=== PATIENT | male | born 1975 ===

== ENCOUNTER 2019-11-08 16:54 | Emergency (ER) | payer OTHER, SELFPAY ==
--- NOTE | 2019-11-08 | ECG_ITS ---
Test Reason : SUBSTANCE ABUSE Blood Pressure : / mmHG Vent. Rate : 100 BPM Atrial Rate : 100 BPM P-R Int : 142 ms QRS Dur : 086 ms QT Int : 322 ms P-R-T Axes : 060 049 024 degrees QTc Int : 415 ms Normal sinus rhythm Normal ECG No previous ECGs available Referred By: Charissa Restrepo Electronically Signed By:ELLA MOE
--- NOTE | 2019-11-08 | CT_ITS ---
EXAMINATION: CT ABDOMEN AND PELVIS WITH CONTRAST CLINICAL INFORMATION: Rectal bleeding COMPARISON: None TECHNIQUE: Multidetector volumetric images were obtained from the superior aspect of the liver through the pubic symphysis following administration 85 mL of Omnipaque 350 intravenous contrast. Sagittal and coronal reformatted images were obtained on the technologist's workstation. Oral contrast: No This CT examination was performed using dose optimization techniques as appropriate, variously including the following: *Automated exposure control *Adjustment of mA and/or kV according to patient size (this includes techniques or standardized protocols for targeted exams where dose is matched to indication/reason for exam; i.e. extremities or head) *Use of iterative reconstruction technique DLP: 589 mGy-cm FINDINGS: LUNG BASES: The visualized lung bases are unremarkable. LIVER, GALLBLADDER, AND BILIARY TREE: The liver is normal in size, shape, and attenuation. No focal hepatic lesion or biliary ductal dilatation is present. The gallbladder is unremarkable with no evidence of radiopaque gallstones, gallbladder wall thickening, or obvious pericholecystic inflammatory changes. PANCREAS: Unremarkable. SPLEEN: Unremarkable. ADRENAL GLANDS: Unremarkable. KIDNEYS AND URETERS: The kidneys are normal in size, shape, and attenuation. No hydronephrosis, hydroureter, or calculi seen. No perinephric stranding. BLADDER: Unremarkable. GASTROINTESTINAL TRACT: There is no acute abnormality. There is no bowel wall thickening /edema. There is no bowel obstruction. There is a moderate to large volume of stool in the colon. The appendix is normal . The small bowel loops are unremarkable. The stomach is normal. There is no hiatal hernia. ABDOMINAL WALL: No significant hernia is appreciated. LYMPH NODES: Normal. VASCULAR: Unremarkable. PELVIC VISCERA: Unremarkable. OSSEOUS STRUCTURES: Unremarkable. IMPRESSION: No acute abnormality CT scan abdomen pelvis.
[2019-11-08 17:10] VITALS: BP 155/76; PULSE 105; RESP 16; TEMP 36.5; O2SAT 99; BMI 77.0
--- NOTE | 2019-11-08 17:27 | ED.PSYCH ---
HPI - Psych General Chief Complaint: Psychiatric Symptoms <CÉSAR Betancur - Last Filed: 11/08/19 20:27> Stated Complaint: crisis <CÉSAR Betancur Last Filed: 11/08/19:> Time Seen by Provider: 11/08/19 17:25 <CÉSAR Betancur Last Filed: 11/08/19 20:27> Source: patient <CÉSAR Betancur Last Filed: 11/08/19:27> Mode of arrival: ambulatory <CÉSAR Betancur Last Filed: 11/08/19:> Limitations: no limitations <CÉSAR Betancur Last Filed: 11/08/19:> History of Present Illness HPI Narrative: 44 y/o male with history of depression, hx SI with attempts in the past (taking pills and cutting self) presents with reports of losing my mind. He has been using signifiant amounts of cocaine for the last 2-3 weeks and has not been taking his depression medications. Also reports chest pain and anxiety. <CÉSAR Betancur - Last Filed: 11/08/19:27> MD complaint: suicidal ideation, homicidal ideation, anxiety and substance abuse <CÉSAR Betancur - Last Filed: 11/08/19:27> Onset (ago): month(s) (1) <CÉSAR Betancur - Last Filed: 11/08/19 20:27> Duration: constant <CÉSAR Betancur Last Filed: 11/08/19 20:27> History of same: Yes <CÉSAR Betancur Last Filed: 11/08/19 20:27> Relieving factors: none <CÉSAR Betancur Last Filed: 11/08/19 20:27> Exacerbating factors: drug use <CÉSAR Betancur Last Filed: 11/08/19:27> Context: recent drug abuse and not taking psychiatric medications <CÉSAR Betancur Last Filed: 11/08/19 20:27> Associated psychiatric symptoms: depression, suicidal ideation, homicidal ideation and racing thoughts <CÉSAR Betancur Last Filed: 11/08/19 20:27> Associated symptoms: denies other symptoms and other (chest pain ) <CÉSAR Betancur - Last Filed: 11/08/19 20:27> Treatments prior to arrival: none <CÉSAR Betancur - Last Filed: 11/08/19 20:27> If self harm: admits thoughts of self harm <CÉSAR Betancur - Last Filed: 11/08/19 20:27> Related Data Allergies/Adverse Reactions: Allergies Allergy/AdvReac Type Severity Reaction Status Date / Time trazodone [TRAZODONE] Allergy Severe SHORTNESS Unverified 10/25/19 19:21 OF BREATH, anaphylaxis trazodone Allergy Unknown anaphylaxis Uncoded 01/12/19 00:00 <CÉSAR Betancur - Last Filed: 11/08/19 20:27> Review of Systems Constitutional: Constitutional: Denies chills and Denies fever(s) <CÉSAR Betancur - Last Filed: 11/08/19 20:27> Cardiovascular: Cardiovascular: Reports chest pain, Reports chest pain at rest, Reports chest pain with activity, Reports rapid heart rate and Reports dyspnea <CÉSAR Betancur - Last Filed: 11/08/19 20:27> Respiratory: Respiratory: Reports dyspnea <CÉSAR Betancur - Last Filed: 11/08/19 20:27> Gastrointestinal: Gastrointestinal: Denies nausea and Denies vomiting <CÉSAR Betancur - Last Filed: 11/08/19 20:27> Psychiatric: Psychiatric: Reports depression, Reports difficulty concentrating, Reports hopelessness, Reports irritability, Reports mood swings, Reports panic attacks, Reports homicidal ideation and Reports suicidal ideation <CÉSAR Betancur - Last Filed: 11/08/19 20:27> PMFSH Past Medical History Medical History: Medical History Bipolar 1 disorder Depression <CÉSAR Betancur - Last Filed: 11/08/19 20:27> Social History Social History: Social History Smoked in Last 30 Days: No Use of substances other than those prescribed or required for medical reasons: Yes Substance Use Type: Crack/Cocaine Substance Use Frequency: Daily Last Used Substance: Unknown Any prior treatment program specific to substance use: No Advance Directives: No Advance Directives Information Provided: No <CÉSAR Betancur - Last Filed: 11/08/19 20:27> Physical Exam Vital Signs and I&O and Narrative: Vital Signs and I&O: Vital Signs Temp 97.3 F 11/09/19 00:06 Pulse 98 11/09/19 00:06 Resp 18 11/09/19 00:06 BP 139/85 11/09/19 00:06 Pulse Ox 99 11/09/19 00:06 Intake & Output 11/08/19 11/08/19 11/09/19 06:59 18:59 06:59 Weight 210 kg Body Mass Index 77.0 <CÉSAR Betancur - Last Filed: 11/08/19 20:27> Vital Signs and I&O: Vital Signs Temp 97.3 F 11/09/19 00:06 Pulse 98 11/09/19 00:06 Resp 18 11/09/19 00:06 BP 139/85 11/09/19 00:06 Pulse Ox 99 11/09/19 00:06 Intake & Output 11/08/19 11/08/19 11/09/19 06:59 18:59 06:59 Weight 210 kg Body Mass Index 77.0 <Gloria Dubon NP - Last Filed: 11/09/19 01:48> Vital Signs and I&O: Vital Signs Temp 97.3 F 11/09/19 00:06 Pulse 98 11/09/19 00:06 Resp 18 11/09/19 00:06 BP 139/85 11/09/19 00:06 Pulse Ox 99 11/09/19 00:06 Intake & Output 11/08/19 11/08/19 11/09/19 06:59 18:59 06:59 Weight 210 kg Body Mass Index 77.0 <Dallas Huitron MD - Last Filed: 11/09/19 06:58> Const: General: cooperative, healthy appearing, comfortable and no acute distress <CÉSAR Betancur - Last Filed: 11/08/19 20:27> General: cooperative, healthy appearing, comfortable and no acute distress <Gloria Dubon NP - Last Filed: 11/09/19 01:48> Orientation/consciousness: oriented to person, oriented to place and oriented to time <CÉSAR Betancur - Last Filed: 11/08/19 20:27> Orientation/consciousness: oriented to person, oriented to place and oriented to time <Gloria Dubon NP - Last Filed: 11/09/19 01:48> Limitations: no limitations <CÉSAR Betancur - Last Filed: 11/08/19 20:27> Limitations: no limitations <Gloria Dubon NP - Last Filed: 11/09/19 01:48> HENMT: Head: Yes normal to inspection <CÉSAR Betancur - Last Filed: 11/08/19 20:27> Head: Yes normal to inspection <Gloria Dubon NP - Last Filed: 11/09/19 01:48> Ears: hearing grossly normal bilaterally <CÉSAR Betancur - Last Filed: 11/08/19 20:27> Ears: hearing grossly normal bilaterally <Gloria Dubon NP - Last Filed: 11/09/19 01:48> General nose exam: Normal external nose present <CÉSAR Betancur - Last Filed: 11/08/19 20:27> General nose exam: Normal external nose present <Gloria Dubon NP - Last Filed: 11/09/19 01:48> Face and sinus: Yes normal facial exam <CÉSAR Betancur - Last Filed: 11/08/19 20:27> Face and sinus: Yes normal facial exam <Gloria Dubon NP - Last Filed: 11/09/19 01:48> Eyes: General: appearance normal, both eyes and all related structures <CÉSAR Betancur - Last Filed: 11/08/19 20:27> General: appearance normal, both eyes and all related structures <Gloria Dubon NP - Last Filed: 11/09/19 01:48> Chest: Chest palpation & inspection: normal inspection of the chest and normal palpation of entire chest wall <CÉSAR Betancur - Last Filed: 11/08/19 20:27> Chest palpation & inspection: normal inspection of the chest and normal palpation of entire chest wall <Gloria Dubon NP - Last Filed: 11/09/19 01:48> Resp: Effort & Inspection: normal respiratory effort and able to speak in complete sentences <CÉSAR Betancur - Last Filed: 11/08/19 20:27> Effort & Inspection: normal respiratory effort and able to speak in complete sentences <Gloria Dubon HAND TURNER - Last Filed: 11/09/19 01:48> Auscultation: clear to auscultation bilaterally <Charissa Restrepo PA - Last Filed: 11/08/19 20:27> Auscultation: clear to auscultation bilaterally <Gloria Dubon HAND TURNER - Last Filed: 11/09/19 01:48> Cardio: Rate: tachycardic <Charissa Restrepo PA - Last Filed: 11/08/19 20:27> Rate: tachycardic <Gloria Dubon HAND TURNER - Last Filed: 11/09/19 01:48> Rhythm: regular rhythm <CÉSAR Betancur - Last Filed: 11/08/19 20:27> Rhythm: regular rhythm <Gloria Dubon HAND TURNER - Last Filed: 11/09/19 01:48> Heart sounds: S1 normal heart sound present and S2 normal heart sound present <CÉSAR Betancur - Last Filed: 11/08/19 20:27> Heart sounds: S1 normal heart sound present and S2 normal heart sound present <Gloria Dubon HAND TURNER - Last Filed: 11/09/19 01:48> GI: Inspection: Yes normal to inspection <Charissa Restrepo PA - Last Filed: 11/08/19 20:27> Inspection: Yes normal to inspection <Gloria Dubon HAND TURNER - Last Filed: 11/09/19 01:48> Palpation (GI): Soft to palpation <CÉSAR Betancur - Last Filed: 11/08/19 20:27> Palpation (GI): Soft to palpation <Gloria Dubon NP - Last Filed: 11/09/19 01:48> Auscultation: normal bowel sounds <CÉSAR Betancur - Last Filed: 11/08/19 20:27> Auscultation: normal bowel sounds <Gloria Dubon HAND TURNER - Last Filed: 11/09/19 01:48> Neuro: General: oriented to person, oriented to place and oriented to time <CSÉAR Betancur - Last Filed: 11/08/19 20:27> General: oriented to person, oriented to place and oriented to time <Gloria Dubon NP - Last Filed: 11/09/19 01:48> Psych: Mental Status: mental status grossly normal <CÉSAR Betancur - Last Filed: 11/08/19 20:27> Mental Status: mental status grossly normal <Gloria Dubon NP - Last Filed: 11/09/19 01:48> Speech and movement: Normal speech and movement present <CÉSAR Betancur - Last Filed: 11/08/19 20:27> Speech and movement: Normal speech and movement present <Gloria Dubon NP - Last Filed: 11/09/19 01:48> Affect: normal affect <CÉSAR Betancur - Last Filed: 11/08/19 20:27> Affect: normal affect <Gloria Dubon NP - Last Filed: 11/09/19 01:48> Attitude: cooperative <CÉSAR Betancur - Last Filed: 11/08/19 20:27> Attitude: cooperative <Gloria Dubon NP - Last Filed: 11/09/19 01:48> Thought content: Suicidality present, Homicidality present and Depressive thoughts present <CÉSAR Betancur - Last Filed: 11/08/19 20:27> Thought content: Suicidality present, Homicidality present and Depressive thoughts present <Gloria Dubon NP - Last Filed: 11/09/19 01:48> Insight: Fair insight present (Psych) <CÉSAR Betancur - Last Filed: 11/08/19 20:27> Insight: Fair insight present (Psych) <Gloria Dubon NP - Last Filed: 11/09/19 01:48> Judgement: Limited judgement present (Psych) <CÉSAR Betancur - Last Filed: 11/08/19 20:27> Judgement: Limited judgement present (Psych) <Gloria Dubon NP - Last Filed: 11/09/19 01:48> Course Course Hospital Course: history of bipolar, depression, substance abuse presenting with SI/HI and excessive cocaine use. Admits to chest pain now. Will get tropoinin and EKG to r/o ischemia. <CÉSAR Betancur - Last Filed: 11/08/19 20:27> Reevaluation(s) Reevaluation #1: patient given 1 m gativan for anxiety. chest pain improving. Lab work revealed anemia with H/H 8.2/26.8 from a prior from September 2018. Upon questioning patient reports BRBPR daily for the last few years. He has never had a colonoscopy and has cancelled appointments for them x3 due to drug issues. He reports history of hemorrhoids and is refusing rectal exam at this time. He denies black or dark stools. Given this issue has been ongoing chronically and he is not symptomatic from it, we will plan on repeating H/H in the AM and monitoring for active bleeding while here. <CÉSAR Betancur - Last Filed: 11/08/19 20:27> Patient was noted to have blood mixed in with his stools, this HAND TURNER looked at the stools in the toilet after BM. Stools were unable to be guaiac because Of water contamination, patient politely deferred rectal exam. we will order CT scan of the abdomen to rule out colitis, GI bleed. <Gloria Dubon NP - Last Filed: 11/09/19 01:48> Time: 23:55 <Gloria Dubon NP - Last Filed: 11/09/19 01:48> Reevaluation #2: CT scan is negative for acute findings, vital signs are hemodynamically stable, heart rate 97. we will continue To monitor H&H, next draw at 6:00 a.m.. <Gloria Dubon NP - Last Filed: 11/09/19 01:48> Reevaluation #3: Patient has been signed out to me pending placement. The patient has been placed at [facility]. He will followup in the outpatient setting with GI for his rectal bleeding. <Dallas Huitron MD - Last Filed: 11/09/19 06:58> Time: 07:00 <Dallas Huitron MD - Last Filed: 11/09/19 06:58> MDM - Psych Differential Diagnosis Differential diagnosis: Likely acute psychosis, suicidal ideation, bipolar disorder, depression, drug-induced psychotic disorder and substance abuse <CÉSAR Betancur - Last Filed: 11/08/19 20:27> Restraints Face to Face Assessment: Face to Face Assessment: Current Situation: After assessment of the patient, a review of the pertinent medical record and a discussion with nursing staff, I feel the patient requires a restrain intervention. Reaction To: [] Medical Condition: [] Behavioral State: [] Continued Need: [] <CÉSAR Betancur - Last Filed: 11/08/19 20:27> Lab Data Result diagrams: : 11/08/19 22:21 11/08/19 19:25 <CÉSAR Betancur - Last Filed: 11/08/19 20:27> Labs: Lab Results 11/08/19 11/08/19 11/08/19 Range/Units 19:25 19:25 19:26 WBC 7.7 (4.8-10.8) X10*3/uL RBC 3.86 L (4.60-5.80) X10*6/uL Hgb 8.2 L (14.0-18.0) g/dl Hct 26.8 L (42-52) % MCV 69.4 L (80-98) fL MCH 21.2 L (27.0-33.0) pg MCHC 30.6 L (31.0-36.0) g/dl RDW 15.9 (11.0-16.0) % Plt Count 496 H (160-400) X10*3/uL MPV 8.2 L (9.4-12.4) fL Immature Gran % (Auto) 0.4 (0.0-0.4) % Neut % (Auto) 48.6 (45-73) % Lymph % (Auto) 34.2 (20-40) % Graves % (Auto) 9.3 (2-11) % Eos % (Auto) 6.6 H (0-4) % Baso % (Auto) 0.9 (0-2) % Neut # (Auto) 3.7 (2.0-8.3) X10*3/uL Lymph # (Auto) 2.6 (1.2-4.9) X10*3/uL Graves # (Auto) 0.7 (0.1-1.2) X10*3/uL Eos # (Auto) 0.5 H (0.0-0.4) X10*3/uL Baso # (Auto) 0.1 (0.0-0.2) X10*3/uL Abs Immat Gran (auto) 0.03 (0.00-0.03) X10*3/uL Absolute Nucleated RBC 0.000 (0.0-0.012) X10*3/uL Nucleated RBC % (auto) 0.0 (0.0-0.2) /100WBC Sodium 141 (135-145) mmol/L Potassium 4.7 (3.3-5.1) mmol/l Chloride 105 (96-108) mmol/L Carbon Dioxide 30 H (22-29) mmol/L Anion Gap 11 L (12-20) BUN 19 H (9-16) mg/dL Creatinine 1.19 (0.5-1.4) mg/dL Estim Creat Clear Calc 138.2 Estimated GFR > 60 Random Glucose 104 (60-115) mg/dL Calcium 9.3 (8.4-10.2) mg/dL Total Bilirubin 0.2 (0.0-1.0) mg/dL AST 26 (5-37) U/L ALT 37 (0-40) U/L Alkaline Phosphatase 108 (39-117) U/L Troponin I High Sens (<3.5-35.0) ng/L Total Protein 7.3 (6.5-8.0) g/dL Albumin 4.3 (3.5-5.0) g/dL Urine Opiates Screen (Not Detect) Ur Barbiturates Screen (Not Detect) Ur Phencyclidine Scrn (Not Detect) Ur Amphetamines Screen (Not Detect) U Benzodiazepines Scrn (Not Detect) Urine Cocaine Screen (Not Detect) U Marijuana (THC) Screen (Not Detect) Ethyl Alcohol < 10 mg/dL 11/08/19 11/08/19 11/08/19 Range/Units 19:26 19:26 22:21 WBC (4.8-10.8) X10*3/uL RBC (4.60-5.80) X10*6/uL Hgb 8.0 L (14.0-18.0) g/dl Hct 25.9 L (42-52) % MCV (80-98) fL MCH (27.0-33.0) pg MCHC (31.0-36.0) g/dl RDW (11.0-16.0) % Plt Count (160-400) X10*3/uL MPV (9.4-12.4) fL Immature Gran % (Auto) (0.0-0.4) % Neut % (Auto) (45-73) % Lymph % (Auto) (20-40) % Graves % (Auto) (2-11) % Eos % (Auto) (0-4) % Baso % (Auto) (0-2) % Neut # (Auto) (2.0-8.3) X10*3/uL Lymph # (Auto) (1.2-4.9) X10*3/uL Graves # (Auto) (0.1-1.2) X10*3/uL Eos # (Auto) (0.0-0.4) X10*3/uL Baso # (Auto) (0.0-0.2) X10*3/uL Abs Immat Gran (auto) (0.00-0.03) X10*3/uL Absolute Nucleated RBC (0.0-0.012) X10*3/uL Nucleated RBC % (auto) (0.0-0.2) /100WBC Sodium (135-145) mmol/L Potassium (3.3-5.1) mmol/l Chloride (96-108) mmol/L Carbon Dioxide (22-29) mmol/L Anion Gap (12-20) BUN (9-16) mg/dL Creatinine (0.5-1.4) mg/dL Estim Creat Clear Calc Estimated GFR Random Glucose (60-115) mg/dL Calcium (8.4-10.2) mg/dL Total Bilirubin (0.0-1.0) mg/dL AST (5-37) U/L ALT (0-40) U/L Alkaline Phosphatase (39-117) U/L Troponin I High Sens < 3.5 (<3.5-35.0) ng/L Total Protein (6.5-8.0) g/dL Albumin (3.5-5.0) g/dL Urine Opiates Screen Not Detected (Not Detect) Ur Barbiturates Screen Not Detected (Not Detect) Ur Phencyclidine Scrn Not Detected (Not Detect) Ur Amphetamines Screen Not Detected (Not Detect) U Benzodiazepines Scrn Not Detected (Not Detect) Urine Cocaine Screen POSITIVE H (Not Detect) U Marijuana (THC) Screen POSITIVE H (Not Detect) Ethyl Alcohol mg/dL <CÉSAR Betancur - Last Filed: 11/08/19 20:27> Lab Results 11/08/19 11/08/19 11/08/19 Range/Units 19:25 19:25 19:26 WBC 7.7 (4.8-10.8) X10*3/uL RBC 3.86 L (4.60-5.80) X10*6/uL Hgb 8.2 L (14.0-18.0) g/dl Hct 26.8 L (42-52) % MCV 69.4 L (80-98) fL MCH 21.2 L (27.0-33.0) pg MCHC 30.6 L (31.0-36.0) g/dl RDW 15.9 (11.0-16.0) % Plt Count 496 H (160-400) X10*3/uL MPV 8.2 L (9.4-12.4) fL Immature Gran % (Auto) 0.4 (0.0-0.4) % Neut % (Auto) 48.6 (45-73) % Lymph % (Auto) 34.2 (20-40) % Graves % (Auto) 9.3 (2-11) % Eos % (Auto) 6.6 H (0-4) % Baso % (Auto) 0.9 (0-2) % Neut # (Auto) 3.7 (2.0-8.3) X10*3/uL Lymph # (Auto) 2.6 (1.2-4.9) X10*3/uL Graves # (Auto) 0.7 (0.1-1.2) X10*3/uL Eos # (Auto) 0.5 H (0.0-0.4) X10*3/uL Baso # (Auto) 0.1 (0.0-0.2) X10*3/uL Abs Immat Gran (auto) 0.03 (0.00-0.03) X10*3/uL Absolute Nucleated RBC 0.000 (0.0-0.012) X10*3/uL Nucleated RBC % (auto) 0.0 (0.0-0.2) /100WBC Sodium 141 (135-145) mmol/L Potassium 4.7 (3.3-5.1) mmol/l Chloride 105 (96-108) mmol/L Carbon Dioxide 30 H (22-29) mmol/L Anion Gap 11 L (12-20) BUN 19 H (9-16) mg/dL Creatinine 1.19 (0.5-1.4) mg/dL Estim Creat Clear Calc 138.2 Estimated GFR > 60 Random Glucose 104 (60-115) mg/dL Calcium 9.3 (8.4-10.2) mg/dL Total Bilirubin 0.2 (0.0-1.0) mg/dL AST 26 (5-37) U/L ALT 37 (0-40) U/L Alkaline Phosphatase 108 (39-117) U/L Troponin I High Sens (<3.5-35.0) ng/L Total Protein 7.3 (6.5-8.0) g/dL Albumin 4.3 (3.5-5.0) g/dL Urine Opiates Screen (Not Detect) Ur Barbiturates Screen (Not Detect) Ur Phencyclidine Scrn (Not Detect) Ur Amphetamines Screen (Not Detect) U Benzodiazepines Scrn (Not Detect) Urine Cocaine Screen (Not Detect) U Marijuana (THC) Screen (Not Detect) Ethyl Alcohol < 10 mg/dL 11/08/19 11/08/19 11/08/19 Range/Units 19:26 19:26 22:21 WBC (4.8-10.8) X10*3/uL RBC (4.60-5.80) X10*6/uL Hgb 8.0 L (14.0-18.0) g/dl Hct 25.9 L (42-52) % MCV (80-98) fL MCH (27.0-33.0) pg MCHC (31.0-36.0) g/dl RDW (11.0-16.0) % Plt Count (160-400) X10*3/uL MPV (9.4-12.4) fL Immature Gran % (Auto) (0.0-0.4) % Neut % (Auto) (45-73) % Lymph % (Auto) (20-40) % Graves % (Auto) (2-11) % Eos % (Auto) (0-4) % Baso % (Auto) (0-2) % Neut # (Auto) (2.0-8.3) X10*3/uL Lymph # (Auto) (1.2-4.9) X10*3/uL Graves # (Auto) (0.1-1.2) X10*3/uL Eos # (Auto) (0.0-0.4) X10*3/uL Baso # (Auto) (0.0-0.2) X10*3/uL Abs Immat Gran (auto) (0.00-0.03) X10*3/uL Absolute Nucleated RBC (0.0-0.012) X10*3/uL Nucleated RBC % (auto) (0.0-0.2) /100WBC Sodium (135-145) mmol/L Potassium (3.3-5.1) mmol/l Chloride (96-108) mmol/L Carbon Dioxide (22-29) mmol/L Anion Gap (12-20) BUN (9-16) mg/dL Creatinine (0.5-1.4) mg/dL Estim Creat Clear Calc Estimated GFR Random Glucose (60-115) mg/dL Calcium (8.4-10.2) mg/dL Total Bilirubin (0.0-1.0) mg/dL AST (5-37) U/L ALT (0-40) U/L Alkaline Phosphatase (39-117) U/L Troponin I High Sens < 3.5 (<3.5-35.0) ng/L Total Protein (6.5-8.0) g/dL Albumin (3.5-5.0) g/dL Urine Opiates Screen Not Detected (Not Detect) Ur Barbiturates Screen Not Detected (Not Detect) Ur Phencyclidine Scrn Not Detected (Not Detect) Ur Amphetamines Screen Not Detected (Not Detect) U Benzodiazepines Scrn Not Detected (Not Detect) Urine Cocaine Screen POSITIVE H (Not Detect) U Marijuana (THC) Screen POSITIVE H (Not Detect) Ethyl Alcohol mg/dL <Gloria Dubon NP - Last Filed: 11/09/19 01:48> Lab Results 11/08/19 11/08/19 11/08/19 Range/Units 19:25 19:25 19:26 WBC 7.7 (4.8-10.8) X10*3/uL RBC 3.86 L (4.60-5.80) X10*6/uL Hgb 8.2 L (14.0-18.0) g/dl Hct 26.8 L (42-52) % MCV 69.4 L (80-98) fL MCH 21.2 L (27.0-33.0) pg MCHC 30.6 L (31.0-36.0) g/dl RDW 15.9 (11.0-16.0) % Plt Count 496 H (160-400) X10*3/uL MPV 8.2 L (9.4-12.4) fL Immature Gran % (Auto) 0.4 (0.0-0.4) % Neut % (Auto) 48.6 (45-73) % Lymph % (Auto) 34.2 (20-40) % Graves % (Auto) 9.3 (2-11) % Eos % (Auto) 6.6 H (0-4) % Baso % (Auto) 0.9 (0-2) % Neut # (Auto) 3.7 (2.0-8.3) X10*3/uL Lymph # (Auto) 2.6 (1.2-4.9) X10*3/uL Graves # (Auto) 0.7 (0.1-1.2) X10*3/uL Eos # (Auto) 0.5 H (0.0-0.4) X10*3/uL Baso # (Auto) 0.1 (0.0-0.2) X10*3/uL Abs Immat Gran (auto) 0.03 (0.00-0.03) X10*3/uL Absolute Nucleated RBC 0.000 (0.0-0.012) X10*3/uL Nucleated RBC % (auto) 0.0 (0.0-0.2) /100WBC Sodium 141 (135-145) mmol/L Potassium 4.7 (3.3-5.1) mmol/l Chloride 105 (96-108) mmol/L Carbon Dioxide 30 H (22-29) mmol/L Anion Gap 11 L (12-20) BUN 19 H (9-16) mg/dL Creatinine 1.19 (0.5-1.4) mg/dL Estim Creat Clear Calc 138.2 Estimated GFR > 60 Random Glucose 104 (60-115) mg/dL Calcium 9.3 (8.4-10.2) mg/dL Total Bilirubin 0.2 (0.0-1.0) mg/dL AST 26 (5-37) U/L ALT 37 (0-40) U/L Alkaline Phosphatase 108 (39-117) U/L Troponin I High Sens (<3.5-35.0) ng/L Total Protein 7.3 (6.5-8.0) g/dL Albumin 4.3 (3.5-5.0) g/dL Urine Opiates Screen (Not Detect) Ur Barbiturates Screen (Not Detect) Ur Phencyclidine Scrn (Not Detect) Ur Amphetamines Screen (Not Detect) U Benzodiazepines Scrn (Not Detect) Urine Cocaine Screen (Not Detect) U Marijuana (THC) Screen (Not Detect) Ethyl Alcohol < 10 mg/dL 11/08/19 11/08/19 11/08/19 Range/Units 19:26 19:26 22:21 WBC (4.8-10.8) X10*3/uL RBC (4.60-5.80) X10*6/uL Hgb 8.0 L (14.0-18.0) g/dl Hct 25.9 L (42-52) % MCV (80-98) fL MCH (27.0-33.0) pg MCHC (31.0-36.0) g/dl RDW (11.0-16.0) % Plt Count (160-400) X10*3/uL MPV (9.4-12.4) fL Immature Gran % (Auto) (0.0-0.4) % Neut % (Auto) (45-73) % Lymph % (Auto) (20-40) % Graves % (Auto) (2-11) % Eos % (Auto) (0-4) % Baso % (Auto) (0-2) % Neut # (Auto) (2.0-8.3) X10*3/uL Lymph # (Auto) (1.2-4.9) X10*3/uL Graves # (Auto) (0.1-1.2) X10*3/uL Eos # (Auto) (0.0-0.4) X10*3/uL Baso # (Auto) (0.0-0.2) X10*3/uL Abs Immat Gran (auto) (0.00-0.03) X10*3/uL Absolute Nucleated RBC (0.0-0.012) X10*3/uL Nucleated RBC % (auto) (0.0-0.2) /100WBC Sodium (135-145) mmol/L Potassium (3.3-5.1) mmol/l Chloride (96-108) mmol/L Carbon Dioxide (22-29) mmol/L Anion Gap (12-20) BUN (9-16) mg/dL Creatinine (0.5-1.4) mg/dL Estim Creat Clear Calc Estimated GFR Random Glucose (60-115) mg/dL Calcium (8.4-10.2) mg/dL Total Bilirubin (0.0-1.0) mg/dL AST (5-37) U/L ALT (0-40) U/L Alkaline Phosphatase (39-117) U/L Troponin I High Sens < 3.5 (<3.5-35.0) ng/L Total Protein (6.5-8.0) g/dL Albumin (3.5-5.0) g/dL Urine Opiates Screen Not Detected (Not Detect) Ur Barbiturates Screen Not Detected (Not Detect) Ur Phencyclidine Scrn Not Detected (Not Detect) Ur Amphetamines Screen Not Detected (Not Detect) U Benzodiazepines Scrn Not Detected (Not Detect) Urine Cocaine Screen POSITIVE H (Not Detect) U Marijuana (THC) Screen POSITIVE H (Not Detect) Ethyl Alcohol mg/dL <Dallas Huitron MD - Last Filed: 11/09/19 06:58> ECG Data Attestation: I personally reviewed and interpreted this ECG as follows: <CÉSAR Betancur - Last Filed: 11/08/19 20:27> ECG interpretation date: 11/08/19 <CÉSAR Betancur - Last Filed: 11/08/19 20:> ECG interpretation time: 18:42 <CÉSAR Betancur - Last Filed: 11/08/19 20:27> Interpretation: normal sinus rhythm, HR 100, normal QTc <CÉSAR Betancur - Last Filed: 11/08/19 20:27> Discharge Plan Discharge Clinical Impression: Suicidal ideation Anemia Qualifiers: Anemia type: unspecified type Qualified Code(s): D64.9 - Anemia, unspecified Bipolar disorder Qualifiers: Active/Remission status: currently active Current bipolar episode type: depressed Current episode severity: unspecified Qualified Code(s): F31.30 - Bipolar disorder, current episode depressed, mild or moderate severity, unspecified Depression Qualifiers: Depression Type: major depressive disorder Major depression recurrence: recurrent Active/Remission status: currently active Major depression episode severity: moderate Qualified Code(s): F33.1 - Major depressive disorder, recurrent, moderate <CÉSAR Betancur - Last Filed: 11/08/19 20:27> Patient Disposition: Xfer Psychiatric Hosp <CÉSAR Betancur - Last Filed: 11/08/19 20:27> Instructions: Gastrointestinal Bleeding (ED) <CÉSAR Betancur - Last Filed: 11/08/19 20:27> Additional Instructions: Your blood work showed that you were anemic, likely due to you rectal bleeding. Please followup with the GI doctor provided within the next 1-2 weeks for reevaluation. Please go directly to [facility]. Followup with your primary care doctor as needed. If you develop any new or concerning symptoms please return to the emergency department. <CÉSAR Betancur - Last Filed: 11/08/19 20:27>
--- NOTE | 2019-11-08 18:24 | PC.NURSE ---
Patient transferred from main ED. Per report patient here for suicidal ideation with plan to overdose. EKG unremarkable, Troponin negative. BHN consult ordered. N faxed/called/confirmed receipt of referral, clinician eta by midnight.
[2019-11-08 19:33] LABS: MANUAL DIFF FLAG NO
[2019-11-08 19:36] LABS: Basophils Absolute Auto 0.1 X10*3/uL (0.0-0.2); Basophils Percent Auto 0.9 % (0-2); Eosinophils Absolute Auto 0.5 X10*3/uL (0.0-0.4); Eosinophils Percent Auto 6.6 % (0-4); Hematocrit 26.8 % (42-52); Hemoglobin 8.2 g/dl (14.0-18.0); Imm Gran Abs Auto 0.03 X10*3/uL (0.00-0.03); Imm Gran Pct Auto 0.4 % (0.0-0.4); Lymphocytes Absolute Auto 2.6 X10*3/uL (1.2-4.9); Lymphocytes Percent Auto 34.2 % (20-40); Mean Corpuscular HGB Conc 30.6 g/dl (31.0-36.0); Mean Corpuscular Hemoglobin 21.2 pg (27.0-33.0); Mean Corpuscular Volume 69.4 fL (80-98); Mean Platelet Volume 8.2 fL (9.4-12.4); Monocytes Absolute Auto 0.7 X10*3/uL (0.1-1.2); Monocytes Percent Auto 9.3 % (2-11); Neutrophils Absolute Auto 3.7 X10*3/uL (2.0-8.3); Neutrophils Percent Auto 48.6 % (45-73); Platelet Count 496 X10*3/uL (160-400); Red Blood Count 3.86 X10*6/uL (4.60-5.80); Red Cell Distribution Width 15.9 % (11.0-16.0); White Blood Count 7.7 X10*3/uL (4.8-10.8)
[2019-11-08] MEDS: LORazepam 1 MG TABLET PO (20:04)
--- NOTE | 2019-11-08 20:05 | PC.NURSE ---
PT REQUESTING ASSISTANCE WITH ANXIETY. CÉSAR FELIPE NOTIFIED, PT MEDIACTED PER EMR. 1:1 AT BEDSIDE, LABS DRAWN.
[2019-11-08 20:12] LABS: Ethanol < 10 mg/dL
[2019-11-08 20:16] LABS: Alanine Aminotransferase 37 U/L (0-40); Albumin Level 4.3 g/dL (3.5-5.0); Alkaline Phosphatase 108 U/L (39-117); Anion Gap 11 (12-20); Aspartate Amino Transferase 26 U/L (5-37); Bilirubin Total 0.2 mg/dL (0.0-1.0); Blood Urea Nitrogen 19 mg/dL (9-16); Calcium 9.3 mg/dL (8.4-10.2); Carbon Dioxide 30 mmol/L (22-29); Chloride 105 mmol/L (96-108); Creatinine Clr Calc Pharmacy 138.2; Estimated Glomerular Filt Rate > 60; Glucose Random 104 mg/dL (60-115); Potassium 4.7 mmol/l (3.3-5.1); Sodium 141 mmol/L (135-145); Total Protein 7.3 g/dL (6.5-8.0)
[2019-11-08 20:17] LABS: Amphetamine Screen Urine Not Detected (Not Detect); Barbiturates, Urine Not Detected (Not Detect); Benzodiazepines Screen Urine Not Detected (Not Detect); Cannabinoid Screen Urine POSITIVE (Not Detect); Cocaine Screen Urine POSITIVE (Not Detect); Opiate Screen Urine Not Detected (Not Detect); Phencyclidine Screen Urine Not Detected (Not Detect)
[2019-11-08 20:19] LABS: Troponin-I High Sensitivity < 3.5 ng/L (<3.5-35.0)
[2019-11-08 21:30] VITALS: BP 127/73; PULSE 97; RESP 18; TEMP 36.8; O2SAT 98
[2019-11-08 22:27] LABS: Hematocrit 25.9 % (42-52)
--- NOTE | 2019-11-08 22:58 | PC.NURSE ---
Patient out of ED-POD for CT abdomen with contrast procedure. Left with security and staff in wheel chair.
[2019-11-08] MEDS: iohexoL 350 MG/ML 100 ML INFUS..BTL IV (23:09)
[2019-11-09 00:06] VITALS: BP 139/85; PULSE 98; RESP 18; TEMP 36.3; O2SAT 99
--- NOTE | 2019-11-09 00:47 | PC.NURSE ---
BHN with patient now for assessment. Patient seems engaged. Will continue to monitor
--- NOTE | 2019-11-09 02:51 | PC.NURSE ---
TRINAN completed assessment. Disposition updated. Patient will be discharged in the morning to [facility] in [place] for detox. Patient and provider are in agreement to the plan. Patient currently in bed appears sleeping. No distress observed/reported. Will continue to monitor
--- NOTE | 2019-11-09 04:41 | PC.NURSE ---
Patient in bed appears sleeping. No distress observed/reported. Respiration +/=/non-labored bilaterally. Safety check maintained. Will continue to monitor.
--- NOTE | 2019-11-09 06:15 | PC.NURSE ---
Patient in bed appears sleeping. No distress observed/reported. Respiration +/=/non-labored bilaterally. Will continue to monitor.
[2019-11-09 07:16] VITALS: BP 131/69; PULSE 89; RESP 17; TEMP 36.8; O2SAT 99
--- NOTE | 2019-11-09 07:52 | PC.NURSE ---
After discussing [facility], pt states he feels comfortable being discharged there. Dr. Granados aware and ok with plan. Pt is calm, cooperative and now denying active si/hi.
== END 2019-11-09 07:54 ==
PROVIDERS: Physician Assistant; Emergency Provider Emergency Medicine; PCP Nurse Practitioner Family
DX: F33.1 Major depressive disorder, recurrent, moderate (principal); R45.851 Suicidal ideations; D64.9 Anemia, unspecified; F14.90 Cocaine use, unspecified, uncomplicated; Z91.5 Personal history of self-harm; Z91.14 Patient's other noncompliance with medication regimen
CPT/HCPCS: 36415; 74177; 80053; 80307; 80320; 84484; 85014; 85018; 85025; 93005; 93010; 96374; 99284; 99285

== ENCOUNTER 2019-11-13 16:45 | Inpatient (IN) | payer OTHER, SELFPAY ==
[2019-11-13 16:59] VITALS: BP 133/60; PULSE 105; RESP 18; TEMP 37.7; O2SAT 100; BMI 34.9
[2019-11-13 17:38] VITALS: BP 133/83; PULSE 102; RESP 18; TEMP 36.4; O2SAT 99
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
[2019-11-13 18:26] LABS: Amphetamine Screen Urine Not Detected (Not Detect); Barbiturates, Urine Not Detected (Not Detect); Benzodiazepines Screen Urine POSITIVE (Not Detect); Cannabinoid Screen Urine Not Detected (Not Detect); Cocaine Screen Urine Not Detected (Not Detect); Opiate Screen Urine Not Detected (Not Detect); Phencyclidine Screen Urine Not Detected (Not Detect)
--- NOTE | 2019-11-13 19:20 | PC.NURSE ---
Patient in room lying in his bed. Provider just saw the patient, N consult ordered/faxed/pending confirmation. Denied distress. Medication reconcilation completed/provider notified to review. Will continue to monitor.
[2019-11-13 21:47] LABS: MANUAL DIFF FLAG NO
[2019-11-13 21:48] LABS: Basophils Absolute Auto 0.1 X10*3/uL (0.0-0.2); Basophils Percent Auto 0.7 % (0-2); Eosinophils Absolute Auto 0.6 X10*3/uL (0.0-0.4); Eosinophils Percent Auto 6.4 % (0-4); Hematocrit 25.1 % (42-52); Hemoglobin 7.5 g/dl (14.0-18.0); Imm Gran Abs Auto 0.04 X10*3/uL (0.00-0.03); Imm Gran Pct Auto 0.4 % (0.0-0.4); Lymphocytes Absolute Auto 2.8 X10*3/uL (1.2-4.9); Lymphocytes Percent Auto 31.3 % (20-40); Mean Corpuscular HGB Conc 29.9 g/dl (31.0-36.0); Mean Corpuscular Hemoglobin 20.6 pg (27.0-33.0); Mean Platelet Volume 8.5 fL (9.4-12.4); Monocytes Absolute Auto 0.8 X10*3/uL (0.1-1.2); Monocytes Percent Auto 8.9 % (2-11); Neutrophils Absolute Auto 4.7 X10*3/uL (2.0-8.3); Neutrophils Percent Auto 52.3 % (45-73); Platelet Count 420 X10*3/uL (160-400); Red Blood Count 3.64 X10*6/uL (4.60-5.80); Red Cell Distribution Width 15.9 % (11.0-16.0); White Blood Count 8.9 X10*3/uL (4.8-10.8)
[2019-11-13 22:15] LABS: Ethanol < 10 mg/dL
[2019-11-13 22:18] LABS: Alanine Aminotransferase 68 U/L (0-40); Albumin Level 4.1 g/dL (3.5-5.0); Alkaline Phosphatase 122 U/L (39-117); Anion Gap 12 (12-20); Aspartate Amino Transferase 72 U/L (5-37); Bilirubin Total 0.2 mg/dL (0.0-1.0); Blood Urea Nitrogen 19 mg/dL (9-16); Calcium 8.7 mg/dL (8.4-10.2); Carbon Dioxide 26 mmol/L (22-29); Chloride 106 mmol/L (96-108); Creatinine Clr Calc Pharmacy 85.7; Estimated Glomerular Filt Rate > 60; Glucose Random 126 mg/dL (60-115); Potassium 4.3 mmol/l (3.3-5.1); Sodium 140 mmol/L (135-145); Total Protein 6.6 g/dL (6.5-8.0)
[2019-11-13] MEDS: buPROPion HCl XL 150 MG TAB.ER.24H PO (22:49)
[2019-11-13] MEDS: Cholecalciferol (Vitamin D3) 25 MCG TABLET 50 MCG PO (22:54)
[2019-11-13] MEDS: Atorvastatin Calcium 10 MG TABLET PO (22:54)
[2019-11-13 23:48] VITALS: BP 129/73; PULSE 97; RESP 16; TEMP 36.6; O2SAT 98
[2019-11-14] VITALS (7 sets, daily range): BP systolic 116–137; BP diastolic 58–79; PULSE 89–124; RESP 16–20; TEMP 36.3–36.6; O2SAT 98–99
--- NOTE | 2019-11-14 | ECG_ITS ---
Test Reason : CRISIS Blood Pressure : / mmHG Vent. Rate : 095 BPM Atrial Rate : 095 BPM P-R Int : 148 ms QRS Dur : 092 ms QT Int : 340 ms P-R-T Axes : 066 055 032 degrees QTc Int : 427 ms Normal sinus rhythm Normal ECG When compared with ECG of 08-NOV-2019 18:30, No significant change was found Referred By: Ruthie Harry Electronically Signed By:BARBARA RUIZ MD
--- NOTE | 2019-11-14 00:08 | ED_ITS ---
HPI - Psych General Chief Complaint: Psychiatric Symptoms Stated Complaint: SI Time Seen by Provider: 11/13/19 19:43 History of Present Illness HPI Narrative: Patient presents to the ED for suicidal ideation and depression. patient states also he is very anxious. Patient denies any p hysical complaints Related Data Home Medications Medication Instructions Recorded Confirmed atorvastatin 10 mg PO DAILY 11/13/19 11/13/19 bupropion HCl 150 mg PO QAM 11/13/19 11/13/19 cholecalciferol (vitamin D3) 50 mcg PO DAILY 11/13/19 11/13/19 [Vitamin D3] escitalopram oxalate 10 mg PO DAILY 11/13/19 11/13/19 pantoprazole 40 mg PO DAILY 11/13/19 11/13/19 Allergies Allergy/AdvReac Type Severity Reaction Status Date / Time trazodone [TRAZODONE] Allergy Severe SHORTNESS Verified 11/13/19 18:59 OF BREATH, anaphylaxis trazodone Allergy Unknown anaphylaxis Uncoded 11/13/19 18:59 Review of Systems Review of Systems: Yes all other systems are reviewed and are negative Cardiovascular: Cardiovascular: Reports no additional cardiovascular complaints, Denies Abdominal Cramping after Meds, Denies Abdominal Distension and Denies dyspnea Respiratory: Respiratory: Reports as per HPI, Reports no additional respiratory complaints, Denies change in phlegm color, Denies chest congestion, Denies cough, Denies hemoptysis, Denies excessive phlegm production, Denies pain on inspiration, Denies pain with cough and Denies dyspnea Gastrointestinal: Gastrointestinal: Reports no additional gastrointestinal complaints, Denies abdominal pain, Denies belching, Denies melena and Denies bloating Musculoskeletal: Musculoskeletal: Reports no additional musculoskeletal complaints, Denies abnormal gait, Denies back pain, Denies myalgias and Denies atrophy Neurologic: Denies abnormal gait Psychiatric: Psychiatric: Reports anxiety, Reports depression and Reports irritability Comments: patient anxious PMFSH Past Medical History Medical History (Updated 11/14/19 @ 01:47 by CÉSAR Rascon) ADHD Bipolar 1 disorder Depression Social History Social History Alcohol intake: unknown Smoking Status: Unknown if ever smoked Use of substances other than those prescribed or required for medical reasons: Yes Substance Use Type: Crack/Cocaine Substance Use Frequency: Daily Last Used Substance: Days (ago) Any prior treatment program specific to substance use: Yes Advance Directives: No Advance Directives Information Provided: Yes Physical Exam Vital Signs and I&O and Narrative: Vital Signs and I&O: Vital Signs Temp 97.9 F 11/13/19 23:48 Pulse 97 11/13/19 23:48 Resp 17 11/14/19 01:38 BP 129/73 11/13/19 23:48 Pulse Ox 98 11/13/19 23:48 Intake & Output 11/13/19 11/13/19 11/14/19 06:59 18:59 06:59 Weight 95.254 kg Body Mass Index 34.9 Const: General: cooperative, healthy appearing, comfortable and no acute distress Orientation/consciousness: oriented to person, oriented to place, oriented to time and patient oriented x3 HENMT: Head: Yes normal to inspection Face and sinus: Yes normal facial exam Teeth and gingiva: dentition normal Throat: Yes posterior oropharynx normal Chest: Chest palpation & inspection: normal inspection of the chest, normal palpation of entire chest wall and no crepitus Resp: Effort & Inspection: normal respiratory effort, able to speak in complete sentences, no audible wheezes and no cough Auscultation: clear to auscultation bilaterally, no crackles, no rales, no rhonchi, no wheezes and breath sounds present Cardio: Jugular venous distension: no JVD Heart sounds: S1 normal heart sound present GI: Inspection: Yes normal to inspection, No abdominal wall ecchymosis, No Abdominal wall edema, No distended, No incision, No Abdominal panniculus present, No obesity and No scaphoid : General: No CVA tenderness and Yes no CVA tenderness Back/Spine/Pelvis: Back: no CVA tenderness, No CVA tenderness, No ecchymosis and No back tenderness Skin: General skin exam: no rashes or lesions noted Neuro: General: oriented to person, oriented to place, oriented to time, patient oriented x3 and CN's II-XI intact bilaterally Cranial nerves: Yes CN's II-XII intact bilaterally Extrem: General: Yes normal to inspection Psych: Other: patient anxious Appearance: grossly normal and well kempt Mental Status: mental status grossly normal Speech and movement: Normal speech and movement present Affect: normal affect Attitude: cooperative Thought process: Normal thought process present Course Course Course Narrative: patient had labs drawn and will be evaluated by N. Reevaluation(s) Reevaluation #1: patient evaluated by N and recommends inpatient bed search. Patient had Section 12 sign. Time: 01:32 Reevaluation #2: Review of labs shows hemoglobin of 7.5 most likely due to chronic anemia. Patient states history of anemia and supposed to have a colonoscopy. Patient denies any rectal bleeding. Patient will have occult stool dosing make sure there is no active bleeding. Patient is stable. Patient denies any distress Time: 01:44 Reevaluation #3: stool guaiac is negative. Patient's anemia is chronic. Patient is medically cleared. Time: 02:14 MDM - Psych MDM Narrative Medical decision making narrative: patient will be a bed search for bipolar as per N industry consultant. Lab Data Result diagrams: 11/13/19 21:41 11/13/19 21:41 Labs: Lab Results 11/13/19 11/13/19 11/13/19 Range/Units 17:50 21:41 21:41 WBC 8.9 (4.8-10.8) X10*3/uL RBC 3.64 L (4.60-5.80) X10*6/uL Hgb 7.5 L (14.0-18.0) g/dl Hct 25.1 L (42-52) % MCV 69.0 L (80-98) fL MCH 20.6 L (27.0-33.0) pg MCHC 29.9 L (31.0-36.0) g/dl RDW 15.9 (11.0-16.0) % Plt Count 420 H (160-400) X10*3/uL MPV 8.5 L (9.4-12.4) fL Immature Gran % (Auto) 0.4 (0.0-0.4) % Neut % (Auto) 52.3 (45-73) % Lymph % (Auto) 31.3 (20-40) % [place] % (Auto) 8.9 (2-11) % Eos % (Auto) 6.4 H (0-4) % Baso % (Auto) 0.7 (0-2) % Neut # (Auto) 4.7 (2.0-8.3) X10*3/uL Lymph # (Auto) 2.8 (1.2-4.9) X10*3/uL [place] # (Auto) 0.8 (0.1-1.2) X10*3/uL Eos # (Auto) 0.6 H (0.0-0.4) X10*3/uL Baso # (Auto) 0.1 (0.0-0.2) X10*3/uL Abs Immat Gran (auto) 0.04 H (0.00-0.03) X10*3/uL Absolute Nucleated RBC 0.000 (0.0-0.012) X10*3/uL Nucleated RBC % (auto) 0.0 (0.0-0.2) /100WBC Sodium 140 (135-145) mmol/L Potassium 4.3 (3.3-5.1) mmol/l Chloride 106 (96-108) mmol/L Carbon Dioxide 26 (22-29) mmol/L Anion Gap 12 (12-20) BUN 19 H (9-16) mg/dL Creatinine 1.19 (0.5-1.4) mg/dL Estim Creat Clear Calc 85.7 Estimated GFR > 60 Random Glucose 126 H (60-115) mg/dL Calcium 8.7 (8.4-10.2) mg/dL Total Bilirubin 0.2 (0.0-1.0) mg/dL AST 72 H (5-37) U/L ALT 68 H (0-40) U/L Alkaline Phosphatase 122 H (39-117) U/L Total Protein 6.6 (6.5-8.0) g/dL Albumin 4.1 (3.5-5.0) g/dL Stool Occult Blood (NEG) Urine Opiates Screen Not Detected (Not Detect) Ur Barbiturates Screen Not Detected (Not Detect) Ur Phencyclidine Scrn Not Detected (Not Detect) Ur Amphetamines Screen Not Detected (Not Detect) U Benzodiazepines Scrn POSITIVE H (Not Detect) Urine Cocaine Screen Not Detected (Not Detect) U Marijuana (THC) Screen Not Detected (Not Detect) Ethyl Alcohol mg/dL 11/13/19 11/14/19 Range/Units 21:41 01:48 WBC (4.8-10.8) X10*3/uL RBC (4.60-5.80) X10*6/uL Hgb (14.0-18.0) g/dl Hct (42-52) % MCV (80-98) fL MCH (27.0-33.0) pg MCHC (31.0-36.0) g/dl RDW (11.0-16.0) % Plt Count (160-400) X10*3/uL MPV (9.4-12.4) fL Immature Gran % (Auto) (0.0-0.4) % Neut % (Auto) (45-73) % Lymph % (Auto) (20-40) % [place] % (Auto) (2-11) % Eos % (Auto) (0-4) % Baso % (Auto) (0-2) % Neut # (Auto) (2.0-8.3) X10*3/uL Lymph # (Auto) (1.2-4.9) X10*3/uL [place] # (Auto) (0.1-1.2) X10*3/uL Eos # (Auto) (0.0-0.4) X10*3/uL Baso # (Auto) (0.0-0.2) X10*3/uL Abs Immat Gran (auto) (0.00-0.03) X10*3/uL Absolute Nucleated RBC (0.0-0.012) X10*3/uL Nucleated RBC % (auto) (0.0-0.2) /100WBC Sodium (135-145) mmol/L Potassium (3.3-5.1) mmol/l Chloride (96-108) mmol/L Carbon Dioxide (22-29) mmol/L Anion Gap (12-20) BUN (9-16) mg/dL Creatinine (0.5-1.4) mg/dL Estim Creat Clear Calc Estimated GFR Random Glucose (60-115) mg/dL Calcium (8.4-10.2) mg/dL Total Bilirubin (0.0-1.0) mg/dL AST (5-37) U/L ALT (0-40) U/L Alkaline Phosphatase (39-117) U/L Total Protein (6.5-8.0) g/dL Albumin (3.5-5.0) g/dL Stool Occult Blood NEG (NEG) Urine Opiates Screen (Not Detect) Ur Barbiturates Screen (Not Detect) Ur Phencyclidine Scrn (Not Detect) Ur Amphetamines Screen (Not Detect) U Benzodiazepines Scrn (Not Detect) Urine Cocaine Screen (Not Detect) U Marijuana (THC) Screen (Not Detect) Ethyl Alcohol < 10 mg/dL Discharge Plan Discharge Clinical Impression: Bipolar disorder Prescriptions: No Action atorvastatin 10 mg Tablet 10 mg PO DAILY RF: 0 pantoprazole 40 mg Tablet,Delayed Release (Dr/Ec) 40 mg PO DAILY RF: 0 escitalopram oxalate 10 mg Tablet 10 mg PO DAILY RF: 0 bupropion HCl 150 mg Tablet Extended Release 24 Hr 150 mg PO QAM RF: 0 cholecalciferol (vitamin D3) [Vitamin D3] 50 mcg (2,000 unit) Tablet 50 mcg PO DAILY RF: 0
[2019-11-14] MEDS: LORazepam 1 MG TABLET PO ×2 (01:13→21:47)
--- NOTE | 2019-11-14 01:18 | PC.NURSE ---
Patient disposition updated by [facility]. Patient is section 12, inpatient bed search. Reported anxiety, provider notified/ativan 1 mg tablet ordered/administered. Currently in bed lying. Will continue to monitor.
[2019-11-14 02:01] LABS: OBS Int Ctl Valid YES; OBS1 NEG (NEG)
--- NOTE | 2019-11-14 04:48 | PC.NURSE ---
Patient in bed appears sleeping, no distress observed/reported. Will continue to monitor,
--- NOTE | 2019-11-14 07:18 | PC.NURSE ---
Report received. PT is resting in bed after eating breakfast. Calm and cooperative. Inpatient bed search in progress.
[2019-11-14] MEDS: Atorvastatin Calcium 10 MG TABLET PO (08:32)
[2019-11-14] MEDS: buPROPion HCl XL 150 MG TAB.ER.24H PO (08:32)
[2019-11-14] MEDS: Cholecalciferol (Vitamin D3) 25 MCG TABLET 50 MCG PO (08:33)
[2019-11-14] MEDS: Escitalopram Oxalate 10 MG TABLET PO (08:34)
--- NOTE | 2019-11-14 10:19 | PC.NURSE ---
Addendum entered by Ezequiel Box 11/14/19 10:30: Pt sleeping in bed. Breathing is even and unlabored. COVID text performed, PT aware of admission to later today. Original Note: PT sleeping in bed. Breathing even and unlabored. COVID test performed, PT waiting to be transferred to [facility].
--- NOTE | 2019-11-14 11:02 | PC.NURSE ---
PT resting, calm and cooperative. per provider ok to change vital signs to q6
[2019-11-14 11:24] LABS: SARS COV2 PCR INHOUSE NEGATIVE (Negative)
--- NOTE | 2019-11-14 13:07 | PC.NURSE ---
PT sleeping, respirations even and unlabored, in no apparent distress.
--- NOTE | 2019-11-14 15:09 | PC.NURSE ---
PT is resting in bed. Calm and cooperative. No other complaints.
[2019-11-14] MEDS: Magnesium Hydrox/Alum Hydrox 30 ML ORAL.SUSP PO (20:52)
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
[2019-11-15] MEDS: Magnesium Hydrox/Alum Hydrox 30 ML ORAL.SUSP PO (03:18)
[2019-11-15 06:05] VITALS: BP 123/70; PULSE 82; RESP 18; TEMP 36.2; O2SAT 97
[2019-11-15 07:00] VITALS: BMI 33.5
[2019-11-15] MEDS: buPROPion HCl XL 150 MG TAB.ER.24H PO (08:33)
[2019-11-15] MEDS: Cholecalciferol (Vitamin D3) 25 MCG TABLET 50 MCG PO (08:33)
[2019-11-15] MEDS: Atorvastatin Calcium 10 MG TABLET PO (08:33)
[2019-11-15] MEDS: Escitalopram Oxalate 10 MG TABLET PO (08:34)
[2019-11-15] MEDS: Omeprazole 20 MG CAPSULE.DR PO (08:52)
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
[2019-11-15] MEDS: LORazepam 1 MG TABLET PO ×2 (14:58→21:50)
[2019-11-15 17:00] VITALS: BP 129/75; PULSE 108; TEMP 36.7
[2019-11-15 21:51] VITALS: BP 129/75; PULSE 88
[2019-11-15] MEDS: cloNIDine HCL 0.1 MG TABLET PO (21:51)
[2019-11-15 22:00] VITALS: BP 130/79; PULSE 88; TEMP 36.7
[2019-11-16 06:11] VITALS: BP 122/57; PULSE 85; RESP 18; TEMP 36.5; O2SAT 100
[2019-11-16] MEDS: Omeprazole 20 MG CAPSULE.DR PO (06:47)
--- NOTE | 2019-11-16 08:00 | ECG_ITS ---
Test Reason : COCAINE USE ANEMIA CLONIDINE SEROQUEL Blood Pressure : / mmHG Vent. Rate : 099 BPM Atrial Rate : 099 BPM P-R Int : 148 ms QRS Dur : 088 ms QT Int : 318 ms P-R-T Axes : 060 044 037 degrees QTc Int : 408 ms Normal sinus rhythm Normal ECG When compared with ECG of 14-NOV-2019 15:24, No significant change was found Referred By: Rodger Centeno Electronically Signed By:BARBARA RUIZ MD
[2019-11-16 08:27] VITALS: BP 122/57; PULSE 85
[2019-11-16] MEDS: Cholecalciferol (Vitamin D3) 25 MCG TABLET 50 MCG PO (08:27)
[2019-11-16] MEDS: buPROPion HCl XL 150 MG TAB.ER.24H PO (08:27)
[2019-11-16] MEDS: cloNIDine HCL 0.1 MG TABLET PO ×2 (08:27→20:27)
[2019-11-16] MEDS: Atorvastatin Calcium 10 MG TABLET PO (08:27)
[2019-11-16] MEDS: Escitalopram Oxalate 10 MG TABLET PO (08:27)
[2019-11-16 08:28] LABS: Alanine Aminotransferase 87 U/L (0-40); Albumin Level 4.4 g/dL (3.5-5.0); Alkaline Phosphatase 120 U/L (39-117); Anion Gap 13 (12-20); Aspartate Amino Transferase 52 U/L (5-37); Bilirubin Total 0.3 mg/dL (0.0-1.0); Blood Urea Nitrogen 25 mg/dL (9-16); Carbon Dioxide 26 mmol/L (22-29); Chloride 104 mmol/L (96-108); Cholesterol 212 mg/dL; Creatinine Clr Calc Pharmacy 77.4; Estimated Glomerular Filt Rate > 60; Glucose Fasting 121 mg/dL (60-99); HDL Cholesterol 44 mg/dL; LDL Cholesterol Calculated 130 mg/dl; Potassium 4.6 mmol/l (3.3-5.1); Sodium 138 mmol/L (135-145); Triglycerides 192 mg/dL
[2019-11-16 08:50] LABS: Ferritin 4 ng/mL (20-250); TSH reflex Free T4 1.97 mIU/mL (0.32-4.0)
[2019-11-16 10:04] LABS: Estimated Average Glucose 123 mg/dL; Hemoglobin A1c % 5.9 %
[2019-11-16 20:27] VITALS: BP 118/65; PULSE 105
[2019-11-16] MEDS: LORazepam 1 MG TABLET PO (20:27)
[2019-11-16 20:29] VITALS: TEMP 36.4
[2019-11-16 21:32] LABS: Folate 9.7 ng/mL (> or = 4.0); Vitamin B12 424 pg/mL (200-900)
--- NOTE | 2019-11-16 23:27 | HO.PSYCHPN ---
Subjective Subjective Reason For Visit: SI Subjective Notes: Conditional Voluntary Interim History: patient somewhat sedated today calmer he is focused on medication for controlling his temper and ADHD. Question sedation from clonidine. Patient states motivated to stop cocaine use. No clear prasanna. Feels that SSRI had made best improvement when that was started number of months ago Medication Compliance: Yes Side effects from medications: Yes Review of Systems Musculoskeletal: Denies abnormal gait Denies abnormal gait Mental Status Exam Mental Status Exam Narrative: cooperative seems motivated denies self-harm in this setting Patient Appearance: Well Grooomed Patient Orientation: Person, Place, Time and Situation Level of Consciousness: Appropriate and Drowsy Patient Behavior: Appropriate and Cooperative Mood Description: Depressed and Anxious Affect Description: Depressed and Flat Patient Cognition Impaired: No Ability to Follow Directions: Excellent Speech Pattern: Clear Memory Description: Intact Diagnostics Vital Signs (24Hr): Vital Signs - 24 hr 11/16/19 06:11 11/16/19 08:27 11/16/19 20:27 Temperature 97.7 F Pulse Rate 85 85 105 H Respiratory Rate 18 Blood Pressure 122/57 L 122/57 L 118/65 Pulse Oximetry 100 11/16/19 20:29 Temperature 97.5 F Pulse Rate Respiratory Rate Blood Pressure Pulse Oximetry Body Mass Index 33.5 Labs Results: 11/13/19 21:41 11/16/19 07:35 Labs: Laboratory Results - last 48 hr 11/16/19 11/16/19 11/16/19 07:35 07:35 07:35 Sodium 138 Potassium 4.6 Chloride 104 Carbon Dioxide 26 Anion Gap 13 BUN 25 H Creatinine 1.29 Estim Creat Clear Calc 77.4 Estimated GFR > 60 Fasting Glucose 121 H Estimat Average Glucose 123 Hemoglobin A1c % 5.9 Calcium 9.0 Ferritin 4 L Total Bilirubin 0.3 AST 52 H ALT 87 H Alkaline Phosphatase 120 H Total Protein 7.0 Albumin 4.4 Triglycerides 192 Cholesterol 212 LDL Cholesterol, Calc 130 HDL Cholesterol 44 Lipoprotein (a) Vitamin B12 Folate TSH 1.97 11/16/19 11/16/19 07:35 07:35 Sodium Potassium Chloride Carbon Dioxide Anion Gap BUN Creatinine Estim Creat Clear Calc Estimated GFR Fasting Glucose Estimat Average Glucose Hemoglobin A1c % Calcium Ferritin Total Bilirubin AST ALT Alkaline Phosphatase Total Protein Albumin Triglycerides Cholesterol LDL Cholesterol, Calc HDL Cholesterol Lipoprotein (a) Cancelled Vitamin B12 424 Folate 9.7 TSH Medications Medications Current Medications Generic Name Dose Route Start Last Admin Trade Name Freq PRN Reason Stop Dose Admin Acetaminophen 650 mg 11/14/19 20:39 Acetaminophen 325 Mg Tablet PO Q6H PRN Headache/Pain Mild Scale (1-3) Al Hydroxide/Mg Hydroxide 30 ml 11/14/19 20:39 11/15/19 03:18 Magnesium Hydrox/Alum Hydrox 30 Ml Oral.Susp PO 30 ml Q6H PRN Administration Heartburn/Nausea Atorvastatin Calcium 10 mg 11/13/19 20:15 11/16/19 08:27 Atorvastatin Calcium 10 Mg Tablet PO 10 mg DAILY ANDREA Administration Bupropion HCl 150 mg 11/13/19 20:15 11/16/19 08:27 Bupropion Hcl Xl 150 Mg Tab.Er.24h PO 150 mg DAILY ANDREA Administration Clonidine HCl 0.1 mg 11/15/19 21:00 11/16/19 20:27 Clonidine Hcl 0.1 Mg Tablet PO 0.1 mg BID ANDREA Administration Protocol Escitalopram Oxalate 10 mg 11/14/19 09:00 11/16/19 08:27 Escitalopram Oxalate 10 Mg Tablet PO 10 mg DAILY ANDREA Administration Hydroxyzine HCl 25 mg 11/14/19 20:39 Hydroxyzine Hcl 25 Mg Tablet PO BEDTIME PRN Anxiety Lorazepam 1 mg 11/14/19 20:37 11/16/19 20:27 Lorazepam 1 Mg Tablet PO 1 mg Q6H PRN Administration anxiety/restlessness Magnesium Hydroxide 30 ml 11/14/19 20:39 Milk Of Magnesia 30 Ml Oral.Susp PO DAILY PRN Constipation Nicotine Polacrilex 2 mg 11/14/19 20:39 Nicotine Polacrilex 2 Mg Gum BUCCAL Q2H PRN Nicotine Cravings Omeprazole 20 mg 11/16/19 06:30 11/16/19 06:47 Omeprazole 20 Mg Capsule. PO 20 mg DAILY@0630 ANDREA Administration Quetiapine Fumarate 25 mg 11/15/19 20:41 Quetiapine Fumarate 25 Mg Tablet PO Q4H PRN anxiety/restlessness Vitamin D 50 mcg 11/13/19 20:15 11/16/19 08:27 Cholecalciferol (Vitamin D3) 25 Mcg Tablet PO 50 mcg DAILY ANDREA Administration Allergies Allergies Allergy/AdvReac Type Severity Reaction Status Date / Time trazodone [TRAZODONE] Allergy Severe SHORTNESS Verified 11/13/19 18:59 OF BREATH, anaphylaxis trazodone Allergy Unknown anaphylaxis Uncoded 11/13/19 18:59 Assessment & Plan Assessment & Plan (1) Bipolar disorder: Status: Acute Code(s): F31.9 - Bipolar disorder, unspecified Assessment and Plan: increase Lexapro and continueWellbutrin patient does not think that Wellbutrin contributes to irritability and agitation try and differentiate bipolar disorder from ADHD versus Co occurring. start Lamictal Seroquel p.r.n. clonidine 0.1 b.i.d. 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
[2019-11-17] MEDS: Omeprazole 20 MG CAPSULE.DR 40 MG PO (06:43)
[2019-11-17] MEDS: buPROPion HCl XL 150 MG TAB.ER.24H PO (09:15)
[2019-11-17 09:16] VITALS: BP 120/67; PULSE 60
[2019-11-17] MEDS: Atorvastatin Calcium 10 MG TABLET PO (09:16)
[2019-11-17] MEDS: Cholecalciferol (Vitamin D3) 25 MCG TABLET 50 MCG PO (09:16)
[2019-11-17] MEDS: cloNIDine HCL 0.1 MG TABLET PO ×2 (09:16→20:31)
[2019-11-17] MEDS: Escitalopram Oxalate 10 MG TABLET 15 MG PO (09:19)
[2019-11-17 09:21] VITALS: BP 118/69; PULSE 81; TEMP 36.7
--- NOTE | 2019-11-17 13:51 | PM.GICN ---
History of Present Illness Data of Consult Service Date: 11/17/19 Requesting physician: Rodger Centeno Primary Care Provider: Ashish Rachel, [facility] HPI Reason for consult: Significant Iron deficiency Anemia. 44 yo male who is currently admitted to [facility] Service due to Mood instability, irritability, rage attacks. He was noted to have a significant iron deficiency anemia, with low but stable H&H. He does give a hx of daily rectal bleeding for about 3 years. He had been seen according to the records in our office. He had been scheduled for a colonoscopy. Patient says he never had this done due to the Covid-19 outbreak. (Review of office record shows that the patient was not interested in following through with his evaluation.--Telephone interaction in July--patient refused to be scheduled.) He admits to using Aleve prn headaches 2-3 times weekly. He denies any GI symptoms or hx of ulcer disease. He does later tell me that while in detox he had had some ? dyspeptic symptoms. He was started on Pantoprazole. Symptoms improved and his rectal bleeding has stopped as well. Family hx only positive for ulcer disease in a cousin. Review of Systems Constitutional: Constitutional: Reports fatigue, Reports headache(s), Reports lethargy and Denies weight loss Comments: Denies ETOH, admits Cocaine use ENT: Reports headache(s) Cardiovascular: Cardiovascular: Denies Abdominal Cramping after Meds, Reports epigastric discomfort, Denies pedal edema, Denies edema, Denies irregular heart rhythm, Denies lightheadedness, Denies dyspnea and Denies dyspnea on exertion Respiratory: Respiratory: Denies cough, Denies dyspnea and Denies dyspnea on exertion Comments: Had asthma as a kid Gastrointestinal: Gastrointestinal: Reports hematochezia (Has been ongoing for 3 years; passes clots @ times), Denies constipation, Reports dyspepsia (recently started on Pantoprazole @ detox for this), Denies diarrhea and Denies vomiting Comments: Patient purportedly had been set up for colo as outpatient but got cancelled due to Covid-19. 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 Bonilla; seems okay today Functional capacity: independent ambulation Social History Social History Household Members: Significant Other Household Members Other:: GIRLFRIEND Housing: House Do you presently have visiting nurse or other home services: No Alcohol intake: unknown Smoking Status: Former smoker Tobacco Type: Cigarette Packs Per Day: 0 Cigarettes Per Day: 0.0 Years Smoked: NO Smoked in Last 30 Days: No Patient Interested in Nicotine Replacement: No Patient Given Instructions on How to Stop Smoking: No (DOES NOT NEED PER PT) Date Education Initiated: 11/14/19 Second Hand Smoke Exposure: No Use of substances other than those prescribed or required for medical reasons: Yes Substance Use Type: Crack/Cocaine, Marijuana and Other Substance Use Type Other:: LSD Substance Use Frequency: Daily Last Used Substance: Just Prior to Admission Last Used Substance Other:: COCAINE JUST PRIOR TO ADMIT. FREQUENT POT. Currently Displaying Signs/Symptoms of Drug Intoxication Withdrawal: No Any prior treatment program specific to substance use: Yes ([facility]) Have you been hit, kicked, punched, or otherwise hurt by someone within the past year? 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 Advance Directives: No Advance Directives Information Provided: Yes Advance Directives on File: No Current/Past Psychiatric Disorders: Substance abuse [place] Symptoms: Anxiety, Hopelessness and Worthlessness Family History: Attempts Access to Firearms: No Do you have thoughts of harming others: None Do you have a plan to hurt others: No Plan Recently lost weight without trying: No service: No Sexual orientation: Straight/Heterosexual Meds Allergies Allergy/AdvReac Type Severity Reaction Status Date / Time trazodone [TRAZODONE] Allergy Severe SHORTNESS Verified 11/13/19 18:59 OF BREATH, anaphylaxis trazodone Allergy Unknown anaphylaxis Uncoded 11/13/19 18:59 Home Medications Medication Instructions Recorded Confirmed Type atorvastatin 10 mg PO DAILY 11/13/19 11/14/19 History bupropion HCl 150 mg PO QAM 11/13/19 11/14/19 History cholecalciferol (vitamin D3) 50 mcg PO DAILY 11/13/19 11/14/19 History [Vitamin D3] escitalopram oxalate 10 mg PO DAILY 11/13/19 11/14/19 History pantoprazole 40 mg PO DAILY 11/13/19 11/13/19 History Physical Exam Vital Signs: Vital Signs: Vital Signs Temp Pulse BP 11/17/19 09:21 98.1 F 81 118/69 11/17/19 09:16 60 120/67 11/16/19 20:29 97.5 F 11/16/19 20:27 105 H 118/65 Body Mass Index 33.5 Const: General: cooperative, no acute distress and tired appearing Nutritional Appearance: obese (mild) Orientation/consciousness: patient oriented x3 Limitations: no limitations and No altered mental status Neck: Neck: Yes no lymphadenopathy Thyroid: Thyroid normal Resp: Effort & Inspection: normal respiratory effort, no pursed lip breathing, no respiratory distress and no use of accessory muscles Auscultation: clear to auscultation bilaterally Cardio: Palpation: normal PMI Rate: Other (occ skipped beat) Rhythm: regular rhythm Heart sounds: no murmurs GI: Inspection: Yes normal to inspection Palpation (GI): Soft to palpation, nontender, no guarding and Palpable mass present Percussion: Yes normal to percussion Auscultation: normal bowel sounds Rectal Exam - Male: Yes deferred Skin: General skin exam: no rashes or lesions noted Neuro: General: patient oriented x3 Extrem: General: No edema Results Labs CBC & Chem 7: 11/17/19 17:25 11/16/19 07:35 Labs: H&H from 11/07--10/01.9; ADMISSION FERRITIN:4 (LOW); no iron studies, nl B12 & Folate AST/ALT 11/12: 72/68, 11/15: 52/87. Last Hep serologies neg--will recheck. ECG Prior ECG tracings: available for review (nsr RATE 99 on admission.) Assessment and Plan (1) Anemia: Start date: 11/08/19 Qualifiers: Anemia type: iron deficiency Iron deficiency anemia type: chronic blood loss Qualified Code(s): D50.0 - Iron deficiency anemia secondary to blood loss (chronic) Problem details: Labs from September,--Showed H&H----MCV nl Status: Acute Patient historically has a hx of daily rectal bleeding, variable diet, substance abuse and chronic use of NSAIDs. He has now been on Pantoprazole for about a week. He has not been on any iron. He feels his appetite is okay. I counselled him that he will need both an egd and colonoscopy to assess for bleeding causes due to the level of his anemia. His H&H are at this time unchanged from values available since November 08, 2019. CT ABD @ about the same time was interpreted as normal. Will look to schedule on 11/18 unless there is urgency to do so sooner. (2) Elevated transaminase level: Start date: 11/13/19 Problem details: 11/12: AST/ALT--72/68; Liver profile done 09/29/18-was normal --. Status: Acute Patient denies any known exposure to individual with Hep C. I will see if any Hep profies done recently. No significant changes noted on CT--Liver was interpreted as normal.. If unable to locate may need to be redrawn, could have been done on adm to Detox program.
--- NOTE | 2019-11-17 17:04 | HO.PSYCHPN ---
Subjective Subjective Date of Service: 11/17/19 Reason For Visit: SI Subjective Notes: Conditional Voluntary Interim History: Patient was somewhat sedated today. He had his covers over his head and stated that he feels depressed. 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 He did state that he was tolerating his medications. Nursing reports that he has been in behavioral control Medication Compliance: Yes Side effects from medications: No Attending Groups: No Review of Systems Acute medical concerns: No Medical Review of Systems: unchanged Review of Systems Constitutional: Reports headache(s) Reports headache(s) Musculoskeletal: Denies abnormal gait Denies abnormal gait and Reports headache(s) Mental Status Exam Mental Status Exam Narrative: cooperative seems motivated denies self-harm in this setting Patient Appearance: Well Grooomed Patient Orientation: Person, Place, Time and Situation Level of Consciousness: Appropriate and Drowsy Patient Behavior: Appropriate, Cooperative (Uncooperative) and Poor Eye Contact Mood Description: Depressed and Anxious Affect Description: Depressed and Flat Patient Cognition Impaired: No Ability to Follow Directions: Excellent Speech Pattern: Clear and Soft-Spoken Memory Description: Intact Hallucinations: None Delusions: Not Present Thought Process: Goal Oriented Thought Content: positive for Poverty of Content, positive for Slowed Thinking, negative for Suicidal Ideation and negative for Homicidal Ideation Depressive Symptoms: Feelings of Worthlessness and Hopelessness Judgement: Fair Diagnostics Vital Signs (24Hr): Vital Signs - 24 hr 11/16/19 20:27 11/16/19 20:29 11/17/19 09:16 Temperature 97.5 F Pulse Rate 105 H 60 Blood Pressure 118/65 120/67 11/17/19 09:21 Temperature 98.1 F Pulse Rate 81 Blood Pressure 118/69 Body Mass Index 33.5 Labs Results: 11/13/19 21:41 11/16/19 07:35 Labs: Laboratory Results - last 48 hr 11/16/19 11/16/19 11/16/19 07:35 07:35 07:35 Sodium 138 Potassium 4.6 Chloride 104 Carbon Dioxide 26 Anion Gap 13 BUN 25 H Creatinine 1.29 Estim Creat Clear Calc 77.4 Estimated GFR > 60 Fasting Glucose 121 H Estimat Average Glucose 123 Hemoglobin A1c % 5.9 Calcium 9.0 Ferritin 4 L Total Bilirubin 0.3 AST 52 H ALT 87 H Alkaline Phosphatase 120 H Total Protein 7.0 Albumin 4.4 Triglycerides 192 Cholesterol 212 LDL Cholesterol, Calc 130 HDL Cholesterol 44 Lipoprotein (a) Vitamin B12 Folate TSH 1.97 11/16/19 11/16/19 07:35 07:35 Sodium Potassium Chloride Carbon Dioxide Anion Gap BUN Creatinine Estim Creat Clear Calc Estimated GFR Fasting Glucose Estimat Average Glucose Hemoglobin A1c % Calcium Ferritin Total Bilirubin AST ALT Alkaline Phosphatase Total Protein Albumin Triglycerides Cholesterol LDL Cholesterol, Calc HDL Cholesterol Lipoprotein (a) Cancelled Vitamin B12 424 Folate 9.7 TSH Medications Medications Current Medications Generic Name Dose Route Start Last Admin Trade Name Freq PRN Reason Stop Dose Admin Acetaminophen 650 mg 11/14/19 20:39 Acetaminophen 325 Mg Tablet PO Q6H PRN Headache/Pain Mild Scale (1-3) Al Hydroxide/Mg Hydroxide 30 ml 11/14/19 20:39 11/15/19 03:18 Magnesium Hydrox/Alum Hydrox 30 Ml Oral.Susp PO 30 ml Q6H PRN Administration Heartburn/Nausea Atorvastatin Calcium 10 mg 11/13/19 20:15 11/17/19 09:16 Atorvastatin Calcium 10 Mg Tablet PO 10 mg DAILY ANDREA Administration Bupropion HCl 150 mg 11/13/19 20:15 11/17/19 09:15 Bupropion Hcl Xl 150 Mg Tab.Er.24h PO 150 mg DAILY ANDREA Administration Clonidine HCl 0.1 mg 11/15/19 21:00 11/17/19 09:16 Clonidine Hcl 0.1 Mg Tablet PO 0.1 mg BID ANDREA Administration Protocol Escitalopram Oxalate 15 mg 11/17/19 09:00 11/17/19 09:19 Escitalopram Oxalate 10 Mg Tablet PO 15 mg DAILY ANDREA Administration Hydroxyzine HCl 25 mg 11/14/19 20:39 Hydroxyzine Hcl 25 Mg Tablet PO BEDTIME PRN Anxiety Lamotrigine 25 mg 11/17/19 21:00 Lamotrigine 25 Mg Tablet PO BEDTIME ANDREA Lorazepam 1 mg 11/14/19 20:37 11/16/19 20:27 Lorazepam 1 Mg Tablet PO 1 mg Q6H PRN Administration anxiety/restlessness Magnesium Hydroxide 30 ml 11/14/19 20:39 Milk Of Magnesia 30 Ml Oral.Susp PO DAILY PRN Constipation Nicotine Polacrilex 2 mg 11/14/19 20:39 Nicotine Polacrilex 2 Mg Gum BUCCAL Q2H PRN Nicotine Cravings Omeprazole 40 mg 11/18/19 06:30 Omeprazole 40 Mg Capsule.Dr PO DAILY@0630 [facility] Quetiapine Fumarate 25 mg 11/15/19 20:41 Quetiapine Fumarate 25 Mg Tablet PO Q4H PRN anxiety/restlessness Vitamin D 50 mcg 11/13/19 20:15 11/17/19 09:16 Cholecalciferol (Vitamin D3) 25 Mcg Tablet PO 50 mcg DAILY ANDREA Administration Allergies Allergies Allergy/AdvReac Type Severity Reaction Status Date / Time trazodone [TRAZODONE] Allergy Severe SHORTNESS Verified 11/13/19 18:59 OF BREATH, anaphylaxis trazodone Allergy Unknown anaphylaxis Uncoded 11/13/19 18:59 Assessment & Plan Assessment & Plan (1) Anemia: Qualifiers: Anemia type: iron deficiency Iron deficiency anemia type: chronic blood loss Qualified Code(s): D50.0 - Iron deficiency anemia secondary to blood loss (chronic) Status: Acute Code(s): D64.9 - Anemia, unspecified Assessment and Plan: Repeat CBC w diff, since last one was 11/14/19 and HgB was 7.5 Check iron, TIBC Folate and B12 were WNL GI consult is pending (2) Bipolar disorder: Status: Acute Code(s): F31.9 - Bipolar disorder, unspecified Assessment and Plan: CT medications without change Education Skills Greater than 50% of the session was spent on counseling and/or coordination of care Patient educated on: diagnosis and medication risk/benefits Informed Consent: further education needed Reason for contiued inpatient stay Substantial Risk for: harm to self and rapid decompensation
[2019-11-17 17:43] LABS: Baso%MD 0.6 %; Hematocrit 27.7 % (42-52); Hemoglobin 8.1 g/dl (14.0-18.0); IG%MD 0.3 %; Lymph%MD 32.3 %; Mean Corpuscular HGB Conc 29.2 g/dl (31.0-36.0); Mean Corpuscular Volume 68.2 fL (80-98); Mean Platelet Volume 8.7 fL (9.4-12.4); Mono%MD 7.9 %; NRBC Pct Auto 0.2 /100WBC (0.0-0.2); Neut%MD 52.9 %; Platelet Count 429 X10*3/uL (160-400); Red Blood Count 4.06 X10*6/uL (4.60-5.80); Red Cell Distribution Width 16.1 % (11.0-16.0); White Blood Count 8.7 X10*3/uL (4.8-10.8)
[2019-11-17 18:09] LABS: Iron 13 mcg/dL (45-160); Percent Iron Saturation 2 % (15-50); Total Iron Binding Capacity 533 mcg/dL (228-428); Unsaturated Iron Binding 520 ug/dL
[2019-11-17 18:28] LABS: Band Neutrophils Percent 0 % (3-5); Eosinophils Absolute Manual 0.6 X10*3/UL (0.0-0.8); Eosinophils Percent Manual 7 % (0-4); Lymphocytes Absolute Manual 2.8 X10*3/uL (0.6-4.8); Lymphocytes Percent Manual 32 % (20-40); Monocytes Absolute Manual 0.4 X10*3/uL (0.0-1.2); Monocytes Percent Manual 5 % (2-11); Neutrophils Absolute Manual 4.9 X10*3/uL (2.2-7.9); Neutrophils Percent Manual 56 % (45-73)
[2019-11-17 18:37] LABS: RBC Morphology NORMAL
[2019-11-17 18:38] LABS: Hypochromasia 2+
[2019-11-17 18:39] LABS: Platelet Estimate NORMAL (NORMAL); Platelet Morphology Comment NORMAL
[2019-11-17 20:31] VITALS: BP 113/58; PULSE 98
[2019-11-17] MEDS: lamoTRIgine 25 MG TABLET PO (20:31)
[2019-11-17] MEDS: LORazepam 1 MG TABLET PO (20:31)
[2019-11-17 22:00] VITALS: BP 113/58; PULSE 98; TEMP 37
[2019-11-18] MEDS: Cholecalciferol (Vitamin D3) 25 MCG TABLET 50 MCG PO (08:30)
[2019-11-18] MEDS: Omeprazole 40 MG CAPSULE.DR PO (08:30)
[2019-11-18] MEDS: buPROPion HCl XL 150 MG TAB.ER.24H PO (08:31)
[2019-11-18] MEDS: Atorvastatin Calcium 10 MG TABLET PO (08:31)
[2019-11-18] MEDS: Escitalopram Oxalate 10 MG TABLET 15 MG PO (08:31)
[2019-11-18 08:33] VITALS: BP 111/83; PULSE 92
[2019-11-18] MEDS: cloNIDine HCL 0.1 MG TABLET PO ×2 (08:33→20:36)
[2019-11-18 08:34] VITALS: BP 111/83; PULSE 92; TEMP 36.4
[2019-11-18 10:00] VITALS: BP 121/75; PULSE 68; TEMP 36.4
[2019-11-18] MEDS: Ferrous Sulfate 324 MG TABLET.DR PO ×2 (11:28→20:36)
[2019-11-18] MEDS: LORazepam 1 MG TABLET PO ×2 (14:47→20:42)
--- NOTE | 2019-11-18 15:19 | HO.PSYCHPN ---
Subjective Subjective Date of Service: 11/17/19 Reason For Visit: SI Subjective Notes: Conditional Voluntary Interim History: Patient was somewhat sedated today. He reports that he is finding that the morning clonidine is making him feel exhausted. He was otherwise more engaged and he has been up and about on the unit more. Nursing reports that he has been in behavioral control Medication Compliance: Yes Side effects from medications: No Attending Groups: No Review of Systems Acute medical concerns: No Medical Review of Systems: unchanged Review of Systems Constitutional: Denies headache(s) Denies headache(s) Musculoskeletal: Denies abnormal gait Denies abnormal gait and Denies headache(s) Mental Status Exam Mental Status Exam Narrative: cooperative seems motivated denies self-harm in this setting Patient Appearance: Well Grooomed Patient Orientation: Person, Place, Time and Situation Level of Consciousness: Appropriate and Drowsy Patient Behavior: Appropriate, Cooperative (Uncooperative) and Poor Eye Contact Mood Description: Depressed and Anxious Affect Description: Depressed and Flat Patient Cognition Impaired: No Ability to Follow Directions: Excellent Speech Pattern: Clear and Soft-Spoken Memory Description: Intact Hallucinations: None Delusions: Not Present Thought Process: Goal Oriented Thought Content: positive for Poverty of Content, positive for Slowed Thinking, negative for Suicidal Ideation and negative for Homicidal Ideation Depressive Symptoms: Feelings of Worthlessness and Hopelessness Judgement: Fair Diagnostics Vital Signs (24Hr): Vital Signs - 24 hr 11/17/19 20:31 11/17/19 22:00 11/18/19 08:33 Temperature 98.6 F Pulse Rate 98 98 92 Blood Pressure 113/58 L 113/58 L 111/83 11/18/19 08:34 11/18/19 10:00 Temperature 97.6 F 97.5 F Pulse Rate 92 68 Blood Pressure 111/83 121/75 Body Mass Index 33.5 Labs Results: 11/17/19 17:25 11/16/19 07:35 Labs: Laboratory Results - last 48 hr 11/16/19 11/17/19 11/17/19 07:35 17:25 17:25 WBC 8.7 RBC 4.06 L Hgb 8.1 L Hct 27.7 L MCV 68.2 L MCH 20.0 L MCHC 29.2 L RDW 16.1 H Plt Count 429 H MPV 8.7 L Absolute Nucleated RBC 0.020 H Nucleated RBC % (auto) 0.2 Neutrophils % (Manual) 56 Band Neutrophils % 0 L Lymphocytes % (Manual) 32 Monocytes % (Manual) 5 Eosinophils % (Manual) 7 H Abs Neuts (Manual) 4.9 Lymphocytes # (Manual) 2.8 Monocytes # (Manual) 0.4 Eosinophils # (Manual) 0.6 Platelet Estimate NORMAL Plt Morphology Comment NORMAL RBC Morphology NORMAL Hypochromasia 2+ Iron 13 L TIBC 533 H % Saturation 2 L Unsat Iron Binding 520 Vitamin B12 424 Folate 9.7 Medications Medications Current Medications Generic Name Dose Route Start Last Admin Trade Name Freq PRN Reason Stop Dose Admin Acetaminophen 650 mg 11/14/19 20:39 Acetaminophen 325 Mg Tablet PO Q6H PRN Headache/Pain Mild Scale (1-3) Al Hydroxide/Mg Hydroxide 30 ml 11/14/19 20:39 11/15/19 03:18 Magnesium Hydrox/Alum Hydrox 30 Ml Oral.Susp PO 30 ml Q6H PRN Administration Heartburn/Nausea Atorvastatin Calcium 10 mg 11/13/19 20:15 11/18/19 08:31 Atorvastatin Calcium 10 Mg Tablet PO 10 mg DAILY ANDREA Administration Bupropion HCl 150 mg 11/13/19 20:15 11/18/19 08:31 Bupropion Hcl Xl 150 Mg Tab.Er.24h PO 150 mg DAILY ANDREA Administration Clonidine HCl 0.1 mg 11/18/19 21:00 Clonidine Hcl 0.1 Mg Tablet PO BEDTIME ANDREA Protocol Escitalopram Oxalate 15 mg 11/17/19 09:00 11/18/19 08:31 Escitalopram Oxalate 10 Mg Tablet PO 15 mg DAILY ANDREA Administration Ferrous Sulfate 324 mg 11/18/19 11:05 11/18/19 11:28 Ferrous Sulfate 324 Mg Tablet.Dr PO 324 mg BID ANDREA Administration Hydroxyzine HCl 25 mg 11/14/19 20:39 Hydroxyzine Hcl 25 Mg Tablet PO BEDTIME PRN Anxiety Lamotrigine 25 mg 11/17/19 21:00 11/17/19 20:31 Lamotrigine 25 Mg Tablet PO 25 mg BEDTIME ANDREA Administration Lorazepam 1 mg 11/14/19 20:37 11/18/19 14:47 Lorazepam 1 Mg Tablet PO 1 mg Q6H PRN Administration anxiety/restlessness Magnesium Hydroxide 30 ml 11/14/19 20:39 Milk Of Magnesia 30 Ml Oral.Susp PO DAILY PRN Constipation Nicotine Polacrilex 2 mg 11/14/19 20:39 Nicotine Polacrilex 2 Mg Gum BUCCAL Q2H PRN Nicotine Cravings Omeprazole 40 mg 11/18/19 06:30 11/18/19 08:30 Omeprazole 40 Mg Capsule. PO 40 mg DAILY@0630 ANDREA Administration Quetiapine Fumarate 25 mg 11/15/19 20:41 Quetiapine Fumarate 25 Mg Tablet PO Q4H PRN anxiety/restlessness Vitamin D 50 mcg 11/13/19 20:15 11/18/19 08:30 Cholecalciferol (Vitamin D3) 25 Mcg Tablet PO 50 mcg DAILY ANDREA Administration Allergies Allergies Allergy/AdvReac Type Severity Reaction Status Date / Time trazodone [TRAZODONE] Allergy Severe SHORTNESS Verified 11/13/19 18:59 OF BREATH, anaphylaxis trazodone Allergy Unknown anaphylaxis Uncoded 11/13/19 18:59 Assessment & Plan Assessment & Plan (1) Anemia: Qualifiers: Anemia type: iron deficiency Iron deficiency anemia type: chronic blood loss Qualified Code(s): D50.0 - Iron deficiency anemia secondary to blood loss (chronic) Status: Acute Code(s): D64.9 - Anemia, unspecified Assessment and Plan: Low iron and TIBC Initiate ferrous sulphate GI consult appreciated EGD and colonoscopy to be scheduled per Eliana Mathur (2) Bipolar disorder: Status: Acute Code(s): F31.9 - Bipolar disorder, unspecified Assessment and Plan: DC clonidine CT other medication without change Greater than 50% of the session was spent on counseling and/or coordination of care Patient educated on: diagnosis and medication risk/benefits Informed Consent: further education needed Reason for contiued inpatient stay Substantial Risk for: inability to function and rapid decompensation
[2019-11-18 17:36] VITALS: BP 121/68; PULSE 88; TEMP 36.8; O2SAT 98
[2019-11-18 20:36] VITALS: BP 136/82; PULSE 98
[2019-11-18] MEDS: lamoTRIgine 25 MG TABLET PO (20:36)
[2019-11-18 20:39] VITALS: BP 136/82; PULSE 98
[2019-11-18] MEDS: hydrOXYzine HCL 25 MG TABLET PO (23:05)
[2019-11-18] MEDS: QUEtiapine Fumarate 25 MG TABLET PO (23:05)
[2019-11-19] MEDS: Omeprazole 40 MG CAPSULE.DR PO (08:35)
[2019-11-19] MEDS: Cholecalciferol (Vitamin D3) 25 MCG TABLET 50 MCG PO (08:35)
[2019-11-19] MEDS: Atorvastatin Calcium 10 MG TABLET PO (08:35)
[2019-11-19] MEDS: buPROPion HCl XL 150 MG TAB.ER.24H PO (08:35)
[2019-11-19] MEDS: Ferrous Sulfate 324 MG TABLET.DR PO ×2 (08:35→20:07)
[2019-11-19] MEDS: Escitalopram Oxalate 10 MG TABLET 15 MG PO (08:36)
--- NOTE | 2019-11-19 10:09 | HO.PSYCHPN ---
Subjective Subjective Reason For Visit: SI Subjective Notes: Conditional Voluntary Interim History: patient somewhat lethargic remains depressed withdrawn increase Lamictal 25 b.i.d. Medication Compliance: Yes Side effects from medications: Yes Attending Groups: Intermittent Review of Systems Constitutional: Denies headache(s) Denies headache(s) Musculoskeletal: Denies abnormal gait Denies abnormal gait and Denies headache(s) Mental Status Exam Mental Status Exam Narrative: cooperative seems motivated denies self-harm in this setting Patient Appearance: Well Grooomed Patient Orientation: Person, Place, Time and Situation Level of Consciousness: Appropriate and Drowsy Patient Behavior: Appropriate, Cooperative (Uncooperative) and Poor Eye Contact Mood Description: Depressed and Anxious Affect Description: Depressed and Flat Patient Cognition Impaired: No Ability to Follow Directions: Excellent Speech Pattern: Clear and Soft-Spoken Memory Description: Intact Diagnostics Vital Signs (24Hr): Vital Signs - 24 hr 11/18/19 17:36 11/18/19 20:36 11/18/19 20:39 Temperature 98.3 F Pulse Rate 88 98 98 Blood Pressure 121/68 136/82 136/82 Pulse Oximetry 98 Body Mass Index 33.5 Labs Results: 11/17/19 17:25 11/16/19 07:35 Labs: Laboratory Results - last 48 hr 11/17/19 11/17/19 17:25 17:25 WBC 8.7 RBC 4.06 L Hgb 8.1 L Hct 27.7 L MCV 68.2 L MCH 20.0 L MCHC 29.2 L RDW 16.1 H Plt Count 429 H MPV 8.7 L Absolute Nucleated RBC 0.020 H Nucleated RBC % (auto) 0.2 Neutrophils % (Manual) 56 Band Neutrophils % 0 L Lymphocytes % (Manual) 32 Monocytes % (Manual) 5 Eosinophils % (Manual) 7 H Abs Neuts (Manual) 4.9 Lymphocytes # (Manual) 2.8 Monocytes # (Manual) 0.4 Eosinophils # (Manual) 0.6 Platelet Estimate NORMAL Plt Morphology Comment NORMAL RBC Morphology NORMAL Hypochromasia 2+ Iron 13 L TIBC 533 H % Saturation 2 L Unsat Iron Binding 520 Medications Medications Current Medications Generic Name Dose Route Start Last Admin Trade Name Freq PRN Reason Stop Dose Admin Acetaminophen 650 mg 11/14/19 20:39 Acetaminophen 325 Mg Tablet PO Q6H PRN Headache/Pain Mild Scale (1-3) Al Hydroxide/Mg Hydroxide 30 ml 11/14/19 20:39 11/15/19 03:18 Magnesium Hydrox/Alum Hydrox 30 Ml Oral.Susp PO 30 ml Q6H PRN Administration Heartburn/Nausea Atorvastatin Calcium 10 mg 11/13/19 20:15 11/19/19 08:35 Atorvastatin Calcium 10 Mg Tablet PO 10 mg DAILY ANDREA Administration Bupropion HCl 150 mg 11/13/19 20:15 11/19/19 08:35 Bupropion Hcl Xl 150 Mg Tab.Er.24h PO 150 mg DAILY ANDREA Administration Clonidine HCl 0.1 mg 11/18/19 21:00 11/18/19 20:36 Clonidine Hcl 0.1 Mg Tablet PO 0.1 mg BEDTIME ANDREA Administration Protocol Escitalopram Oxalate 15 mg 11/17/19 09:00 11/19/19 08:36 Escitalopram Oxalate 10 Mg Tablet PO 15 mg DAILY ANDREA Administration Ferrous Sulfate 324 mg 11/18/19 11:05 11/19/19 08:35 Ferrous Sulfate 324 Mg Tablet. PO 324 mg BID ANDREA Administration Hydroxyzine HCl 25 mg 11/14/19 20:39 11/18/19 23:05 Hydroxyzine Hcl 25 Mg Tablet PO 25 mg BEDTIME PRN Administration Anxiety Lamotrigine 25 mg 11/17/19 21:00 11/18/19 20:36 Lamotrigine 25 Mg Tablet PO 25 mg BEDTIME ANDREA Administration Lorazepam 1 mg 11/14/19 20:37 11/18/19 20:42 Lorazepam 1 Mg Tablet PO 1 mg Q6H PRN Administration anxiety/restlessness Magnesium Hydroxide 30 ml 11/14/19 20:39 Milk Of Magnesia 30 Ml Oral.Susp PO DAILY PRN Constipation Nicotine Polacrilex 2 mg 11/14/19 20:39 Nicotine Polacrilex 2 Mg Gum BUCCAL Q2H PRN Nicotine Cravings Omeprazole 40 mg 11/18/19 06:30 11/19/19 08:35 Omeprazole 40 Mg Capsule. PO 40 mg DAILY@0630 ANDREA Administration Quetiapine Fumarate 25 mg 11/15/19 20:41 11/18/19 23:05 Quetiapine Fumarate 25 Mg Tablet PO 25 mg Q4H PRN Administration anxiety/restlessness Vitamin D 50 mcg 11/13/19 20:15 11/19/19 08:35 Cholecalciferol (Vitamin D3) 25 Mcg Tablet PO 50 mcg DAILY ANDREA Administration Allergies Allergies Allergy/AdvReac Type Severity Reaction Status Date / Time trazodone [TRAZODONE] Allergy Severe SHORTNESS Verified 11/13/19 18:59 OF BREATH, anaphylaxis trazodone Allergy Unknown anaphylaxis Uncoded 11/13/19 18:59 Assessment & Plan Assessment & Plan (1) Anemia: Qualifiers: Anemia type: iron deficiency Iron deficiency anemia type: chronic blood loss Qualified Code(s): D50.0 - Iron deficiency anemia secondary to blood loss (chronic) Status: Acute Code(s): D64.9 - Anemia, unspecified Assessment and Plan: Low iron and TIBC Initiate ferrous sulphate GI consult appreciated EGD and colonoscopy to be scheduled per Eliana Mathur (2) ADHD: Status: Acute Code(s): F90.9 - Attention-deficit hyperactivity disorder, unspecified type (3) Moderate cocaine use 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
[2019-11-19] MEDS: QUEtiapine Fumarate 25 MG TABLET PO (15:04)
[2019-11-19 16:11] VITALS: BP 130/67; PULSE 94; TEMP 36.7
[2019-11-19 20:07] VITALS: BP 125/58; PULSE 114
[2019-11-19] MEDS: cloNIDine HCL 0.1 MG TABLET PO (20:07)
[2019-11-19] MEDS: lamoTRIgine 25 MG TABLET PO (20:07)
[2019-11-19] MEDS: Melatonin 3 MG TABLET PO (20:07)
[2019-11-19] MEDS: hydrOXYzine HCL 25 MG TABLET PO (20:10)
[2019-11-20] MEDS: Cholecalciferol (Vitamin D3) 25 MCG TABLET 50 MCG PO (08:34)
[2019-11-20] MEDS: Ferrous Sulfate 324 MG TABLET.DR PO ×2 (08:34→22:44)
[2019-11-20] MEDS: Omeprazole 40 MG CAPSULE.DR PO (08:34)
[2019-11-20] MEDS: buPROPion HCl XL 150 MG TAB.ER.24H PO (08:35)
[2019-11-20] MEDS: Atorvastatin Calcium 10 MG TABLET PO (08:35)
[2019-11-20 08:40] VITALS: BP 131/81; PULSE 86; TEMP 36.4
[2019-11-20] MEDS: Acetaminophen 325 MG TABLET 650 MG PO (14:20)
--- NOTE | 2019-11-20 15:00 | PC.NURSE ---
APPROACHED THIS CONCRETE STONE FABRICATOR TO REPORT THAT HE FELT HIS MEDS MIGHT BE CAUSING HIM TO FEEL DISORIENTED AND NO HIMSELF. STATES HE FEELS THOUGH HIS BRAIN IS GOING TO EXPLODE, FEELS MANIC, HAS THOUGHTS OF HURTING HIMSELF AND IS HAVING AN INCREASE IN HEADACHES. IS QUESTIONING NEW MEDS: SEROQUEL, LAMICTAL AND LEXAPRO. STATES HE FEELS THOUGH HE IS GOING CRAZY. QUESTIONED GI DOCTOR'S RECOMMENDATION OF COLONOSCOPY. PT INFORMED COLONOSCOPY WOULD USUALLY BE DONE OUTPT. PERSONNEL RESEARCH PSYCHOLOGIST REPORT PRINTED OUT FOR DR SHELTON TO REVIEW WITH PT.
--- NOTE | 2019-11-20 15:26 | HO.PSYCHPN ---
Subjective Subjective Reason For Visit: SI Subjective Notes: Conditional Voluntary Interim History: patient depressed agitated intermittently suicidal self hating states he can maintain safety in this setting Medication Compliance: Yes Side effects from medications: Yes Attending Groups: Intermittent Review of Systems Constitutional: Reports headache(s) and Reports lethargy Reports headache(s) Cardiovascular: Reports no additional cardiovascular complaints Musculoskeletal: Denies abnormal gait Denies abnormal gait and Reports headache(s) Mental Status Exam Mental Status Exam Narrative: patient depressed self hating Patient Orientation: Person, Place, Time and Situation Level of Consciousness: Awake Mood Description: Sad and Apprehensive Affect Description: Withdrawn, Depressed, Anxious, Angry and Sad Hallucinations: None Delusions: Not Present Thought Content: positive for Racing and positive for Suicidal Ideation ( states he can maintain safety in the setting) Depressive Symptoms: Increased Anxiety Diagnostics Vital Signs (24Hr): Vital Signs - 24 hr 11/19/19 16:11 11/19/19 20:07 11/20/19 08:40 Temperature 98.1 F 97.6 F Pulse Rate 94 114 H 86 Blood Pressure 130/67 125/58 L 131/81 Body Mass Index 33.5 Labs Results: 11/17/19 17:25 11/16/19 07:35 Medications Medications Current Medications Generic Name Dose Route Start Last Admin Trade Name Freq PRN Reason Stop Dose Admin Acetaminophen 650 mg 11/14/19 20:39 11/20/19 14:20 Acetaminophen 325 Mg Tablet PO 650 mg Q6H PRN Administration Headache/Pain Mild Scale (1-3) Al Hydroxide/Mg Hydroxide 30 ml 11/14/19 20:39 11/15/19 03:18 Magnesium Hydrox/Alum Hydrox 30 Ml Oral.Susp PO 30 ml Q6H PRN Administration Heartburn/Nausea Atorvastatin Calcium 10 mg 11/13/19 20:15 11/20/19 08:35 Atorvastatin Calcium 10 Mg Tablet PO 10 mg DAILY ANDREA Administration Bupropion HCl 150 mg 11/13/19 20:15 11/20/19 08:35 Bupropion Hcl Xl 150 Mg Tab.Er.24h PO 150 mg DAILY ANDREA Administration Clonidine HCl 0.1 mg 11/18/19 21:00 11/19/19 20:07 Clonidine Hcl 0.1 Mg Tablet PO 0.1 mg BEDTIME ANDREA Administration Protocol Escitalopram Oxalate 15 mg 11/20/19 21:00 Escitalopram Oxalate 10 Mg Tablet PO BEDTIME ANDREA Ferrous Sulfate 324 mg 10/11/20 11:05 11/20/19 08:34 Ferrous Sulfate 324 Mg Tablet. PO 324 mg BID ANDREA Administration Hydroxyzine HCl 25 mg 11/14/19 20:39 11/19/19 20:10 Hydroxyzine Hcl 25 Mg Tablet PO 25 mg BEDTIME PRN Administration Anxiety Lamotrigine 25 mg 11/17/19 21:00 11/19/19 20:07 Lamotrigine 25 Mg Tablet PO 25 mg BEDTIME ANDREA Administration Magnesium Hydroxide 30 ml 11/14/19 20:39 Milk Of Magnesia 30 Ml Oral.Susp PO DAILY PRN Constipation Melatonin 3 mg 11/19/19 21:00 11/19/19 20:07 Melatonin 3 Mg Tablet PO 3 mg BEDTIME ANDREA Administration Nicotine Polacrilex 2 mg 11/14/19 20:39 Nicotine Polacrilex 2 Mg Gum BUCCAL Q2H PRN Nicotine Cravings Omeprazole 40 mg 11/18/19 06:30 11/20/19 08:34 Omeprazole 40 Mg Capsule. PO 40 mg DAILY@0630 ANDREA Administration Quetiapine Fumarate 25 mg 11/15/19 20:41 11/19/19 15:04 Quetiapine Fumarate 25 Mg Tablet PO 25 mg Q4H PRN Administration anxiety/restlessness Vitamin D 50 mcg 11/13/19 20:15 11/20/19 08:34 Cholecalciferol (Vitamin D3) 25 Mcg Tablet PO 50 mcg DAILY ANDREA Administration Allergies Allergies Allergy/AdvReac Type Severity Reaction Status Date / Time trazodone [TRAZODONE] Allergy Severe SHORTNESS Verified 11/13/19 18:59 OF BREATH, anaphylaxis trazodone Allergy Unknown anaphylaxis Uncoded 11/13/19 18:59 Assessment & Plan Assessment & Plan (1) Bipolar 2 disorder, major depressive episode: Status: Acute Code(s): F31.81 - Bipolar II disorder Assessment and Plan: patient given material on lithium he has trauma abandonment major axis to PTSD and mood disordern no clear manic symptoms racing thoughts agitation stop Seroquel start Risperdal consider lithium continue Lamictal for now (2) ADHD: Status: Acute Code(s): F90.9 - Attention-deficit hyperactivity disorder, unspecified type (3) Moderate cocaine use 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
[2019-11-20] MEDS: lamoTRIgine 25 MG TABLET PO ×2 (17:15→22:44)
[2019-11-20 22:00] VITALS: BP 133/71; PULSE 91; TEMP 36.8
[2019-11-20] MEDS: Escitalopram Oxalate 10 MG TABLET 15 MG PO (22:43)
[2019-11-20] MEDS: Melatonin 3 MG TABLET PO (22:43)
[2019-11-20 22:44] VITALS: BP 133/71; PULSE 91
[2019-11-20] MEDS: cloNIDine HCL 0.1 MG TABLET PO (22:44)
[2019-11-21] MEDS: hydrOXYzine HCL 25 MG TABLET PO (00:13)
[2019-11-21] MEDS: Acetaminophen 325 MG TABLET 650 MG PO (00:13)
[2019-11-21] MEDS: lamoTRIgine 25 MG TABLET PO ×2 (08:20→20:32)
[2019-11-21] MEDS: Ferrous Sulfate 324 MG TABLET.DR PO (08:20)
[2019-11-21] MEDS: Omeprazole 40 MG CAPSULE.DR PO (08:20)
[2019-11-21] MEDS: Atorvastatin Calcium 10 MG TABLET PO (08:20)
[2019-11-21] MEDS: Cholecalciferol (Vitamin D3) 25 MCG TABLET 50 MCG PO (08:21)
[2019-11-21 08:37] VITALS: BP 121/68; PULSE 82; TEMP 36.4
[2019-11-21] MEDS: LORazepam 1 MG TABLET PO ×2 (12:16→20:30)
[2019-11-21] MEDS: PEG 3350/Na Sulf,Bicarb,Cl/KCL 4,000 ML SOLN.RECON 4000 ML PO (13:04)
--- NOTE | 2019-11-21 13:53 | PC.NURSE ---
Addendum entered by Lisa Armstrong RN 11/21/19 14:01: IRON AND VITAMIN D TO BE HELD PRIOR TO PROCEDURE. PT AWARE OF PROCEDURES ORDERED, EDUCATION GIVEN. Original Note: COLONOSCOPY/ENDOSCOPY SCHEDULED FOR 11/22/19 AT 1530. PROCEDURES REVIEWED BY HIGH DENSITY TALC COATER OPERATOR AND PT TO PROCEED WITH SCHEDULED PROCEDURES. CLEAR LIQUID DIET ORDERED AND STARTED AFTER BREAKFAST. BOWEL PREP ORDERED BY DR BALBUENA AND STARTED AT 1304- TO BE ADMINISTERED EVERY 10 MIN UNTIL COMPLETED. SURGICAL CHART [employer] SANITARIAN TO CALL UNIT TOMORROW WITH EXACT TIME OF PROCEDURE. PT TO BE NPO AFTER MIDNIGHT EXCEPT FOR ANY AMT OF BOWEL PREP IF NOT COMPLETED. MAY TAKE LAMICTAL, OMEPRAZOLE AND LIPITOR IN AM WITH SIP OF H2O. IRON AND VITAMIN D TO BE HELD PR90
--- NOTE | 2019-11-21 14:12 | PC.NURSE ---
ENDOSCOPY/COLONOSCOPY SCHEDULED FOR 11/22/19 AT 1530. PROCEDURES REVIEWED WITH HOTEL RESERVATION AGENT, JACOB BAGLEY RN, AND WILL PROCEED ORDERED. PT ON CLEAR LIQUID DIET STARTING AFTER BREAKFAST TODAY. DR BALBUENA ORDERED BOWEL PREP AND IT WAS STARTED AT 1304. BOWEL PREP TO BE GIVEN EVERY 10 MIN UNTIL COMPLETED. PT AWARE OF PROCEDURES SCHEDULED AND PREP INVOLVED, EDUCATION GIVEN. NPO AFTER MIDNIGHT WITH EXCEPTION OF BOWEL PREP UNTIL COMPLETED. PT CAN TAKE LAMICTAL, OMEPRAZOLE AND LIPITOR IN AM WITH SIP OF H20. IRON AND VITAMIN D TO BE HELD PRIOR TO PROCEDURES. MANAGER HOUSE/CHART CLINICAL PROVIDER TRAINER TO CALL UNIT FOR EXACT TIME OF PROCEDURE DAY OF PROCEDURE.
[2019-11-21 15:38] VITALS: BMI 33.5
[2019-11-21] MEDS: Escitalopram Oxalate 10 MG TABLET 15 MG PO (20:30)
[2019-11-21] MEDS: risperiDONE 0.5 MG TABLET PO (20:30)
[2019-11-21 20:32] VITALS: BP 132/84; PULSE 89
[2019-11-21] MEDS: cloNIDine HCL 0.1 MG TABLET PO (20:32)
[2019-11-21 20:35] VITALS: TEMP 36.3
[2019-11-21] MEDS: Melatonin 3 MG TABLET PO (20:40)
--- NOTE | 2019-11-21 21:52 | P.PNPSI_ITS ---
Subjective Subjective Reason For Visit: SI Subjective Notes: Conditional Voluntary Interim History: patient depressed agitated intermittently suicidal self hating states he can maintain safety in this setting case reviewed extensively with patient's partner patient feeling calmer agreeable to lithium trial agreeable to endoscopy for significant anemia Medication Compliance: Yes Side effects from medications: Yes Attending Groups: Intermittent Review of Systems Review of Systems no change patient denies current rectal bleeding chronic fatigue Constitutional: Reports headache(s) Reports headache(s) Musculoskeletal: Denies abnormal gait Denies abnormal gait and Reports headache(s) Mental Status Exam Mental Status Exam Narrative: patient depressed self hating this continues but less suicidally agitated more agreeable to longer-term treatment focus Patient Appearance: Disheveled Patient Orientation: Person, Place, Time and Situation Level of Consciousness: Awake Patient Behavior: Appropriate Mood Description: Depressed, Sad and Apprehensive Affect Description: Withdrawn, Depressed, Anxious, Angry and Sad Speech Pattern: Clear Memory Description: Intact Hallucinations: None Delusions: Not Present Thought Process: Rumination Thought Content: positive for Obsessional Thoughts, positive for Preoccupation and positive for Suicidal Ideation ( states he can maintain safety in the setting) Depressive Symptoms: Increased Anxiety Diagnostics Vital Signs (24Hr): Vital Signs - 24 hr 11/20/19 22:00 11/20/19 22:44 11/21/19 08:37 Temperature 98.3 F 97.6 F Pulse Rate 91 91 82 Blood Pressure 133/71 133/71 121/68 11/21/19 20:32 11/21/19 20:35 Temperature 97.3 F Pulse Rate 89 Blood Pressure 132/84 Body Mass Index 33.5 Labs Results: 11/17/19 17:25 11/16/19 07:35 Medications Medications Current Medications Generic Name Dose Route Start Last Admin Trade Name Freq PRN Reason Stop Dose Admin Acetaminophen 650 mg 11/14/19 20:39 11/21/19 00:13 Acetaminophen 325 Mg Tablet PO 650 mg Q6H PRN Administration Headache/Pain Mild Scale (1-3) Al Hydroxide/Mg Hydroxide 30 ml 11/14/19 20:39 11/15/19 03:18 Magnesium Hydrox/Alum Hydrox 30 Ml Oral.Susp PO 30 ml Q6H PRN Administration Heartburn/Nausea Atorvastatin Calcium 10 mg 11/13/19 20:15 11/21/19 08:20 Atorvastatin Calcium 10 Mg Tablet PO 10 mg DAILY ANDREA Administration Clonidine HCl 0.1 mg 10/11/20 21:00 11/21/19 20:32 Clonidine Hcl 0.1 Mg Tablet PO 0.1 mg BEDTIME ANDREA Administration Protocol Escitalopram Oxalate 15 mg 11/20/19 21:00 11/21/19 20:30 Escitalopram Oxalate 10 Mg Tablet PO 15 mg BEDTIME ANDREA Administration Ferrous Sulfate 324 mg 11/18/19 11:05 11/21/19 20:34 Ferrous Sulfate 324 Mg Tablet. PO Not Given BID ANDREA Hydroxyzine HCl 25 mg 11/14/19 20:39 11/21/19 00:13 Hydroxyzine Hcl 25 Mg Tablet PO 25 mg BEDTIME PRN Administration Anxiety Lamotrigine 25 mg 11/20/19 15:45 11/21/19 20:32 Lamotrigine 25 Mg Tablet PO 25 mg BID ANDREA Administration Micanopy Citrate 150 mg 11/21/19 21:00 11/21/19 20:32 Micanopy Citrate Oral Mackenzie 300 Mg/5 Ml Solution PO 150 mg BID ANDREA Administration Lorazepam 1 mg 11/20/19 15:44 11/21/19 20:30 Lorazepam 1 Mg Tablet PO 1 mg Q6H PRN Administration Anxiety Magnesium Hydroxide 30 ml 11/14/19 20:39 Milk Of Magnesia 30 Ml Oral.Susp PO DAILY PRN Constipation Melatonin 3 mg 11/19/19 21:00 11/21/19 20:40 Melatonin 3 Mg Tablet PO 3 mg BEDTIME ANDREA Administration Nicotine Polacrilex 2 mg 11/14/19 20:39 Nicotine Polacrilex 2 Mg Gum BUCCAL Q2H PRN Nicotine Cravings Omeprazole 40 mg 11/18/19 06:30 11/21/19 08:20 Omeprazole 40 Mg Capsule. PO 40 mg DAILY@0630 ANDREA Administration Risperidone 0.5 mg 11/20/19 15:46 Risperidone 0.5 Mg Tablet PO Q4H PRN anxiety/restlessness Risperidone 0.5 mg 11/21/19 21:00 11/21/19 20:30 Risperidone 0.5 Mg Tablet PO 0.5 mg BEDTIME ANDREA Administration Vitamin D 50 mcg 11/13/19 20:15 11/21/19 08:21 Cholecalciferol (Vitamin D3) 25 Mcg Tablet PO 50 mcg DAILY ANDREA Administration Allergies Allergies Allergy/AdvReac Type Severity Reaction Status Date / Time trazodone [TRAZODONE] Allergy Severe SHORTNESS Verified 11/13/19 18:59 OF BREATH, anaphylaxis trazodone Allergy Unknown anaphylaxis Uncoded 11/13/19 18:59 Assessment & Plan Assessment & Plan (1) Bipolar 2 disorder, major depressive episode: Status: Acute Code(s): F31.81 - Bipolar II disorder Assessment and Plan: start lithium continue Lexapro Education given lithium for mood instability and decrease suicide risk , depression coping skills CBT skills (2) Anemia: Qualifiers: Anemia type: iron deficiency Iron deficiency anemia type: chronic blood loss Qualified Code(s): D50.0 - Iron deficiency anemia secondary to blood loss (chronic) Status: Acute Code(s): D64.9 - Anemia, unspecified Assessment and Plan: endoscopy and colonoscopy iron (3) Moderate cocaine use disorder in controlled environment: Status: Acute Code(s): F14.20 - Cocaine dependence, uncomplicated Assessment and Plan: [facility] referral recommend residential treatment Greater than 50% of the session was spent on counseling and/or coordination of care
[2019-11-22] VITALS (12 sets, daily range): BP systolic 102–127; BP diastolic 55–71; PULSE 81–112; RESP 16–20; TEMP 36.6–37.1; O2SAT 97–100
[2019-11-22] MEDS: Atorvastatin Calcium 10 MG TABLET PO (08:47)
[2019-11-22] MEDS: Omeprazole 40 MG CAPSULE.DR PO (08:47)
[2019-11-22] MEDS: lamoTRIgine 25 MG TABLET PO ×2 (08:47→20:38)
--- NOTE | 2019-11-22 15:20 | P.CONAN_ITS ---
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 Functional capacity: independent ambulation Social History Social History Household Members: Significant Other Household Members Other:: GIRLFRIEND Housing: House Do you presently have visiting nurse or other home services: No Alcohol intake: unknown Smoking Status: Former smoker Tobacco Type: Cigarette Packs Per Day: 0 Cigarettes Per Day: 0.0 Years Smoked: NO Smoked in Last 30 Days: No Patient Interested in Nicotine Replacement: No Patient Given Instructions on How to Stop Smoking: No (DOES NOT NEED PER PT) Date Education Initiated: 11/14/19 Second Hand Smoke Exposure: No Use of substances other than those prescribed or required for medical reasons: Yes Substance Use Type: Crack/Cocaine, Marijuana and Other Substance Use Type Other:: LSD Substance Use Frequency: Daily Last Used Substance: Just Prior to Admission Last Used Substance Other:: COCAINE JUST PRIOR TO ADMIT. FREQUENT POT. Currently Displaying Signs/Symptoms of Drug Intoxication Withdrawal: No Any prior treatment program specific to substance use: Yes ([facility]) Have you been hit, kicked, punched, or otherwise hurt by someone within the past year? 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 Advance Directives: No Advance Directives Information Provided: Yes Advance Directives on File: No Current/Past Psychiatric Disorders: Substance abuse [place] Symptoms: Anxiety, Hopelessness and Worthlessness Family History: Attempts Access to Firearms: No Do you have thoughts of harming others: None Do you have a plan to hurt others: No Plan Recently lost weight without trying: No service: No Sexual orientation: Straight/Heterosexual Meds Allergies Allergy/AdvReac Type Severity Reaction Status Date / Time trazodone [TRAZODONE] Allergy Severe SHORTNESS Verified 11/13/19 18:59 OF BREATH, anaphylaxis trazodone Allergy Unknown anaphylaxis Uncoded 11/13/19 18:59 Home Medications Medication Instructions Recorded Confirmed Type atorvastatin 10 mg PO DAILY 11/13/19 11/14/19 History bupropion HCl 150 mg PO QAM 11/13/19 11/14/19 History cholecalciferol (vitamin D3) 50 mcg PO DAILY 11/13/19 11/14/19 History [Vitamin D3] escitalopram oxalate 10 mg PO DAILY 11/13/19 11/14/19 History pantoprazole 40 mg PO DAILY 11/13/19 11/13/19 History Exam Exam Date and Time: November 22, 2019 1520 Height,Weight and Vital Signs: Height 5 ft 5 in Weight 91.28 kg Last Vital Signs Temp 98.7 F 11/22/19 14:39 Pulse 85 11/22/19 14:39 Resp 16 11/22/19 14:39 BP 126/61 11/22/19 14:39 Pulse Ox 98 11/22/19 14:39 Pertinent Lab Results Pertinent Lab Results: Laboratory Tests 11/13/19 11/13/19 11/13/19 17:50 21:41 21:41 WBC 8.9 RBC 3.64 L Hgb 7.5 L Hct 25.1 L MCV 69.0 L MCH 20.6 L MCHC 29.9 L RDW 15.9 Plt Count 420 H MPV 8.5 L Immature Gran % (Auto) 0.4 Neut % (Auto) 52.3 Lymph % (Auto) 31.3 Gregory % (Auto) 8.9 Eos % (Auto) 6.4 H Baso % (Auto) 0.7 Neut # (Auto) 4.7 Lymph # (Auto) 2.8 Gregory # (Auto) 0.8 Eos # (Auto) 0.6 H Baso # (Auto) 0.1 Abs Immat Gran (auto) 0.04 H Absolute Nucleated RBC 0.000 Nucleated RBC % (auto) 0.0 Neutrophils % (Manual) Band Neutrophils % Lymphocytes % (Manual) Monocytes % (Manual) Eosinophils % (Manual) Abs Neuts (Manual) Lymphocytes # (Manual) Monocytes # (Manual) Eosinophils # (Manual) Platelet Estimate Plt Morphology Comment RBC Morphology Hypochromasia Sodium 140 Potassium 4.3 Chloride 106 Carbon Dioxide 26 Anion Gap 12 BUN 19 H Creatinine 1.19 Estim Creat Clear Calc 85.7 Estimated GFR > 60 Random Glucose 126 H Fasting Glucose Estimat Average Glucose Hemoglobin A1c % Calcium 8.7 Iron TIBC % Saturation Unsat Iron Binding Ferritin Total Bilirubin 0.2 AST 72 H ALT 68 H Alkaline Phosphatase 122 H Total Protein 6.6 Albumin 4.1 Triglycerides Cholesterol LDL Cholesterol, Calc HDL Cholesterol Lipoprotein (a) Vitamin B12 Folate TSH Stool Occult Blood Urine Opiates Screen Not Detected Ur Barbiturates Screen Not Detected Ur Phencyclidine Scrn Not Detected Ur Amphetamines Screen Not Detected U Benzodiazepines Scrn POSITIVE H Urine Cocaine Screen Not Detected U Marijuana (THC) Screen Not Detected Ethyl Alcohol Coronavirus (PCR) 11/13/19 11/14/19 11/14/19 21:41 01:48 10:04 WBC RBC Hgb Hct MCV MCH MCHC RDW Plt Count MPV Immature Gran % (Auto) Neut % (Auto) Lymph % (Auto) Gregory % (Auto) Eos % (Auto) Baso % (Auto) Neut # (Auto) Lymph # (Auto) Gregory # (Auto) Eos # (Auto) Baso # (Auto) Abs Immat Gran (auto) Absolute Nucleated RBC Nucleated RBC % (auto) Neutrophils % (Manual) Band Neutrophils % Lymphocytes % (Manual) Monocytes % (Manual) Eosinophils % (Manual) Abs Neuts (Manual) Lymphocytes # (Manual) Monocytes # (Manual) Eosinophils # (Manual) Platelet Estimate Plt Morphology Comment RBC Morphology Hypochromasia Sodium Potassium Chloride Carbon Dioxide Anion Gap BUN Creatinine Estim Creat Clear Calc Estimated GFR Random Glucose Fasting Glucose Estimat Average Glucose Hemoglobin A1c % Calcium Iron TIBC % Saturation Unsat Iron Binding Ferritin Total Bilirubin AST ALT Alkaline Phosphatase Total Protein Albumin Triglycerides Cholesterol LDL Cholesterol, Calc HDL Cholesterol Lipoprotein (a) Vitamin B12 Folate TSH Stool Occult Blood NEG Urine Opiates Screen Ur Barbiturates Screen Ur Phencyclidine Scrn Ur Amphetamines Screen U Benzodiazepines Scrn Urine Cocaine Screen U Marijuana (THC) Screen Ethyl Alcohol < 10 Coronavirus (PCR) NEGATIVE 11/16/19 11/16/19 11/16/19 07:35 07:35 07:35 WBC RBC Hgb Hct MCV MCH MCHC RDW Plt Count MPV Immature Gran % (Auto) Neut % (Auto) Lymph % (Auto) Gregory % (Auto) Eos % (Auto) Baso % (Auto) Neut # (Auto) Lymph # (Auto) Gregory # (Auto) Eos # (Auto) Baso # (Auto) Abs Immat Gran (auto) Absolute Nucleated RBC Nucleated RBC % (auto) Neutrophils % (Manual) Band Neutrophils % Lymphocytes % (Manual) Monocytes % (Manual) Eosinophils % (Manual) Abs Neuts (Manual) Lymphocytes # (Manual) Monocytes # (Manual) Eosinophils # (Manual) Platelet Estimate Plt Morphology Comment RBC Morphology Hypochromasia Sodium 138 Potassium 4.6 Chloride 104 Carbon Dioxide 26 Anion Gap 13 BUN 25 H Creatinine 1.29 Estim Creat Clear Calc 77.4 Estimated GFR > 60 Random Glucose Fasting Glucose 121 H Estimat Average Glucose 123 Hemoglobin A1c % 5.9 Calcium 9.0 Iron TIBC % Saturation Unsat Iron Binding Ferritin 4 L Total Bilirubin 0.3 AST 52 H ALT 87 H Alkaline Phosphatase 120 H Total Protein 7.0 Albumin 4.4 Triglycerides 192 Cholesterol 212 LDL Cholesterol, Calc 130 HDL Cholesterol 44 Lipoprotein (a) Vitamin B12 Folate TSH 1.97 Stool Occult Blood Urine Opiates Screen Ur Barbiturates Screen Ur Phencyclidine Scrn Ur Amphetamines Screen U Benzodiazepines Scrn Urine Cocaine Screen U Marijuana (THC) Screen Ethyl Alcohol Coronavirus (PCR) 11/16/19 11/16/19 11/17/19 07:35 07:35 17:25 WBC 8.7 RBC 4.06 L Hgb 8.1 L Hct 27.7 L MCV 68.2 L MCH 20.0 L MCHC 29.2 L RDW 16.1 H Plt Count 429 H MPV 8.7 L Immature Gran % (Auto) Neut % (Auto) Lymph % (Auto) Gregory % (Auto) Eos % (Auto) Baso % (Auto) Neut # (Auto) Lymph # (Auto) Gregory # (Auto) Eos # (Auto) Baso # (Auto) Abs Immat Gran (auto) Absolute Nucleated RBC 0.020 H Nucleated RBC % (auto) 0.2 Neutrophils % (Manual) 56 Band Neutrophils % 0 L Lymphocytes % (Manual) 32 Monocytes % (Manual) 5 Eosinophils % (Manual) 7 H Abs Neuts (Manual) 4.9 Lymphocytes # (Manual) 2.8 Monocytes # (Manual) 0.4 Eosinophils # (Manual) 0.6 Platelet Estimate NORMAL Plt Morphology Comment NORMAL RBC Morphology NORMAL Hypochromasia 2+ Sodium Potassium Chloride Carbon Dioxide Anion Gap BUN Creatinine Estim Creat Clear Calc Estimated GFR Random Glucose Fasting Glucose Estimat Average Glucose Hemoglobin A1c % Calcium Iron TIBC % Saturation Unsat Iron Binding Ferritin Total Bilirubin AST ALT Alkaline Phosphatase Total Protein Albumin Triglycerides Cholesterol LDL Cholesterol, Calc HDL Cholesterol Lipoprotein (a) Cancelled Vitamin B12 424 Folate 9.7 TSH Stool Occult Blood Urine Opiates Screen Ur Barbiturates Screen Ur Phencyclidine Scrn Ur Amphetamines Screen U Benzodiazepines Scrn Urine Cocaine Screen U Marijuana (THC) Screen Ethyl Alcohol Coronavirus (PCR) 11/17/19 17:25 WBC RBC Hgb Hct MCV MCH MCHC RDW Plt Count MPV Immature Gran % (Auto) Neut % (Auto) Lymph % (Auto) Gregory % (Auto) Eos % (Auto) Baso % (Auto) Neut # (Auto) Lymph # (Auto) Gregory # (Auto) Eos # (Auto) Baso # (Auto) Abs Immat Gran (auto) Absolute Nucleated RBC Nucleated RBC % (auto) Neutrophils % (Manual) Band Neutrophils % Lymphocytes % (Manual) Monocytes % (Manual) Eosinophils % (Manual) Abs Neuts (Manual) Lymphocytes # (Manual) Monocytes # (Manual) Eosinophils # (Manual) Platelet Estimate Plt Morphology Comment RBC Morphology Hypochromasia Sodium Potassium Chloride Carbon Dioxide Anion Gap BUN Creatinine Estim Creat Clear Calc Estimated GFR Random Glucose Fasting Glucose Estimat Average Glucose Hemoglobin A1c % Calcium Iron 13 L TIBC 533 H % Saturation 2 L Unsat Iron Binding 520 Ferritin Total Bilirubin AST ALT Alkaline Phosphatase Total Protein Albumin Triglycerides Cholesterol LDL Cholesterol, Calc HDL Cholesterol Lipoprotein (a) Vitamin B12 Folate TSH Stool Occult Blood Urine Opiates Screen Ur Barbiturates Screen Ur Phencyclidine Scrn Ur Amphetamines Screen U Benzodiazepines Scrn Urine Cocaine Screen U Marijuana (THC) Screen Ethyl Alcohol Coronavirus (PCR) Airway Mallampati Class: II TM Dist: >3cm Neck ROM: Full Loose/Missing/Broken Teeth: No Heart: rrr Lungs: nl Assessment and Plan Assessment Anesthesia Assessment: Anesthesia Plan Discussed and Chart Reviewed Final Anesthetic Review NPO: Yes ASA Class: II Final Preanesthetic Review: No Changes in Pt Med Stat, Meds/Allgs Chart Reviewed and Consent Obtained/Reviewed Patient Risk: Low Procedure Risk: Low Anesthetic Plan Anesthetic Plan: MAC: Disposition: Standard PACU
[2019-11-22] MEDS: Lactated Ringers 1,000 ML 50 ML IVCONT (15:30)
--- NOTE | 2019-11-22 16:01 | MHC.SHP ---
Pre-Procedural Eval Section B Chief Complaint: SI Allergies: Allergies Allergy/AdvReac Type Severity Reaction Status Date / Time trazodone [TRAZODONE] Allergy Severe SHORTNESS Verified 11/13/19 18:59 OF BREATH, anaphylaxis trazodone Allergy Unknown anaphylaxis Uncoded 11/13/19 18:59 Plan Patient has been examined and remains a candidate for the planned procedure--YES
[2019-11-22] MEDS: Albuterol Sulfate (0.083%) 2.5 MG/3 ML VIAL.NEB INHALE (16:51)
--- NOTE | 2019-11-22 16:54 | PM.PROC ---
Brief Operative Note Date of procedure: 11/22/19 Pre-op diagnosis: Iron deficiency Anemia-Dyspepsia Post-op diagnosis: other (EGD--small Hiatal Hernia) Procedure: EGD with no bx Anesthesia: other (MAC with LMA after Laryngospasm) Surgeon: Yasmeen Mathur Estimated blood loss (mL): 0 Pathology: none sent Condition: stable Disposition: PACU
[2019-11-22] MEDS: Acetaminophen 325 MG TABLET 650 MG PO (17:17)
--- NOTE | 2019-11-22 17:30 | PC.NURSE ---
report from pacu; monitored anesthesia, upper endo done but removed early due to spasms. pt will require continued clear liquid diet as they will attempt colonoscopy tomorrow. npo after midnight. had udn following treatment. 108/67, 98-100%,pulses ranging btwn 103-107. report from charlie.
--- NOTE | 2019-11-22 18:01 | PC.NURSE ---
returned from pacu. will administer miralax as ordered by dr. ricardo. pt with no c/o discomfort. able to verbalize diet restrictions of clear liquids as well as npo status after midnight. 97%, 109, 98.6, 105/69
[2019-11-22] MEDS: polyethylene glycoL 3350 17 GM POWD.PACK PO ×2 (18:10→20:35)
[2019-11-22] MEDS: Melatonin 3 MG TABLET PO (20:38)
[2019-11-22] MEDS: risperiDONE 0.5 MG TABLET PO (20:39)
[2019-11-22] MEDS: cloNIDine HCL 0.1 MG TABLET PO (20:39)
[2019-11-22] MEDS: Escitalopram Oxalate 10 MG TABLET 15 MG PO (20:40)
--- NOTE | 2019-11-22 21:33 | P.PNPSI_ITS ---
Subjective Subjective Reason For Visit: SI Subjective Notes: Conditional Voluntary Interim History: pt had endoscopy no active lesion mood depressed Medication Compliance: Yes Side effects from medications: No Review of Systems Constitutional: Reports headache(s) Reports headache(s) Musculoskeletal: Denies abnormal gait Denies abnormal gait and Reports headache(s) Mental Status Exam Mental Status Exam Narrative: patient depressed self hating this continues but less suicidally agitated more agreeable to longer-term treatment focus calmer Patient Appearance: Disheveled Patient Orientation: Person, Place, Time and Situation Level of Consciousness: Awake Patient Behavior: Appropriate Mood Description: Depressed, Sad and Apprehensive Affect Description: Withdrawn, Depressed, Anxious, Angry and Sad Speech Pattern: Clear Memory Description: Intact Hallucinations: None Delusions: Not Present Thought Process: Rumination Thought Content: positive for Obsessional Thoughts, positive for Preoccupation and positive for Suicidal Ideation ( states he can maintain safety in the setting) Depressive Symptoms: Increased Anxiety Diagnostics Vital Signs (24Hr): Vital Signs - 24 hr 11/22/19 08:07 11/22/19 14:39 11/22/19 15:36 Temperature 98.0 F 98.7 F Pulse Rate 94 85 81 Respiratory Rate 16 20 Blood Pressure 121/65 126/61 121/71 Pulse Oximetry 98 98 11/22/19 16:45 11/22/19 16:50 11/22/19 16:55 Temperature 98.8 F Pulse Rate 109 H 112 H 109 H Respiratory Rate 16 16 18 Blood Pressure 108/58 L 111/59 L 122/58 L Pulse Oximetry 100 98 97 11/22/19 17:00 11/22/19 17:15 11/22/19 17:30 Temperature 98.2 F Pulse Rate 105 H 97 Respiratory Rate 16 16 16 Blood Pressure 127/55 L 108/67 111/64 Pulse Oximetry 97 98 98 11/22/19 17:49 11/22/19 20:39 11/22/19 21:20 Temperature 98.6 F 97.9 F Pulse Rate 109 H 100 100 Respiratory Rate Blood Pressure 105/69 102/62 102/62 Pulse Oximetry 97 97 Body Mass Index 33.5 Labs Results: 11/17/19 17:25 11/16/19 07:35 Medications Medications Current Medications Generic Name Dose Route Start Last Admin Trade Name Freq PRN Reason Stop Dose Admin Acetaminophen 650 mg 11/14/19 20:39 11/22/19 17:17 Acetaminophen 325 Mg Tablet PO 650 mg Q6H PRN Administration Headache/Pain Mild Scale (1-3) Al Hydroxide/Mg Hydroxide 30 ml 11/14/19 20:39 11/15/19 03:18 Magnesium Hydrox/Alum Hydrox 30 Ml Oral.Susp PO 30 ml Q6H PRN Administration Heartburn/Nausea Albuterol Sulfate 2.5 mg 11/22/19 16:48 11/22/19 16:51 Albuterol Sulfate (0.083%) 2.5 Mg/3 Ml Vial.Neb INHALE 2.5 mg Q3H PRN Administration Shortness of Breath/Wheezing Atorvastatin Calcium 10 mg 11/13/19 20:15 11/22/19 08:47 Atorvastatin Calcium 10 Mg Tablet PO 10 mg DAILY ANDREA Administration Clonidine HCl 0.1 mg 11/18/19 21:00 11/22/19 20:39 Clonidine Hcl 0.1 Mg Tablet PO 0.1 mg BEDTIME ANDREA Administration Protocol Escitalopram Oxalate 15 mg 11/20/19 21:00 11/22/19 20:40 Escitalopram Oxalate 10 Mg Tablet PO 15 mg BEDTIME ANDREA Administration Ferrous Sulfate 324 mg 11/18/19 11:05 11/22/19 20:43 Ferrous Sulfate 324 Mg Tablet.Dr PO Not Given BID ANDREA Hydroxyzine HCl 25 mg 11/14/19 20:39 11/21/19 00:13 Hydroxyzine Hcl 25 Mg Tablet PO 25 mg BEDTIME PRN Administration Anxiety Lactated Ringer's 1,000 mls @ 50 mls/hr 11/22/19 15:30 11/22/19 15:30 Lr IVCONT 50 mls/hr .Q20H ANDREA Administration Lamotrigine 25 mg 11/20/19 15:45 11/22/19 20:38 Lamotrigine 25 Mg Tablet PO 25 mg BID ANDREA Administration [place] Citrate 150 mg 11/21/19 21:00 11/22/19 20:36 [place] Citrate Oral [place] 300 Mg/5 Ml Solution PO 150 mg BID ANDREA Administration Lorazepam 1 mg 11/20/19 15:44 11/21/19 20:30 Lorazepam 1 Mg Tablet PO 1 mg Q6H PRN Administration Anxiety Magnesium Hydroxide 30 ml 11/14/19 20:39 Milk Of Magnesia 30 Ml Oral.Susp PO DAILY PRN Constipation Melatonin 3 mg 11/19/19 21:00 11/22/19 20:38 Melatonin 3 Mg Tablet PO 3 mg BEDTIME ANDREA Administration Nicotine Polacrilex 2 mg 11/14/19 20:39 Nicotine Polacrilex 2 Mg Gum BUCCAL Q2H PRN Nicotine Cravings Omeprazole 40 mg 11/18/19 06:30 11/22/19 08:47 Omeprazole 40 Mg Capsule.Dr PO 40 mg DAILY@0630 ANDREA Administration Ondansetron HCl 4 mg 11/22/19 15:22 Ondansetron Hcl 4 Mg/2 Ml Vial IVPUSH ONCE PRN Nausea and Vomiting Risperidone 0.5 mg 11/20/19 15:46 Risperidone 0.5 Mg Tablet PO Q4H PRN anxiety/restlessness Risperidone 0.5 mg 11/21/19 21:00 11/22/19 20:39 Risperidone 0.5 Mg Tablet PO 0.5 mg BEDTIME ANDREA Administration Vitamin D 50 mcg 11/13/19 20:15 11/22/19 15:46 Cholecalciferol (Vitamin D3) 25 Mcg Tablet PO Not Given DAILY ANDREA Allergies Allergies Allergy/AdvReac Type Severity Reaction Status Date / Time trazodone [TRAZODONE] Allergy Severe SHORTNESS Verified 11/13/19 18:59 OF BREATH, anaphylaxis trazodone Allergy Unknown anaphylaxis Uncoded 11/13/19 18:59 Assessment & Plan Assessment & Plan (1) Iron deficiency anemia due to chronic blood loss: Status: Acute Code(s): D50.0 - Iron deficiency anemia secondary to blood loss (chronic) (2) Bipolar 2 disorder, major depressive episode: Status: Acute Code(s): F31.81 - Bipolar II disorder (3) Moderate cocaine use 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
[2019-11-22] MEDS: LORazepam 1 MG TABLET PO (22:32)
--- NOTE | 2019-11-22 22:34 | PC.NURSE ---
patient has been compliant with clear liquid diet and is aware of npo status after midnight. offers no c/o from upper endo procedure, no c/o dyspepsia and no sob
[2019-11-23] MEDS: Atorvastatin Calcium 10 MG TABLET PO (09:14)
[2019-11-23] MEDS: lamoTRIgine 25 MG TABLET PO ×2 (09:14→22:21)
[2019-11-23] MEDS: Omeprazole 40 MG CAPSULE.DR PO (09:14)
--- NOTE | 2019-11-23 10:46 | HO.POSTANES ---
Post Anesthesia Evaluation Post Anesthesia Evaluation Vital Signs: VSS Anesthesia: General Mental Status: Awake Pain Control: Satisfactory Nausea/Vomiting: None Hydration: Adequate Anesthesia-Related Issues: No Anes. Related Issues
--- NOTE | 2019-11-23 11:09 | PM.PROC ---
Brief Operative Note Date of procedure: 11/22/19 Pre-op diagnosis: HGB--8; IRON DEFICIENCY ANEMIA Post-op diagnosis: other (NEG EGD--SMALL HIATAL HERNIA) Procedure: EGD WITH NO BX--COLONOSCOPY COULD NOT BE DONE DUE TO PROLONGED EPISODE OF LARYNGOSPASM EGD SHOWED ONLY SMALL HIATAL HERNIA, NO ESOPHAGITIS, NO ULCERS, NORMAL SMALL BOWEL. Anesthesia: GLMA and MAC (WITH CONTROL OF LARYNGOSPASM WITH LMA--MILY MELENDEZ;MD. LEIGH) Surgeon: Yasmeen Mathur Estimated blood loss (mL): 0 Pathology: none sent Condition: stable Disposition: PACU
[2019-11-23 11:49] VITALS: BMI 33.3
--- NOTE | 2019-11-23 12:06 | P.PNPSI_ITS ---
Subjective Subjective Reason For Visit: SI Interim History: pt had endoscopy no active lesion mood depressed but less labile colonoscopy completed Review of Systems Constitutional: Reports headache(s) Reports headache(s) Musculoskeletal: Denies abnormal gait Denies abnormal gait and Reports headache(s) Mental Status Exam Mental Status Exam Narrative: patient depressed self hating this continues but less suicidally agitated more agreeable to longer-term treatment focus calmer Patient Appearance: Disheveled Patient Orientation: Person, Place, Time and Situation Level of Consciousness: Awake Patient Behavior: Appropriate Mood Description: Depressed, Sad and Apprehensive Affect Description: Withdrawn, Depressed, Anxious, Angry and Sad Patient Cognition Impaired: No Ability to Follow Directions: Excellent Speech Pattern: Clear Memory Description: Intact Diagnostics Vital Signs (24Hr): Vital Signs - 24 hr 11/23/19 15:25 11/23/19 16:44 11/23/19 16:55 Temperature 98.2 F 97.8 F Pulse Rate 76 79 85 Respiratory Rate 18 16 20 Blood Pressure 115/72 93/61 106/65 Pulse Oximetry 99 100 99 11/23/19 17:09 11/23/19 22:00 11/23/19 22:21 Temperature 97.8 F 96.5 F L Pulse Rate 86 94 Respiratory Rate 20 Blood Pressure 115/67 128/61 Pulse Oximetry 98 Body Mass Index 33.3 Labs Results: 11/17/19 17:25 11/16/19 07:35 Labs: Laboratory Results - last 48 hr 11/23/19 20:24 Urine Opiates Screen Not Detected Ur Barbiturates Screen Not Detected Ur Phencyclidine Scrn Not Detected Ur Amphetamines Screen Not Detected U Benzodiazepines Scrn POSITIVE H Urine Cocaine Screen Not Detected U Marijuana (THC) Screen Not Detected Medications Medications Current Medications Generic Name Dose Route Start Last Admin Trade Name Freq PRN Reason Stop Dose Admin Acetaminophen 650 mg 11/14/19 20:39 11/22/19 17:17 Acetaminophen 325 Mg Tablet PO 650 mg Q6H PRN Administration Headache/Pain Mild Scale (1-3) Al Hydroxide/Mg Hydroxide 30 ml 11/14/19 20:39 11/15/19 03:18 Magnesium Hydrox/Alum Hydrox 30 Ml Oral.Susp PO 30 ml Q6H PRN Administration Heartburn/Nausea Albuterol Sulfate 2.5 mg 11/22/19 16:48 11/22/19 16:51 Albuterol Sulfate (0.083%) 2.5 Mg/3 Ml Vial.Neb INHALE 2.5 mg Q3H PRN Administration Shortness of Breath/Wheezing Atorvastatin Calcium 10 mg 11/13/19 20:15 11/23/19 09:14 Atorvastatin Calcium 10 Mg Tablet PO 10 mg DAILY ANDREA Administration Clonidine HCl 0.1 mg 11/18/19 21:00 11/23/19 22:21 Clonidine Hcl 0.1 Mg Tablet PO 0.1 mg BEDTIME ANDREA Administration Protocol Escitalopram Oxalate 15 mg 11/20/19 21:00 11/23/19 22:19 Escitalopram Oxalate 10 Mg Tablet PO 15 mg BEDTIME ANDREA Administration Ferrous Sulfate 324 mg 11/18/19 11:05 11/23/19 22:20 Ferrous Sulfate 324 Mg Tablet.Dr PO 324 mg BID ANDREA Administration Hydrocortisone 1 appl 11/23/19 21:00 11/23/19 22:24 Hydrocortisone 2.5 % Rectal Cr 30 Gm Tube WI 1 appl BEDTIME ANDREA Administration Hydroxyzine HCl 25 mg 11/14/19 20:39 11/21/19 00:13 Hydroxyzine Hcl 25 Mg Tablet PO 25 mg BEDTIME PRN Administration Anxiety Lactated Ringer's 1,000 mls @ 50 mls/hr 11/22/19 15:30 11/23/19 17:05 Lr IVCONT 0 mls/hr .Q20H ANDREA Infusion Lamotrigine 25 mg 11/20/19 15:45 11/23/19 22:21 Lamotrigine 25 Mg Tablet PO 25 mg BID ANDREA Administration [place] Citrate 150 mg 11/21/19 21:00 11/23/19 22:20 [place] Citrate Oral [place] 300 Mg/5 Ml Solution PO 150 mg BID ANDREA Administration Lorazepam 1 mg 11/20/19 15:44 11/22/19 22:32 Lorazepam 1 Mg Tablet PO 1 mg Q6H PRN Administration Anxiety Magnesium Hydroxide 30 ml 11/14/19 20:39 Milk Of Magnesia 30 Ml Oral.Susp PO DAILY PRN Constipation Melatonin 3 mg 11/19/19 21:00 11/23/19 22:21 Melatonin 3 Mg Tablet PO 3 mg BEDTIME ANDREA Administration Nicotine Polacrilex 2 mg 11/14/19 20:39 Nicotine Polacrilex 2 Mg Gum BUCCAL Q2H PRN Nicotine Cravings Omeprazole 40 mg 11/18/19 06:30 11/23/19 09:14 Omeprazole 40 Mg Capsule. PO 40 mg DAILY@0630 ANDREA Administration Ondansetron HCl 4 mg 11/22/19 15:22 Ondansetron Hcl 4 Mg/2 Ml Vial IVPUSH ONCE PRN Nausea and Vomiting Psyllium Hydrophilic Mucilloid 3.4 gm 11/23/19 21:00 11/23/19 22:21 Psyllium Seed 3.4 Gm Powd.Pack PO 3.4 gm BEDTIME ANDREA Administration Risperidone 0.5 mg 11/20/19 15:46 Risperidone 0.5 Mg Tablet PO Q4H PRN anxiety/restlessness Risperidone 0.5 mg 11/21/19 21:00 11/23/19 22:20 Risperidone 0.5 Mg Tablet PO 0.5 mg BEDTIME ANDREA Administration Vitamin D 50 mcg 11/13/19 20:15 11/23/19 09:15 Cholecalciferol (Vitamin D3) 25 Mcg Tablet PO Not Given DAILY ANDREA Allergies Allergies Allergy/AdvReac Type Severity Reaction Status Date / Time trazodone [TRAZODONE] Allergy Severe SHORTNESS Verified 11/13/19 18:59 OF BREATH, anaphylaxis trazodone Allergy Unknown anaphylaxis Uncoded 11/13/19 18:59 Assessment & Plan Assessment & Plan (1) Iron deficiency anemia due to chronic blood loss: Status: Acute Code(s): D50.0 - Iron deficiency anemia secondary to blood loss (chronic) (2) Hemorrhoids, internal, with bleeding: Status: Acute Code(s): K64.8 - Other hemorrhoids (3) Bipolar 2 disorder, major depressive episode: Status: Acute Code(s): F31.81 - Bipolar II disorder (4) ADHD: Status: Acute Code(s): F90.9 - Attention-deficit hyperactivity disorder, unspecified type (5) Moderate cocaine use disorder in controlled environment: Status: Acute Code(s): F14.20 - Cocaine dependence, uncomplicated Assessment and Plan: gi w/u await recommendation fe replacement lamictal lithium risp start lithium lamictal risp gi work up Greater than 50% of the session was spent on counseling and/or coordination of care
[2019-11-23 15:25] VITALS: BP 115/72; PULSE 76; RESP 18; TEMP 36.8; O2SAT 99
--- NOTE | 2019-11-23 15:26 | MHC.SHP ---
Pre-Procedural Eval Section A The patient is an INPATIENT: Yes Changes since office visit: Yes Patient answered all questions The History & Physical has been completed within 30 days and I have reviewed it.: Yes Section B Chief Complaint: SI Allergies: Allergies Allergy/AdvReac Type Severity Reaction Status Date / Time trazodone [TRAZODONE] Allergy Severe SHORTNESS Verified 11/13/19 18:59 OF BREATH, anaphylaxis trazodone Allergy Unknown anaphylaxis Uncoded 11/13/19 18:59 Plan Patient has been examined and remains a candidate for the planned procedure
[2019-11-23] MEDS: Lactated Ringers 1,000 ML 50 ML IVCONT (15:30)
--- NOTE | 2019-11-23 16:01 | PM.OP ---
Brief Operative Note Date of procedure: 11/23/19 Pre-op diagnosis: Anemia, rectal bleeding Post-op diagnosis: other ( Internal hemorrhoids, diverticulosis.) Procedure: COLONOSCOPY PROCEDURE NOTE Consent: Indications for the procedure and potential complications of bleeding, perforation, reaction to medications and missed diagnosis were discussed with the patient and informed consent was obtained. Instrument: Olympus PCF H 190 L variable stiffness pediatric colonoscope Monitoring: Vital signs and clinical assessment, intermittent blood pressure monitoring, continuous EKG monitoring, Pulse oximetry and Carbon Dioxide monitoring were done throughout the procedure. Colon withdrawl time was 20 minutes. Procedure: The patient was placed in the left lateral decubitis position and pre-procedure medications were administered. After a digital rectal examination of the ano-rectum, the video colonoscope was inserted into the rectum and advanced through the colon to the cecum. The colonoscope was slowly withdrawn in a retrograde panoramic fashion and the colon mucosa was carefully examined including a retroflexed view of the rectum. Findings and interventions are described below. Procedure Difficulty: Without difficulty Findings: Terminal Ileum: Not evaluated Cecum: Normal Ascending Colon: Normal Transverse Colon: Normal Descending Colon: Normal Sigmoid Colon: Moderate diverticulosis Rectum: Normal Ano-rectum: Large inflamed internal hemorrhoids Colon preparation: Good after copuious irrigation. Impression and Post Procedure Diagnosis: Colonoscopy Findings: No polyps were detected Moderate diverticulosis seen in the sigmoid colon Large inflamed internal hemorrhoids on retroflexed exam - likely source of rectal bleeding and iron deficiency anemia. Plan: Start Hydrocortisone rectal cream and fiber supplement for hemorrhoids Patient to schedule a follow-up appointment in the GI clinic with Dr. Yasmeen Mathur. Repeat Colonoscopy in 10 years. Above findings were reviewed with the patient and a handout on hemorrhoids was given in the discharge area Surgeon: Debra Alonso MD Anesthesia: MAC (Yamileth Varela CRNA) Elevator Operator Service: Kaley Carrasco Estimated blood loss (mL): 0
[2019-11-23 16:44] VITALS: BP 93/61; PULSE 79; RESP 16; TEMP 36.6; O2SAT 100
[2019-11-23 16:55] VITALS: BP 106/65; PULSE 85; RESP 20; O2SAT 99
[2019-11-23 17:09] VITALS: BP 115/67; PULSE 86; RESP 20; TEMP 36.6; O2SAT 98
[2019-11-23 21:14] LABS: Amphetamine Screen Urine Not Detected (Not Detect); Barbiturates, Urine Not Detected (Not Detect); Benzodiazepines Screen Urine POSITIVE (Not Detect); Cannabinoid Screen Urine Not Detected (Not Detect); Cocaine Screen Urine Not Detected (Not Detect); Opiate Screen Urine Not Detected (Not Detect); Phencyclidine Screen Urine Not Detected (Not Detect)
[2019-11-23 22:00] VITALS: TEMP 35.8
[2019-11-23] MEDS: Escitalopram Oxalate 10 MG TABLET 15 MG PO (22:19)
[2019-11-23] MEDS: risperiDONE 0.5 MG TABLET PO (22:20)
[2019-11-23] MEDS: Ferrous Sulfate 324 MG TABLET.DR PO (22:20)
[2019-11-23 22:21] VITALS: BP 128/61; PULSE 94
[2019-11-23] MEDS: cloNIDine HCL 0.1 MG TABLET PO (22:21)
[2019-11-23] MEDS: Melatonin 3 MG TABLET PO (22:21)
[2019-11-23] MEDS: Hydrocortisone 2.5 % Rectal Cr 30 GM TUBE 1 APPL PR (22:24)
[2019-11-24] MEDS: Omeprazole 40 MG CAPSULE.DR PO (09:42)
[2019-11-24] MEDS: Cholecalciferol (Vitamin D3) 25 MCG TABLET 50 MCG PO (09:42)
[2019-11-24] MEDS: Atorvastatin Calcium 10 MG TABLET PO (09:42)
[2019-11-24] MEDS: Ferrous Sulfate 324 MG TABLET.DR PO ×2 (09:42→21:47)
[2019-11-24] MEDS: lamoTRIgine 25 MG TABLET PO ×2 (09:42→21:47)
[2019-11-24 10:00] VITALS: BP 112/59; PULSE 100; TEMP 37.1
--- NOTE | 2019-11-24 14:28 | HO.POSTANES ---
Post Anesthesia Evaluation Post Anesthesia Evaluation Vital Signs: Vital Signs Temp Pulse BP 11/24/19 10:00 98.7 F 100 112/59 L Anesthesia: Monitored Mental Status: Awake Pain Control: Satisfactory Nausea/Vomiting: None Hydration: Adequate Anesthesia-Related Issues: No Anes. Related Issues
[2019-11-24] MEDS: LORazepam 1 MG TABLET PO (16:04)
[2019-11-24] MEDS: Escitalopram Oxalate 10 MG TABLET 15 MG PO (21:47)
[2019-11-24 21:48] VITALS: BP 126/71; PULSE 101
[2019-11-24] MEDS: Melatonin 3 MG TABLET PO (21:48)
[2019-11-24] MEDS: risperiDONE 0.5 MG TABLET PO (21:48)
[2019-11-24] MEDS: cloNIDine HCL 0.1 MG TABLET PO (21:48)
[2019-11-24] MEDS: Lithium Carbonate ER 300 MG TABLET.ER PO (21:48)
[2019-11-24] MEDS: Hydrocortisone 2.5 % Rectal Cr 30 GM TUBE 1 APPL PR (21:51)
[2019-11-24 21:52] VITALS: TEMP 37.1
--- NOTE | 2019-11-24 23:30 | HO.PSYCHPN ---
Subjective Subjective Reason For Visit: SI Interim History: patient calmer future oriented aware of results of colonoscopy mood more stable less depressed agreeable to lithium and Lamictal Review of Systems Constitutional: Reports headache(s) Reports headache(s) Musculoskeletal: Denies abnormal gait Denies abnormal gait and Reports headache(s) Mental Status Exam Mental Status Exam Patient Orientation: Person, Place, Time and Situation Level of Consciousness: Awake Patient Behavior: Appropriate Mood Description: Depressed and Apprehensive Affect Description: Withdrawn, Depressed, Anxious, Angry and Sad Patient Cognition Impaired: No Ability to Follow Directions: Excellent Speech Pattern: Clear Memory Description: Intact Diagnostics Vital Signs (24Hr): Vital Signs - 24 hr 11/24/19 10:00 11/24/19 21:48 11/24/19 21:52 Temperature 98.7 F 98.7 F Pulse Rate 100 101 H Blood Pressure 112/59 L 126/71 Body Mass Index 33.3 Labs Results: 11/17/19 17:25 11/16/19 07:35 Labs: Laboratory Results - last 48 hr 11/23/19 20:24 Urine Opiates Screen Not Detected Ur Barbiturates Screen Not Detected Ur Phencyclidine Scrn Not Detected Ur Amphetamines Screen Not Detected U Benzodiazepines Scrn POSITIVE H Urine Cocaine Screen Not Detected U Marijuana (THC) Screen Not Detected Medications Medications Current Medications Generic Name Dose Route Start Last Admin Trade Name Freq PRN Reason Stop Dose Admin Acetaminophen 650 mg 11/14/19 20:39 11/22/19 17:17 Acetaminophen 325 Mg Tablet PO 650 mg Q6H PRN Administration Headache/Pain Mild Scale (1-3) Al Hydroxide/Mg Hydroxide 30 ml 11/14/19 20:39 11/15/19 03:18 Magnesium Hydrox/Alum Hydrox 30 Ml Oral.Susp PO 30 ml Q6H PRN Administration Heartburn/Nausea Albuterol Sulfate 2.5 mg 11/22/19 16:48 11/22/19 16:51 Albuterol Sulfate (0.083%) 2.5 Mg/3 Ml Vial.Neb INHALE 2.5 mg Q3H PRN Administration Shortness of Breath/Wheezing Atorvastatin Calcium 10 mg 11/13/19 20:15 11/24/19 09:42 Atorvastatin Calcium 10 Mg Tablet PO 10 mg DAILY ANDREA Administration Clonidine HCl 0.1 mg 11/18/19 21:00 11/24/19 21:48 Clonidine Hcl 0.1 Mg Tablet PO 0.1 mg BEDTIME ANDREA Administration Protocol Escitalopram Oxalate 15 mg 11/20/19 21:00 11/24/19 21:47 Escitalopram Oxalate 10 Mg Tablet PO 15 mg BEDTIME ANDREA Administration Ferrous Sulfate 324 mg 11/18/19 11:05 11/24/19 21:47 Ferrous Sulfate 324 Mg Tablet. PO 324 mg BID ANDREA Administration Hydrocortisone 1 appl 11/23/19 21:00 11/24/19 21:51 Hydrocortisone 2.5 % Rectal Cr 30 Gm Tube [place] 1 appl BEDTIME ANDREA Administration Hydroxyzine HCl 25 mg 11/14/19 20:39 11/21/19 00:13 Hydroxyzine Hcl 25 Mg Tablet PO 25 mg BEDTIME PRN Administration Anxiety Lactated Ringer's 1,000 mls @ 50 mls/hr 11/22/19 15:30 11/24/19 10:09 Lr IVCONT Not Given .Q20H ANDREA Lamotrigine 25 mg 11/20/19 15:45 11/24/19 21:47 Lamotrigine 25 Mg Tablet PO 25 mg BID ANDREA Administration [place] Carbonate 300 mg 11/24/19 21:00 11/24/19 21:48 [place] Carbonate Er 300 Mg Tablet.Er PO 300 mg BID ANDREA Administration Lorazepam 1 mg 11/20/19 15:44 11/24/19 16:04 Lorazepam 1 Mg Tablet PO 1 mg Q6H PRN Administration Anxiety Magnesium Hydroxide 30 ml 11/14/19 20:39 Milk Of Magnesia 30 Ml Oral.Susp PO DAILY PRN Constipation Melatonin 3 mg 11/19/19 21:00 11/24/19 21:48 Melatonin 3 Mg Tablet PO 3 mg BEDTIME ANDREA Administration Nicotine Polacrilex 2 mg 11/14/19 20:39 Nicotine Polacrilex 2 Mg Gum BUCCAL Q2H PRN Nicotine Cravings Omeprazole 40 mg 11/18/19 06:30 11/24/19 09:42 Omeprazole 40 Mg Capsule. PO 40 mg DAILY@0630 ANDREA Administration Ondansetron HCl 4 mg 11/22/19 15:22 Ondansetron Hcl 4 Mg/2 Ml Vial IVPUSH ONCE PRN Nausea and Vomiting Psyllium Hydrophilic Mucilloid 3.4 gm 11/23/19 21:00 11/24/19 21:48 Psyllium Seed 3.4 Gm Powd.Pack PO 3.4 gm BEDTIME ANDREA Administration Risperidone 0.5 mg 11/20/19 15:46 Risperidone 0.5 Mg Tablet PO Q4H PRN anxiety/restlessness Risperidone 0.5 mg 11/21/19 21:00 11/24/19 21:48 Risperidone 0.5 Mg Tablet PO 0.5 mg BEDTIME ANDREA Administration Vitamin D 50 mcg 11/13/19 20:15 11/24/19 09:42 Cholecalciferol (Vitamin D3) 25 Mcg Tablet PO 50 mcg DAILY ANDREA Administration Allergies Allergies Allergy/AdvReac Type Severity Reaction Status Date / Time trazodone [TRAZODONE] Allergy Severe SHORTNESS Verified 11/13/19 18:59 OF BREATH, anaphylaxis trazodone Allergy Unknown anaphylaxis Uncoded 11/13/19 18:59 Assessment & Plan Assessment & Plan (1) Iron deficiency anemia due to chronic blood loss: Status: Acute Code(s): D50.0 - Iron deficiency anemia secondary to blood loss (chronic) (2) Hemorrhoids, internal, with bleeding: Status: Acute Code(s): K64.8 - Other hemorrhoids (3) Bipolar 2 disorder, major depressive episode: Status: Acute Code(s): F31.81 - Bipolar II disorder (4) ADHD: Status: Acute Code(s): F90.9 - Attention-deficit hyperactivity disorder, unspecified type (5) Moderate cocaine use disorder in controlled environment: Status: Acute Code(s): F14.20 - Cocaine dependence, uncomplicated Assessment and Plan: gi w/u await recommendation fe replacement lamictal lithium risp lithium lamictal risp continue group therapy Education referral to [facility] Greater than 50% of the session was spent on counseling and/or coordination of care
[2019-11-25] MEDS: Omeprazole 40 MG CAPSULE.DR PO (09:57)
[2019-11-25] MEDS: Lithium Carbonate ER 300 MG TABLET.ER PO ×2 (09:57→21:07)
[2019-11-25] MEDS: Cholecalciferol (Vitamin D3) 25 MCG TABLET 50 MCG PO (09:57)
[2019-11-25] MEDS: Ferrous Sulfate 324 MG TABLET.DR PO ×2 (09:58→21:04)
[2019-11-25] MEDS: lamoTRIgine 25 MG TABLET PO ×2 (09:58→21:07)
[2019-11-25] MEDS: Atorvastatin Calcium 10 MG TABLET PO (09:58)
[2019-11-25] MEDS: LORazepam 1 MG TABLET PO ×2 (13:01→21:09)
[2019-11-25 15:20] VITALS: BP 121/58; PULSE 86
[2019-11-25 16:24] VITALS: BP 124/65; PULSE 87; TEMP 36.9
[2019-11-25] MEDS: Hydrocortisone 2.5 % Rectal Cr 30 GM TUBE 1 APPL PR (21:00)
[2019-11-25] MEDS: Escitalopram Oxalate 10 MG TABLET 15 MG PO (21:04)
[2019-11-25 21:06] VITALS: BP 124/65; PULSE 87
[2019-11-25] MEDS: cloNIDine HCL 0.1 MG TABLET PO (21:06)
[2019-11-25] MEDS: Melatonin 3 MG TABLET PO (21:06)
[2019-11-25] MEDS: risperiDONE 0.5 MG TABLET PO (21:06)
[2019-11-25] MEDS: hydrOXYzine HCL 25 MG TABLET PO (23:20)
--- NOTE | 2019-11-25 23:37 | P.PNPSI_ITS ---
Subjective Subjective Reason For Visit: SI Interim History: mood more stable less depressed agreeable to lithium and Lamictal difficulty feeling optimistic Review of Systems Constitutional: Reports headache(s) Reports headache(s) Musculoskeletal: Denies abnormal gait Denies abnormal gait and Reports headache(s) Mental Status Exam Mental Status Exam Narrative: patient depressed self hating this continues but less suicidally agitated more agreeable to longer-term treatment focus calmer Patient Appearance: Disheveled Patient Orientation: Person, Place, Time and Situation Level of Consciousness: Awake Patient Behavior: Appropriate Mood Description: Depressed and Apprehensive Affect Description: Withdrawn, Depressed, Anxious, Angry and Sad Patient Cognition Impaired: No Ability to Follow Directions: Excellent Speech Pattern: Clear Memory Description: Intact Diagnostics Vital Signs (24Hr): Vital Signs - 24 hr 11/25/19 15:20 11/25/19 16:24 11/25/19 21:06 Temperature 98.4 F Pulse Rate 86 87 87 Blood Pressure 121/58 L 124/65 124/65 Body Mass Index 33.3 Labs Results: 11/17/19 17:25 11/16/19 07:35 Medications Medications Current Medications Generic Name Dose Route Start Last Admin Trade Name Freq PRN Reason Stop Dose Admin Acetaminophen 650 mg 11/14/19 20:39 11/22/19 17:17 Acetaminophen 325 Mg Tablet PO 650 mg Q6H PRN Administration Headache/Pain Mild Scale (1-3) Al Hydroxide/Mg Hydroxide 30 ml 11/14/19 20:39 11/15/19 03:18 Magnesium Hydrox/Alum Hydrox 30 Ml Oral.Susp PO 30 ml Q6H PRN Administration Heartburn/Nausea Albuterol Sulfate 2.5 mg 11/22/19 16:48 11/22/19 16:51 Albuterol Sulfate (0.083%) 2.5 Mg/3 Ml Vial.Neb INHALE 2.5 mg Q3H PRN Administration Shortness of Breath/Wheezing Atorvastatin Calcium 10 mg 11/13/19 20:15 11/25/19 09:58 Atorvastatin Calcium 10 Mg Tablet PO 10 mg DAILY ANDREA Administration Clonidine HCl 0.1 mg 11/18/19 21:00 11/25/19 21:06 Clonidine Hcl 0.1 Mg Tablet PO 0.1 mg BEDTIME ANDREA Administration Protocol Escitalopram Oxalate 15 mg 11/20/19 21:00 11/25/19 21:04 Escitalopram Oxalate 10 Mg Tablet PO 15 mg BEDTIME ANDREA Administration Ferrous Sulfate 324 mg 11/18/19 11:05 11/25/19 21:04 Ferrous Sulfate 324 Mg Tablet. PO 324 mg BID ANDREA Administration Hydrocortisone 1 appl 11/23/19 21:00 11/25/19 21:00 Hydrocortisone 2.5 % Rectal Cr 30 Gm Tube [place] 1 appl BEDTIME ANDREA Administration Hydroxyzine HCl 25 mg 11/14/19 20:39 11/25/19 23:20 Hydroxyzine Hcl 25 Mg Tablet PO 25 mg BEDTIME PRN Administration Anxiety Lamotrigine 25 mg 11/20/19 15:45 11/25/19 21:07 Lamotrigine 25 Mg Tablet PO 25 mg BID ANDREA Administration [place] Carbonate 300 mg 11/24/19 21:00 11/25/19 21:07 [place] Carbonate Er 300 Mg Tablet.Er PO 300 mg BID ANDREA Administration Lorazepam 1 mg 11/20/19 15:44 11/25/19 21:09 Lorazepam 1 Mg Tablet PO 1 mg Q6H PRN Administration Anxiety Magnesium Hydroxide 30 ml 11/14/19 20:39 Milk Of Magnesia 30 Ml Oral.Susp PO DAILY PRN Constipation Melatonin 3 mg 11/19/19 21:00 11/25/19 21:06 Melatonin 3 Mg Tablet PO 3 mg BEDTIME ANDREA Administration Nicotine Polacrilex 2 mg 11/14/19 20:39 Nicotine Polacrilex 2 Mg Gum BUCCAL Q2H PRN Nicotine Cravings Omeprazole 40 mg 11/18/19 06:30 11/25/19 09:57 Omeprazole 40 Mg Capsule. PO 40 mg DAILY@0630 ANDREA Administration Ondansetron HCl 4 mg 11/22/19 15:22 Ondansetron Hcl 4 Mg/2 Ml Vial IVPUSH ONCE PRN Nausea and Vomiting Psyllium Hydrophilic Mucilloid 3.4 gm 11/23/19 21:00 11/25/19 21:04 Psyllium Seed 3.4 Gm Powd.Pack PO 3.4 gm BEDTIME ANDREA Administration Risperidone 0.5 mg 11/20/19 15:46 Risperidone 0.5 Mg Tablet PO Q4H PRN anxiety/restlessness Risperidone 0.5 mg 11/21/19 21:00 11/25/19 21:06 Risperidone 0.5 Mg Tablet PO 0.5 mg BEDTIME ANDREA Administration Vitamin D 50 mcg 11/13/19 20:15 11/25/19 09:57 Cholecalciferol (Vitamin D3) 25 Mcg Tablet PO 50 mcg DAILY ANDREA Administration Allergies Allergies Allergy/AdvReac Type Severity Reaction Status Date / Time trazodone [TRAZODONE] Allergy Severe SHORTNESS Verified 11/13/19 18:59 OF BREATH, anaphylaxis trazodone Allergy Unknown anaphylaxis Uncoded 11/13/19 18:59 Assessment & Plan Assessment & Plan (1) Iron deficiency anemia due to chronic blood loss: Status: Acute Code(s): D50.0 - Iron deficiency anemia secondary to blood loss (chronic) Assessment and Plan: gi w/u await recommendation fe replacement lamictal lithium risp lithium lamictal risp continue group therapy Education referral to [facility] (2) Hemorrhoids, internal, with bleeding: Status: Acute Code(s): K64.8 - Other hemorrhoids (3) Bipolar 2 disorder, major depressive episode: Status: Acute Code(s): F31.81 - Bipolar II disorder (4) ADHD: Status: Acute Code(s): F90.9 - Attention-deficit hyperactivity disorder, unspecified type (5) Moderate cocaine use 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
[2019-11-26] MEDS: Lithium Carbonate ER 300 MG TABLET.ER PO ×2 (09:09→22:01)
[2019-11-26] MEDS: Cholecalciferol (Vitamin D3) 25 MCG TABLET 50 MCG PO (09:09)
[2019-11-26] MEDS: Omeprazole 40 MG CAPSULE.DR PO (09:09)
[2019-11-26] MEDS: Ferrous Sulfate 324 MG TABLET.DR PO ×2 (09:09→22:01)
[2019-11-26] MEDS: Atorvastatin Calcium 10 MG TABLET PO (09:10)
[2019-11-26] MEDS: lamoTRIgine 25 MG TABLET PO ×2 (09:10→22:01)
[2019-11-26 09:35] VITALS: BP 127/65; PULSE 90; TEMP 36.3; O2SAT 99
[2019-11-26 21:59] VITALS: BP 142/74; PULSE 94
[2019-11-26] MEDS: cloNIDine HCL 0.1 MG TABLET PO (21:59)
[2019-11-26 22:00] VITALS: BP 142/74; PULSE 94; TEMP 37.1
[2019-11-26] MEDS: risperiDONE 0.5 MG TABLET PO (22:01)
[2019-11-26] MEDS: Melatonin 3 MG TABLET PO (22:01)
[2019-11-26] MEDS: Escitalopram Oxalate 10 MG TABLET 15 MG PO (22:01)
[2019-11-26] MEDS: Hydrocortisone 2.5 % Rectal Cr 30 GM TUBE 1 APPL PR (22:04)
[2019-11-26] MEDS: LORazepam 1 MG TABLET PO (23:26)
--- NOTE | 2019-11-26 23:29 | HO.PSYCHPN ---
Subjective Subjective Reason For Visit: SI Interim History: mood more stable less depressed agreeable to lithium and Lamictal difficulty feeling optimistic Review of Systems Constitutional: Reports headache(s) Reports headache(s) Musculoskeletal: Denies abnormal gait Denies abnormal gait and Reports headache(s) Mental Status Exam Mental Status Exam Narrative: patient depressed self hating this continues but less suicidally agitated more agreeable to longer-term treatment focus calmer Patient Appearance: Disheveled Patient Orientation: Person, Place, Time and Situation Level of Consciousness: Awake Patient Behavior: Appropriate Mood Description: Depressed and Apprehensive Affect Description: Withdrawn, Depressed, Anxious, Angry and Sad Patient Cognition Impaired: No Ability to Follow Directions: Excellent Speech Pattern: Clear Memory Description: Intact Diagnostics Vital Signs (24Hr): Vital Signs - 24 hr 11/26/19 09:35 11/26/19 21:59 11/26/19 22:00 Temperature 97.4 F 98.7 F Pulse Rate 90 94 94 Blood Pressure 127/65 142/74 H 142/74 H Pulse Oximetry 99 Body Mass Index 33.3 Labs Results: 11/17/19 17:25 11/16/19 07:35 Medications Medications Current Medications Generic Name Dose Route Start Last Admin Trade Name Freq PRN Reason Stop Dose Admin Acetaminophen 650 mg 11/14/19 20:39 11/22/19 17:17 Acetaminophen 325 Mg Tablet PO 650 mg Q6H PRN Administration Headache/Pain Mild Scale (1-3) Al Hydroxide/Mg Hydroxide 30 ml 11/14/19 20:39 11/15/19 03:18 Magnesium Hydrox/Alum Hydrox 30 Ml Oral.Susp PO 30 ml Q6H PRN Administration Heartburn/Nausea Albuterol Sulfate 2.5 mg 11/22/19 16:48 11/22/19 16:51 Albuterol Sulfate (0.083%) 2.5 Mg/3 Ml Vial.Neb INHALE 2.5 mg Q3H PRN Administration Shortness of Breath/Wheezing Atorvastatin Calcium 10 mg 11/13/19 20:15 11/26/19 09:10 Atorvastatin Calcium 10 Mg Tablet PO 10 mg DAILY ANDREA Administration Clonidine HCl 0.1 mg 11/18/19 21:00 11/26/19 21:59 Clonidine Hcl 0.1 Mg Tablet PO 0.1 mg BEDTIME ANDREA Administration Protocol Escitalopram Oxalate 15 mg 11/20/19 21:00 11/26/19 22:01 Escitalopram Oxalate 10 Mg Tablet PO 15 mg BEDTIME ANDREA Administration Ferrous Sulfate 324 mg 11/18/19 11:05 11/26/19 22:01 Ferrous Sulfate 324 Mg Tablet. PO 324 mg BID ANDREA Administration Hydrocortisone 1 appl 11/23/19 21:00 11/26/19 22:04 Hydrocortisone 2.5 % Rectal Cr 30 Gm Tube [place] 1 appl BEDTIME ANDREA Administration Hydroxyzine HCl 25 mg 11/14/19 20:39 11/25/19 23:20 Hydroxyzine Hcl 25 Mg Tablet PO 25 mg BEDTIME PRN Administration Anxiety Lamotrigine 25 mg 11/20/19 15:45 11/26/19 22:01 Lamotrigine 25 Mg Tablet PO 25 mg BID ANDREA Administration [place] Carbonate 300 mg 11/24/19 21:00 11/26/19 22:01 [place] Carbonate Er 300 Mg Tablet.Er PO 300 mg BID ANDREA Administration Lorazepam 1 mg 11/20/19 15:44 11/26/19 23:26 Lorazepam 1 Mg Tablet PO 1 mg Q6H PRN Administration Anxiety Magnesium Hydroxide 30 ml 11/14/19 20:39 Milk Of Magnesia 30 Ml Oral.Susp PO DAILY PRN Constipation Melatonin 3 mg 11/19/19 21:00 11/26/19 22:01 Melatonin 3 Mg Tablet PO 3 mg BEDTIME ANDREA Administration Nicotine Polacrilex 2 mg 11/14/19 20:39 Nicotine Polacrilex 2 Mg Gum BUCCAL Q2H PRN Nicotine Cravings Omeprazole 40 mg 11/18/19 06:30 11/26/19 09:09 Omeprazole 40 Mg Capsule. PO 40 mg DAILY@0630 ANDREA Administration Ondansetron HCl 4 mg 11/22/19 15:22 Ondansetron Hcl 4 Mg/2 Ml Vial IVPUSH ONCE PRN Nausea and Vomiting Psyllium Hydrophilic Mucilloid 3.4 gm 11/23/19 21:00 11/26/19 22:02 Psyllium Seed 3.4 Gm Powd.Pack PO 3.4 gm BEDTIME ANDREA Administration Risperidone 0.5 mg 11/20/19 15:46 Risperidone 0.5 Mg Tablet PO Q4H PRN anxiety/restlessness Risperidone 0.5 mg 11/21/19 21:00 11/26/19 22:01 Risperidone 0.5 Mg Tablet PO 0.5 mg BEDTIME ANDREA Administration Vitamin D 50 mcg 10/06/20 20:15 11/26/19 09:09 Cholecalciferol (Vitamin D3) 25 Mcg Tablet PO 50 mcg DAILY ANDREA Administration Allergies Allergies Allergy/AdvReac Type Severity Reaction Status Date / Time trazodone [TRAZODONE] Allergy Severe SHORTNESS Verified 11/13/19 18:59 OF BREATH, anaphylaxis trazodone Allergy Unknown anaphylaxis Uncoded 11/13/19 18:59 Assessment & Plan Assessment & Plan (1) Iron deficiency anemia due to chronic blood loss: Status: Acute Code(s): D50.0 - Iron deficiency anemia secondary to blood loss (chronic) Assessment and Plan: gi w/u await recommendation fe replacement lamictal lithium risp lithium lamictal risp continue group therapy Education referral to [facility] (2) Hemorrhoids, internal, with bleeding: Status: Acute Code(s): K64.8 - Other hemorrhoids (3) Bipolar 2 disorder, major depressive episode: Status: Acute Code(s): F31.81 - Bipolar II disorder (4) ADHD: Status: Acute Code(s): F90.9 - Attention-deficit hyperactivity disorder, unspecified type (5) Moderate cocaine use 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
[2019-11-27] MEDS: Lithium Carbonate ER 300 MG TABLET.ER PO ×2 (09:12→22:09)
[2019-11-27] MEDS: lamoTRIgine 25 MG TABLET PO ×2 (09:13→22:09)
[2019-11-27] MEDS: Ferrous Sulfate 324 MG TABLET.DR PO ×2 (09:13→22:09)
[2019-11-27] MEDS: Cholecalciferol (Vitamin D3) 25 MCG TABLET 50 MCG PO (09:13)
[2019-11-27] MEDS: Atorvastatin Calcium 10 MG TABLET PO (09:13)
[2019-11-27] MEDS: Omeprazole 40 MG CAPSULE.DR PO (09:14)
[2019-11-27 09:20] VITALS: BP 131/60; PULSE 92; TEMP 37
--- NOTE | 2019-11-27 11:29 | OP_ITS ---
SURGEON: Yasmeen Mathur MD PREOPERATIVE DIAGNOSIS: Iron-deficiency anemia. The patient is a patient on M5. POSTOPERATIVE DIAGNOSIS: Small hiatal hernia. PROCEDURE PERFORMED: EGD with no biopsy: Not done due to laryngospasm and sequelae. ESTIMATED BLOOD LOSS: None. COMPLICATIONS: Mild laryngospasm--cleared. ANESTHESIA: Monitored, converted to general via LMA due to laryngospasm. ANESTHESIOLOGIST: Chris Tolbert CRNA and Dr. Sheehan. ASSISTANTS: No shop assistant. SPECIMENS: Specimens removed; none. ATTENDING PHYSICIAN: Dr. Centeno. TAIL SAWYER: Dr. Mathur. DESCRIPTION OF PROCEDURE: Video endoscope was introduced without difficulty. It was navigated into the posterior pharynx and into the esophagus. Esophageal mucosa was normal. GE junction was clear and distinct. There was a small hiatal hernia, distal to the GE junction, there was an incomplete Schatzki's ring noted. Once in the stomach, there was no active bleeding. Mucosa was totally normal. Duodenal bulb and duodenum appeared endoscopically normal with endoscopically normal villi. PLAN: The patient will be observed. He will be maintained on a clear liquid diet. N.p.o. after 2 a.m. and stable. He will have a colonoscopy done on the add on list for 11/22. If otherwise, this will be rescheduled to sometime next week. GRAFT OR IMPLANTS: No grafts or implants. CONDITION: Postprocedure, stable. Yasmeen Mathur MD MEN/MODL / [id number] MTDD
[2019-11-27] MEDS: LORazepam 1 MG TABLET PO (13:10)
[2019-11-27] MEDS: risperiDONE 0.5 MG TABLET PO ×2 (14:30→22:09)
[2019-11-27 17:33] VITALS: BP 122/62; PULSE 107; TEMP 36.9
[2019-11-27] MEDS: Melatonin 3 MG TABLET PO (22:09)
[2019-11-27 22:10] VITALS: BP 122/62; PULSE 107
[2019-11-27] MEDS: cloNIDine HCL 0.1 MG TABLET PO (22:10)
[2019-11-27] MEDS: Escitalopram Oxalate 10 MG TABLET 15 MG PO (22:11)
[2019-11-27] MEDS: Hydrocortisone 2.5 % Rectal Cr 30 GM TUBE 1 APPL PR (22:12)
--- NOTE | 2019-11-27 22:59 | P.PNPSI_ITS ---
Subjective Subjective Reason For Visit: SI Subjective Notes: Conditional Voluntary Interim History: patient has been irritable dysphoric [facility] Medication Compliance: Yes Side effects from medications: No Attending Groups: Yes Review of Systems Constitutional: Reports headache(s) Reports headache(s) Musculoskeletal: Denies abnormal gait Denies abnormal gait and Reports headache(s) Mental Status Exam Mental Status Exam Narrative: patient depressed self hating this continues but less suicidally agitated more agreeable to longer-term treatment focus calmer Patient Appearance: Disheveled Patient Orientation: Person, Place, Time and Situation Level of Consciousness: Awake Patient Behavior: Appropriate Mood Description: Depressed and Apprehensive Affect Description: Withdrawn, Depressed, Anxious and Sad Patient Cognition Impaired: No Ability to Follow Directions: Excellent Speech Pattern: Clear Memory Description: Intact Judgement: Fair Diagnostics Vital Signs (24Hr): Vital Signs - 24 hr 11/27/19 09:20 11/27/19 17:33 11/27/19 22:10 Temperature 98.6 F 98.5 F Pulse Rate 92 107 H 107 H Blood Pressure 131/60 122/62 122/62 Body Mass Index 33.3 Labs Results: 11/17/19 17:25 11/16/19 07:35 Medications Medications Current Medications Generic Name Dose Route Start Last Admin Trade Name Freq PRN Reason Stop Dose Admin Acetaminophen 650 mg 11/14/19 20:39 11/22/19 17:17 Acetaminophen 325 Mg Tablet PO 650 mg Q6H PRN Administration Headache/Pain Mild Scale (1-3) Al Hydroxide/Mg Hydroxide 30 ml 11/14/19 20:39 11/15/19 03:18 Magnesium Hydrox/Alum Hydrox 30 Ml Oral.Susp PO 30 ml Q6H PRN Administration Heartburn/Nausea Albuterol Sulfate 2.5 mg 11/22/19 16:48 11/22/19 16:51 Albuterol Sulfate (0.083%) 2.5 Mg/3 Ml Vial.Neb INHALE 2.5 mg Q3H PRN Administration Shortness of Breath/Wheezing Atorvastatin Calcium 10 mg 11/13/19 20:15 11/27/19 09:13 Atorvastatin Calcium 10 Mg Tablet PO 10 mg DAILY ANDREA Administration Clonidine HCl 0.1 mg 11/18/19 21:00 11/27/19 22:10 Clonidine Hcl 0.1 Mg Tablet PO 0.1 mg BEDTIME ANDREA Administration Protocol Escitalopram Oxalate 15 mg 11/20/19 21:00 11/27/19 22:11 Escitalopram Oxalate 10 Mg Tablet PO 15 mg BEDTIME ANDREA Administration Ferrous Sulfate 324 mg 11/18/19 11:05 11/27/19 22:09 Ferrous Sulfate 324 Mg Tablet. PO 324 mg BID ANDREA Administration Hydrocortisone 1 appl 11/23/19 21:00 11/27/19 22:12 Hydrocortisone 2.5 % Rectal Cr 30 Gm Tube [place] 1 appl BEDTIME ANDREA Administration Hydroxyzine HCl 25 mg 11/14/19 20:39 11/25/19 23:20 Hydroxyzine Hcl 25 Mg Tablet PO 25 mg BEDTIME PRN Administration Anxiety Lamotrigine 25 mg 11/20/19 15:45 11/27/19 22:09 Lamotrigine 25 Mg Tablet PO 25 mg BID ANDREA Administration [place] Carbonate 300 mg 11/24/19 21:00 11/27/19 22:09 [place] Carbonate Er 300 Mg Tablet.Er PO 300 mg BID ANDREA Administration Lorazepam 1 mg 11/20/19 15:44 11/27/19 13:10 Lorazepam 1 Mg Tablet PO 1 mg Q6H PRN Administration Anxiety Magnesium Hydroxide 30 ml 11/14/19 20:39 Milk Of Magnesia 30 Ml Oral.Susp PO DAILY PRN Constipation Melatonin 3 mg 11/19/19 21:00 11/27/19 22:09 Melatonin 3 Mg Tablet PO 3 mg BEDTIME ANDREA Administration Nicotine Polacrilex 2 mg 11/14/19 20:39 Nicotine Polacrilex 2 Mg Gum BUCCAL Q2H PRN Nicotine Cravings Omeprazole 40 mg 11/18/19 06:30 11/27/19 09:14 Omeprazole 40 Mg Capsule. PO 40 mg DAILY@0630 ANDREA Administration Ondansetron HCl 4 mg 11/22/19 15:22 Ondansetron Hcl 4 Mg/2 Ml Vial IVPUSH ONCE PRN Nausea and Vomiting Psyllium Hydrophilic Mucilloid 3.4 gm 11/23/19 21:00 11/27/19 22:09 Psyllium Seed 3.4 Gm Powd.Pack PO 3.4 gm BEDTIME ANDREA Administration Risperidone 0.5 mg 11/20/19 15:46 11/27/19 14:30 Risperidone 0.5 Mg Tablet PO 0.5 mg Q4H PRN Administration anxiety/restlessness Risperidone 0.5 mg 11/21/19 21:00 11/27/19 22:09 Risperidone 0.5 Mg Tablet PO 0.5 mg BEDTIME ANDREA Administration Vitamin D 50 mcg 11/13/19 20:15 11/27/19 09:13 Cholecalciferol (Vitamin D3) 25 Mcg Tablet PO 50 mcg DAILY ANDREA Administration Allergies Allergies Allergy/AdvReac Type Severity Reaction Status Date / Time trazodone [TRAZODONE] Allergy Severe SHORTNESS Verified 11/13/19 18:59 OF BREATH, anaphylaxis trazodone Allergy Unknown anaphylaxis Uncoded 11/13/19 18:59 Assessment & Plan Greater than 50% of the session was spent on counseling and/or coordination of care Patient educated on: diagnosis, medication risk/benefits and substance abuse Reason for contiued inpatient stay Substantial Risk for: harm to self and rapid decompensation
[2019-11-28 06:30] VITALS: BP 121/68; PULSE 83; RESP 18; TEMP 36.4; O2SAT 100
[2019-11-28] MEDS: Omeprazole 40 MG CAPSULE.DR PO (08:33)
[2019-11-28] MEDS: Cholecalciferol (Vitamin D3) 25 MCG TABLET 50 MCG PO (08:34)
[2019-11-28] MEDS: Ferrous Sulfate 324 MG TABLET.DR PO ×2 (08:34→21:26)
[2019-11-28] MEDS: Lithium Carbonate ER 300 MG TABLET.ER PO ×2 (08:34→21:24)
[2019-11-28] MEDS: Atorvastatin Calcium 10 MG TABLET PO (08:34)
[2019-11-28] MEDS: lamoTRIgine 25 MG TABLET PO ×2 (08:34→21:27)
[2019-11-28] MEDS: LORazepam 1 MG TABLET PO ×2 (11:44→23:05)
[2019-11-28 16:31] VITALS: BP 125/71; PULSE 114; TEMP 37.2
[2019-11-28] MEDS: Hydrocortisone 2.5 % Rectal Cr 30 GM TUBE 1 APPL PR (21:23)
[2019-11-28] MEDS: Escitalopram Oxalate 10 MG TABLET 15 MG PO (21:24)
[2019-11-28 21:26] VITALS: BP 125/71; PULSE 114
[2019-11-28] MEDS: cloNIDine HCL 0.1 MG TABLET PO (21:26)
[2019-11-28] MEDS: risperiDONE 0.5 MG TABLET PO (21:26)
[2019-11-28] MEDS: Melatonin 3 MG TABLET PO (21:27)
--- NOTE | 2019-11-28 22:43 | HO.PSYCHPN ---
Subjective Subjective Reason For Visit: SI Interim History: patient has been irritable dysphoric hoping to be discharged to Review of Systems Constitutional: Reports headache(s) Reports headache(s) Musculoskeletal: Denies abnormal gait Denies abnormal gait and Reports headache(s) Mental Status Exam Mental Status Exam Narrative: patient depressed self hating this continues but less suicidally agitated more agreeable to longer-term treatment focus calmer Patient Appearance: Disheveled Patient Orientation: Person, Place, Time and Situation Level of Consciousness: Awake Patient Behavior: Appropriate Mood Description: Depressed and Apprehensive Affect Description: Withdrawn, Depressed, Anxious and Sad Patient Cognition Impaired: No Ability to Follow Directions: Excellent Speech Pattern: Clear Memory Description: Intact Diagnostics Vital Signs (24Hr): Vital Signs - 24 hr 11/28/19 06:30 11/28/19 16:31 11/28/19 21:26 Temperature 97.6 F 98.9 F Pulse Rate 83 114 H 114 H Respiratory Rate 18 Blood Pressure 121/68 125/71 125/71 Pulse Oximetry 100 Body Mass Index 33.3 Labs Results: 11/29/19 14:00 11/16/19 07:35 Medications Medications Current Medications Generic Name Dose Route Start Last Admin Trade Name Freq PRN Reason Stop Dose Admin Acetaminophen 650 mg 11/14/19 20:39 11/22/19 17:17 Acetaminophen 325 Mg Tablet PO 650 mg Q6H PRN Administration Headache/Pain Mild Scale (1-3) Al Hydroxide/Mg Hydroxide 30 ml 11/14/19 20:39 11/15/19 03:18 Magnesium Hydrox/Alum Hydrox 30 Ml Oral.Susp PO 30 ml Q6H PRN Administration Heartburn/Nausea Albuterol Sulfate 2.5 mg 11/22/19 16:48 11/22/19 16:51 Albuterol Sulfate (0.083%) 2.5 Mg/3 Ml Vial.Neb INHALE 2.5 mg Q3H PRN Administration Shortness of Breath/Wheezing Atorvastatin Calcium 10 mg 11/13/19 20:15 11/28/19 08:34 Atorvastatin Calcium 10 Mg Tablet PO 10 mg DAILY ANDREA Administration Clonidine HCl 0.1 mg 11/18/19 21:00 11/28/19 21:26 Clonidine Hcl 0.1 Mg Tablet PO 0.1 mg BEDTIME ANDREA Administration Protocol Escitalopram Oxalate 15 mg 11/20/19 21:00 11/28/19 21:24 Escitalopram Oxalate 10 Mg Tablet PO 15 mg BEDTIME ANDREA Administration Ferrous Sulfate 324 mg 11/18/19 11:05 11/28/19 21:26 Ferrous Sulfate 324 Mg Tablet. PO 324 mg BID ANDREA Administration Hydrocortisone 1 appl 11/23/19 21:00 11/28/19 21:23 Hydrocortisone 2.5 % Rectal Cr 30 Gm Tube [place] 1 appl BEDTIME ANDREA Administration Hydroxyzine HCl 25 mg 11/14/19 20:39 11/25/19 23:20 Hydroxyzine Hcl 25 Mg Tablet PO 25 mg BEDTIME PRN Administration Anxiety Lamotrigine 25 mg 11/20/19 15:45 11/28/19 21:27 Lamotrigine 25 Mg Tablet PO 25 mg BID ANDREA Administration [place] Carbonate 300 mg 11/24/19 21:00 11/28/19 21:24 [place] Carbonate Er 300 Mg Tablet.Er PO 300 mg BID ANDREA Administration Lorazepam 1 mg 11/20/19 15:44 11/28/19 11:44 Lorazepam 1 Mg Tablet PO 1 mg Q6H PRN Administration Anxiety Magnesium Hydroxide 30 ml 11/14/19 20:39 Milk Of Magnesia 30 Ml Oral.Susp PO DAILY PRN Constipation Melatonin 3 mg 11/19/19 21:00 11/28/19 21:27 Melatonin 3 Mg Tablet PO 3 mg BEDTIME ANDREA Administration Nicotine Polacrilex 2 mg 11/14/19 20:39 Nicotine Polacrilex 2 Mg Gum BUCCAL Q2H PRN Nicotine Cravings Omeprazole 40 mg 11/18/19 06:30 11/28/19 08:33 Omeprazole 40 Mg Capsule. PO 40 mg DAILY@0630 ANDREA Administration Ondansetron HCl 4 mg 11/22/19 15:22 Ondansetron Hcl 4 Mg/2 Ml Vial IVPUSH ONCE PRN Nausea and Vomiting Psyllium Hydrophilic Mucilloid 3.4 gm 11/23/19 21:00 11/28/19 21:26 Psyllium Seed 3.4 Gm Powd.Pack PO 3.4 gm BEDTIME ANDREA Administration Risperidone 0.5 mg 11/20/19 15:46 11/27/19 14:30 Risperidone 0.5 Mg Tablet PO 0.5 mg Q4H PRN Administration anxiety/restlessness Risperidone 0.5 mg 11/21/19 21:00 11/28/19 21:26 Risperidone 0.5 Mg Tablet PO 0.5 mg BEDTIME ANDREA Administration Vitamin D 50 mcg 11/13/19 20:15 11/28/19 08:34 Cholecalciferol (Vitamin D3) 25 Mcg Tablet PO 50 mcg DAILY ANDREA Administration Allergies Allergies Allergy/AdvReac Type Severity Reaction Status Date / Time trazodone [TRAZODONE] Allergy Severe SHORTNESS Verified 11/13/19 18:59 OF BREATH, anaphylaxis trazodone Allergy Unknown anaphylaxis Uncoded 11/13/19 18:59 Assessment & Plan Assessment & Plan (1) Iron deficiency anemia due to chronic blood loss: Status: Acute Code(s): D50.0 - Iron deficiency anemia secondary to blood loss (chronic) Assessment and Plan: gi w/u await recommendation fe replacement lamictal lithium risp lithium lamictal risp continue group therapy Education referral to [facility] (2) Hemorrhoids, internal, with bleeding: Status: Acute Code(s): K64.8 - Other hemorrhoids (3) Bipolar 2 disorder, major depressive episode: Status: Acute Code(s): F31.81 - Bipolar II disorder (4) ADHD: Status: Acute Code(s): F90.9 - Attention-deficit hyperactivity disorder, unspecified type (5) Moderate cocaine use 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
[2019-11-29 07:00] VITALS: BMI 34.8
[2019-11-29] MEDS: Lithium Carbonate ER 300 MG TABLET.ER PO ×2 (08:55→21:55)
[2019-11-29] MEDS: Ferrous Sulfate 324 MG TABLET.DR PO ×2 (08:56→21:56)
[2019-11-29] MEDS: Atorvastatin Calcium 10 MG TABLET PO (08:56)
[2019-11-29] MEDS: Cholecalciferol (Vitamin D3) 25 MCG TABLET 50 MCG PO (08:56)
[2019-11-29] MEDS: Omeprazole 40 MG CAPSULE.DR PO (08:56)
[2019-11-29] MEDS: lamoTRIgine 25 MG TABLET PO ×2 (08:56→21:55)
[2019-11-29 10:00] VITALS: BP 130/75; PULSE 88
[2019-11-29 14:15] LABS: Hemoglobin 8.3 g/dl (14.0-18.0); Mean Corpuscular HGB Conc 29.6 g/dl (31.0-36.0); Mean Corpuscular Hemoglobin 20.2 pg (27.0-33.0); Mean Corpuscular Volume 68.3 fL (80-98); Mean Platelet Volume 8.6 fL (9.4-12.4); NRBC Pct Auto 0.6 /100WBC (0.0-0.2); Platelet Count 395 X10*3/uL (160-400); Red Cell Distribution Width 18.7 % (11.0-16.0); White Blood Count 9.8 X10*3/uL (4.8-10.8)
[2019-11-29] MEDS: risperiDONE 0.5 MG TABLET PO ×2 (17:23→21:56)
[2019-11-29 18:42] LABS: Lithium 0.28 mmol/L (0.60-1.20)
[2019-11-29] MEDS: Melatonin 3 MG TABLET PO (21:55)
[2019-11-29] MEDS: Escitalopram Oxalate 10 MG TABLET 20 MG PO (21:55)
[2019-11-29 21:56] VITALS: BP 138/70; PULSE 108
[2019-11-29] MEDS: cloNIDine HCL 0.1 MG TABLET PO (21:56)
[2019-11-29 21:58] VITALS: TEMP 36.2
[2019-11-30] MEDS: Cholecalciferol (Vitamin D3) 25 MCG TABLET 50 MCG PO (08:54)
[2019-11-30] MEDS: Ferrous Sulfate 324 MG TABLET.DR PO ×2 (08:55→21:54)
[2019-11-30] MEDS: Omeprazole 40 MG CAPSULE.DR PO (08:55)
[2019-11-30] MEDS: Lithium Carbonate ER 300 MG TABLET.ER PO (08:55)
[2019-11-30] MEDS: Atorvastatin Calcium 10 MG TABLET PO (08:55)
[2019-11-30] MEDS: lamoTRIgine 25 MG TABLET PO (08:56)
[2019-11-30 13:01] VITALS: BP 132/70; PULSE 104; RESP 16
--- NOTE | 2019-11-30 13:28 | P.PNPSI_ITS ---
Subjective Subjective Reason For Visit: SI Subjective Notes: Conditional Voluntary Interim History: Pt has been more stable generally has been in control strattera sent Medication Compliance: Yes Side effects from medications: No Attending Groups: Yes Review of Systems Constitutional: Reports headache(s) Reports headache(s) Musculoskeletal: Denies abnormal gait Denies abnormal gait and Reports headache(s) Mental Status Exam Mental Status Exam Narrative: patient depressed self hating this continues but less suicidally agitated more agreeable to longer-term treatment focus calmer Patient Appearance: Disheveled Patient Orientation: Person, Place, Time and Situation Level of Consciousness: Awake Patient Behavior: Appropriate, Aggressive, Restless, Belligerent, Swearing and Poor Eye Contact Mood Description: Depressed and Hostile Affect Description: Depressed, Hostile, Labile and Sad Patient Cognition Impaired: No Ability to Follow Directions: Excellent Speech Pattern: Clear and Loud Memory Description: Intact Diagnostics Vital Signs (24Hr): Vital Signs - 24 hr 11/29/19 21:56 11/29/19 21:58 11/30/19 13:01 Temperature 97.2 F Pulse Rate 108 H 104 H Respiratory Rate 16 Blood Pressure 138/70 132/70 Body Mass Index 34.8 Labs Results: 11/29/19 14:00 11/16/19 07:35 Labs: Laboratory Results - last 48 hr 11/29/19 11/29/19 14:00 17:51 WBC 9.8 RBC 4.10 L Hgb 8.3 L Hct 28.0 L MCV 68.3 L MCH 20.2 L MCHC 29.6 L RDW 18.7 H Plt Count 395 MPV 8.6 L Absolute Nucleated RBC 0.060 H Nucleated RBC % (auto) 0.6 H [place] 0.28 L Medications Medications Current Medications Generic Name Dose Route Start Last Admin Trade Name Freq PRN Reason Stop Dose Admin Acetaminophen 650 mg 11/14/19 20:39 11/22/19 17:17 Acetaminophen 325 Mg Tablet PO 650 mg Q6H PRN Administration Headache/Pain Mild Scale (1-3) Al Hydroxide/Mg Hydroxide 30 ml 11/14/19 20:39 11/15/19 03:18 Magnesium Hydrox/Alum Hydrox 30 Ml Oral.Susp PO 30 ml Q6H PRN Administration Heartburn/Nausea Atorvastatin Calcium 10 mg 11/13/19 20:15 11/30/19 08:55 Atorvastatin Calcium 10 Mg Tablet PO 10 mg DAILY ANDREA Administration Clonidine HCl 0.1 mg 11/18/19 21:00 11/29/19 21:56 Clonidine Hcl 0.1 Mg Tablet PO 0.1 mg BEDTIME ANDREA Administration Protocol Escitalopram Oxalate 20 mg 11/29/19 21:00 11/29/19 21:55 Escitalopram Oxalate 10 Mg Tablet PO 20 mg BEDTIME ANDREA Administration Ferrous Sulfate 324 mg 11/18/19 11:05 11/30/19 08:55 Ferrous Sulfate 324 Mg Tablet.Dr PO 324 mg BID ANDREA Administration Hydrocortisone 1 appl 11/23/19 21:00 11/29/19 21:57 Hydrocortisone 2.5 % Rectal Cr 30 Gm Tube DC Not Given BEDTIME ANDREA Hydroxyzine HCl 25 mg 11/14/19 20:39 11/25/19 23:20 Hydroxyzine Hcl 25 Mg Tablet PO 25 mg BEDTIME PRN Administration Anxiety Lamotrigine 37.5 mg 11/30/19 21:00 Lamotrigine 25 Mg Tablet PO BID ANDREA [place] Carbonate 450 mg 11/30/19 21:00 [place] Carbonate Er 450 Mg Tablet.Er PO BID ANDREA Magnesium Hydroxide 30 ml 11/14/19 20:39 Milk Of Magnesia 30 Ml Oral.Susp PO DAILY PRN Constipation Melatonin 3 mg 11/19/19 21:00 11/29/19 21:55 Melatonin 3 Mg Tablet PO 3 mg BEDTIME ANDREA Administration Nicotine Polacrilex 2 mg 11/14/19 20:39 Nicotine Polacrilex 2 Mg Gum BUCCAL Q2H PRN Nicotine Cravings Omeprazole 40 mg 11/18/19 06:30 11/30/19 08:55 Omeprazole 40 Mg Capsule.Dr PO 40 mg DAILY@0630 ANDREA Administration Ondansetron HCl 4 mg 11/22/19 15:22 Ondansetron Hcl 4 Mg/2 Ml Vial IVPUSH ONCE PRN Nausea and Vomiting Psyllium Hydrophilic Mucilloid 3.4 gm 11/23/19 21:00 11/29/19 21:53 Psyllium Seed 3.4 Gm Powd.Pack PO 3.4 gm BEDTIME ANDREA Administration Risperidone 0.5 mg 11/20/19 15:46 11/29/19 17:23 Risperidone 0.5 Mg Tablet PO 0.5 mg Q4H PRN Administration anxiety/restlessness Risperidone 0.5 mg 11/21/19 21:00 11/29/19 21:56 Risperidone 0.5 Mg Tablet PO 0.5 mg BEDTIME ANDREA Administration Vitamin D 50 mcg 11/13/19 20:15 11/30/19 08:54 Cholecalciferol (Vitamin D3) 25 Mcg Tablet PO 50 mcg DAILY ANDREA Administration Allergies Allergies Allergy/AdvReac Type Severity Reaction Status Date / Time trazodone [TRAZODONE] Allergy Severe SHORTNESS Verified 11/13/19 18:59 OF BREATH, anaphylaxis trazodone Allergy Unknown anaphylaxis Uncoded 11/13/19 18:59 Assessment & Plan Assessment & Plan (1) Bipolar 2 disorder, major depressive episode: Status: Acute Code(s): F31.81 - Bipolar II disorder (2) ADHD: Status: Acute Code(s): F90.9 - Attention-deficit hyperactivity disorder, unspecified type (3) Moderate cocaine use disorder in controlled environment: Status: Acute Code(s): F14.20 - Cocaine dependence, uncomplicated (4) Bipolar disorder: Status: Acute Code(s): F31.9 - Bipolar disorder, unspecified Assessment and Plan: start on strattera cont lithium clonidine Cont placement efforts Informed Consent: understands Reason for contiued inpatient stay Substantial Risk for: rapid decompensation Greater than 50% of the session was spent on counseling and/or coordination of care
[2019-11-30] MEDS: Lithium Carbonate ER 450 MG TABLET.ER PO (21:53)
[2019-11-30] MEDS: Melatonin 3 MG TABLET PO (21:53)
[2019-11-30] MEDS: lamoTRIgine 25 MG TABLET 37.5 MG PO (21:54)
[2019-11-30] MEDS: Escitalopram Oxalate 10 MG TABLET 20 MG PO (21:54)
[2019-11-30] MEDS: risperiDONE 0.5 MG TABLET PO (21:54)
[2019-11-30 21:56] VITALS: BP 144/82; PULSE 96
[2019-11-30] MEDS: cloNIDine HCL 0.1 MG TABLET PO (21:56)
[2019-11-30 22:06] VITALS: TEMP 36.8
[2019-12-01 03:56] VITALS: BP 131/72; PULSE 80; TEMP 36.8
[2019-12-01] MEDS: Omeprazole 40 MG CAPSULE.DR PO (06:09)
[2019-12-01] MEDS: Lithium Carbonate ER 450 MG TABLET.ER PO ×2 (09:25→20:55)
[2019-12-01] MEDS: lamoTRIgine 25 MG TABLET 37.5 MG PO ×2 (09:26→20:53)
[2019-12-01] MEDS: Atorvastatin Calcium 10 MG TABLET PO (09:27)
[2019-12-01] MEDS: Ferrous Sulfate 324 MG TABLET.DR PO ×2 (09:27→20:56)
[2019-12-01] MEDS: Cholecalciferol (Vitamin D3) 25 MCG TABLET 50 MCG PO (09:27)
[2019-12-01 12:34] VITALS: BP 128/65; PULSE 92
[2019-12-01] MEDS: Acetaminophen 325 MG TABLET 650 MG PO (14:58)
[2019-12-01] MEDS: Escitalopram Oxalate 10 MG TABLET 20 MG PO (20:51)
[2019-12-01 20:54] VITALS: BP 130/75; PULSE 108
[2019-12-01] MEDS: cloNIDine HCL 0.1 MG TABLET PO (20:54)
[2019-12-01] MEDS: Melatonin 3 MG TABLET PO (20:55)
[2019-12-01] MEDS: risperiDONE 0.5 MG TABLET PO (20:57)
[2019-12-01 20:59] VITALS: BP 130/75; PULSE 108; TEMP 36.6; O2SAT 99
--- NOTE | 2019-12-01 22:02 | P.PNPSI_ITS ---
Subjective Subjective Reason For Visit: SI Interim History: patient has been irritable dysphoric tolerating increase in lithium and lamictal yesterday- no side effects Review of Systems Constitutional: Reports headache(s) Reports headache(s) Musculoskeletal: Denies abnormal gait Denies abnormal gait and Reports headache(s) Mental Status Exam Mental Status Exam Patient Appearance: Disheveled Patient Orientation: Person, Place, Time and Situation Level of Consciousness: Awake Patient Behavior: Appropriate Mood Description: Depressed and Apprehensive Affect Description: Withdrawn, Depressed, Anxious and Sad Patient Cognition Impaired: No Ability to Follow Directions: Excellent Speech Pattern: Clear Memory Description: Intact Diagnostics Vital Signs (24Hr): Vital Signs - 24 hr 11/30/19 22:06 12/01/19 03:56 12/01/19 12:34 Temperature 98.3 F 98.2 F Pulse Rate 80 92 Blood Pressure 131/72 128/65 Pulse Oximetry 12/01/19 20:54 12/01/19 20:59 Temperature 97.9 F Pulse Rate 108 H 108 H Blood Pressure 130/75 130/75 Pulse Oximetry 99 Body Mass Index 34.8 Labs Results: 11/29/19 14:00 11/16/19 07:35 Medications Medications Current Medications Generic Name Dose Route Start Last Admin Trade Name Freq PRN Reason Stop Dose Admin Acetaminophen 650 mg 11/14/19 20:39 12/01/19 14:58 Acetaminophen 325 Mg Tablet PO 650 mg Q6H PRN Administration Headache/Pain Mild Scale (1-3) Al Hydroxide/Mg Hydroxide 30 ml 11/14/19 20:39 11/15/19 03:18 Magnesium Hydrox/Alum Hydrox 30 Ml Oral.Susp PO 30 ml Q6H PRN Administration Heartburn/Nausea Atorvastatin Calcium 10 mg 11/13/19 20:15 12/01/19 09:27 Atorvastatin Calcium 10 Mg Tablet PO 10 mg DAILY ANDREA Administration Clonidine HCl 0.1 mg 11/18/19 21:00 12/01/19 20:54 Clonidine Hcl 0.1 Mg Tablet PO 0.1 mg BEDTIME ANDREA Administration Protocol Escitalopram Oxalate 20 mg 11/29/19 21:00 12/01/19 20:51 Escitalopram Oxalate 10 Mg Tablet PO 20 mg BEDTIME ANDREA Administration Ferrous Sulfate 324 mg 11/18/19 11:05 12/01/19 20:56 Ferrous Sulfate 324 Mg Tablet. PO 324 mg BID ANDREA Administration Hydrocortisone 1 appl 11/23/19 21:00 12/01/19 20:58 Hydrocortisone 2.5 % Rectal Cr 30 Gm Tube [place] Not Given BEDTIME ANDREA Hydroxyzine HCl 25 mg 11/14/19 20:39 11/25/19 23:20 Hydroxyzine Hcl 25 Mg Tablet PO 25 mg BEDTIME PRN Administration Anxiety Lamotrigine 37.5 mg 11/30/19 21:00 12/01/19 20:53 Lamotrigine 25 Mg Tablet PO 37.5 mg BID ANDREA Administration [facility] Carbonate 450 mg 11/30/19 21:00 12/01/19 20:55 [place] [facility] Carbonate Er 450 Mg Tablet.Er PO 450 mg BID ANDREA Administration Magnesium Hydroxide 30 ml 11/14/19 20:39 Milk Of Magnesia 30 Ml Oral.Susp PO DAILY PRN Constipation Melatonin 3 mg 11/19/19 21:00 12/01/19 20:55 Melatonin 3 Mg Tablet PO 3 mg BEDTIME ANDREA Administration Nicotine Polacrilex 2 mg 11/14/19 20:39 Nicotine Polacrilex 2 Mg Gum BUCCAL Q2H PRN Nicotine Cravings Omeprazole 40 mg 11/18/19 06:30 12/01/19 06:09 Omeprazole 40 Mg Capsule. PO 40 mg DAILY@0630 ANDREA Administration Ondansetron HCl 4 mg 11/22/19 15:22 Ondansetron Hcl 4 Mg/2 Ml Vial IVPUSH ONCE PRN Nausea and Vomiting Psyllium Hydrophilic Mucilloid 3.4 gm 11/23/19 21:00 12/01/19 20:51 Psyllium Seed 3.4 Gm Powd.Pack PO 3.4 gm BEDTIME ANDREA Administration Risperidone 0.5 mg 11/20/19 15:46 11/29/19 17:23 Risperidone 0.5 Mg Tablet PO 0.5 mg Q4H PRN Administration anxiety/restlessness Risperidone 0.5 mg 11/21/19 21:00 12/01/19 20:57 Risperidone 0.5 Mg Tablet PO 0.5 mg BEDTIME ANDREA Administration Vitamin D 50 mcg 11/13/19 20:15 12/01/19 09:27 Cholecalciferol (Vitamin D3) 25 Mcg Tablet PO 50 mcg DAILY ANDREA Administration Allergies Allergies Allergy/AdvReac Type Severity Reaction Status Date / Time trazodone [TRAZODONE] Allergy Severe SHORTNESS Verified 11/13/19 18:59 OF BREATH, anaphylaxis trazodone Allergy Unknown anaphylaxis Uncoded 11/13/19 18:59 Assessment & Plan Assessment & Plan (1) Bipolar 2 disorder, major depressive episode: Status: Acute Code(s): F31.81 - Bipolar II disorder Assessment and Plan: Patient educated on: diagnosis and medication risk/benefits Informed Consent: further education needed Reason for continued inpatient stay Substantial Risk for: harm to self, harm to others, inability to function and rapid decompensation Greater than 50% of the session was spent on counseling and/or coordination of care
[2019-12-02] MEDS: Lithium Carbonate ER 450 MG TABLET.ER PO ×2 (08:24→20:59)
[2019-12-02] MEDS: Omeprazole 40 MG CAPSULE.DR PO (08:24)
[2019-12-02] MEDS: Atorvastatin Calcium 10 MG TABLET PO (08:24)
[2019-12-02] MEDS: Cholecalciferol (Vitamin D3) 25 MCG TABLET 50 MCG PO (08:25)
[2019-12-02] MEDS: lamoTRIgine 25 MG TABLET 37.5 MG PO ×2 (08:25→20:57)
[2019-12-02] MEDS: Ferrous Sulfate 324 MG TABLET.DR PO ×2 (08:25→20:59)
--- NOTE | 2019-12-02 10:59 | HO.PSYCHPN ---
Subjective Subjective Reason For Visit: SI Interim History: patient has been irritable dysphoric tolerating increase in lithium and lamictal yesterday- no side effects prescription for strattera 25 mg from outside pharm arrived to day and pt started on first dose today Review of Systems Constitutional: Reports headache(s) Reports headache(s) Musculoskeletal: Denies abnormal gait Denies abnormal gait and Reports headache(s) Mental Status Exam Mental Status Exam Patient Appearance: Disheveled Patient Orientation: Person, Place, Time and Situation Level of Consciousness: Awake Patient Behavior: Appropriate Mood Description: Depressed and Apprehensive Affect Description: Withdrawn, Depressed, Anxious and Sad Patient Cognition Impaired: No Ability to Follow Directions: Excellent Speech Pattern: Clear Memory Description: Intact Diagnostics Vital Signs (24Hr): Vital Signs - 24 hr 12/01/19 12:34 12/01/19 20:54 12/01/19 20:59 Temperature 97.9 F Pulse Rate 92 108 H 108 H Blood Pressure 128/65 130/75 130/75 Pulse Oximetry 99 Body Mass Index 34.8 Labs Results: 11/29/19 14:00 11/16/19 07:35 Medications Medications Current Medications Generic Name Dose Route Start Last Admin Trade Name Freq PRN Reason Stop Dose Admin Acetaminophen 650 mg 11/14/19 20:39 12/01/19 14:58 Acetaminophen 325 Mg Tablet PO 650 mg Q6H PRN Administration Headache/Pain Mild Scale (1-3) Al Hydroxide/Mg Hydroxide 30 ml 11/14/19 20:39 11/15/19 03:18 Magnesium Hydrox/Alum Hydrox 30 Ml Oral.Susp PO 30 ml Q6H PRN Administration Heartburn/Nausea Atorvastatin Calcium 10 mg 11/13/19 20:15 12/02/19 08:24 Atorvastatin Calcium 10 Mg Tablet PO 10 mg DAILY ANDREA Administration Clonidine HCl 0.1 mg 11/18/19 21:00 12/01/19 20:54 Clonidine Hcl 0.1 Mg Tablet PO 0.1 mg BEDTIME ANDREA Administration Protocol Escitalopram Oxalate 20 mg 11/29/19 21:00 12/01/19 20:51 Escitalopram Oxalate 10 Mg Tablet PO 20 mg BEDTIME ANDREA Administration Ferrous Sulfate 324 mg 11/18/19 11:05 12/02/19 08:25 Ferrous Sulfate 324 Mg Tablet. PO 324 mg BID ANDREA Administration Hydrocortisone 1 appl 11/23/19 21:00 12/01/19 20:58 Hydrocortisone 2.5 % Rectal Cr 30 Gm Tube [place] Not Given BEDTIME ANDREA Hydroxyzine HCl 25 mg 11/14/19 20:39 11/25/19 23:20 Hydroxyzine Hcl 25 Mg Tablet PO 25 mg BEDTIME PRN Administration Anxiety Lamotrigine 37.5 mg 11/30/19 21:00 12/02/19 08:25 Lamotrigine 25 Mg Tablet PO 37.5 mg BID ANDREA Administration [place] Carbonate 450 mg 11/30/19 21:00 12/02/19 08:24 [place] Carbonate Er 450 Mg Tablet.Er PO 450 mg BID ANDREA Administration Magnesium Hydroxide 30 ml 11/14/19 20:39 Milk Of Magnesia 30 Ml Oral.Susp PO DAILY PRN Constipation Melatonin 3 mg 11/19/19 21:00 12/01/19 20:55 Melatonin 3 Mg Tablet PO 3 mg BEDTIME ANDREA Administration Nicotine Polacrilex 2 mg 11/14/19 20:39 Nicotine Polacrilex 2 Mg Gum BUCCAL Q2H PRN Nicotine Cravings Non-Formulary Medication 25 mg 12/02/19 10:45 Strattera PO DAILY ANDREA Omeprazole 40 mg 11/18/19 06:30 12/02/19 08:24 Omeprazole 40 Mg Capsule.Dr PO 40 mg DAILY@0630 ANDREA Administration Ondansetron HCl 4 mg 11/22/19 15:22 Ondansetron Hcl 4 Mg/2 Ml Vial IVPUSH ONCE PRN Nausea and Vomiting Psyllium Hydrophilic Mucilloid 3.4 gm 11/23/19 21:00 12/01/19 20:51 Psyllium Seed 3.4 Gm Powd.Pack PO 3.4 gm BEDTIME ANDREA Administration Risperidone 0.5 mg 11/20/19 15:46 11/29/19 17:23 Risperidone 0.5 Mg Tablet PO 0.5 mg Q4H PRN Administration anxiety/restlessness Risperidone 0.5 mg 11/21/19 21:00 12/01/19 20:57 Risperidone 0.5 Mg Tablet PO 0.5 mg BEDTIME ANDREA Administration Vitamin D 50 mcg 11/13/19 20:15 12/02/19 08:25 Cholecalciferol (Vitamin D3) 25 Mcg Tablet PO 50 mcg DAILY ANDREA Administration Allergies Allergies Allergy/AdvReac Type Severity Reaction Status Date / Time trazodone [TRAZODONE] Allergy Severe SHORTNESS Verified 11/13/19 18:59 OF BREATH, anaphylaxis trazodone Allergy Unknown anaphylaxis Uncoded 11/13/19 18:59 Assessment & Plan Assessment & Plan (1) Bipolar 2 disorder, major depressive episode: Status: Acute Code(s): F31.81 - Bipolar II disorder (2) ADHD: Status: Acute Code(s): F90.9 - Attention-deficit hyperactivity disorder, unspecified type (3) Moderate cocaine use disorder in controlled environment: Status: Acute Code(s): F14.20 - Cocaine dependence, uncomplicated (4) Bipolar disorder: Status: Acute Code(s): F31.9 - Bipolar disorder, unspecified Assessment and Plan: Patient started on strattera 25 mg daily - use of home med Informed Consent: understands Reason for contiued inpatient stay Substantial Risk for: rapid decompensation Greater than 50% of the session was spent on counseling and/or coordination of care
[2019-12-02 14:11] VITALS: BP 112/65; PULSE 97
[2019-12-02] MEDS: Escitalopram Oxalate 10 MG TABLET 20 MG PO (20:56)
[2019-12-02] MEDS: risperiDONE 0.5 MG TABLET PO (20:59)
[2019-12-02 21:46] VITALS: BP 117/57; PULSE 85; TEMP 36.8; O2SAT 99
[2019-12-02] MEDS: Melatonin 3 MG TABLET PO (21:51)
[2019-12-02 22:31] VITALS: BP 136/62; PULSE 110
[2019-12-02 22:32] VITALS: BP 136/62; PULSE 110
[2019-12-02] MEDS: cloNIDine HCL 0.1 MG TABLET PO (22:32)
[2019-12-03] MEDS: lamoTRIgine 25 MG TABLET 37.5 MG PO ×2 (09:00→21:34)
[2019-12-03] MEDS: Lithium Carbonate ER 450 MG TABLET.ER PO ×2 (09:00→21:36)
[2019-12-03] MEDS: Atorvastatin Calcium 10 MG TABLET PO (09:01)
[2019-12-03] MEDS: Cholecalciferol (Vitamin D3) 25 MCG TABLET 50 MCG PO (09:01)
[2019-12-03] MEDS: Omeprazole 40 MG CAPSULE.DR PO (09:01)
[2019-12-03] MEDS: Ferrous Sulfate 324 MG TABLET.DR PO ×2 (09:01→21:35)
[2019-12-03 09:47] LABS: Lithium 0.47 mmol/L (0.60-1.20)
[2019-12-03 14:31] VITALS: BP 127/70; PULSE 100
--- NOTE | 2019-12-03 16:22 | PC.NURSE ---
AT APPROXIMATELY 1515 PT WAS OVERHEARD BANGING A DOOR AGGRESSIVELY. THIS COMMUNICATION PROFESSOR APPROACHED PT AND OFFERED TO TALK OR ACCEPT PRN MEDICATION, PT STATED I DON'T WANT HELP FROM ANYONE, LEAVE ME ALONE . TEN MINUTES LATER PT BEGAN PUNCHING THE WALL, THREE TIMES, CAUSING A LARGE HOLE. SECURITY CALLED, PT OFFERED MEDICATION, PT DECLINED, PT STATED, GET THE AWAY FROM ME, YOU HAVE NO IDEA HOW BAD THIS CAN GET , PT SPOKE WITH THIS COMMUNICATION PROFESSOR AND MD DR RODRIGUEZ REGARDING OPTIONS, PT HAD BEEN DEMANDING DC HAVING STATED, YOU PEOPLE DO NOTHING, I JUST WANNA GET THE FUCK OUT OF HERE....JUST LEAVE ME ALONE . PT SPENT TIME WITH OTHER CLINICIAN, NOTABLY TYE, SPOKE WITH DR RODRIGUEZ AGAIN AND DISCUSSED THAT HE SHOULD STAY IN THE HOSPITAL AND SEE IF APPLICATIONS TO ONGOING TREATMENT FACILITIES MIGHT GET RESPONSES TOMORROW AND THEN MAKE A DECISION ON WHETHER HE SHOULD BE DISCHARGED HOME OR TO THE COMMUNITY IF HE DOES NOT GET A BED. PT GIVEN ICE FOR RIGHT HAND BUT DECLINED TO SHOW IT TO THIS COMMUNICATION PROFESSOR.
--- NOTE | 2019-12-03 20:46 | P.PNPSI_ITS ---
Subjective Subjective Reason For Visit: SI Interim History: patient has been irritable dysphoric . Explosive aggression towards property. Punched a big hole in the wall. SW has tried to get him a bed in various facilities. TW deescalated pt and we will revisit placement in a.m or DC per pt choice. Now om 1:1 Review of Systems Review of Systems Yes all other systems are reviewed and are negative and Other (Rt hand injury a fter punching wall) Constitutional: Reports headache(s) Reports headache(s) Musculoskeletal: Denies abnormal gait Comments: Rt hand swelling after punching wall Denies abnormal gait and Reports headache(s) Mental Status Exam Mental Status Exam Narrative: patient depressed self hating this continues but less suicidally agitated more agreeable to longer-term treatment focus calmer Patient Orientation: Person, Place, Time and Situation Level of Consciousness: Awake Patient Behavior: Appropriate, Aggressive, Restless, Belligerent, Swearing and Poor Eye Contact Mood Description: Depressed and Hostile Affect Description: Depressed, Hostile, Labile and Sad Patient Cognition Impaired: No Ability to Follow Directions: Excellent Speech Pattern: Clear and Loud Memory Description: Intact Hallucinations: None Delusions: Not Present Thought Process: Intact Thought Content: positive for Suicidal Ideation and positive for Homicidal Ideation Abnormal Motor Activity Signs and Symptoms: Aggression Judgement: Poor Diagnostics Vital Signs (24Hr): Vital Signs - 24 hr 12/02/19 21:46 12/02/19 22:31 12/02/19 22:32 Temperature 98.2 F Pulse Rate 85 110 H 110 H Blood Pressure 117/57 L 136/62 136/62 Pulse Oximetry 99 12/03/19 14:31 Temperature Pulse Rate 100 Blood Pressure 127/70 Pulse Oximetry Body Mass Index 34.8 Labs Results: 11/29/19 14:00 11/16/19 07:35 Labs: Laboratory Results - last 48 hr 12/03/19 08:20 [place] 0.47 L Medications Medications Current Medications Generic Name Dose Route Start Last Admin Trade Name Freq PRN Reason Stop Dose Admin Acetaminophen 650 mg 11/14/19 20:39 12/01/19 14:58 Acetaminophen 325 Mg Tablet PO 650 mg Q6H PRN Administration Headache/Pain Mild Scale (1-3) Al Hydroxide/Mg Hydroxide 30 ml 11/14/19 20:39 11/15/19 03:18 Magnesium Hydrox/Alum Hydrox 30 Ml Oral.Susp PO 30 ml Q6H PRN Administration Heartburn/Nausea Atorvastatin Calcium 10 mg 11/13/19 20:15 12/03/19 09:01 Atorvastatin Calcium 10 Mg Tablet PO 10 mg DAILY ANDREA Administration Clonidine HCl 0.1 mg 11/18/19 21:00 12/02/19 22:32 Clonidine Hcl 0.1 Mg Tablet PO 0.1 mg BEDTIME ANDREA Administration Protocol Escitalopram Oxalate 20 mg 11/29/19 21:00 12/02/19 20:56 Escitalopram Oxalate 10 Mg Tablet PO 20 mg BEDTIME ANDREA Administration Ferrous Sulfate 324 mg 11/18/19 11:05 12/03/19 09:01 Ferrous Sulfate 324 Mg Tablet. PO 324 mg BID ANDREA Administration Hydrocortisone 1 appl 11/23/19 21:00 12/02/19 21:51 Hydrocortisone 2.5 % Rectal Cr 30 Gm Tube FL Not Given BEDTIME ANDREA Hydroxyzine HCl 25 mg 11/14/19 20:39 11/25/19 23:20 Hydroxyzine Hcl 25 Mg Tablet PO 25 mg BEDTIME PRN Administration Anxiety Lamotrigine 37.5 mg 11/30/19 21:00 12/03/19 09:00 Lamotrigine 25 Mg Tablet PO 37.5 mg BID ANDREA Administration [place] Carbonate 450 mg 11/30/19 21:00 12/03/19 09:00 [place] Carbonate Er 450 Mg Tablet.Er PO 450 mg BID ANDREA Administration Magnesium Hydroxide 30 ml 11/14/19 20:39 Milk Of Magnesia 30 Ml Oral.Susp PO DAILY PRN Constipation Melatonin 3 mg 11/19/19 21:00 12/02/19 21:51 Melatonin 3 Mg Tablet PO 3 mg BEDTIME ANDREA Administration Nicotine Polacrilex 2 mg 11/14/19 20:39 Nicotine Polacrilex 2 Mg Gum BUCCAL Q2H PRN Nicotine Cravings Pat Own Med ( 25 each 12/03/19 09:00 12/03/19 09:04 Atomoxetine Hcl 25mg PO 25 each Cap) DAILY ANDREA Administration Omeprazole 40 mg 11/18/19 06:30 12/03/19 09:01 Omeprazole 40 Mg Capsule. PO 40 mg DAILY@0630 ANDREA Administration Psyllium Hydrophilic Mucilloid 3.4 gm 11/23/19 21:00 12/02/19 21:51 Psyllium Seed 3.4 Gm Powd.Pack PO 3.4 gm BEDTIME ANDREA Administration Risperidone 0.5 mg 11/20/19 15:46 11/29/19 17:23 Risperidone 0.5 Mg Tablet PO 0.5 mg Q4H PRN Administration anxiety/restlessness Risperidone 0.5 mg 11/21/19 21:00 12/02/19 20:59 Risperidone 0.5 Mg Tablet PO 0.5 mg BEDTIME ANDREA Administration Vitamin D 50 mcg 11/13/19 20:15 12/03/19 09:01 Cholecalciferol (Vitamin D3) 25 Mcg Tablet PO 50 mcg DAILY ANDREA Administration Allergies Allergies Allergy/AdvReac Type Severity Reaction Status Date / Time trazodone [TRAZODONE] Allergy Severe SHORTNESS Verified 11/13/19 18:59 OF BREATH, anaphylaxis Assessment & Plan Assessment & Plan (1) Bipolar 2 disorder, major depressive episode: Status: Acute Code(s): F31.81 - Bipolar II disorder (2) ADHD: Status: Acute Code(s): F90.9 - Attention-deficit hyperactivity disorder, unspecified type (3) 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
[2019-12-03] MEDS: Acetaminophen 325 MG TABLET 650 MG PO (21:32)
[2019-12-03 21:35] VITALS: BP 121/57; PULSE 101
[2019-12-03] MEDS: risperiDONE 0.5 MG TABLET PO (21:35)
[2019-12-03] MEDS: Melatonin 3 MG TABLET PO (21:35)
[2019-12-03] MEDS: cloNIDine HCL 0.1 MG TABLET PO (21:35)
[2019-12-03] MEDS: Escitalopram Oxalate 10 MG TABLET 20 MG PO (21:35)
[2019-12-03 22:00] VITALS: BP 121/57; PULSE 101; TEMP 37.1
[2019-12-04] MEDS: Ferrous Sulfate 324 MG TABLET.DR PO ×2 (08:48→21:47)
[2019-12-04] MEDS: Omeprazole 40 MG CAPSULE.DR PO (08:48)
[2019-12-04] MEDS: Atorvastatin Calcium 10 MG TABLET PO (08:48)
[2019-12-04] MEDS: Lithium Carbonate ER 450 MG TABLET.ER PO ×2 (08:48→21:47)
[2019-12-04] MEDS: lamoTRIgine 25 MG TABLET 37.5 MG PO (08:48)
[2019-12-04] MEDS: Cholecalciferol (Vitamin D3) 25 MCG TABLET 50 MCG PO (08:49)
[2019-12-04 11:19] VITALS: BP 126/62; PULSE 86; TEMP 36.7; O2SAT 99
[2019-12-04 14:26] VITALS: BP 129/76; PULSE 104
[2019-12-04] MEDS: cloNIDine HCL 0.1 MG TABLET PO ×2 (14:26→21:46)
[2019-12-04 17:05] VITALS: BP 127/69; PULSE 92; TEMP 36.9
--- NOTE | 2019-12-04 20:13 | HO.PSYCHPN ---
Subjective Subjective Date of Service: 12/04/19 Reason For Visit: SI Subjective Notes: Conditional Voluntary Interim History: patient was increasingly aggressive over the weekend had a rage attack. Remorseful now looking to go to a [facility] if possible but has been generally rejected long-standing difficulty with temper Medication Compliance: Yes Side effects from medications: Yes Review of Systems Constitutional: Reports headache(s) Reports headache(s) Musculoskeletal: Denies abnormal gait Denies abnormal gait and Reports headache(s) Mental Status Exam Mental Status Exam Narrative: patient depressed self hating this continues but less suicidally agitated more agreeable to longer-term treatment focus calmer Patient Orientation: Person, Place, Time and Situation Level of Consciousness: Awake Patient Behavior: Appropriate, Restless and Good Eye Contact Mood Description: Constricted, Depressed and Blunted Affect Description: Depressed, Hostile, Labile and Sad Patient Cognition Impaired: No Ability to Follow Directions: Good Speech Pattern: Clear and Appropriate Memory Description: Intact Hallucinations: None Delusions: Not Present Thought Process: Intact Thought Content: positive for Suicidal Ideation (fearful of suicide if d/c ) and negative for Homicidal Ideation Depressive Symptoms: Increased Anxiety and Increased Irritability Abnormal Motor Activity Signs and Symptoms: Aggression Judgement: Poor Diagnostics Vital Signs (24Hr): Vital Signs - 24 hr 12/03/19 21:35 12/03/19 22:00 12/04/19 11:19 Temperature 98.7 F 98.0 F Pulse Rate 101 H 101 H 86 Blood Pressure 121/57 L 121/57 L 126/62 Pulse Oximetry 99 12/04/19 14:26 12/04/19 17:05 Temperature 98.4 F Pulse Rate 104 H 92 Blood Pressure 129/76 127/69 Pulse Oximetry Body Mass Index 34.8 Labs Results: 11/29/19 14:00 11/16/19 07:35 Labs: Laboratory Results - last 48 hr 12/03/19 08:20 [place] 0.47 L Medications Medications Current Medications Generic Name Dose Route Start Last Admin Trade Name Freq PRN Reason Stop Dose Admin Acetaminophen 650 mg 11/14/19 20:39 12/03/19 21:32 Acetaminophen 325 Mg Tablet PO 650 mg Q6H PRN Administration Headache/Pain Mild Scale (1-3) Al Hydroxide/Mg Hydroxide 30 ml 11/14/19 20:39 11/15/19 03:18 Magnesium Hydrox/Alum Hydrox 30 Ml Oral.Susp PO 30 ml Q6H PRN Administration Heartburn/Nausea Atorvastatin Calcium 10 mg 11/13/19 20:15 12/04/19 08:48 Atorvastatin Calcium 10 Mg Tablet PO 10 mg DAILY ANDREA Administration Clonidine HCl 0.1 mg 11/18/19 21:00 12/03/19 21:35 Clonidine Hcl 0.1 Mg Tablet PO 0.1 mg BEDTIME ANDREA Administration Protocol Escitalopram Oxalate 20 mg 11/29/19 21:00 12/03/19 21:35 Escitalopram Oxalate 10 Mg Tablet PO 20 mg BEDTIME ANDREA Administration Ferrous Sulfate 324 mg 11/18/19 11:05 12/04/19 08:48 Ferrous Sulfate 324 Mg Tablet. PO 324 mg BID ANDREA Administration Hydrocortisone 1 appl 11/23/19 21:00 12/03/19 22:50 Hydrocortisone 2.5 % Rectal Cr 30 Gm Tube FL Not Given BEDTIME ANDREA Hydroxyzine HCl 25 mg 11/14/19 20:39 11/25/19 23:20 Hydroxyzine Hcl 25 Mg Tablet PO 25 mg BEDTIME PRN Administration Anxiety Lamotrigine 37.5 mg 11/30/19 21:00 12/04/19 08:48 Lamotrigine 25 Mg Tablet PO 37.5 mg BID ANDREA Administration [place] Carbonate 450 mg 11/30/19 21:00 12/04/19 08:48 [place] Carbonate Er 450 Mg Tablet.Er PO 450 mg BID ANDREA Administration Magnesium Hydroxide 30 ml 11/14/19 20:39 Milk Of Magnesia 30 Ml Oral.Susp PO DAILY PRN Constipation Melatonin 3 mg 11/19/19 21:00 12/03/19 21:35 Melatonin 3 Mg Tablet PO 3 mg BEDTIME ANDREA Administration Nicotine Polacrilex 2 mg 11/14/19 20:39 Nicotine Polacrilex 2 Mg Gum BUCCAL Q2H PRN Nicotine Cravings Pat Own Med ( 25 each 12/03/19 09:00 12/04/19 08:52 Atomoxetine Hcl 25mg PO 25 each Cap) DAILY ANDREA Administration Omeprazole 40 mg 11/18/19 06:30 12/04/19 08:48 Omeprazole 40 Mg Capsule. PO 40 mg DAILY@0630 ANDREA Administration Psyllium Hydrophilic Mucilloid 3.4 gm 11/23/19 21:00 12/03/19 21:36 Psyllium Seed 3.4 Gm Powd.Pack PO 3.4 gm BEDTIME ANDREA Administration Risperidone 0.5 mg 11/20/19 15:46 11/29/19 17:23 Risperidone 0.5 Mg Tablet PO 0.5 mg Q4H PRN Administration anxiety/restlessness Risperidone 0.5 mg 11/21/19 21:00 12/03/19 21:35 Risperidone 0.5 Mg Tablet PO 0.5 mg BEDTIME ANDREA Administration Vitamin D 50 mcg 11/13/19 20:15 12/04/19 08:49 Cholecalciferol (Vitamin D3) 25 Mcg Tablet PO 50 mcg DAILY ANDREA Administration Allergies Allergies Allergy/AdvReac Type Severity Reaction Status Date / Time trazodone [TRAZODONE] Allergy Severe SHORTNESS Verified 11/13/19 18:59 OF BREATH, anaphylaxis Assessment & Plan Assessment & Plan (1) Bipolar 2 disorder, major depressive episode: Status: Acute Code(s): F31.81 - Bipolar II disorder (2) ADHD: Status: Acute Code(s): F90.9 - Attention-deficit hyperactivity disorder, unspecified type Assessment and Plan: patient with history of explosivity trauma depression increase Lamictal increase clonidine for irritability agitation check lithium level patient unfortunately has been self destructive and self sabotage and poor frustration tolerance Greater than 50% of the session was spent on counseling and/or coordination of care
[2019-12-04] MEDS: lamoTRIgine 25 MG TABLET 50 MG PO (21:45)
[2019-12-04 21:46] VITALS: BP 127/60; PULSE 92
[2019-12-04] MEDS: Escitalopram Oxalate 10 MG TABLET 20 MG PO (21:46)
[2019-12-04] MEDS: Melatonin 3 MG TABLET PO (21:47)
[2019-12-04] MEDS: risperiDONE 0.5 MG TABLET PO (21:47)
[2019-12-05] MEDS: Atorvastatin Calcium 10 MG TABLET PO (08:41)
[2019-12-05] MEDS: Omeprazole 40 MG CAPSULE.DR PO (08:41)
[2019-12-05] MEDS: Cholecalciferol (Vitamin D3) 25 MCG TABLET 50 MCG PO (08:41)
[2019-12-05] MEDS: Ferrous Sulfate 324 MG TABLET.DR PO ×2 (08:41→21:48)
[2019-12-05 08:42] VITALS: BP 128/67; PULSE 83
[2019-12-05] MEDS: cloNIDine HCL 0.1 MG TABLET PO ×3 (08:42→21:45)
[2019-12-05] MEDS: lamoTRIgine 25 MG TABLET 50 MG PO ×2 (08:42→21:47)
[2019-12-05] MEDS: Lithium Carbonate ER 450 MG TABLET.ER PO ×2 (08:42→21:49)
[2019-12-05 08:53] LABS: Lithium 0.63 mmol/L (0.60-1.20)
[2019-12-05 09:27] VITALS: BP 128/68; PULSE 83; TEMP 36.1; O2SAT 98
--- NOTE | 2019-12-05 12:16 | HO.PSYCHPN ---
Subjective Subjective Reason For Visit: SI Interim History: Patient calmer doing better hoping to return home does not seem to do well and restricted setting generally much more stable Review of Systems Constitutional: Reports headache(s) Reports headache(s) Musculoskeletal: Denies abnormal gait Denies abnormal gait and Reports headache(s) Mental Status Exam Mental Status Exam Narrative: patient depressed self hating this continues but less suicidally agitated more agreeable to longer-term treatment focus calmer Patient Appearance: Disheveled Patient Orientation: Person, Place, Time and Situation Level of Consciousness: Awake Patient Behavior: Appropriate, Restless and Good Eye Contact Mood Description: Constricted, Depressed and Blunted Affect Description: Depressed and Sad Patient Cognition Impaired: No Ability to Follow Directions: Good Speech Pattern: Clear and Appropriate Memory Description: Intact Delusions: Not Present Thought Process: Rumination Depressive Symptoms: Increased Anxiety and Increased Irritability Judgement: Fair Judgement and Insight: improving impulse control Diagnostics Vital Signs (24Hr): Vital Signs - 24 hr 12/04/19 14:26 12/04/19 17:05 12/04/19 21:46 Temperature 98.4 F Pulse Rate 104 H 92 92 Blood Pressure 129/76 127/69 127/60 Pulse Oximetry 12/05/19 08:42 12/05/19 09:27 Temperature 97.0 F Pulse Rate 83 83 Blood Pressure 128/67 128/68 Pulse Oximetry 98 Body Mass Index 34.8 Labs Results: 11/29/19 14:00 11/16/19 07:35 Labs: Laboratory Results - last 48 hr 12/05/19 08:24 [place] 0.63 Medications Medications Current Medications Generic Name Dose Route Start Last Admin Trade Name Freq PRN Reason Stop Dose Admin Acetaminophen 650 mg 11/14/19 20:39 12/03/19 21:32 Acetaminophen 325 Mg Tablet PO 650 mg Q6H PRN Administration Headache/Pain Mild Scale (1-3) Al Hydroxide/Mg Hydroxide 30 ml 11/14/19 20:39 11/15/19 03:18 Magnesium Hydrox/Alum Hydrox 30 Ml Oral.Susp PO 30 ml Q6H PRN Administration Heartburn/Nausea Atorvastatin Calcium 10 mg 11/13/19 20:15 12/05/19 08:41 Atorvastatin Calcium 10 Mg Tablet PO 10 mg DAILY ANDREA Administration Clonidine HCl 0.1 mg 12/04/19 21:00 12/05/19 08:42 Clonidine Hcl 0.1 Mg Tablet PO 0.1 mg TID ANDREA Administration Protocol Escitalopram Oxalate 20 mg 11/29/19 21:00 12/04/19 21:46 Escitalopram Oxalate 10 Mg Tablet PO 20 mg BEDTIME ANDREA Administration Ferrous Sulfate 324 mg 11/18/19 11:05 12/05/19 08:41 Ferrous Sulfate 324 Mg Tablet. PO 324 mg BID ANDREA Administration Hydrocortisone 1 appl 11/23/19 21:00 12/04/19 21:52 Hydrocortisone 2.5 % Rectal Cr 30 Gm Tube [place] Not Given BEDTIME ANDREA Hydroxyzine HCl 25 mg 11/14/19 20:39 11/25/19 23:20 Hydroxyzine Hcl 25 Mg Tablet PO 25 mg BEDTIME PRN Administration Anxiety Lamotrigine 50 mg 12/04/19 21:00 12/05/19 08:42 Lamotrigine 25 Mg Tablet PO 50 mg BID ANDREA Administration [place] Carbonate 450 mg 11/30/19 21:00 12/05/19 08:42 [place] Carbonate Er 450 Mg Tablet.Er PO 450 mg BID ANDREA Administration Magnesium Hydroxide 30 ml 11/14/19 20:39 Milk Of Magnesia 30 Ml Oral.Susp PO DAILY PRN Constipation Melatonin 3 mg 11/19/19 21:00 12/04/19 21:47 Melatonin 3 Mg Tablet PO 3 mg BEDTIME ANDREA Administration Nicotine Polacrilex 2 mg 11/14/19 20:39 Nicotine Polacrilex 2 Mg Gum BUCCAL Q2H PRN Nicotine Cravings Pat Own Med ( 25 each 12/03/19 09:00 12/05/19 08:41 Atomoxetine Hcl 25mg PO 25 each Cap) DAILY ANDREA Administration Omeprazole 40 mg 11/18/19 06:30 12/05/19 08:41 Omeprazole 40 Mg Capsule. PO 40 mg DAILY@0630 ANDREA Administration Psyllium Hydrophilic Mucilloid 3.4 gm 11/23/19 21:00 12/04/19 21:47 Psyllium Seed 3.4 Gm Powd.Pack PO 3.4 gm BEDTIME ANDREA Administration Risperidone 0.5 mg 11/20/19 15:46 11/29/19 17:23 Risperidone 0.5 Mg Tablet PO 0.5 mg Q4H PRN Administration anxiety/restlessness Risperidone 0.5 mg 11/21/19 21:00 12/04/19 21:47 Risperidone 0.5 Mg Tablet PO 0.5 mg BEDTIME ANDREA Administration Vitamin D 50 mcg 11/13/19 20:15 12/05/19 08:41 Cholecalciferol (Vitamin D3) 25 Mcg Tablet PO 50 mcg DAILY ANDREA Administration Allergies Allergies Allergy/AdvReac Type Severity Reaction Status Date / Time trazodone [TRAZODONE] Allergy Severe SHORTNESS Verified 11/13/19 18:59 OF BREATH, anaphylaxis Assessment & Plan Assessment & Plan (1) Bipolar 2 disorder, major depressive episode: Status: Acute Code(s): F31.81 - Bipolar II disorder (2) ADHD: Status: Acute Code(s): F90.9 - Attention-deficit hyperactivity disorder, unspecified type Assessment and Plan: patient doing better calmer future focus. Continue lithium Lamictal Strattera started watch for mood lability discharge tomorrow if stable has not been excepted at [facility] settings looking to do outpatient treatment and return home if possible Greater than 50% of the session was spent on counseling and/or coordination of care
[2019-12-05 14:21] VITALS: BP 123/66; PULSE 96
[2019-12-05 16:58] VITALS: BP 132/63; PULSE 86; TEMP 36.3; O2SAT 100
[2019-12-05 21:45] VITALS: BP 111/64; PULSE 89
[2019-12-05] MEDS: Melatonin 3 MG TABLET PO (21:46)
[2019-12-05] MEDS: Escitalopram Oxalate 10 MG TABLET 20 MG PO (21:48)
[2019-12-05] MEDS: risperiDONE 0.5 MG TABLET PO (21:48)
[2019-12-05 21:52] VITALS: BP 111/64; PULSE 89
[2019-12-06] MEDS: Acetaminophen 325 MG TABLET 650 MG PO
[2019-12-06] MEDS: risperiDONE 0.5 MG TABLET PO (00:01)
[2019-12-06] MEDS: hydrOXYzine HCL 25 MG TABLET PO (00:01)
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
[2019-12-06 08:47] VITALS: BP 104/67; PULSE 79
[2019-12-06] MEDS: lamoTRIgine 25 MG TABLET 50 MG PO (08:47)
[2019-12-06] MEDS: Lithium Carbonate ER 450 MG TABLET.ER PO (08:47)
[2019-12-06] MEDS: Atorvastatin Calcium 10 MG TABLET PO (08:47)
[2019-12-06] MEDS: cloNIDine HCL 0.1 MG TABLET PO (08:47)
[2019-12-06] MEDS: Cholecalciferol (Vitamin D3) 25 MCG TABLET 50 MCG PO (08:47)
[2019-12-06] MEDS: Ferrous Sulfate 324 MG TABLET.DR PO (08:47)
[2019-12-06] MEDS: Omeprazole 40 MG CAPSULE.DR PO (08:47)
== END 2019-12-06 11:59 | disposition home or self-care (01) | DRG 753 ==
LOC: HO.ED 11-14 15:53 → HO.PM5 11-14 18:32
PROVIDERS: Internal Medicine Gastroenterology; Physician Assistant; Psychiatry & Neurology Psychiatry; Admitting Provider Psychiatry & Neurology Psychiatry; Emergency Provider Student in an Organized Health Care Education/Training Program; PCP Nurse Practitioner Family; Visit Provider Psychiatry & Neurology Psychiatry
PROC: 0DJ08ZZ Inspection of Upper Intestinal Tract, Via Natural or Artificial Opening Endoscopic (ICD-10-PCS; CPT 43235; principal; 2019-11-22 15:30)
PROC: 0DJD8ZZ Inspection of Lower Intestinal Tract, Via Natural or Artificial Opening Endoscopic (ICD-10-PCS; CPT 45378; principal; 2019-11-23 15:30)
DX: F31.81 Bipolar II disorder (principal); R45.851 Suicidal ideations; F14.20 Cocaine dependence, uncomplicated; F17.210 Nicotine dependence, cigarettes, uncomplicated; D50.0 Iron deficiency anemia secondary to blood loss (chronic); F90.9 Attention-deficit hyperactivity disorder, unspecified type; K64.8 Other hemorrhoids; K44.9 Diaphragmatic hernia without obstruction or gangrene; K21.9 Gastro-esophageal reflux disease without esophagitis; Z71.6 Tobacco abuse counseling; Z20.828 Contact with and (suspected) exposure to other viral communicable diseases; Z79.1 Long term (current) use of non-steroidal anti-inflammatories (NSAID); Z79.899 Other long term (current) drug therapy
CPT/HCPCS: 43235; 36415; 80053; 80061; 80178; 80307; 80320; 82272; 82607; 82728; 82746; 83036; 83540; 83695; 84443; 85007; 85025; 85027; 87635; 93005; 94640; 99223; 99232; 99239; 99285; J0330; J3010

== ENCOUNTER 2019-12-18 08:16 | Outpatient (REF) | payer OTHER, SELFPAY ==
[2019-12-18 11:24] LABS: MANUAL DIFF FLAG NO
[2019-12-18 11:32] LABS: Basophils Absolute Auto 0.1 X10*3/uL (0.0-0.2); Basophils Percent Auto 0.8 % (0-2); Eosinophils Absolute Auto 0.7 X10*3/uL (0.0-0.4); Eosinophils Percent Auto 8.5 % (0-4); Hematocrit 36.9 % (42-52); Hemoglobin 10.8 g/dl (14.0-18.0); Imm Gran Abs Auto 0.03 X10*3/uL (0.00-0.03); Imm Gran Pct Auto 0.4 % (0.0-0.4); Lymphocytes Absolute Auto 1.8 X10*3/uL (1.2-4.9); Lymphocytes Percent Auto 21.4 % (20-40); Mean Corpuscular HGB Conc 29.3 g/dl (31.0-36.0); Mean Corpuscular Hemoglobin 22.6 pg (27.0-33.0); Mean Corpuscular Volume 77.2 fL (80-98); Mean Platelet Volume 9.2 fL (9.4-12.4); Monocytes Absolute Auto 0.6 X10*3/uL (0.1-1.2); Monocytes Percent Auto 6.8 % (2-11); Neutrophils Absolute Auto 5.2 X10*3/uL (2.0-8.3); Neutrophils Percent Auto 62.1 % (45-73); Platelet Count 470 X10*3/uL (160-400); Red Blood Count 4.78 X10*6/uL (4.60-5.80); White Blood Count 8.3 X10*3/uL (4.8-10.8)
[2019-12-18 11:35] LABS: Lithium 0.55 mmol/L (0.60-1.20)
[2019-12-18 11:49] LABS: Alanine Aminotransferase 36 U/L (0-40); Albumin Level 4.4 g/dL (3.5-5.0); Alkaline Phosphatase 101 U/L (39-117); Anion Gap 14 (12-20); Aspartate Amino Transferase 27 U/L (5-37); Bilirubin Total 0.5 mg/dL (0.0-1.0); Blood Urea Nitrogen 16 mg/dL (9-16); Calcium 8.9 mg/dL (8.4-10.2); Carbon Dioxide 26 mmol/L (22-29); Chloride 105 mmol/L (96-108); Estimated Glomerular Filt Rate > 60; Glucose Fasting 100 mg/dL (60-99); Potassium 4.6 mmol/l (3.3-5.1); Sodium 140 mmol/L (135-145)
== END 2019-12-18 08:17 | disposition home or self-care (01) ==
LOC: HO.HMGCLDS 08:16
PROVIDERS: Psychiatry & Neurology Psychiatry; PCP Nurse Practitioner Family; Visit Provider Nurse Practitioner Family
DX: F31.81 Bipolar II disorder (principal); D50.0 Iron deficiency anemia secondary to blood loss (chronic)
CPT/HCPCS: 36415; 80053; 80178; 85025

== ENCOUNTER → 2020-01-02 08:29 | Outpatient (BNVA) | payer OTHER, SELFPAY | PROVIDERS: PCP Nurse Practitioner Family; Referring Provider Nurse Practitioner Family; Visit Provider Internal Medicine Gastroenterology | DX: K64.8 Other hemorrhoids (principal); D50.0 Iron deficiency anemia secondary to blood loss (chronic); Z98.890 Other specified postprocedural states | CPT/HCPCS: 99212 ==

== ENCOUNTER → 2020-01-10 11:06 | Outpatient (BNVA) | payer OTHER, SELFPAY | PROVIDERS: PCP Nurse Practitioner Family; Visit Provider Surgery | DX: K64.9 Unspecified hemorrhoids (principal); D50.0 Iron deficiency anemia secondary to blood loss (chronic) | CPT/HCPCS: 46600; 99202 ==

== ENCOUNTER 2020-01-18 09:17 | Day surgery (SDC) | payer OTHER, SELFPAY ==
[2020-01-17 09:54] VITALS: BMI 36.2
--- NOTE | 2020-01-17 10:28 | HO.ANESPROP2 ---
Documented by User: Gayle Mane 01/17/20 10:31 HPI - Anesthesia Eval Consult details Narrative: 44yo M for Hemorrhoidectomy,EUA PMFSH Past Medical History Medical History ADHD Bipolar 1 disorder Bipolar 2 disorder, major depressive episode Bleeding hemorrhoids Depression Diverticulosis GERD (gastroesophageal reflux disease) Hemorrhoids, internal, with bleeding Iron deficiency anemia due to chronic blood loss Moderate cocaine use disorder in controlled environment Family History Family History Father No problems noted. Mother No problems noted. Maternal Grandmother Colon cancer Daughter No problems noted. Surgical History Surgical History History of esophagogastroduodenoscopy (EGD) Hx of colonoscopy No pertinent past surgical history Social History Social History Household Members: Significant Other Housing: House Alcohol intake: unknown Smoking Status: Former smoker Tobacco Type: Cigarette Packs Per Day: 0 Cigarettes Per Day: 3 Years Smoked: NO Second Hand Smoke Exposure: No Use of substances other than those prescribed or required for medical reasons: Yes Substance Use Type: Crack/Cocaine, Marijuana and Other Advance Directives: No Advance Directives Information Provided: No service: No Sexual orientation: Straight/Heterosexual Meds Allergies Allergy/AdvReac Type Severity Reaction Status Date / Time trazodone [TRAZODONE] Allergy Severe SHORTNESS Verified 01/02/20 08:45 OF BREATH, anaphylaxis Home Medications Medication Instructions Recorded Confirmed Type cholecalciferol (vitamin D3) 50 mcg PO DAILY 11/13/19 12/11/19 History [Vitamin D3] magnesium 30 mg tablet 30 mg PO DAILY 12/11/19 12/11/19 History nicotine (polacrilex) 2 mg buccal 2 mg BUCCAL Q2-4H PRN 12/11/19 12/11/19 History lozenge Exam Exam Date and Time: January 17, 2020 1028 Height,Weight and Vital Signs: Height 5 ft 5 in Weight 98.883 kg Pertinent Lab Results Pertinent Lab Results: Laboratory Tests 12/18/19 12/18/19 08:30 08:30 WBC 8.3 Hgb 10.8 L D Hct 36.9 L D Plt Count 470 H Sodium 140 Potassium 4.6 Chloride 105 Carbon Dioxide 26 BUN 16 Creatinine 1.08 Assessment and Plan Assessment Anesthesia Assessment: Chart Reviewed Documented by User: Promise Carson 01/18/20 09:51 [facility] Past Medical History Medical History ADHD Bipolar 1 disorder Bipolar 2 disorder, major depressive episode Bleeding hemorrhoids Depression Diverticulosis GERD (gastroesophageal reflux disease) Hemorrhoids, internal, with bleeding Iron deficiency anemia due to chronic blood loss Moderate cocaine use disorder in controlled environment Family History Family History Father No problems noted. Mother No problems noted. Maternal Grandmother Colon cancer Daughter No problems noted. Surgical History Surgical History History of esophagogastroduodenoscopy (EGD) Hx of colonoscopy No pertinent past surgical history Social History Social History Household Members: Significant Other Housing: House Alcohol intake: unknown Smoking Status: Former smoker Tobacco Type: Cigarette Packs Per Day: 0 Cigarettes Per Day: 3 Years Smoked: NO Second Hand Smoke Exposure: No Use of substances other than those prescribed or required for medical reasons: Yes Substance Use Type: Crack/Cocaine, Marijuana and Other Advance Directives: No Advance Directives Information Provided: No service: No Sexual orientation: Straight/Heterosexual Meds Allergies Allergy/AdvReac Type Severity Reaction Status Date / Time trazodone [TRAZODONE] Allergy Severe SHORTNESS Verified 01/02/20 08:45 OF BREATH, anaphylaxis Home Medications Medication Instructions Recorded Confirmed Type cholecalciferol (vitamin D3) 50 mcg PO DAILY 11/13/19 12/11/19 History [Vitamin D3] magnesium 30 mg tablet 30 mg PO DAILY 12/11/19 12/11/19 History nicotine (polacrilex) 2 mg buccal 2 mg BUCCAL Q2-4H PRN 12/11/19 12/11/19 History lozenge Exam Airway Mallampati Class: II TM Dist: >3cm Neck ROM: Full Assessment and Plan Final Anesthetic Review NPO: Yes ASA Class: II Final Preanesthetic Review: No Changes in Pt Med Stat, Meds/Allgs Chart Reviewed, Consent Obtained/Reviewed and Anes Risks/Benef Reviewed Patient Risk: Low Procedure Risk: Low Anesthetic Plan Anesthetic Plan: MAC: Disposition: Standard PACU
[2020-01-18] VITALS (8 sets, daily range): BP systolic 133–150; BP diastolic 84–98; PULSE 71–100; RESP 16–20; TEMP 36.1–36.6; O2SAT 94–100
--- NOTE | 2020-01-18 09:45 | MHC.SHP ---
Pre-Procedural Eval Section B Chief Complaint: Bleeding hemorrhoids Allergies: Allergies Allergy/AdvReac Type Severity Reaction Status Date / Time trazodone [TRAZODONE] Allergy Severe SHORTNESS Verified 01/02/20 08:45 OF BREATH, anaphylaxis Plan Patient has been examined and remains a candidate for the planned procedure
[2020-01-18] MEDS: Lactated Ringers 1,000 ML 100 ML IVCONT (09:48)
--- NOTE | 2020-01-18 09:52 | P.CONAN_ITS ---
[facility] Past Medical History Medical History ADHD Bipolar 1 disorder Bipolar 2 disorder, major depressive episode Bleeding hemorrhoids Depression Diverticulosis GERD (gastroesophageal reflux disease) Hemorrhoids, internal, with bleeding Iron deficiency anemia due to chronic blood loss Moderate cocaine use disorder in controlled environment Family History Family History Father No problems noted. Mother No problems noted. Maternal Grandmother Colon cancer Daughter No problems noted. Surgical History Surgical History History of esophagogastroduodenoscopy (EGD) Hx of colonoscopy No pertinent past surgical history Social History Social History Household Members: Significant Other Housing: House Alcohol intake: unknown Smoking Status: Former smoker Tobacco Type: Cigarette Packs Per Day: 0 Cigarettes Per Day: 3 Years Smoked: NO Second Hand Smoke Exposure: No Use of substances other than those prescribed or required for medical reasons: Yes Substance Use Type: Crack/Cocaine, Marijuana and Other Advance Directives: No Advance Directives Information Provided: No service: No Sexual orientation: Straight/Heterosexual Meds Allergies Allergy/AdvReac Type Severity Reaction Status Date / Time trazodone [TRAZODONE] Allergy Severe SHORTNESS Verified 01/02/20 08:45 OF BREATH, anaphylaxis Home Medications Medication Instructions Recorded Confirmed Type cholecalciferol (vitamin D3) 50 mcg PO DAILY 11/13/19 12/11/19 History [Vitamin D3] magnesium 30 mg tablet 30 mg PO DAILY 12/11/19 12/11/19 History nicotine (polacrilex) 2 mg buccal 2 mg BUCCAL Q2-4H PRN 12/11/19 12/11/19 History lozenge Exam Exam Date and Time: January 18, 2020 0952 Height,Weight and Vital Signs: Height 5 ft 5 in Weight 98.883 kg Last Vital Signs Temp 98 F 01/18/20 09:37 Pulse 78 01/18/20 09:37 Resp 18 01/18/20 09:37 BP 133/84 01/18/20 09:37 Pulse Ox 100 01/18/20 09:37
[2020-01-18 09:59] LABS: Amphetamine Screen Urine Not Detected (Not Detect); Barbiturates, Urine Not Detected (Not Detect); Benzodiazepines Screen Urine Not Detected (Not Detect); Cannabinoid Screen Urine POSITIVE (Not Detect); Cocaine Screen Urine Not Detected (Not Detect); Opiate Screen Urine Not Detected (Not Detect); Phencyclidine Screen Urine Not Detected (Not Detect)
--- NOTE | 2020-01-18 10:01 | HO.ANESPROP2 ---
[facility] Past Medical History Medical History ADHD Bipolar 1 disorder Bipolar 2 disorder, major depressive episode Bleeding hemorrhoids Depression Diverticulosis GERD (gastroesophageal reflux disease) Hemorrhoids, internal, with bleeding Iron deficiency anemia due to chronic blood loss Moderate cocaine use disorder in controlled environment Family History Family History Father No problems noted. Mother No problems noted. Maternal Grandmother Colon cancer Daughter No problems noted. Surgical History Surgical History History of esophagogastroduodenoscopy (EGD) Hx of colonoscopy No pertinent past surgical history Social History Social History Household Members: Significant Other Housing: House Alcohol intake: unknown Smoking Status: Former smoker Tobacco Type: Cigarette Packs Per Day: 0 Cigarettes Per Day: 3 Years Smoked: NO Second Hand Smoke Exposure: No Use of substances other than those prescribed or required for medical reasons: Yes Substance Use Type: Crack/Cocaine, Marijuana and Other Advance Directives: No Advance Directives Information Provided: No service: No Sexual orientation: Straight/Heterosexual Meds Allergies Allergy/AdvReac Type Severity Reaction Status Date / Time trazodone [TRAZODONE] Allergy Severe SHORTNESS Verified 01/02/20 08:45 OF BREATH, anaphylaxis Home Medications Medication Instructions Recorded Confirmed Type cholecalciferol (vitamin D3) 50 mcg PO DAILY 11/13/19 12/11/19 History [Vitamin D3] magnesium 30 mg tablet 30 mg PO DAILY 12/11/19 12/11/19 History nicotine (polacrilex) 2 mg buccal 2 mg BUCCAL Q2-4H PRN 12/11/19 12/11/19 History lozenge Exam Exam Date and Time: January 18, 2020 1001 Height,Weight and Vital Signs: Height 5 ft 5 in Weight 98.883 kg Last Vital Signs Temp 98 F 01/18/20 09:37 Pulse 78 01/18/20 09:37 Resp 18 01/18/20 09:37 BP 133/84 01/18/20 09:37 Pulse Ox 100 01/18/20 09:37 Pertinent Lab Results Pertinent Lab Results: Laboratory Tests 01/18/20 09:20 Urine Opiates Screen Not Detected Ur Barbiturates Screen Not Detected Ur Phencyclidine Scrn Not Detected Ur Amphetamines Screen Not Detected U Benzodiazepines Scrn Not Detected Urine Cocaine Screen Not Detected U Marijuana (THC) Screen POSITIVE H Assessment and Plan Assessment Anesthesia Assessment: Anesthesia Plan Discussed and Chart Reviewed Final Anesthetic Review NPO: Yes ASA Class: II Final Preanesthetic Review: No Changes in Pt Med Stat, Meds/Allgs Chart Reviewed, Consent Obtained/Reviewed and Anes Risks/Benef Reviewed Patient Risk: Low Procedure Risk: Low Assessment/Block/Sedation in SS: Assess/Block/Sedation-SS Anesthetic Plan Anesthetic Plan: MAC: Disposition: Standard PACU
--- NOTE | 2020-01-18 10:51 | PM.OP ---
Brief Operative Note Date of Service: 01/18/20 Pre-op diagnosis: Bleeding hemorrhoids Post-op diagnosis: same Procedure: EUA, hemorrhoidectomy Implants: None Surgeon: BEE ARAMBULA MD Anesthesia: GLMA Estimated blood loss (mL): 20 Pathology: other (hemorrhoids) Condition: stable Disposition: PACU
[2020-01-18] MEDS: Acetaminophen 325 MG TABLET 650 MG PO (11:03)
[2020-01-18] MEDS: oxyCODONE HCl Immed Release 5 MG TABLET PO (11:03)
[2020-01-18] MEDS: fentaNYL citrate/PF 100 MCG/2 ML VIAL 25 MCG IVPUSH ×2 (11:10→11:15)
[2020-01-18 11:32] LABS: COVID-19 Test Negative (Negative)
--- NOTE | 2020-01-18 12:20 | OP_ITS ---
SURGEON: Talon Anderson MD INDICATIONS: The patient is a 44-year-old male who was referred to me because of periodic passes of bright red blood per rectum. He actually had a diagnosis of anemia as well. There were no other etiology for the anemia that could be seen on his endoscopic workup. He did have bulky hemorrhoids mostly on the right side on examination in the office. He wanted to proceed with hemorrhoidectomy in view of this as the likely source. This had been recommended by his it infrastructure manager. He understood the technique of procedure. He is aware of the risks, benefits, and alternatives. PREOPERATIVE DIAGNOSIS: Bleeding hemorrhoids. POSTOPERATIVE DIAGNOSIS: Bleeding hemorrhoids. PROCEDURE PERFORMED: Exam under anesthesia, hemorrhoidectomy x1. ESTIMATED BLOOD LOSS: COMPLICATIONS: ANESTHESIA: ASSISTANTS: SPECIMENS: DESCRIPTION OF PROCEDURE: He was brought to the operating room and placed in prone maryann-knife position under monitored anesthesia care. The buttocks were retracted with wide tape laterally. The perianal area was prepped and draped in usual sterile fashion. The surgical time-out was done. Again, examination of the anal orifice revealed a large bulky hemorrhoidal column on the right side. Please note the patient received Cefotan earlier as well for prophylaxis. I inserted the Eduardo-Fernández retractor and examined the anal canal circumferentially. Again, an enlarged bulky external hemorrhoidal column was noted on the right side. There was another hemorrhoidal column on the left as well. Both of these hemorrhoidal columns were mix of both internal and external, but mostly external. Examination of the anal canal did not reveal any other pathology. At this point, with the examination, the patient was coughing too much and was switched to general anesthesia via an LMA anesthesiologist. A Colón grasper was applied in the large hemorrhoidal column on the right. I made a [id number] stitch at the pedicle past the dentate line. I made an incision around this hemorrhoidal column of the perianal skin using blade #15. I excised this hemorrhoidal column above the plane of sphincters using scissors all the way to the pedicle. There was note of some thrombosis as well. I closed the incision with running chromic 3-0 stitch from the pedicle to the perianal skin. Multiple additional [id number] sutures were placed for oozing areas especially near the dentate line. In view of the bulky hemorrhoidal column, which was removed along with bleeding because of the size of the hemorrhoidal cushions, I decided not to remove the hemorrhoidal column on the left side. If he continues to have bothersome bleeding, we will plan on hemorrhoidectomy for this other column on the left. We observed for hemostasis. Once hemostasis was ensured, I positioned a Gel-Foam packing into the anal canal. I infiltrated the perianal area with Marcaine 0.5% for postop analgesia. Lidocaine 1% had been injected earlier at the beginning of the case as well. Once hemostasis was confirmed, the procedure was completed. The patient tolerated the procedure well. There were no complications noted. Initial and final counts of sponges and instruments were correct. Estimated blood loss about 25 mL. The patient was extubated without difficulty and transferred to recovery room with stable vital signs. MD YAHAIRA Mark/DAGMAR / [id number] MTDD
== END 2020-01-18 12:17 | disposition home or self-care (01) ==
PROVIDERS: Nurse Practitioner; PCP Nurse Practitioner Family; Visit Provider Surgery
PROC: (CPT 46255; principal; 2020-01-18 10:40)
DX: K64.8 Other hemorrhoids (principal); D64.9 Anemia, unspecified; Z88.8 Allergy status to other drugs, medicaments and biological substances; F90.9 Attention-deficit hyperactivity disorder, unspecified type; F31.81 Bipolar II disorder; K21.9 Gastro-esophageal reflux disease without esophagitis; D50.9 Iron deficiency anemia, unspecified; F14.90 Cocaine use, unspecified, uncomplicated
CPT/HCPCS: 46255; 80307; 87635; 88304; J1100; J2250; J2405; J3010

== ENCOUNTER → 2020-01-22 08:12 | Outpatient (BNVA) | payer OTHER, SELFPAY | PROVIDERS: PCP Nurse Practitioner Family; Referring Provider Nurse Practitioner Family; Visit Provider Psychiatry & Neurology Neurology | DX: Z76.89 Persons encountering health services in other specified circumstances (principal) ==

== ENCOUNTER → 2020-01-30 11:43 | Outpatient (BNVA) | payer OTHER, SELFPAY | PROVIDERS: PCP Nurse Practitioner Family; Visit Provider Surgery | DX: K64.9 Unspecified hemorrhoids (principal) | CPT/HCPCS: 99212 ==

== ENCOUNTER → 2020-03-12 09:11 | Outpatient (BNVA) | payer OTHER, SELFPAY | PROVIDERS: PCP Nurse Practitioner Family; Visit Provider Internal Medicine Gastroenterology ==

== ENCOUNTER 2020-03-22 08:30 | Inpatient (IN) | payer OTHER, SELFPAY ==
--- NOTE | ~2020-03-22 | XR_ITS ---
EXAMINATION: XR CHEST CLINICAL INFORMATION: Chest pain. COMPARISON: 01/18/19. 12/01/18. 03/07/17. TECHNIQUE: 2 views of the chest were obtained. FINDINGS: A calcified granuloma at the right apex is unchanged from the prior studies. The lungs are otherwise clear. No focal consolidation or other acute abnormality. The pleural spaces are clear. The heart and mediastinal structures are normal. Minimal spondylosis is evident in the thoracic spine. XR/XR chest 2V IMPRESSION: Unremarkable examination. No acute abnormality.
--- NOTE | 2020-03-22 08:56 | PC.NURSE ---
Pt reporting chest pain on arrival, stating he has been using a lot of cocaine prior to arrival. ekg in process.
--- NOTE | 2020-03-22 09:10 | PC.NURSE ---
A Eugene javed pt reporting chest pain and left arm numbness. Left arm numbness x overnight per pt. Pt reports he was discharged from in November, states he was prescribed medications that were helpful but then was unable to connect with a psychiatrist. Pt states that he then began to use 'a lot of' cocaine, as well as ETOH, now has SI, w/ vague plan to 'jump off bridge' or 'OD on medications.'
[2020-03-22 09:13] VITALS: BP 142/95; PULSE 111; RESP 24; TEMP 36.8; O2SAT 98; BMI 35.5
--- NOTE | 2020-03-22 09:43 | ED_ITS ---
HPI - Psych General Chief Complaint: Psychiatric Symptoms Stated Complaint: CRISIS EVAL Time Seen by Provider: 03/22/20 09:24 Source: patient Mode of arrival: ambulatory Limitations: no limitations History of Present Illness HPI Narrative: 44-year-old male with a past medical history of anxiety, depression, bipolar disease, ELENITA, GERD, ADHD, substance abuse, ANIL here with complaints of suicidal ideations with no plan. Feeling depressed and off his medications for 1 week. Been on a binge of using cocaine every day and drinking alcohol. Started having chest pain last night with radiation to the left arm. No shortness of breath, cough, dizziness, lightheaded feeling. The patient told me that when he uses cocaine he often experiences chest pain. He tells me he was doing well and on his medications however he ran out of his medications about 1 week ago. He was waiting to hear from a psychiatrist to get his medications restarted and he did speak to someone yesterday who refilled his medications but he did not fill these. MD complaint: suicidal ideation and feels depressed Related Data Home Medications Medication Instructions Recorded Confirmed cholecalciferol (vitamin D3) 50 mcg PO DAILY 11/13/19 03/12/20 [Vitamin D3] magnesium 30 mg tablet 30 mg PO DAILY 12/11/19 03/12/20 nicotine (polacrilex) 2 mg buccal 2 mg BUCCAL Q2-4H PRN 12/11/19 03/12/20 lozenge Previous Rx's Medication Instructions Recorded atorvastatin 10 mg PO DAILY 30 Days #0 tab 12/06/19 hydrocortisone [Proctozone-HC] 1 appl GA BEDTIME 30 Days #1 g 12/06/19 clobetasol 0.05 % topical cream 1 applic TOPICAL BID 14 Days #45 g 12/23/19 ferrous sulfate 324 mg (65 mg 324 mg PO BID 30 Days #60 tab 01/01/20 iron) tablet,delayed release melatonin 3 mg tablet 3 mg PO BEDTIME 30 Days #30 tab 01/01/20 pantoprazole 40 mg tablet,delayed 40 mg PO DAILY 30 Days #30 tab 01/01/20 release risperidone 0.5 mg tablet 0.5 mg PO BEDTIME #30 tab 01/10/20 docusate sodium [Colace] 100 mg PO BID #30 cap 01/18/20 ibuprofen 600 mg PO TID PRN #30 tab 01/18/20 oxycodone-acetaminophen [Percocet] 1 - 2 tab PO Q4-6H PRN #26 tab 01/18/20 oxycodone-acetaminophen 5 mg-325 1 tab PO Q6H PRN #20 tab 01/24/20 mg tablet escitalopram oxalate 10 mg tablet 20 mg PO BEDTIME 30 Days #60 tab 01/29/20 atomoxetine 1 cap PO DAILY #30 cap 02/04/20 atomoxetine 25 mg capsule 25 mg PO DAILY #30 cap 02/06/20 clonidine HCl 0.1 mg tablet 0.1 mg PO TID #90 tab 03/03/20 lamotrigine 25 mg tablet 50 mg PO BID #120 tab 03/05/20 lithium carbonate 450 mg 450 mg PO BID #60 tab 03/05/20 tablet,extended release methylcellulose (laxative) 500 mg 500 mg PO BID #60 tab MDD 4 03/12/20 tablet Allergies Allergy/AdvReac Type Severity Reaction Status Date / Time trazodone [TRAZODONE] Allergy Severe SHORTNESS Verified 03/12/20 09:12 OF BREATH, anaphylaxis Review of Systems Review of Systems: Yes all other systems are reviewed and are negative Constitutional: Constitutional: Reports no additional constitutional complaints, Denies body ache(s), Denies chills, Denies fever(s), Denies headache(s) and Denies weakness Eyes: Eyes: Reports no additional eye complaints and Denies change in vision ENT: Reports system reviewed and no additional complaints, except as documented, Denies dizziness, Denies headache(s), Denies nasal congestion, Denies nasal discharge and Denies neck pain Cardiovascular: Cardiovascular: Reports no additional cardiovascular complaints, Reports chest pain, Denies leg edema and Denies dyspnea Respiratory: Respiratory: Reports no additional respiratory complaints, Denies cough and Denies dyspnea Gastrointestinal: Gastrointestinal: Reports no additional gastrointestinal complaints, Denies abdominal pain, Denies diarrhea, Denies nausea and Denies vomiting Genitourinary: Genitourinary: Denies urinary incontinence Musculoskeletal: Musculoskeletal: Reports no additional musculoskeletal complaints, Denies back pain, Denies arthralgias, Denies joint swelling, Denies neck pain, Reports numbness and Denies tingling Integumentary/Breasts: Skin/Breast: Reports system reviewed and no additional complaints, except as docu and Denies rash Neurologic: Reports system reviewed and no additional complaints, except as documented, Denies Abnormal speech present, Denies dizziness, Denies headache(s), Reports numbness, Denies tingling and Denies weakness Psychiatric: Psychiatric: Denies anxiety, Reports depression, Denies visual hallucinations, Denies hallucinations, Denies homicidal ideation and Reports suicidal ideation [facility] Past Medical History Attestation statement: The following information was validated with the patient. Source: old records reviewed and nursing notes reviewed Medical History ADHD Bipolar 1 disorder Bipolar 2 disorder, major depressive episode Bleeding hemorrhoids Depression Diverticulosis GERD (gastroesophageal reflux disease) Hemorrhoids, internal, with bleeding Iron deficiency anemia due to chronic blood loss Moderate cocaine use disorder in controlled environment Substance abuse Surgical History H/O hemorrhoidectomy History of esophagogastroduodenoscopy (EGD) Hx of colonoscopy No pertinent past surgical history Family History Family History Father No problems noted. Mother No problems noted. Maternal Grandmother Colon cancer Daughter No problems noted. Social History Social History Household Members: Significant Other Housing: House Alcohol intake: current Alcohol intake frequency: does not drink Smoking Status: Never smoker Packs Per Day: 0 Years Smoked: NO Second Hand Smoke Exposure: No Substance Use Type: Marijuana Advance Directives: No Advance Directives Information Provided: Yes service: No Sexual orientation: Straight/Heterosexual Physical Exam Vital Signs: Vital Signs: Last Vital Signs Temp 98.1 F 03/22/20 16:25 Pulse 92 03/22/20 16:25 Resp 17 03/22/20 16:25 BP 123/85 03/22/20 16:25 Pulse Ox 98 03/22/20 16:25 Body Mass Index 35.5 Const: General: cooperative, healthy appearing, comfortable and no acute distress Orientation/consciousness: patient oriented x3 Limitations: no limitations HENMT: Head: Yes normal to inspection Ears: hearing grossly normal bilaterally General nose exam: Normal external nose present Face and sinus: Yes normal facial exam Mouth: Normal oral and palatal mucosa present Throat: Yes posterior oropharynx normal Eyes: General: appearance normal, both eyes and all related structures Pupils: Equal, round and reactive pupils present Neck: Neck: Yes normal visual inspection Chest: Chest palpation & inspection: normal inspection of the chest Resp: Effort & Inspection: normal respiratory effort Auscultation: clear to auscultation bilaterally Cardio: Rate: regular rate Rhythm: regular rhythm Peripheral pulses: Peripheral pulses 2+ throughout GI: Inspection: Yes normal to inspection Palpation (GI): Soft to palpation and nontender Auscultation: normal bowel sounds Back/Spine/Pelvis: Thoracic/Lumbar Spine: thoracic and lumbar spine normal to inspection Skin: General skin exam: no rashes or lesions noted Neuro: General: patient oriented x3, no focal motor deficits and normal sensation to monofilament Cranial nerves: Yes Equal, round and reactive pupils present Cognition (Neuro): normal cognition Speech: No Abnormal speech present Gait exam (Neuro): Normal gait present Motor exam (neuro): 5/5 motor strength present throughout Sensory Exam: Normal double simultaneous stimulation for sensation Extrem: General: Yes normal to inspection Psych: Appearance: grossly normal Mental Status: mental status grossly normal Speech and movement: Normal speech and movement present Affect: Sad affect present Attitude: cooperative Thought process: Normal thought process present Thought content: Suicidality present Course Course Course Narrative: 44-year-old male here with suicidal ideations, cocaine use. Also complaining of some chest discomfort which he tells me that he usually gets when he uses cocaine. Will need labs, EKG, chest x-ray, COVID screen, drug screen, [facility] eval once cleared. 1400-EKG, CXR and labs unremarkable. N evaluated the patient and plan for section 12, BS. 1800-Sign out to Gloria YANG pending above. [facility] - Psych Medical Records Attestation: I reviewed the patient's medical records. Lab Data Attestation: I reviewed the patient's lab results. Result diagrams: 03/22/20 09:41 03/22/20 09:42 Labs: Lab Results 03/22/20 03/22/20 03/22/20 Range/Units 09:41 09:41 09:41 WBC 11.1 H (4.8-10.8) X10*3/uL RBC 5.39 (4.60-5.80) X10*6/uL Hgb 14.9 D (14.0-18.0) g/dl Hct 46.4 D (42-52) % MCV 86.1 (80-98) fL MCH 27.6 (27.0-33.0) pg MCHC 32.1 (31.0-36.0) g/dl RDW 13.1 (11.0-16.0) % Plt Count 301 D (160-400) X10*3/uL MPV 8.2 L (9.4-12.4) fL Immature Gran % (Auto) 0.4 (0.0-0.4) % Neut % (Auto) 72.9 (45-73) % Lymph % (Auto) 17.3 L (20-40) % Warren % (Auto) 6.8 (2-11) % Eos % (Auto) 2.2 (0-4) % Baso % (Auto) 0.4 (0-2) % Lymph # (Auto) 1.9 (1.2-4.9) X10*3/uL Warren # (Auto) 0.8 (0.1-1.2) X10*3/uL Eos # (Auto) 0.2 (0.0-0.4) X10*3/uL Baso # (Auto) 0.1 (0.0-0.2) X10*3/uL Abs Immat Gran (auto) 0.04 H (0.00-0.03) X10*3/uL Absolute Neuts (auto) 8.1 (2.0-8.3) X10*3/uL Absolute Nucleated RBC 0.000 (0.0-0.012) X10*3/uL Nucleated RBC % (auto) 0.0 (0.0-0.2) /100WBC Hold Blue Top SEE NOTE Sodium (135-145) mmol/L Potassium (3.3-5.1) mmol/L Chloride (96-108) mmol/L Carbon Dioxide (22-29) mmol/L Anion Gap (12-20) BUN (9-16) mg/dL Creatinine (0.5-1.4) mg/dL Estim Creat Clear Calc Estimated GFR Random Glucose (60-115) mg/dL Calcium (8.4-10.2) mg/dL Magnesium (1.6-2.6) mg/dL Total Bilirubin (0.0-1.0) mg/dL Direct Bilirubin (0.0-0.5) mg/dL AST (5-37) U/L ALT (0-40) U/L Alkaline Phosphatase (39-117) U/L Troponin I High Sens (<3.5-35.0) ng/L Total Protein (6.5-8.0) g/dL Albumin (3.5-5.0) g/dL Urine Opiates Screen (Not Detect) Ur Barbiturates Screen (Not Detect) Ur Phencyclidine Scrn (Not Detect) Ur Amphetamines Screen (Not Detect) U Benzodiazepines Scrn (Not Detect) [place] (0.60-1.20) mmol/L Urine Cocaine Screen (Not Detect) U Marijuana (THC) Screen (Not Detect) Ethyl Alcohol < 10 mg/dL COVID-19 (CONNIE) (Negative) COVID-19 Clin Com 03/22/20 03/22/20 03/22/20 Range/Units 09:41 09:41 09:42 WBC (4.8-10.8) X10*3/uL RBC (4.60-5.80) X10*6/uL Hgb (14.0-18.0) g/dl Hct (42-52) % MCV (80-98) fL MCH (27.0-33.0) pg MCHC (31.0-36.0) g/dl RDW (11.0-16.0) % Plt Count (160-400) X10*3/uL MPV (9.4-12.4) fL Immature Gran % (Auto) (0.0-0.4) % Neut % (Auto) (45-73) % Lymph % (Auto) (20-40) % Warren % (Auto) (2-11) % Eos % (Auto) (0-4) % Baso % (Auto) (0-2) % Lymph # (Auto) (1.2-4.9) X10*3/uL Warren # (Auto) (0.1-1.2) X10*3/uL Eos # (Auto) (0.0-0.4) X10*3/uL Baso # (Auto) (0.0-0.2) X10*3/uL Abs Immat Gran (auto) (0.00-0.03) X10*3/uL Absolute Neuts (auto) (2.0-8.3) X10*3/uL Absolute Nucleated RBC (0.0-0.012) X10*3/uL Nucleated RBC % (auto) (0.0-0.2) /100WBC Hold Blue Top Sodium 139 (135-145) mmol/L Potassium 4.5 (3.3-5.1) mmol/L Chloride 100 (96-108) mmol/L Carbon Dioxide 30 H (22-29) mmol/L Anion Gap 14 (12-20) BUN 12 (9-16) mg/dL Creatinine 1.12 (0.5-1.4) mg/dL Estim Creat Clear Calc 95.0 Estimated GFR > 60 Random Glucose 105 (60-115) mg/dL Calcium 9.6 D (8.4-10.2) mg/dL Magnesium 2.3 (1.6-2.6) mg/dL Total Bilirubin 0.6 (0.0-1.0) mg/dL Direct Bilirubin < 0.2 (0.0-0.5) mg/dL AST 25 (5-37) U/L ALT 36 (0-40) U/L Alkaline Phosphatase 119 H (39-117) U/L Troponin I High Sens < 3.5 (<3.5-35.0) ng/L Total Protein 7.9 (6.5-8.0) g/dL Albumin 4.9 (3.5-5.0) g/dL Urine Opiates Screen (Not Detect) Ur Barbiturates Screen (Not Detect) Ur Phencyclidine Scrn (Not Detect) Ur Amphetamines Screen (Not Detect) U Benzodiazepines Scrn (Not Detect) [place] 0.39 L (0.60-1.20) mmol/L Urine Cocaine Screen (Not Detect) U Marijuana (THC) Screen (Not Detect) Ethyl Alcohol mg/dL COVID-19 (CONNIE) (Negative) COVID-19 Clin Com 03/22/20 03/22/20 Range/Units 09:42 09:47 WBC (4.8-10.8) X10*3/uL RBC (4.60-5.80) X10*6/uL Hgb (14.0-18.0) g/dl Hct (42-52) % MCV (80-98) fL MCH (27.0-33.0) pg MCHC (31.0-36.0) g/dl RDW (11.0-16.0) % Plt Count (160-400) X10*3/uL MPV (9.4-12.4) fL Immature Gran % (Auto) (0.0-0.4) % Neut % (Auto) (45-73) % Lymph % (Auto) (20-40) % Warren % (Auto) (2-11) % Eos % (Auto) (0-4) % Baso % (Auto) (0-2) % Lymph # (Auto) (1.2-4.9) X10*3/uL [place] # (Auto) (0.1-1.2) X10*3/uL Eos # (Auto) (0.0-0.4) X10*3/uL Baso # (Auto) (0.0-0.2) X10*3/uL Abs Immat Gran (auto) (0.00-0.03) X10*3/uL Absolute Neuts (auto) (2.0-8.3) X10*3/uL Absolute Nucleated RBC (0.0-0.012) X10*3/uL Nucleated RBC % (auto) (0.0-0.2) /100WBC Hold Blue Top Sodium (135-145) mmol/L Potassium (3.3-5.1) mmol/L Chloride (96-108) mmol/L Carbon Dioxide (22-29) mmol/L Anion Gap (12-20) BUN (9-16) mg/dL Creatinine (0.5-1.4) mg/dL Estim Creat Clear Calc Estimated GFR Random Glucose (60-115) mg/dL Calcium (8.4-10.2) mg/dL Magnesium (1.6-2.6) mg/dL Total Bilirubin (0.0-1.0) mg/dL Direct Bilirubin (0.0-0.5) mg/dL AST (5-37) U/L ALT (0-40) U/L Alkaline Phosphatase (39-117) U/L Troponin I High Sens (<3.5-35.0) ng/L Total Protein (6.5-8.0) g/dL Albumin (3.5-5.0) g/dL Urine Opiates Screen Not Detected (Not Detect) Ur Barbiturates Screen Not Detected (Not Detect) Ur Phencyclidine Scrn Not Detected (Not Detect) Ur Amphetamines Screen Not Detected (Not Detect) U Benzodiazepines Scrn POSITIVE H (Not Detect) [place] (0.60-1.20) mmol/L Urine Cocaine Screen POSITIVE H (Not Detect) U Marijuana (THC) Screen POSITIVE H (Not Detect) Ethyl Alcohol mg/dL COVID-19 (CONNIE) Negative (Negative) COVID-19 Clin Com See Note Imaging Data Chest x-ray: Attestation: I personally reviewed and interpreted this imaging study as follows: Radiologist's impression: [address] [address]EB[place] ReportSigned Patient: Ady AlegriaR#: [id number]: [id number]:[id number]/Sex: 44 / MADM Date: 03/22/20Loc: [facility].EDAttending Dr: Ordering Physician: FORREST ORELLANA NP Date of Service: 03/22/20 Procedure(s): XR chest 2V Accession Number(s): [id number] cc: FORREST ORELLANA NP~ EXAMINATION: XR CHEST CLINICAL INFORMATION: Chest pain. COMPARISON: 01/18/19. 12/01/18. 03/07/17. TECHNIQUE: 2 views of the chest were obtained. FINDINGS: A calcified granuloma at the right apex is unchanged from the prior studies. The lungs are otherwise clear. No focal consolidation or other acute abnormality. The pleural spaces are clear. The heart and mediastinal structures are normal. Minimal spondylosis is evident in the thoracic spine. XR/XR chest 2V IMPRESSION: Unremarkable examination. No acute abnormality. ECG Data Attestation: I personally reviewed and interpreted this ECG as follows: ECG interpretation date: 03/22/20 ECG interpretation time: 08:58 Interpretation: Normal sinus rhythm, rate of 97, normal GA, normal QRS, normal QTC Discharge Plan Discharge Clinical Impression: Depression Prescriptions: No Action clobetasol 0.05 % cream 1 applic topical BID 14 Days Qty: 45 RF: 1 melatonin 3 mg tablet 3 mg PO BEDTIME 30 Days Qty: 30 RF: 2 pantoprazole 40 mg tablet,delayed release (DR/EC) 40 mg PO DAILY 30 Days Qty: 30 RF: 3 ferrous sulfate 324 mg (65 mg iron) tablet,delayed release (DR/EC) 324 mg PO BID 30 Days Qty: 60 RF: 2 risperidone 0.5 mg tablet 0.5 mg PO BEDTIME Qty: 30 RF: 0 oxycodone-acetaminophen [Percocet] 5-325 mg tablet 1 tab PO Q6H PRN (Reason: pain) Qty: 20 RF: 0 escitalopram oxalate 10 mg tablet 20 mg PO BEDTIME 30 Days Qty: 60 RF: 3 atomoxetine 25 mg capsule 25 mg PO DAILY Qty: 30 RF: 1 clonidine HCl 0.1 mg tablet 0.1 mg PO TID Qty: 90 RF: 2 lamotrigine 25 mg tablet 50 mg PO BID Qty: 120 RF: 0 lithium carbonate 450 mg tablet extended release 450 mg PO BID Qty: 60 RF: 0 cholecalciferol (vitamin D3) [Vitamin D3] 50 mcg (2,000 unit) Tablet 50 mcg PO DAILY RF: 0 hydrocortisone [Proctozone-HC] 2.5 % Cream With Perineal Applicator 1 appl GA BEDTIME 30 Days Qty: 1 RF: 0 atorvastatin 10 mg Tablet 10 mg PO DAILY 30 Days Qty: 0 RF: 0 atomoxetine 25 mg capsule 1 cap PO DAILY Qty: 30 RF: 0 docusate sodium [Colace] 100 mg capsule 100 mg PO BID Qty: 30 RF: 1 ibuprofen 600 mg tablet 600 mg PO TID PRN (Reason: pain) Qty: 30 RF: 1 oxycodone-acetaminophen [Percocet] 5-325 mg tablet 1 - 2 tab PO Q4-6H PRN (Reason: pain) Qty: 26 RF: 0 magnesium 30 mg tablet 30 mg PO DAILY RF: 0 nicotine (polacrilex) [Nicorette] 2 mg lozenge 2 mg buccal Q2-4H PRNRF: 0 Citrucel 500 mg tablet 500 mg PO BID MDD 4 Qty: 60 RF: 4
--- NOTE | 2020-03-22 09:57 | PC.NURSE ---
Pt seen by provider, awaiting results of medical clearance, resting in room at this time.
[2020-03-22 09:58] LABS: MANUAL DIFF FLAG NO
[2020-03-22 10:03] LABS: Basophils Absolute Auto 0.1 X10*3/uL (0.0-0.2); Basophils Percent Auto 0.4 % (0-2); Eosinophils Absolute Auto 0.2 X10*3/uL (0.0-0.4); Eosinophils Percent Auto 2.2 % (0-4); Hematocrit 46.4 % (42-52); Hemoglobin 14.9 g/dl (14.0-18.0); Imm Gran Abs Auto 0.04 X10*3/uL (0.00-0.03); Imm Gran Pct Auto 0.4 % (0.0-0.4); Lymphocytes Absolute Auto 1.9 X10*3/uL (1.2-4.9); Lymphocytes Percent Auto 17.3 % (20-40); Mean Corpuscular HGB Conc 32.1 g/dl (31.0-36.0); Mean Corpuscular Hemoglobin 27.6 pg (27.0-33.0); Mean Corpuscular Volume 86.1 fL (80-98); Mean Platelet Volume 8.2 fL (9.4-12.4); Monocytes Absolute Auto 0.8 X10*3/uL (0.1-1.2); Monocytes Percent Auto 6.8 % (2-11); Neutrophils Absolute Auto 8.1 X10*3/uL (2.0-8.3); Neutrophils Percent Auto 72.9 % (45-73); Platelet Count 301 X10*3/uL (160-400); Red Blood Count 5.39 X10*6/uL (4.60-5.80); Red Cell Distribution Width 13.1 % (11.0-16.0); White Blood Count 11.1 X10*3/uL (4.8-10.8)
[2020-03-22 10:18] LABS: COVID-19 Test Negative (Negative); IDNOW Serial# 9DD0AD1C
[2020-03-22 10:19] LABS: Ethanol < 10 mg/dL
[2020-03-22 10:23] LABS: Alanine Aminotransferase 36 U/L (0-40); Albumin Level 4.9 g/dL (3.5-5.0); Alkaline Phosphatase 119 U/L (39-117); Anion Gap 14 (12-20); Aspartate Amino Transferase 25 U/L (5-37); Bilirubin Direct < 0.2 mg/dL (0.0-0.5); Bilirubin Total 0.6 mg/dL (0.0-1.0); Blood Urea Nitrogen 12 mg/dL (9-16); Calcium 9.6 mg/dL (8.4-10.2); Carbon Dioxide 30 mmol/L (22-29); Chloride 100 mmol/L (96-108); Estimated Glomerular Filt Rate > 60; Glucose Random 105 mg/dL (60-115); Magnesium 2.3 mg/dL (1.6-2.6); Potassium 4.5 mmol/L (3.3-5.1); Sodium 139 mmol/L (135-145); Total Protein 7.9 g/dL (6.5-8.0)
[2020-03-22 10:25] LABS: Lithium 0.39 mmol/L (0.60-1.20)
[2020-03-22 10:29] LABS: Troponin-I High Sensitivity < 3.5 ng/L (<3.5-35.0)
[2020-03-22 11:10] LABS: Amphetamine Screen Urine Not Detected (Not Detect); Barbiturates, Urine Not Detected (Not Detect); Benzodiazepines Screen Urine POSITIVE (Not Detect); Cannabinoid Screen Urine POSITIVE (Not Detect); Cocaine Screen Urine POSITIVE (Not Detect); Opiate Screen Urine Not Detected (Not Detect); Phencyclidine Screen Urine Not Detected (Not Detect)
--- NOTE | 2020-03-22 12:26 | PC.NURSE ---
Late entry: [facility] faxed and called. Pt currently resting, resp unlabored.
--- NOTE | 2020-03-22 13:23 | PC.NURSE ---
sleeping. good chest rise. skin pwd.
[2020-03-22 14:00] VITALS: RESP 20
--- NOTE | 2020-03-22 14:26 | ECG_ITS ---
Test Reason : CHEST PAIN Blood Pressure : / mmHG Vent. Rate : 097 BPM Atrial Rate : 097 BPM P-R Int : 154 ms QRS Dur : 102 ms QT Int : 356 ms P-R-T Axes : 061 056 030 degrees QTc Int : 452 ms Normal sinus rhythm Normal ECG When compared with ECG of 16-NOV-2019 13:45, No significant change was found Referred By: Generic ED Physician Electronically Signed By:Dre Hartley
--- NOTE | 2020-03-22 14:30 | PC.NURSE ---
Pt resting, awake- reports some right sided muscular pain w/ movement and headache, but no other concerns. Pt aware that he will be waiting for inpatient placement- no concerns reported. Pt states he last took medications approx 1 week ago.
[2020-03-22] MEDS: Acetaminophen 325 MG TABLET 650 MG PO (14:39)
[2020-03-22 16:25] VITALS: BP 123/85; PULSE 92; RESP 17; TEMP 36.7; O2SAT 98
[2020-03-22] MEDS: Magnesium Hydrox/Alum Hydrox 30 ML ORAL.SUSP PO (16:41)
[2020-03-22] MEDS: Lidocaine HCl Viscous 2 % 15 ML SOLUTION MUCOUS MEM (16:42)
--- NOTE | 2020-03-22 17:20 | PC.NURSE ---
Pt reporting no significant relief from the medication given for heartburn, provider aware.
[2020-03-22 18:00] VITALS: RESP 20
[2020-03-22] MEDS: Omeprazole 40 MG CAPSULE.DR PO (18:40)
[2020-03-22 23:35] VITALS: BP 147/100; PULSE 84; RESP 17; TEMP 36.8; O2SAT 97
[2020-03-22] MEDS: Melatonin 3 MG TABLET PO (23:37)
[2020-03-22] MEDS: risperiDONE 1 MG TABLET PO (23:37)
[2020-03-22] MEDS: Lithium Carbonate ER 450 MG TABLET.ER PO (23:37)
[2020-03-22] MEDS: busPIRone HCl 10 MG TABLET PO (23:37)
[2020-03-22] MEDS: lamoTRIgine 25 MG TABLET 50 MG PO (23:37)
[2020-03-22 23:38] VITALS: BP 147/100; PULSE 80
[2020-03-22] MEDS: cloNIDine HCL 0.1 MG TABLET PO (23:38)
[2020-03-23] VITALS (9 sets, daily range): BP systolic 121–134; BP diastolic 67–78; PULSE 90–118; RESP 18–20; TEMP 36.6–36.8; O2SAT 97–99
--- NOTE | 2020-03-23 07:58 | PC.NURSE ---
Report received from JUANA Bragg. Pt resting, easily awakened, no concerns reported.
[2020-03-23] MEDS: Atorvastatin Calcium 10 MG TABLET PO (08:37)
[2020-03-23] MEDS: Omeprazole 20 MG CAPSULE.DR PO (08:38)
[2020-03-23] MEDS: busPIRone HCl 10 MG TABLET PO ×2 (08:38→20:49)
[2020-03-23] MEDS: lamoTRIgine 25 MG TABLET 50 MG PO (08:38)
[2020-03-23] MEDS: cloNIDine HCL 0.1 MG TABLET PO ×3 (08:39→20:45)
[2020-03-23] MEDS: Escitalopram Oxalate 20 MG TABLET PO (08:39)
[2020-03-23] MEDS: Lithium Carbonate ER 450 MG TABLET.ER PO ×2 (08:39→20:49)
--- NOTE | 2020-03-23 08:58 | PC.NURSE ---
Pt awake, alert- on telephone at this time. Pt declined ferrous sulfate, stating that his MD has notified him that he no longer requires this medication.
--- NOTE | 2020-03-23 10:36 | PC.NURSE ---
Pt resting, resp unlabored.
--- NOTE | 2020-03-23 11:02 | PC.NURSE ---
Pt resting, resp unlabored.
--- NOTE | 2020-03-23 13:03 | PC.NURSE ---
Pt awake, asking re: transfer to [facility]- pt reporting he is feeling alright at this time. No concerns reported.
--- NOTE | 2020-03-23 15:18 | PC.NURSE ---
report given to JUANA Miranda
--- NOTE | 2020-03-23 15:19 | PC.NURSE ---
Report received from Pau. Pt currently sleeping in bed. No signs of distress, respirations even and unlabored. Awaiting transfer to .
--- NOTE | 2020-03-23 18:54 | PC.ADMIT ---
Nursing admission note: 44 year old bilingual (Icelandic - Lithuanian speaking) male referred for admission by [facility]. Arrived to unit 1630 pm, conditional voluntary signed. A+O x3. Reports mood is depressed, denies SI/HI plan or intent at this time. Reports SI prior to admission. Thoughts clear, linear and organized. Denies perceptual disturbances at the time, states when he is using he will at times hear voices. Denies A/V hallucinations, no overt psychosis or expressed delusions. Engages easily, good eye contact, dressed in hospital attire. Reports multiple previous admissions, [facility], [facility], [facility] and [facility]. Prior admission to [facility] most recently leaving [place]. Reports multiple stressors contributing to current admission however does not elaborate. Substance use includes cocaine and alcohol. Most recent use several days ago. Presents with stuffy nose, no other reported or observed withdrawal sx. Reports alcohol and daily use of cannabis. Tox screen positive for cocaine, benzodiazepine and THC. Medical history includes anemia, hypercholorestemia and asthma. Allergy to Trazodone. No complaints at this time. Placed on 15 minute checks, oriented to unit.
[2020-03-23] MEDS: risperiDONE 1 MG TABLET PO (20:49)
[2020-03-23] MEDS: Melatonin 3 MG TABLET PO (20:49)
[2020-03-24 06:40] VITALS: BP 118/61; PULSE 79; RESP 18; TEMP 36.9; O2SAT 100
[2020-03-24] MEDS: Escitalopram Oxalate 20 MG TABLET PO (08:54)
[2020-03-24] MEDS: busPIRone HCl 10 MG TABLET PO ×2 (08:54→21:22)
[2020-03-24] MEDS: Atorvastatin Calcium 10 MG TABLET PO (08:55)
[2020-03-24 08:56] VITALS: BP 118/61; PULSE 79
[2020-03-24] MEDS: Lithium Carbonate ER 450 MG TABLET.ER PO ×2 (08:56→21:14)
[2020-03-24] MEDS: cloNIDine HCL 0.1 MG TABLET PO ×3 (08:56→21:14)
[2020-03-24] MEDS: Omeprazole 20 MG CAPSULE.DR PO (10:58)
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
--- NOTE | 2020-03-24 14:57 | MHC.CARE ---
CARE team contacted by [facility] asking for eval for pt who was admitted last night. CARE team in fact did not see the pt and it was a N case. T/w contacted [facility] at 3p asking for pt to have eval faxed to for [facility] needs which had to be granted permission by [facility] route supervisor. .
[2020-03-24 15:17] VITALS: BP 123/61; PULSE 99
[2020-03-24] MEDS: lamoTRIgine 25 MG TABLET PO (15:18)
[2020-03-24 16:56] VITALS: BP 134/61; PULSE 113; TEMP 36.9
[2020-03-24 21:14] VITALS: BP 147/67; PULSE 95
[2020-03-24] MEDS: Melatonin 3 MG TABLET PO (21:14)
[2020-03-24] MEDS: risperiDONE 1 MG TABLET PO (21:24)
[2020-03-25 06:25] VITALS: BP 127/64; PULSE 84; RESP 16; TEMP 36.3; O2SAT 97
[2020-03-25 08:47] VITALS: BP 127/64; PULSE 84
[2020-03-25] MEDS: Lithium Carbonate ER 450 MG TABLET.ER PO ×2 (08:47→21:50)
[2020-03-25] MEDS: cloNIDine HCL 0.1 MG TABLET PO ×3 (08:47→21:50)
[2020-03-25] MEDS: Atorvastatin Calcium 10 MG TABLET PO (08:48)
[2020-03-25] MEDS: Escitalopram Oxalate 20 MG TABLET PO (08:48)
[2020-03-25] MEDS: Omeprazole 20 MG CAPSULE.DR PO (08:50)
[2020-03-25] MEDS: lamoTRIgine 25 MG TABLET PO (08:51)
[2020-03-25 15:02] VITALS: BP 132/67; PULSE 93
--- NOTE | 2020-03-25 17:10 | P.PNPSI_ITS ---
Subjective Subjective Date of Service: 03/25/20 Reason For Visit: depression Interim History: Reports 2020 IP admit was very helpful in adjusting medications. Describes self with that regime as happy, alert, with improved concentration. After discharge, experienced refill issues. Met prescriber for the first time last week and [facility] SUPERVISOR PIG MACHINE reports he did not have refills, was using med rations and using cocaine to manage sx ADD. Identifies most helpful combination as Strattera, Clonidine, Lamictal, Risperdal, [place] Review of Systems Psychiatric: Reports anxiety, Reports difficulty concentrating and Reports irritability Mental Status Exam Mental Status Exam Patient Appearance: Disheveled Patient Orientation: Person, Place, Time and Situation Level of Consciousness: Awake and Alert Patient Behavior: Appropriate Mood Description: Constricted and Anxious Affect Description: Constricted Patient Cognition Impaired: No Ability to Follow Directions: Good Speech Pattern: Appropriate and Spontaneous Speech Memory Description: Intact Hallucinations: None Delusions: Not Present Thought Process: Intact Thought Content: positive for [place] and positive for Circumstantial Depressive Symptoms: Increased Anxiety, Diff. Making Decisions, Increased Irritability, Loss of Energy and Difficulty Concentrating Judgement: Fair Diagnostics Vital Signs (24Hr): Vital Signs - 24 hr 03/24/20 21:14 03/25/20 06:25 03/25/20 08:47 Temperature 97.4 F Pulse Rate 95 84 84 Respiratory Rate 16 Blood Pressure 147/67 H 127/64 127/64 Pulse Oximetry 97 03/25/20 15:02 Temperature Pulse Rate 93 Respiratory Rate Blood Pressure 132/67 Pulse Oximetry Body Mass Index 35.5 Labs Results: 03/22/20 09:41 03/22/20 09:42 Imaging Radiology Impressions: ITS Impressions Chest X-Ray 03/22/20 09:25 IMPRESSION: Unremarkable examination. No acute abnormality. Medications Medications Current Medications Generic Name Dose Route Start Last Admin Trade Name Freq PRN Reason Stop Dose Admin Al Hydroxide/Mg Hydroxide 30 ml 03/23/20 16:25 Magnesium Hydrox/Alum Hydrox 30 Ml Oral.Susp PO Q6H PRN Heartburn/Nausea Atorvastatin Calcium 10 mg 03/23/20 09:00 03/25/20 08:48 Atorvastatin Calcium 10 Mg Tablet PO 10 mg DAILY [facility] Administration Clonidine HCl 0.1 mg 03/22/20 23:30 03/25/20 15:02 Clonidine Hcl 0.1 Mg Tablet PO 0.1 mg TID ANDREA Administration Protocol Diphenhydramine HCl 50 mg 03/23/20 16:25 Diphenhydramine Hcl 25 Mg Tablet PO Q4H PRN agitation Escitalopram Oxalate 20 mg 03/23/20 09:00 03/25/20 08:48 Escitalopram Oxalate 20 Mg Tablet PO 20 mg DAILY [facility] Administration Ferrous Sulfate 324 mg 03/22/20 23:30 03/25/20 08:50 Ferrous Sulfate 324 Mg Tablet. PO Not Given BID ANDREA Haloperidol 5 mg 03/23/20 16:25 Haloperidol 5 Mg Tablet PO Q4H PRN agitation Hydroxyzine HCl 25 mg 03/23/20 16:25 Hydroxyzine Hcl 25 Mg Tablet PO TID PRN Anxiety Ibuprofen 600 mg 03/22/20 23:27 Ibuprofen 600 Mg Tablet PO TID PRN pain Lamotrigine 25 mg 03/24/20 13:13 03/25/20 08:51 Lamotrigine 25 Mg Tablet PO 25 mg DAILY [facility] Administration [place] Carbonate 450 mg 03/22/20 23:30 03/25/20 08:47 [place] Carbonate Er 450 Mg Tablet.Er PO 450 mg BID [facility] Administration Lorazepam 2 mg 03/23/20 16:25 Lorazepam 1 Mg Tablet PO Q4H PRN agitation Magnesium Hydroxide 30 ml 03/23/20 16:25 Milk Of Magnesia 30 Ml Oral.Susp PO DAILY PRN Constipation Melatonin 3 mg 03/22/20 23:30 03/24/20 21:14 Melatonin 3 Mg Tablet PO 3 mg BEDTIME [facility] Administration Nicotine 21 mg 03/24/20 09:00 03/25/20 08:50 Nicotine 21 Mg Patch.Td24 TRANSDERMA Not Given DAILY [facility] Non-Formulary Medication 500 mg 03/22/20 23:30 Methylcellulose (Laxative) [Citrucel] PO BID [facility] Patient Own 1 each 03/25/20 13:44 03/25/20 15:20 Medication ( PO 1 each Atomoxetine 25 Mg) DAILY [facility] Administration Omeprazole 20 mg 03/23/20 09:00 03/25/20 08:50 Omeprazole 20 Mg Capsule. PO 20 mg DAILY [facility] Administration Pharmacy Consult 1 each 03/22/20 09:26 Consult Rx Perform Med Rec MISCELLANE ONCE PRN Consult order Risperidone 1 mg 03/22/20 23:30 03/24/20 21:24 Risperidone 1 Mg Tablet PO 1 mg BEDTIME [facility] Administration Allergies Allergies Allergy/AdvReac Type Severity Reaction Status Date / Time trazodone [TRAZODONE] Allergy Severe SHORTNESS Verified 03/12/20 09:12 OF BREATH, anaphylaxis Assessment & Plan Assessment & Plan (1) Bipolar 2 disorder, major depressive episode: Status: Acute Code(s): F31.81 - Bipolar II disorder Assessment and Plan: -No changes today, re-establish previous regime which was effective per pt report. (2) ADHD: Status: Acute Code(s): F90.9 - Attention-deficit hyperactivity disorder, unspecified type Assessment and Plan: -Re-start Strattera 25 mg daily (3) Moderate cocaine use 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 Reason for contiued inpatient stay Substantial Risk for: inability to function
[2020-03-25 18:46] VITALS: BP 148/71; PULSE 95; TEMP 37.1
[2020-03-25 21:50] VITALS: BP 156/72; PULSE 88
[2020-03-25] MEDS: Melatonin 3 MG TABLET PO (21:50)
[2020-03-25] MEDS: risperiDONE 1 MG TABLET PO (21:50)
[2020-03-26 06:10] VITALS: BP 135/61; PULSE 82; RESP 18; TEMP 37.2; O2SAT 98
[2020-03-26 09:22] VITALS: BP 135/61; PULSE 82
[2020-03-26] MEDS: Omeprazole 20 MG CAPSULE.DR PO (09:22)
[2020-03-26] MEDS: Lithium Carbonate ER 450 MG TABLET.ER PO ×2 (09:22→20:16)
[2020-03-26] MEDS: Atorvastatin Calcium 10 MG TABLET PO (09:22)
[2020-03-26] MEDS: Escitalopram Oxalate 20 MG TABLET PO (09:22)
[2020-03-26] MEDS: cloNIDine HCL 0.1 MG TABLET PO ×3 (09:22→20:17)
[2020-03-26] MEDS: lamoTRIgine 25 MG TABLET PO (10:27)
[2020-03-26 14:46] VITALS: BP 133/64; PULSE 95
--- NOTE | 2020-03-26 17:52 | HO.PSYCHPN ---
Subjective Subjective Date of Service: 03/26/20 Reason For Visit: depression Subjective Notes: Conditional Voluntary Interim History: Reporting improvement with regime stabilization Medication Compliance: Yes Side effects from medications: No Attending Groups: No Review of Systems Psychiatric: Reports anxiety Mental Status Exam Mental Status Exam Patient Appearance: Appropriate Patient Orientation: Person, Place, Time and Situation Level of Consciousness: Awake and Alert Patient Behavior: Talkative Mood Description: Anxious Affect Description: Constricted Patient Cognition Impaired: No Ability to Follow Directions: Good Speech Pattern: Spontaneous Speech Memory Description: Intact Hallucinations: None Delusions: Not Present Thought Process: Intact Thought Content: positive for Intact Depressive Symptoms: Increased Anxiety Judgement: Fair Diagnostics Vital Signs (24Hr): Vital Signs - 24 hr 03/25/20 18:46 03/25/20 21:50 03/26/20 06:10 Temperature 98.8 F 99.0 F Pulse Rate 95 88 82 Respiratory Rate 18 Blood Pressure 148/71 H 156/72 H 135/61 Pulse Oximetry 98 03/26/20 09:22 03/26/20 14:46 Temperature Pulse Rate 82 95 Respiratory Rate Blood Pressure 135/61 133/64 Pulse Oximetry Body Mass Index 35.5 Labs Results: 03/22/20 09:41 03/22/20 09:42 Imaging Radiology Impressions: ITS Impressions Chest X-Ray 03/22/20 09:25 IMPRESSION: Unremarkable examination. No acute abnormality. Medications Medications Current Medications Generic Name Dose Route Start Last Admin Trade Name Freq PRN Reason Stop Dose Admin Al Hydroxide/Mg Hydroxide 30 ml 03/23/20 16:25 Magnesium Hydrox/Alum Hydrox 30 Ml Oral.Susp PO Q6H PRN Heartburn/Nausea Atorvastatin Calcium 10 mg 03/23/20 09:00 03/26/20 09:22 Atorvastatin Calcium 10 Mg Tablet PO 10 mg DAILY [facility] Administration Clonidine HCl 0.1 mg 03/22/20 23:30 03/26/20 14:46 Clonidine Hcl 0.1 Mg Tablet PO 0.1 mg TID [facility] Administration Protocol Diphenhydramine HCl 50 mg 03/23/20 16:25 Diphenhydramine Hcl 25 Mg Tablet PO Q4H PRN agitation Escitalopram Oxalate 20 mg 03/23/20 09:00 03/26/20 09:22 Escitalopram Oxalate 20 Mg Tablet PO 20 mg DAILY [facility] Administration Ferrous Sulfate 324 mg 03/22/20 23:30 03/26/20 09:23 Ferrous Sulfate 324 Mg Tablet. PO Not Given BID [facility] Haloperidol 5 mg 03/23/20 16:25 Haloperidol 5 Mg Tablet PO Q4H PRN agitation Hydroxyzine HCl 25 mg 03/23/20 16:25 Hydroxyzine Hcl 25 Mg Tablet PO TID PRN Anxiety Ibuprofen 600 mg 03/22/20 23:27 Ibuprofen 600 Mg Tablet PO TID PRN pain Lamotrigine 25 mg 03/24/20 13:13 03/26/20 10:27 Lamotrigine 25 Mg Tablet PO 25 mg DAILY [facility] Administration [place] Carbonate 450 mg 03/22/20 23:30 03/26/20 09:22 [place] Carbonate Er 450 Mg Tablet.Er PO 450 mg BID [facility] Administration Lorazepam 2 mg 03/23/20 16:25 Lorazepam 1 Mg Tablet PO Q4H PRN agitation Magnesium Hydroxide 30 ml 03/23/20 16:25 Milk Of Magnesia 30 Ml Oral.Susp PO DAILY PRN Constipation Melatonin 3 mg 03/22/20 23:30 03/25/20 21:50 Melatonin 3 Mg Tablet PO 3 mg BEDTIME [facility] Administration Nicotine 21 mg 03/24/20 09:00 03/26/20 10:28 Nicotine 21 Mg Patch.Td24 TRANSDERMA Not Given DAILY [facility] Non-Formulary Medication 500 mg 03/22/20 23:30 Methylcellulose (Laxative) [Citrucel] PO BID [facility] Patient Own 1 each 03/25/20 13:44 03/26/20 09:21 Medication ( PO 1 each Atomoxetine 25 Mg) DAILY [facility] Administration Pt Own Med ([facility] 500 each 03/25/20 22:45 03/26/20 09:22 Fiber Therapy) PO 500 each BID [facility] Administration Omeprazole 20 mg 03/23/20 09:00 03/26/20 09:22 Omeprazole 20 Mg Capsule. PO 20 mg DAILY [facility] Administration Pharmacy Consult 1 each 03/22/20 09:26 Consult Rx Perform Med Rec MISCELLANE ONCE PRN Consult order Risperidone 1 mg 03/22/20 23:30 03/25/20 21:50 Risperidone 1 Mg Tablet PO 1 mg BEDTIME [facility] Administration Allergies Allergies Allergy/AdvReac Type Severity Reaction Status Date / Time trazodone [TRAZODONE] Allergy Severe SHORTNESS Verified 03/12/20 09:12 OF BREATH, anaphylaxis Assessment & Plan Assessment & Plan (1) Bipolar 2 disorder, major depressive episode: Status: Acute Code(s): F31.81 - Bipolar II disorder Assessment and Plan: -Continue current plan. (2) ADHD: Status: Acute Code(s): F90.9 - Attention-deficit hyperactivity disorder, unspecified type Assessment and Plan: -Titrate Strattera to 50 mg daily Greater than 50% of the session was spent on counseling and/or coordination of care Reason for contiued inpatient stay Substantial Risk for: harm to self, inability to function and rapid decompensation
[2020-03-26 18:00] VITALS: BP 131/63; PULSE 87; TEMP 36.8
[2020-03-26] MEDS: risperiDONE 1 MG TABLET PO (20:16)
[2020-03-26] MEDS: Melatonin 3 MG TABLET PO (20:16)
[2020-03-26 20:17] VITALS: BP 131/63; PULSE 87
[2020-03-27 06:25] VITALS: BP 109/58; PULSE 70; RESP 18; TEMP 36.8; O2SAT 98
[2020-03-27 09:08] VITALS: BP 109/58; PULSE 70
[2020-03-27] MEDS: cloNIDine HCL 0.1 MG TABLET PO ×3 (09:08→21:15)
[2020-03-27] MEDS: Atorvastatin Calcium 10 MG TABLET PO (09:09)
[2020-03-27] MEDS: lamoTRIgine 25 MG TABLET PO (09:09)
[2020-03-27] MEDS: Escitalopram Oxalate 20 MG TABLET PO (09:09)
[2020-03-27] MEDS: Omeprazole 20 MG CAPSULE.DR PO (09:09)
[2020-03-27] MEDS: Lithium Carbonate ER 450 MG TABLET.ER PO ×2 (09:09→21:17)
[2020-03-27 14:55] VITALS: BP 129/69; PULSE 90
--- NOTE | 2020-03-27 17:29 | HO.PSYCHPN ---
Subjective Subjective Date of Service: 03/27/20 Reason For Visit: depression Subjective Notes: Conditional Voluntary Interim History: Review of regime. Pt reports feeling comfortable with agents, choices. Discussed discharge to [facility] on 03/28 and ability to refill. Medication Compliance: Yes Side effects from medications: No Attending Groups: Yes Review of Systems Review of Systems Yes all other systems are reviewed and are negative (denies issues) Psychiatric: Reports anxiety Mental Status Exam Mental Status Exam Patient Appearance: Appropriate Patient Orientation: Person, Place, Time and Situation Level of Consciousness: Awake and Alert Patient Behavior: Appropriate and Talkative Mood Description: Calm Affect Description: Calm Patient Cognition Impaired: No Ability to Follow Directions: Good Speech Pattern: Clear and Spontaneous Speech Memory Description: Intact Hallucinations: None Delusions: Not Present Thought Process: Intact Thought Content: positive for Intact Depressive Symptoms: Increased Anxiety (regarding transfer) Judgement: Good Diagnostics Vital Signs (24Hr): Vital Signs - 24 hr 03/26/20 18:00 03/26/20 20:17 03/27/20 06:25 Temperature 98.2 F 98.2 F Pulse Rate 87 87 70 Respiratory Rate 18 Blood Pressure 131/63 131/63 109/58 L Pulse Oximetry 98 03/27/20 09:08 03/27/20 14:55 Temperature Pulse Rate 70 90 Respiratory Rate Blood Pressure 109/58 L 129/69 Pulse Oximetry Body Mass Index 35.5 Labs Results: 03/22/20 09:41 03/22/20 09:42 Imaging Radiology Impressions: ITS Impressions Chest X-Ray 03/22/20 09:25 IMPRESSION: Unremarkable examination. No acute abnormality. Medications Medications Current Medications Generic Name Dose Route Start Last Admin Trade Name Freq PRN Reason Stop Dose Admin Al Hydroxide/Mg Hydroxide 30 ml 03/23/20 16:25 Magnesium Hydrox/Alum Hydrox 30 Ml Oral.Susp PO Q6H PRN Heartburn/Nausea Atorvastatin Calcium 10 mg 03/23/20 09:00 03/27/20 09:09 Atorvastatin Calcium 10 Mg Tablet PO 10 mg DAILY [facility] Administration Clonidine HCl 0.1 mg 03/22/20 23:30 03/27/20 14:55 Clonidine Hcl 0.1 Mg Tablet PO 0.1 mg TID [facility] Administration Protocol Diphenhydramine HCl 50 mg 03/23/20 16:25 Diphenhydramine Hcl 25 Mg Tablet PO Q4H PRN agitation Escitalopram Oxalate 20 mg 03/23/20 09:00 03/27/20 09:09 Escitalopram Oxalate 20 Mg Tablet PO 20 mg DAILY [facility] Administration Haloperidol 5 mg 03/23/20 16:25 Haloperidol 5 Mg Tablet PO Q4H PRN agitation Hydroxyzine HCl 25 mg 03/23/20 16:25 Hydroxyzine Hcl 25 Mg Tablet PO TID PRN Anxiety Ibuprofen 600 mg 03/22/20 23:27 Ibuprofen 600 Mg Tablet PO TID PRN pain Lamotrigine 25 mg 03/24/20 13:13 03/27/20 09:09 Lamotrigine 25 Mg Tablet PO 25 mg DAILY [facility] Administration [place] Carbonate 450 mg 03/22/20 23:30 03/27/20 09:09 [place] Carbonate Er 450 Mg Tablet.Er PO 450 mg BID [facility] Administration Lorazepam 2 mg 03/23/20 16:25 Lorazepam 1 Mg Tablet PO Q4H PRN agitation Magnesium Hydroxide 30 ml 03/23/20 16:25 Milk Of Magnesia 30 Ml Oral.Susp PO DAILY PRN Constipation Melatonin 3 mg 03/22/20 23:30 03/26/20 20:16 Melatonin 3 Mg Tablet PO 3 mg BEDTIME [facility] Administration Nicotine 21 mg 03/24/20 09:00 03/27/20 10:45 Nicotine 21 Mg Patch.Td24 TRANSDERMA Not Given DAILY [facility] Pt Own Med ([facility] 500 each 03/25/20 22:45 03/27/20 09:55 Fiber Therapy) PO 500 each BID [facility] Administration Pt Own: Atomoxetine 2 each 03/27/20 11:00 03/27/20 11:13 25 Mg PO 2 each DAILY [facility] Administration Omeprazole 20 mg 03/23/20 09:00 03/27/20 09:09 Omeprazole 20 Mg Capsule.Dr PO 20 mg DAILY [facility] Administration Pharmacy Consult 1 each 03/22/20 09:26 Consult Rx Perform Med Rec MISCELLANE ONCE PRN Consult order Risperidone 1 mg 03/22/20 23:30 03/26/20 20:16 Risperidone 1 Mg Tablet PO 1 mg BEDTIME [facility] Administration Allergies Allergies Allergy/AdvReac Type Severity Reaction Status Date / Time trazodone [TRAZODONE] Allergy Severe SHORTNESS Verified 03/12/20 09:12 OF BREATH, anaphylaxis Assessment & Plan Assessment & Plan (1) Bipolar 2 disorder, major depressive episode: Status: Acute Code(s): F31.81 - Bipolar II disorder Assessment and Plan: -Continue current regime -Labs in a.m. (2) ADHD: Status: Acute Code(s): F90.9 - Attention-deficit hyperactivity disorder, unspecified type Assessment and Plan: -Tolerating Strattera titration (3) Moderate cocaine use disorder in controlled environment: Status: Acute Code(s): F14.20 - Cocaine dependence, uncomplicated Assessment and Plan: CSS admission scheduled for 03/28/20 Greater than 50% of the session was spent on counseling and/or coordination of care Reason for contiued inpatient stay Substantial Risk for: harm to self, inability to function and rapid decompensation
[2020-03-27 18:00] VITALS: BP 125/75; PULSE 107; TEMP 36.4
[2020-03-27 21:15] VITALS: BP 120/85; PULSE 107
[2020-03-27] MEDS: Melatonin 3 MG TABLET PO (21:15)
[2020-03-27] MEDS: risperiDONE 1 MG TABLET PO (21:17)
[2020-03-28 06:30] VITALS: BP 125/60; PULSE 72; RESP 16; TEMP 36.3; O2SAT 98
[2020-03-28 08:47] LABS: Cholesterol 241 mg/dL; HDL Cholesterol 40 mg/dL; LDL Cholesterol Calculated 122 mg/dl; Triglycerides 395 mg/dL
[2020-03-28 09:26] VITALS: BP 125/60; PULSE 72
[2020-03-28] MEDS: Lithium Carbonate ER 450 MG TABLET.ER PO (09:26)
[2020-03-28] MEDS: cloNIDine HCL 0.1 MG TABLET PO (09:26)
[2020-03-28] MEDS: lamoTRIgine 25 MG TABLET PO (09:28)
[2020-03-28] MEDS: Escitalopram Oxalate 20 MG TABLET PO (09:28)
[2020-03-28] MEDS: Atorvastatin Calcium 10 MG TABLET PO (09:28)
[2020-03-28] MEDS: Omeprazole 20 MG CAPSULE.DR PO (09:28)
[2020-03-28 09:56] LABS: Lithium 0.55 mmol/L (0.60-1.20)
--- NOTE | 2020-03-28 14:57 | P.DS_ITS ---
DS: Providers Provider Date of Service: 03/28/20 Date of admission: 03/23/20 15:42 Date of discharge: 03/28/20 Primary care physician: Ashish Rachel [facility] Admitting clinician: Ke Mittal Attending physician on admission: Ke Mittal Attending physician on discharge: Clara Luna Discharging clinician: Rodger Centeno DS: Diagnosis Discharge Diagnosis (1) Bipolar 2 disorder, major depressive episode: Status: Acute Problem details: 44 yo male, reporting SI, hx of bipolar disorder, type 2, ADHD, cocaine use disorder who was admitted to [facility] with treatment/regime efficacy. Pt has had a difficult time securing a medication appointment so he rationed his medications and used cocaine to manage sx [employer]SI[employer]IST with resulting symptoms exa cerbation. (2) ADHD: Status: Acute (3) Moderate cocaine use disorder in controlled environment: Status: Resolved Problem details: Sober since 2019. Uses [employer] PHYSIOTHERAPIST to manage symptoms as he ran out of his prescribed medications. Hx of AH, only when using cocaine. UTox + cocaine, cannabis, benzodiazepines DS: Medications Discharge Medications Home Medications: Previous Rx's Medication Instructions Recorded Citrucel 500 mg PO BID #60 tab MDD 4 03/28/20 atomoxetine [Strattera] 50 mg PO DAILY #60 cap 03/28/20 atorvastatin 10 mg PO DAILY 30 Days #30 tab 03/28/20 buspirone 1 tab PO BID #60 tab 03/28/20 clonidine HCl 0.1 mg PO TID #90 tab 03/28/20 escitalopram oxalate 1 tab PO QAM #30 tab 03/28/20 hydroxyzine HCl 25 mg PO TID PRN #90 tab 03/28/20 lamotrigine 25 mg PO DAILY #30 tab 03/28/20 lithium carbonate 450 mg PO BID #60 tab 03/28/20 melatonin 3 mg PO BEDTIME 30 Days #30 tab 03/28/20 methylcellulose (laxative) 500 mg PO BID #60 tab 03/28/20 [Citrucel] pantoprazole 40 mg PO QAM #30 tab 03/28/20 risperidone 1 tab PO BEDTIME #30 tab 03/28/20 Discharge Plan Discharge Anticipated Discharge Date/Time: 03/28/20 14:00 Patient Disposition: Xfer Other Referrals: Therapist: Erna ([facility]) [Other] Psych Prescriber: Husam Ram ([facility]) [Other] Ashish Rachel, [facility] [Primary Care Provider] - (please follow up) Discharge Medications: New lamotrigine 25 mg Tablet 25 mg PO DAILY Qty: 30 RF: 1 hydroxyzine HCl 25 mg Tablet 25 mg PO TID PRN (Reason: Anxiety) Qty: 90 RF: 1 atomoxetine [Strattera] 25 mg capsule 50 mg PO DAILY Qty: 60 RF: 1 Citrucel 500 mg tablet 500 mg PO BID Qty: 60 RF: 1 Continued clonidine HCl 0.1 mg tablet 0.1 mg PO TID Qty: 90 RF: 1 atorvastatin 10 mg Tablet 10 mg PO DAILY 30 Days Qty: 30 RF: 1 melatonin 3 mg tablet 3 mg PO BEDTIME 30 Days Qty: 30 RF: 1 lithium carbonate 450 mg tablet extended release 450 mg PO BID Qty: 60 RF: 1 Citrucel 500 mg tablet 500 mg PO BID MDD 4 Qty: 60 RF: 1 buspirone 10 mg tablet 1 tab PO BID Qty: 60 RF: 1 risperidone 1 mg tablet 1 tab PO BEDTIME Qty: 30 RF: 1 escitalopram oxalate 20 mg tablet 1 tab PO QAM Qty: 30 RF: 1 Changed pantoprazole 40 mg tablet,delayed release (DR/EC) 40 mg PO QAM Qty: 30 RF: 1 Discontinued ferrous sulfate 324 mg (65 mg iron) tablet,delayed release (DR/EC) 324 mg PO BID 30 Days Qty: 60 RF: 2 atomoxetine 25 mg capsule 25 mg PO DAILY Qty: 30 RF: 1 lamotrigine 25 mg tablet 50 mg PO BID Qty: 120 RF: 0 ibuprofen 600 mg tablet 600 mg PO TID PRN (Reason: pain) Qty: 30 RF: 1 Discharge Orders: Discharge Order (Routine); Ordered 03/28/20 Ordered By: Clara Luna Diet: advance to usual diet Activity on Discharge: As tolerated Stand Alone Forms: Patient Portal Discharge page, Community Support Care Plan Goals: Sobriety Mood Stability Health Concerns: Sobriety Plan of Treatment: Take medications as directed Attend appointments as scheduled Participate in CSS plan of care Discharge Date/Time: 03/28/20 11:01 Mental Status Exam Mental Status Exam Patient Appearance: Appropriate Patient Orientation: Person, Place, Time and Situation Level of Consciousness: Awake and Alert Patient Behavior: Appropriate Mood Description: Constricted Affect Description: Constricted Patient Cognition Impaired: No Ability to Follow Directions: Good Speech Pattern: Spontaneous Speech Memory Description: Intact Hallucinations: None Delusions: Not Present Thought Process: Intact Thought Content: positive for Intact Judgement: Good Data Data Completed and Pending Completed studies during hospitalization [Text1]: 03/22/20 03/22/20 03/22/20 09:41 09:41 09:41 WBC 11.1 H RBC 5.39 Hgb 14.9 D Hct 46.4 D MCV 86.1 MCH 27.6 MCHC 32.1 RDW 13.1 Plt Count 301 D MPV 8.2 L Immature Gran % (Auto) 0.4 Neut % (Auto) 72.9 Lymph % (Auto) 17.3 L [place] % (Auto) 6.8 Eos % (Auto) 2.2 Baso % (Auto) 0.4 Lymph # (Auto) 1.9 [place] # (Auto) 0.8 Eos # (Auto) 0.2 Baso # (Auto) 0.1 Abs Immat Gran (auto) 0.04 H Absolute Neuts (auto) 8.1 Absolute Nucleated RBC 0.000 Nucleated RBC % (auto) 0.0 Hold Blue Top SEE NOTE Sodium Potassium Chloride Carbon Dioxide Anion Gap BUN Creatinine Estim Creat Clear Calc Estimated GFR Random Glucose Calcium Magnesium Total Bilirubin Direct Bilirubin AST ALT Alkaline Phosphatase Troponin I High Sens Total Protein Albumin Triglycerides Cholesterol LDL Cholesterol, Calc HDL Cholesterol Urine Opiates Screen Ur Barbiturates Screen Ur Phencyclidine Scrn Ur Amphetamines Screen U Benzodiazepines Scrn [place] Urine Cocaine Screen U Marijuana (THC) Screen Ethyl Alcohol < 10 COVID-19 (CONNIE) COVID-19 Clin Com 03/22/20 03/22/20 03/22/20 09:41 09:41 09:42 WBC RBC Hgb Hct MCV MCH MCHC RDW Plt Count MPV Immature Gran % (Auto) Neut % (Auto) Lymph % (Auto) [place] % (Auto) Eos % (Auto) Baso % (Auto) Lymph # (Auto) [place] # (Auto) Eos # (Auto) Baso # (Auto) Abs Immat Gran (auto) Absolute Neuts (auto) Absolute Nucleated RBC Nucleated RBC % (auto) Hold Blue Top Sodium 139 Potassium 4.5 Chloride 100 Carbon Dioxide 30 H Anion Gap 14 BUN 12 Creatinine 1.12 Estim Creat Clear Calc 95.0 Estimated GFR > 60 Random Glucose 105 Calcium 9.6 D Magnesium 2.3 Total Bilirubin 0.6 Direct Bilirubin < 0.2 AST 25 ALT 36 Alkaline Phosphatase 119 H Troponin I High Sens < 3.5 Total Protein 7.9 Albumin 4.9 Triglycerides Cholesterol LDL Cholesterol, Calc HDL Cholesterol Urine Opiates Screen Ur Barbiturates Screen Ur Phencyclidine Scrn Ur Amphetamines Screen U Benzodiazepines Scrn [place] 0.39 L Urine Cocaine Screen U Marijuana (THC) Screen Ethyl Alcohol COVID-19 (CONNIE) COVID-19 [employer] Com 03/22/20 03/22/20 03/28/20 09:42 09:47 08:09 WBC RBC Hgb Hct MCV MCH MCHC RDW Plt Count MPV Immature Gran % (Auto) Neut % (Auto) Lymph % (Auto) [place] % (Auto) Eos % (Auto) Baso % (Auto) Lymph # (Auto) [place] # (Auto) Eos # (Auto) Baso # (Auto) Abs Immat Gran (auto) Absolute Neuts (auto) Absolute Nucleated RBC Nucleated RBC % (auto) Hold Blue Top Sodium Potassium Chloride Carbon Dioxide Anion Gap BUN Creatinine Estim Creat Clear Calc Estimated GFR Random Glucose Calcium Magnesium Total Bilirubin Direct Bilirubin AST ALT Alkaline Phosphatase Troponin I High Sens Total Protein Albumin Triglycerides 395 Cholesterol 241 LDL Cholesterol, Calc 122 HDL Cholesterol 40 Urine Opiates Screen Not Detected Ur Barbiturates Screen Not Detected Ur Phencyclidine Scrn Not Detected Ur Amphetamines Screen Not Detected U Benzodiazepines Scrn POSITIVE H [place] Urine Cocaine Screen POSITIVE H U Marijuana (THC) Screen POSITIVE H Ethyl Alcohol COVID-19 (CONNIE) Negative COVID-19 [employer] Com See Note 03/28/20 08:09 WBC RBC Hgb Hct MCV MCH MCHC RDW Plt Count MPV Immature Gran % (Auto) Neut % (Auto) Lymph % (Auto) [place] % (Auto) Eos % (Auto) Baso % (Auto) Lymph # (Auto) [place] # (Auto) Eos # (Auto) Baso # (Auto) Abs Immat Gran (auto) Absolute Neuts (auto) Absolute Nucleated RBC Nucleated RBC % (auto) Hold Blue Top Sodium Potassium Chloride Carbon Dioxide Anion Gap BUN Creatinine Estim Creat Clear Calc Estimated GFR Random Glucose Calcium Magnesium Total Bilirubin Direct Bilirubin AST ALT Alkaline Phosphatase Troponin I High Sens Total Protein Albumin Triglycerides Cholesterol LDL Cholesterol, Calc HDL Cholesterol Urine Opiates Screen Ur Barbiturates Screen Ur Phencyclidine Scrn Ur Amphetamines Screen U Benzodiazepines Scrn [place] 0.55 L Urine Cocaine Screen U Marijuana (THC) Screen Ethyl Alcohol COVID-19 (CONNIE) COVID-19 Clin Com Imaging Diagnostic Imaging Impressions Chest X-Ray 03/22/20 09:25 IMPRESSION: Unremarkable examination. No acute abnormality. DS: Summary Hospital Course Hospital Course: Pt was admitted as a conditional voluntary patient. His regime was re- established and tolerated. He discussed his concerns about relapse on substances, especially cocaine to manage symptoms and agreed to attend [facility] to continue to address addiction issues after discharge. He will continue follow up with his PCP and team at [facility] upon discharge from [facility]. Time spent discussing smoking cessation with patient: 3 to 10 minutes Status at Discharge Cognitive/behavioral status at discharge: alert, oriented, mood, affect wnl. Denies SI, HI. No symptoms of psychosis Functional status at discharge: independent ambulation Overall status at discharge: patient is progressing back to baseline Time Spent with Patient Time attestation: Total time spent providing and/or coordinating discharge services: 30 Time spent: Greater than 30 minutes
== END 2020-03-28 11:01 | disposition other institution (70) | DRG 753 ==
LOC: HO.ED 10:05 → HO.PM5 03-23 16:07
PROVIDERS: Nurse Practitioner Family; Admitting Provider Psychiatry & Neurology Psychiatry; Emergency Provider Emergency Medicine Emergency Medical Services; PCP Nurse Practitioner Family; Visit Provider Clinical Nurse Specialist Psychiatric/Mental Health, Adult
DX: F31.81 Bipolar II disorder (principal); R45.851 Suicidal ideations; F14.20 Cocaine dependence, uncomplicated; F90.9 Attention-deficit hyperactivity disorder, unspecified type; G47.33 Obstructive sleep apnea (adult) (pediatric); K21.9 Gastro-esophageal reflux disease without esophagitis; Z20.822 Contact with and (suspected) exposure to COVID-19; Z79.899 Other long term (current) drug therapy
CPT/HCPCS: 36415; 71046; 80048; 80061; 80076; 80178; 80307; 80320; 83735; 84484; 85025; 87635; 93005; 99285

== ENCOUNTER 2020-04-02 09:09 | Outpatient (REF) | payer OTHER, SELFPAY ==
[2020-04-02 11:19] LABS: MANUAL DIFF FLAG NO
[2020-04-02 11:34] LABS: Basophils Absolute Auto 0.1 X10*3/uL (0.0-0.2); Basophils Percent Auto 0.9 % (0-2); Eosinophils Absolute Auto 1.1 X10*3/uL (0.0-0.4); Eosinophils Percent Auto 11.8 % (0-4); Hematocrit 40.9 % (42-52); Hemoglobin 13.3 g/dl (14.0-18.0); Imm Gran Abs Auto 0.08 X10*3/uL (0.00-0.03); Imm Gran Pct Auto 0.8 % (0.0-0.4); Lymphocytes Absolute Auto 2.2 X10*3/uL (1.2-4.9); Lymphocytes Percent Auto 22.6 % (20-40); Mean Corpuscular HGB Conc 32.5 g/dl (31.0-36.0); Mean Corpuscular Hemoglobin 28.7 pg (27.0-33.0); Mean Corpuscular Volume 88.3 fL (80-98); Mean Platelet Volume 9.1 fL (9.4-12.4); Monocytes Absolute Auto 0.6 X10*3/uL (0.1-1.2); Monocytes Percent Auto 6.6 % (2-11); Neutrophils Absolute Auto 5.5 X10*3/uL (2.0-8.3); Neutrophils Percent Auto 57.3 % (45-73); Platelet Count 289 X10*3/uL (160-400); Red Blood Count 4.63 X10*6/uL (4.60-5.80); Red Cell Distribution Width 13.1 % (11.0-16.0); White Blood Count 9.6 X10*3/uL (4.8-10.8)
[2020-04-02 11:42] LABS: Lithium 0.72 mmol/L (0.60-1.20)
[2020-04-02 12:03] LABS: Alanine Aminotransferase 154 U/L (0-40); Albumin Level 4.3 g/dL (3.5-5.0); Alkaline Phosphatase 163 U/L (39-117); Anion Gap 13 (12-20); Aspartate Amino Transferase 66 U/L (5-37); Bilirubin Total 0.7 mg/dL (0.0-1.0); Blood Urea Nitrogen 21 mg/dL (9-16); Calcium 9.5 mg/dL (8.4-10.2); Carbon Dioxide 29 mmol/L (22-29); Chloride 101 mmol/L (96-108); Estimated Glomerular Filt Rate > 60; Glucose Random 116 mg/dL (60-115); Potassium 4.7 mmol/L (3.3-5.1); Sodium 138 mmol/L (135-145); Total Protein 7.2 g/dL (6.5-8.0)
[2020-04-02 12:51] LABS: Ferritin 90 ng/mL (20-250)
== END 2020-04-02 09:10 | disposition home or self-care (01) ==
LOC: HO.HMGCLDS 09:09
PROVIDERS: Absent Provider Internal Medicine Gastroenterology; PCP Nurse Practitioner Family; Visit Provider Nurse Practitioner Family
DX: D50.0 Iron deficiency anemia secondary to blood loss (chronic) (principal); R74.8 Abnormal levels of other serum enzymes; Z79.899 Other long term (current) drug therapy
CPT/HCPCS: 36415; 80053; 80178; 82728; 85025

== ENCOUNTER 2020-07-25 11:53 | Outpatient (REF) | payer OTHER, SELFPAY ==
[2020-07-25 14:00] LABS: MANUAL DIFF FLAG NO
[2020-07-25 14:06] LABS: Basophils Absolute Auto 0.1 X10*3/uL (0.0-0.2); Basophils Percent Auto 0.8 % (0-2); Eosinophils Absolute Auto 0.6 X10*3/uL (0.0-0.4); Hematocrit 41.2 % (42-52); Hemoglobin 13.5 g/dl (14.0-18.0); Imm Gran Abs Auto 0.03 X10*3/uL (0.00-0.03); Imm Gran Pct Auto 0.4 % (0.0-0.4); Lymphocytes Absolute Auto 2.3 X10*3/uL (1.2-4.9); Lymphocytes Percent Auto 30.3 % (20-40); Mean Corpuscular HGB Conc 32.8 g/dl (31.0-36.0); Mean Corpuscular Volume 88.4 fL (80-98); Mean Platelet Volume 9.1 fL (9.4-12.4); Monocytes Absolute Auto 0.6 X10*3/uL (0.1-1.2); Monocytes Percent Auto 7.9 % (2-11); Neutrophils Absolute Auto 3.9 X10*3/uL (2.0-8.3); Neutrophils Percent Auto 52.6 % (45-73); Platelet Count 269 X10*3/uL (160-400); Red Blood Count 4.66 X10*6/uL (4.60-5.80); Red Cell Distribution Width 12.5 % (11.0-16.0); White Blood Count 7.5 X10*3/uL (4.8-10.8)
[2020-07-25 14:27] LABS: Alanine Aminotransferase 77 U/L (0-40); Albumin Level 4.3 g/dL (3.5-5.0); Alkaline Phosphatase 141 U/L (39-117); Anion Gap 14 (12-20); Aspartate Amino Transferase 45 U/L (5-37); Bilirubin Total 0.4 mg/dL (0.0-1.0); Blood Urea Nitrogen 17 mg/dL (9-16); Calcium 9.4 mg/dL (8.4-10.2); Carbon Dioxide 25 mmol/L (22-29); Chloride 108 mmol/L (96-108); Cholesterol 259 mg/dL; Estimated Glomerular Filt Rate > 60; Glucose Fasting 105 mg/dL (60-99); HDL Cholesterol 33 mg/dL; Iron 79 mcg/dL (45-160); Percent Iron Saturation 19 % (15-50); Potassium 4.5 mmol/L (3.3-5.1); Sodium 142 mmol/L (135-145); Total Iron Binding Capacity 415 mcg/dL (228-428); Triglycerides 465 mg/dL; Unsaturated Iron Binding 336 ug/dL
[2020-07-25 14:32] LABS: Lithium < 0.10 mmol/L (0.60-1.20)
[2020-07-25 14:51] LABS: Ferritin 82 ng/mL (20-250)
[2020-07-28 08:14] LABS: HBS Num1 2.41 mIU/mL (0-7.99); HBc Num1 0.03 S/CO (0.00-0.79); HBsAGNum1 0.18 S/CO (0.00-0.99); Hepatitis B Core Antibody Nonreactive (Nonreactive); Hepatitis B Surface Antigen Negative (Negative); ~HepC Num1 0.07 S/CO (0.00-0.79); ~Hepatitis B Surface Antibody NONREACTIVE (Nonreactive); ~Hepatitis C Antibody Nonreactive (Nonreactive)
[2020-07-30 07:38] LABS: Hepatitis A Antibody IgM 0.24 Index (0-0.79); ~Hepatitis A Antibody IgM Nonreactive (Nonreactive)
== END 2020-07-25 11:54 | disposition home or self-care (01) ==
LOC: HO.HMGCLDS 11:53
PROVIDERS: PCP Nurse Practitioner Family; Visit Provider Nurse Practitioner Family
DX: D50.0 Iron deficiency anemia secondary to blood loss (chronic) (principal); R74.8 Abnormal levels of other serum enzymes; Z79.899 Other long term (current) drug therapy
CPT/HCPCS: 36415; 80053; 80061; 80178; 82728; 83540; 85025; 86704; 86706; 86709; 86803; 87340

== ENCOUNTER 2020-09-15 07:36 | Outpatient (REF) | payer OTHER, SELFPAY ==
[2020-09-15 11:17] LABS: MANUAL DIFF FLAG NO
[2020-09-15 11:26] LABS: Basophils Absolute Auto 0.1 X10*3/uL (0.0-0.2); Basophils Percent Auto 0.9 % (0-2); Eosinophils Absolute Auto 0.6 X10*3/uL (0.0-0.4); Hematocrit 42.2 % (42-52); Hemoglobin 13.5 g/dl (14.0-18.0); Imm Gran Abs Auto 0.05 X10*3/uL (0.00-0.03); Imm Gran Pct Auto 0.5 % (0.0-0.4); Lymphocytes Absolute Auto 2.4 X10*3/uL (1.2-4.9); Mean Corpuscular Hemoglobin 29.2 pg (27.0-33.0); Mean Corpuscular Volume 91.1 fL (80-98); Mean Platelet Volume 9.1 fL (9.4-12.4); Monocytes Absolute Auto 0.6 X10*3/uL (0.1-1.2); Monocytes Percent Auto 6.6 % (2-11); Neutrophils Absolute Auto 5.4 X10*3/uL (2.0-8.3); Platelet Count 315 X10*3/uL (160-400); Red Blood Count 4.63 X10*6/uL (4.60-5.80); Red Cell Distribution Width 13.3 % (11.0-16.0); White Blood Count 9.1 X10*3/uL (4.8-10.8)
[2020-09-15 11:36] LABS: Lithium 0.62 mmol/L (0.60-1.20)
[2020-09-15 11:43] LABS: Alanine Aminotransferase 24 U/L (0-40); Albumin Level 4.4 g/dL (3.5-5.0); Alkaline Phosphatase 101 U/L (39-117); Anion Gap 12 (12-20); Aspartate Amino Transferase 18 U/L (5-37); Bilirubin Total 0.4 mg/dL (0.0-1.0); Blood Urea Nitrogen 16 mg/dL (9-16); Calcium 9.5 mg/dL (8.4-10.2); Carbon Dioxide 27 mmol/L (22-29); Chloride 105 mmol/L (96-108); Cholesterol 210 mg/dL; Estimated Glomerular Filt Rate > 60; Glucose Random 134 mg/dL (60-115); HDL Cholesterol 43 mg/dL; LDL Cholesterol Calculated 131 mg/dl; Potassium 4.6 mmol/L (3.3-5.1); Sodium 139 mmol/L (135-145); Triglycerides 181 mg/dL
[2020-09-15 11:49] LABS: Anion Gap 13 (12-20); Blood Urea Nitrogen 15 mg/dL (9-16); Calcium 9.5 mg/dL (8.4-10.2); Carbon Dioxide 25 mmol/L (22-29); Chloride 105 mmol/L (96-108); Estimated Glomerular Filt Rate > 60; Glucose Random 132 mg/dL (60-115); Potassium 4.7 mmol/L (3.3-5.1); Sodium 138 mmol/L (135-145)
[2020-09-15 11:55] LABS: Thyroid Stimulating Hormone 1.44 uIU/mL (0.32-4.0)
[2020-09-20 20:45] LABS: Testosterone, Free 70.6 pg/mL (35.0-155.0); Testosterone, Total 294 ng/dL (250-1100)
== END 2020-09-15 07:37 | disposition home or self-care (01) ==
LOC: HO.HMGCLDS 07:36
PROVIDERS: PCP Nurse Practitioner Family; Visit Provider Clinical Nurse Specialist Psychiatric/Mental Health, Child & Adolescent
DX: E78.5 Hyperlipidemia, unspecified (principal); R68.82 Decreased libido; R74.8 Abnormal levels of other serum enzymes; Z51.81 Encounter for therapeutic drug level monitoring; Z79.899 Other long term (current) drug therapy
CPT/HCPCS: 36415; 80048; 80053; 80061; 80178; 84402; 84403; 84439; 84443; 85025

== ENCOUNTER 2020-11-24 09:23 | Outpatient (REF) | payer OTHER, SELFPAY ==
[2020-11-24 11:43] LABS: Appearance Urine CLEAR; Color Urine YELLOW; Glucose Urine UA NEG (NEG); Leukocyte Esterase Urine NEG (NEG); Nitrite Urine NEG (NEG); Specific Gravity - Urine 1.025 (1.005-1.025); Urine Blood NEG (NEG); Urine Ketones NEG (NEG); Urine Protein NEG (NEG-TRACE)
[2020-11-24 11:53] LABS: Alanine Aminotransferase 24 U/L (0-40); Albumin Level 4.6 g/dL (3.5-5.0); Alkaline Phosphatase 71 U/L (39-117); Anion Gap 11 (12-20); Aspartate Amino Transferase 18 U/L (5-37); Bilirubin Total 0.5 mg/dL (0.0-1.0); Blood Urea Nitrogen 16 mg/dL (9-16); Calcium 9.5 mg/dL (8.4-10.2); Carbon Dioxide 25 mmol/L (22-29); Chloride 106 mmol/L (96-108); Cholesterol 163 mg/dL; Estimated Glomerular Filt Rate > 60; Glucose Fasting 119 mg/dL (60-99); HDL Cholesterol 32 mg/dL; LDL Cholesterol Calculated 86 mg/dl; Potassium 4.4 mmol/L (3.3-5.1); Sodium 138 mmol/L (135-145); Triglycerides 229 mg/dL
[2020-11-24 12:14] LABS: TSH reflex Free T4 1.31 uIU/mL (0.32-4.0)
== END 2020-11-24 09:24 | disposition home or self-care (01) ==
LOC: HO.HMGCLDS 09:23
PROVIDERS: PCP Nurse Practitioner Family; Visit Provider Nurse Practitioner Family
DX: Z00.00 Encounter for general adult medical examination without abnormal findings (principal)
CPT/HCPCS: 36415; 80053; 80061; 81003; 84443

== ENCOUNTER 2021-04-27 09:09 | Outpatient (REF) | payer OTHER, SELFPAY ==
[2021-04-27 11:43] LABS: MANUAL DIFF FLAG NO
[2021-04-27 11:54] LABS: Basophils Absolute Auto 0.1 X10*3/uL (0.0-0.2); Basophils Percent Auto 0.9 % (0-2); Eosinophils Absolute Auto 0.5 X10*3/uL (0.0-0.4); Eosinophils Percent Auto 6.1 % (0-4); Hematocrit 41.1 % (42.0-52.0); Hemoglobin 13.5 g/dl (14.0-18.0); Imm Gran Abs Auto 0.03 X10*3/uL (0.00-0.03); Imm Gran Pct Auto 0.4 % (0.0-0.4); Lymphocytes Absolute Auto 2.3 X10*3/uL (1.2-4.9); Lymphocytes Percent Auto 28.7 % (20-40); Mean Corpuscular HGB Conc 32.8 g/dl (31.0-36.0); Mean Corpuscular Hemoglobin 29.3 pg (27.0-33.0); Mean Corpuscular Volume 89.3 fL (80.0-98.0); Monocytes Absolute Auto 0.6 X10*3/uL (0.1-1.2); Monocytes Percent Auto 7.7 % (2-11); Neutrophils Absolute Auto 4.6 x10*3/uL (2.0-8.3); Neutrophils Percent Auto 56.2 % (45-73); Platelet Count 292 X10*3/uL (160-400); Red Cell Distribution Width 13.2 % (11.0-16.0); White Blood Count 8.2 X10*3/uL (4.8-10.8)
[2021-04-27 12:03] LABS: Anion Gap 12 (12-20); Blood Urea Nitrogen 17 mg/dL (9-16); Calcium 9.9 mg/dL (8.4-10.2); Carbon Dioxide 28 mmol/L (22-29); Chloride 104 mmol/L (96-108); Cholesterol 193 mg/dL; Estimated Glomerular Filt Rate > 60; Glucose Random 114 mg/dL (60-115); HDL Cholesterol 52 mg/dL; LDL Cholesterol Calculated 112 mg/dl; Potassium 4.9 mmol/L (3.3-5.1); Sodium 139 mmol/L (135-145); Triglycerides 149 mg/dL
[2021-04-27 12:16] LABS: Lithium 0.57 mmol/L (0.60-1.20)
[2021-04-27 12:28] LABS: Free T4 (Free Thyroxine) 0.82 ng/dL (0.71-1.85); Thyroid Stimulating Hormone 1.32 uIU/mL (0.32-4.0)
== END 2021-04-27 09:10 | disposition home or self-care (01) ==
LOC: HO.HMGCLDS 09:09
PROVIDERS: Absent Provider Clinical Nurse Specialist Psychiatric/Mental Health, Child & Adolescent; PCP Nurse Practitioner Family; Visit Provider Nurse Practitioner Family
DX: Z51.81 Encounter for therapeutic drug level monitoring (principal); Z79.899 Other long term (current) drug therapy
CPT/HCPCS: 36415; 80048; 80061; 80178; 84439; 84443; 85025

== ENCOUNTER 2021-05-06 07:00 | Outpatient (REF) | payer OTHER, SELFPAY ==
[2021-05-06 11:32] LABS: Appearance Urine CLEAR; Color Urine DK YELLOW; Glucose Urine UA NEG (NEG); Leukocyte Esterase Urine NEG (NEG); Nitrite Urine NEG (NEG); Specific Gravity - Urine 1.025 (1.005-1.025); Urine Blood NEG (NEG); Urine Ketones NEG (NEG); Urine Protein TRACE MG/DL (NEG-TRACE)
[2021-05-06 12:02] LABS: Mucus Urine 4+ /LPF; RBC Urine 0 /HPF (0); Sperm Urine NOTED; Squamous Epithelial Cell Urine 3+ /LPF
[2021-05-06 12:33] LABS: Prostate Specific Antigen Scr 1.07 ng/mL (<0.05-4.0)
[2021-05-06 12:59] LABS: Alanine Aminotransferase 52 U/L (0-40); Albumin Level 4.5 g/dL (3.5-5.0); Alkaline Phosphatase 154 U/L (39-117); Anion Gap 11 (12-20); Aspartate Amino Transferase 32 U/L (5-37); Bilirubin Total 1.3 mg/dL (0.0-1.0); Blood Urea Nitrogen 12 mg/dL (9-16); Calcium 9.6 mg/dL (8.4-10.2); Carbon Dioxide 27 mmol/L (22-29); Chloride 105 mmol/L (96-108); Cholesterol 203 mg/dL; Estimated Glomerular Filt Rate > 60; Glucose Random 119 mg/dL (60-115); HDL Cholesterol 53 mg/dL; LDL Cholesterol Calculated 120 mg/dl; Potassium 4.1 mmol/L (3.3-5.1); Sodium 139 mmol/L (135-145); Total Protein 7.5 g/dL (6.5-8.0); Triglycerides 154 mg/dL
== END 2021-05-06 07:01 | disposition home or self-care (01) ==
LOC: HO.HMGCLDS 07:00
PROVIDERS: PCP Nurse Practitioner Family; Visit Provider Nurse Practitioner Family
DX: Z12.5 Encounter for screening for malignant neoplasm of prostate (principal); R07.9 Chest pain, unspecified; R35.0 Frequency of micturition; E78.5 Hyperlipidemia, unspecified
CPT/HCPCS: 36415; 80053; 80061; 81001; 84153; 87086

== ENCOUNTER → 2021-06-24 07:17 | Outpatient (REF) | payer OTHER, SELFPAY ==
--- NOTE | 2021-06-24 07:24 | CA_ITS ---
Acquisition Time: 2021-06-24 08:06:39 Total Exercise Time: 00:08:25 Test Indications: CP Medications: SEE CHART Protocol: MICHELLE Max HR: 171 BPM 97% of Pred: 176 BPM Max BP: 198/068 mmHG Max Work Load: 10.1 METS Exercise stress test with exercise 8 min 25 sec of Michelle protocol, with moderate shortness of breath, with 1/10 left chest pressuree at baseline which did not change with exercise, with report of left shoulder discomfort with arm movement ( chronic left shoulder issues) without arrythmia, with normotensive response to exercise, without EKG changes meeting criteria for ischemia. In recovery his breathing improved to baseline normal. Test reviewed with Dr Fallon. Referred By: Ashish Rachel Overread By: MELIZA FERNANDEZ
--- NOTE | 2021-06-24 07:24 | HM_ITS ---
* Total monitoring time 3 days and 20 hours. * Underlying rhythm is sinus. Average rate 89/Min. Range 46 to 152/Min. About 30% of the time, rate greater than 100/Min. * Transient AV block during sleep hours. * Rare supraventricular/ventricular ectopy with minimal burden. * No patient events. MTDD
== END ==
LOC: HO.CARD 07:17
PROVIDERS: PCP Nurse Practitioner Family; Visit Provider Nurse Practitioner Family
DX: R07.9 Chest pain, unspecified (principal)
CPT/HCPCS: 93017; 93242

== ENCOUNTER → 2021-11-17 10:03 | Outpatient (BNVA) | payer OTHER, SELFPAY | PROVIDERS: PCP Nurse Practitioner Family; Referring Provider Nurse Practitioner Family; Visit Provider Internal Medicine Cardiovascular Disease | DX: R07.89 Other chest pain (principal); R06.02 Shortness of breath | CPT/HCPCS: 99202 ==

== ENCOUNTER 2021-12-11 06:40 | Outpatient (REF) | payer OTHER, SELFPAY ==
[2021-12-11 11:22] LABS: Appearance Urine Clear; Color Urine Yellow; Glucose Urine UA Negative (Negative); Leukocyte Esterase Urine Negative (Negative); Nitrite Urine Negative (Negative); Specific Gravity - Urine 1.015 (1.005-1.025); Urine Blood Negative (Negative); Urine Ketones Negative (Negative); Urine Protein Negative (Neg-Trace)
[2021-12-11 11:27] LABS: MANUAL DIFF FLAG NO
[2021-12-11 11:47] LABS: Basophils Absolute Auto 0.1 X10*3/uL (0.0-0.2); Basophils Percent Auto 0.9 % (0-2); Eosinophils Absolute Auto 0.5 X10*3/uL (0.0-0.4); Eosinophils Percent Auto 5.5 % (0-4); Hematocrit 40.5 % (42.0-52.0); Hemoglobin 13.1 g/dl (14.0-18.0); Imm Gran Abs Auto 0.03 X10*3/uL (0.00-0.03); Imm Gran Pct Auto 0.4 % (0.0-0.4); Lymphocytes Absolute Auto 2.5 X10*3/uL (1.2-4.9); Mean Corpuscular HGB Conc 32.3 g/dl (31.0-36.0); Mean Corpuscular Hemoglobin 28.8 pg (27.0-33.0); Mean Platelet Volume 9.2 fL (9.4-12.4); Monocytes Absolute Auto 0.7 X10*3/uL (0.1-1.2); Monocytes Percent Auto 8.8 % (2-11); Neutrophils Absolute Auto 4.5 x10*3/uL (2.0-8.3); Neutrophils Percent Auto 54.4 % (45-73); Platelet Count 307 X10*3/uL (160-400); Red Blood Count 4.55 X10*6/uL (4.60-5.80); Red Cell Distribution Width 12.9 % (11.0-16.0); White Blood Count 8.2 X10*3/uL (4.8-10.8)
[2021-12-11 12:24] LABS: TSH reflex Free T4 1.23 uIU/mL (0.32-4.0)
[2021-12-11 12:30] LABS: Alanine Aminotransferase 28 U/L (0-40); Albumin Level 4.2 g/dL (3.5-5.0); Alkaline Phosphatase 102 U/L (39-117); Anion Gap 15 (12-20); Aspartate Amino Transferase 20 U/L (5-37); Bilirubin Total 0.4 mg/dL (0.0-1.0); Blood Urea Nitrogen 19 mg/dL (9-16); Calcium 9.1 mg/dL (8.4-10.2); Carbon Dioxide 24 mmol/L (22-29); Chloride 106 mmol/L (96-108); Cholesterol 201 mg/dL; Estimated Glomerular Filt Rate > 60; Glucose Fasting 141 mg/dL (60-99); HDL Cholesterol 43 mg/dL; LDL Cholesterol Calculated 119 mg/dl; Potassium 4.2 mmol/L (3.3-5.1); Sodium 141 mmol/L (135-145); Total Protein 6.8 g/dL (6.5-8.0); Triglycerides 196 mg/dL
== END 2021-12-11 06:41 | disposition home or self-care (01) ==
LOC: HO.HMGCLDS 06:40
PROVIDERS: PCP Nurse Practitioner Family; Visit Provider Nurse Practitioner Family
DX: Z00.00 Encounter for general adult medical examination without abnormal findings (principal)
CPT/HCPCS: 36415; 80053; 80061; 81003; 84443; 85025

== ENCOUNTER → 2021-12-11 07:45 | Outpatient (REF) | payer OTHER, SELFPAY ==
--- NOTE | 2021-12-11 07:48 | CA_ITS ---
Transthoracic Echocardiogram Patient (Last, First, Middle): Roel Alegria, Gender: Male Date of : 1975 Age: 46 Procedure Date: 12/11/2021 Procedure Type: Transthoracic Echocardiogram Location: OP Height: 165.1 cm Weight: 98.88 kg BSA: 2.05 m2 Heart Rate: 77 bpm BP: 124 / 70 mmHg Time Motion Analyst: Referring MD: Kalpesh Purdy MD Symptoms: R06.02 - Shortness of breath Study Quality: Fair ECG Rhythm: Sinus Conclusions: - The left ventricular systolic function is normal. The visually estimated ejection fraction is between 55-60% (in some views, appears low normal). - No obvious valvular pathology seen on this study. Findings Left Ventricle Normal left ventricular cavity size. There is normal left ventricular wall thickness. The left ventricular systolic function is normal. The visually estimated ejection fraction is between 55-60%. There is no evidence of regional wall motion abnormalities. Diastolic function is normal for age. There is mild septal asymmetric hypertrophy. LV peak GLS -17.1%. Right Ventricle Normal right ventricular cavity size and systolic function. Atria Both atria are normal in size. Aortic Valve There is a normal trileaflet aortic valve. There is no aortic valve stenosis. There is no aortic valve regurgitation. Mitral Valve The mitral valve appears normal. There is no mitral valve regurgitation. There is no mitral valve stenosis. Pulmonic Valve The pulmonic valve is likely normal. Tricuspid Valve Normal tricuspid valve structure. There is trace tricuspid valve regurgitation. There is no evidence of pulmonary hypertension. Great Vessels The asc aorta is normal in size. Venous The inferior vena cava is normal in size and collapses greater than 50% with inspiration. Pericardium/Pleural There is no evidence of pericardial effusion. Prior Study Comparison No prior study available for comparison. Recommendations, Care & Conclusions No obvious valvular pathology seen on this study. Measurements 2D Linear Measurements IVSd: 1.05 0.6-0.9/0.6-1.0 cm LVIDd: 4.71 3.9-5.3/4.2-5.9 cm LVIDd Index: 2.30 2.4-3.2/2.2-3.1 cm/m2 LVIDs: 2.90 2.0-3.6 cm LVPWd: 0.98 0.7-1.1 cm Ao Root: 3.30 2.1-3.5 cm LA Diam: 3.80 2.7-3.8/3.0-4.0 cm LAIDs Index: 1.85 1.5-2.3 cm/m2 LV Mass: 209.20 67-162/88-224 g LV Mass Index: 102.05 43-95/49-115 g/m2 LVOT Diam: 2.30 3.0+(-)1.3 cm 2D Systolic Function EF 4C: 48.90 >55% EF 2C: 55.00 >55% EF BiP: 50.60 >55% Mitral Valve MV Pk E: 0.93 MV PK A: 0.58 MV Decel Time: 187.00 E/A: 1.60 E'Lateral: 14.90 E'Medial: 9.36 E/E' Med: 9.90 E/E' Lat: 6.20 PHT: 55.00 MVA PHT: 4.00 Decel [place]: 4.98 Aortic Valve AoV Pk Que: 1.38 AoV Mn Que: 0.84 AoV VTI: 0.28 AoV Pk Grad: 8.00 Aov Mn Grad: 4.00 SHAWN Cont.VTI: 2.27 LVOT LVOT Pk Que: 0.72 LVOT Mn Que: 0.46 LVOT VTI: 0.15 LVOT Pk Grad: 2.00 LVOT Mn Grad: 1.00 LVOT Diam: 2.30 LVOT Area: 4.15 Diastolic Function MV Pk E: 0.93 MV Pk A: 0.58 E/A: 1.60 E'Medial: 9.36 E/E' Med: 9.90 E' Laterial: 14.90 E/E' Lat: 6.20 Right Ventricle TAPSE (mm): 25.00 TVS' Que: 12.00 Tricuspid Valve TR Pk Que: 2.16 TR Pk Grad: 19.00 RA Press: 3.00 Great Vessels Aorta Ao Root-2D: 3.30 2.0-3.7 cm Ao Asc: 3.10 2.1-3.4 cm Pulmonary Valve PV Pk Que: 1.26 Peak PV Grad: 6.00 Updated in Other Vendor System with Status of Final Yovany Fallon MD electronically signed on 12/12/2021 10:16:38 AM with status of Final
== END ==
LOC: HO.CARD 07:45
PROVIDERS: PCP Nurse Practitioner Family; Visit Provider Internal Medicine Cardiovascular Disease
DX: R06.02 Shortness of breath (principal)
CPT/HCPCS: 93306; 93356

== ENCOUNTER → 2022-01-12 13:04 | Outpatient (BNVA) | payer OTHER, SELFPAY | PROVIDERS: PCP Nurse Practitioner Family; Referring Provider Nurse Practitioner Family; Visit Provider Nurse Practitioner Family | DX: R07.89 Other chest pain (principal); R06.02 Shortness of breath; E78.5 Hyperlipidemia, unspecified; Z79.899 Other long term (current) drug therapy | CPT/HCPCS: 99212 ==

== ENCOUNTER 2022-03-23 08:20 | Outpatient (REF) | payer OTHER, SELFPAY ==
[2022-03-23 11:49] LABS: Estimated Average Glucose 140 mg/dL; Hemoglobin A1c % 6.5 %
[2022-03-23 11:50] LABS: Alanine Aminotransferase 26 U/L (0-40); Albumin Level 4.2 g/dL (3.5-5.0); Alkaline Phosphatase 111 U/L (39-117); Anion Gap 12 (12-20); Aspartate Amino Transferase 22 U/L (5-37); Bilirubin Total 0.7 mg/dL (0.0-1.0); Blood Urea Nitrogen 15 mg/dL (9-16); Carbon Dioxide 25 mmol/L (22-29); Chloride 108 mmol/L (96-108); Estimated Glomerular Filt Rate > 60; Gamma Glutamyl Transpeptidase 153 U/L (11-51); Glucose Fasting 125 mg/dL (60-99); Glucose Random 124 mg/dL (60-115); Potassium 4.5 mmol/L (3.3-5.1); Sodium 140 mmol/L (135-145); Total Protein 6.5 g/dL (6.5-8.0)
[2022-03-23 12:08] LABS: TSH reflex Free T4 0.71 uIU/mL (0.32-4.0)
[2022-03-24 05:03] LABS: HBc Num1 0.05 S/CO (0.00-0.79); HBsAGNum1 0.17 S/CO (0.00-0.99); Hepatitis A Antibody IgM 0.18 Index (0-0.79); Hepatitis B Core Antibody Nonreactive (Nonreactive); Hepatitis B Surface Antigen Negative (Negative); ~HepC Num1 0.07 S/CO (0.00-0.79); ~Hepatitis A Antibody IgM Nonreactive (Nonreactive); ~Hepatitis B Surface Antibody NONREACTIVE (Nonreactive); ~Hepatitis C Antibody Nonreactive (Nonreactive)
== END 2022-03-23 08:21 | disposition home or self-care (01) ==
LOC: HO.HMGCLDS 08:20
PROVIDERS: PCP Nurse Practitioner Family; Visit Provider Nurse Practitioner Family
DX: R74.8 Abnormal levels of other serum enzymes (principal); R73.01 Impaired fasting glucose
CPT/HCPCS: 36415; 80053; 82977; 83036; 84443; 86704; 86706; 86709; 86803; 87340

== ENCOUNTER 2022-08-17 08:46 | Outpatient (AMB) | payer OTHER, SELFPAY ==
--- NOTE | 2022-08-17 08:50 | MHC.OFFWIV ---
Intake Vital Signs 08/17/22 08:53 BP 120/80 Blood Pressure Location Rt brachial Position Sitting Pulse 78 Pulse Source Pulse Oximeter Pulse Oximetry (%) 97 Oxygen Delivery Method Room Air Intake Visit Reasons: EST/left shoulder pain(lobby) Intake Note: Patient here for left shoulder pain, is unable to move certain ways like getting dressed. No known injury. Patient Tobacco Use Status: Current everyday Tobacco user Allergies trazodone [TRAZODONE] Allergy (Severe, Verified 08/17/22 09:42) SHORTNESS OF BREATH, anaphylaxis Medication List - Last Reconciled 08/17/22 by Tyler Durant MD atomoxetine 40 mg PO BID atorvastatin 20 mg PO DAILY 90 days blood sugar diagnostic (FreeStyle Lite Strips) Use to check blood sugar twice daily: fasting and random, and prn for s/s hypo/hyperglycemia blood-glucose meter (FreeStyle Lite Meter kit) Use to check blood sugar twice daily: fasting and random, and prn for s/s hypo/hyperglycemia clonidine HCl 0.1 mg PO BID dextroamphetamine-amphetamine 20 mg ER (Adderall XR) 1 cap PO DAILY escitalopram oxalate 20 mg PO QAM lamotrigine 25 mg PO DAILY lamotrigine 100 mg PO DAILY lancets (BD Ultra Fine Lancets) Use to check blood sugar twice daily: fasting and random, and prn for s/s hypo/hyperglycemia lithium carbonate ER 450 mg PO BID omega-3 acid ethyl esters 1 cap PO BID 30 days sildenafil 25 mg PO DAILY PRN Do you need a note to return to daycare/school/sports/work: No HPI EST/left shoulder pain(lobby) HPI Details 47-year-old male presents to the office for a sick visit. Patient is complaining of sharp pain in the left arm since yesterday. He has limited range of motion at the shoulder. Does not recall any fall or injury. Patient reports he did heavy work including lifting a week ago. [facility] Medical History ADHD Bipolar 1 disorder Bipolar 2 disorder, major depressive episode Bleeding hemorrhoids Depression Diverticulosis GERD (gastroesophageal reflux disease) Hemorrhoids, internal, with bleeding Iron deficiency anemia due to chronic blood loss Moderate cocaine use disorder in controlled environment Substance abuse Surgical History H/O hemorrhoidectomy History of esophagogastroduodenoscopy (EGD) Hx of colonoscopy No pertinent past surgical history Family History Father No problems noted. Mother No problems noted. Maternal Grandmother Colon cancer Daughter No problems noted. Social History Household Members: Significant Other Household Members Other:: GIRLFRIEND Housing: House Do you presently have visiting nurse or other home services: No Alcohol intake: current Alcohol intake frequency: does not drink Patient Tobacco Use Status: Current everyday Tobacco user Tobacco use type: Cigar Cigarette Packs Per Day: 0 Years Smoked: 10 e-Cigarette/Vaping Use: Never Used Second Hand Smoke Exposure: No Substance Use Type: Crack/Cocaine and Marijuana service: No Current occupational status: employed Current occupation: [employer] Current occupational exposures/hazards: No Sexual orientation: Straight/Heterosexual Cognitive needs: No Hearing needs: No Vision needs: No Physical Exam Vital Signs: Last Vital Signs Pulse 78 08/17/22 08:53 BP 120/80 08/17/22 08:53 Pulse Ox 97 08/17/22 08:53 Oxygen Delivery Method Room Air 08/17/22 08:53 Extrem Other: Left shoulder: There is a loss of curvature of deltoid muscle. Unable to abduct greater than 20 degrees. Full adduction. Pain on internal and external rotation. Assessment & Plan Assessment & Plan (1) Sprain of left shoulder joint: Code(s): S43.402A - Unspecified sprain of left shoulder joint, initial encounter Plan: X-ray images were reviewed by me. Scapula appears to be slightly elevated. Arm sling and meloxicam, cyclobenzaprine provided. Orders: Orders XR shoulder LT min 2V Today S43.402A - Unspecified sprain of left shoulder joint, initial encounter Coding Level of Care Code Est Pt Level 4 (40547) Diagnoses Sprain of left shoulder joint S43.402A
[2022-08-17 08:53] VITALS: BP 120/80; PULSE 78; O2SAT 97
== END 2022-08-17 10:30 | disposition home or self-care (01) ==
PROVIDERS: PCP Nurse Practitioner Family; Visit Provider Internal Medicine
DX: S43.402A Unspecified sprain of left shoulder joint, initial encounter (principal)
CPT/HCPCS: 99214

== ENCOUNTER 2022-08-17 09:22 | Outpatient (REF) | payer OTHER, SELFPAY ==
--- NOTE | ~2022-08-17 | XR_ITS ---
EXAMINATION: XR SHOULDER, LEFT CLINICAL INFORMATION: Sprain left shoulder COMPARISON: None available. TECHNIQUE: Three views of the left shoulder. FINDINGS: There is no visible acute fracture, dislocation or subluxation. The glenohumeral and AC joint space is preserved. A small inferior acromial spur which may be impinging on the left rotator cuff. XR/XR shoulder LT min 2V IMPRESSION: Small inferior acromial spur which may be impinging on the left rotator cuff. No visible acute fracture, dislocation or subluxation seen.
== END 2022-08-17 09:23 | disposition home or self-care (01) ==
LOC: HO.HMGCX 09:22
PROVIDERS: PCP Nurse Practitioner Family; Visit Provider Internal Medicine
DX: S43.402A Unspecified sprain of left shoulder joint, initial encounter (principal)
CPT/HCPCS: 73030

== ENCOUNTER 2023-04-19 08:51 | Outpatient (AMB) | payer OTHER, SELFPAY ==
[2023-04-19 08:54] VITALS: BMI 32.1
--- NOTE | 2023-04-19 08:54 | MHC.PC.OV ---
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: No Accompanied by: Self / Same As Patient Allergies trazodone [TRAZODONE] Allergy (Severe, Verified 04/19/23 08:55) SHORTNESS OF BREATH, anaphylaxis Medication List - Last Reconciled 04/19/23 by EVARISTO Arnold- atorvastatin 20 mg PO DAILY 90 days blood sugar diagnostic (FreeStyle Lite Strips) Use to check blood sugar twice daily: fasting and random, and prn for s/s hypo/hyperglycemia blood-glucose meter (FreeStyle Lite Meter kit) Use to check blood sugar twice daily: fasting and random, and prn for s/s hypo/hyperglycemia dextroamphetamine-amphetamine 20 mg ER (Adderall XR) 1 cap PO DAILY lamotrigine 25 mg PO DAILY lancets (BD Ultra Fine Lancets) Use to check blood sugar twice daily: fasting and random, and prn for s/s hypo/hyperglycemia omega-3 acid ethyl esters 1 cap PO BID 30 days Tobacco use date assessed: 04/19/23 Dental Screening Dental Screen Date: 04/19/23 Did you have a dental visit in the last 12 months?: Yes Did you have a dental problem in the last 6 months where you did not have access to dental care?: No Was dental information given to patient?: Patient has dentist HPI followup medications HPI Details Pt is a diabetic, on a statin. A1C in office today is 5.9. Due for microalbumin, will order. Denies polyuria, polydipsia, and neuropathy. Pt denies any signs and symptoms of hypoglycemia and does know how to correct it. Pt does not check his blood sugar. Will refer to nurse navigator for diabetes education. Pt reports a recent episode of chest discomfort and left arm/hand numbness. He admits to using cocaine at the time which he has since stopped. EKG today showed NSR. Educated pt on the dangers of cocaine use including cocaine induced TX or stroke. He also reports cervical neck pain with radicular symptoms down his left upper extremity. Will order XR. [facility], [facility] Medical History Substance abuse Bleeding hemorrhoids GERD (gastroesophageal reflux disease) Iron deficiency anemia due to chronic blood loss Diverticulosis Hemorrhoids, internal, with bleeding Bipolar 2 disorder, major depressive episode Moderate cocaine use disorder in controlled environment ADHD Bipolar 1 disorder Depression Surgical History H/O hemorrhoidectomy History of esophagogastroduodenoscopy (EGD) Hx of colonoscopy No pertinent past surgical history Family History Father No problems noted. Mother No problems noted. Maternal Grandmother Colon cancer Daughter No problems noted. Social History Household Members: Significant Other Household Members Other:: GIRLFRIEND Housing: House Do you presently have visiting nurse or other home services: No Alcohol intake: current Alcohol intake frequency: does not drink Comment: in bed, appears to be asleep Patient Tobacco Use Status: Current everyday Tobacco user Tobacco use type: Cigar Cigarette Packs Per Day: 0 Cigarettes Per Day: 3 Years Smoked: 10 e-Cigarette/Vaping Use: Never Used Second Hand Smoke Exposure: No Substance Use Type: Crack/Cocaine and Marijuana service: No Current occupational status: employed Current occupation: [employer] Current occupational exposures/hazards: No Sexual orientation: Straight/Heterosexual Cognitive needs: No Hearing needs: No Vision needs: No Questionnaire PHQ-9 Over the last 2 weeks, how often have you been bothered by any of the following problems? 1. Little interest or pleasure in doing things: not at all 2. Feeling down, depressed, or hopeless: not at all 3. Trouble falling or staying asleep, or sleeping too much: not at all 4. Feeling tired or having little energy: not at all 5. Poor appetite or overeating: not at all 6. Feeling bad about yourself - or that you are a failure or have let yourself or your family down: not at all 7. Trouble concentrating on things, such as reading the newspaper or watching television: several days 8. Moving or speaking so slowly that other people could have noticed. Or the opposite - being so fidgety or restless that you have been moving around a lot more than usual: not at all 9. Thoughts that you would be better off or of hurting yourself in some way: not at all Total score: 1 Depression Screening Interpretation: Negative Depression Screening Done: Yes 92746 - PHQ-9 Billing: Yes Source: Developed by Drs. Jared Burgos, Viridiana Jackman, Humphrey Tello and colleagues, with an educational ok from [employer]. Thrive Questionnaire Date Thrive assessed: 04/19/23 I am a: Patient What is your living situation today?: I have a steady place to live Within the past 12 months, did the food you bought not last and you didn't have the money to get more?: Never true Within the past 12 months, did you worry whether your food would run out before you got money to buy more?: Never true Do you have trouble paying for medicines?: No Do you have trouble getting transportation to medical appointments?: No Do you have trouble paying your heating and electricity bill?: No Do you have trouble taking care of your child, family member or friend?: No Do you have trouble with day-to-day activities such as bathing, preparing meals, shopping, managing finances, etc.?: No Are you currently unemployed and looking for a job?: No Are you interested in more education?: No Please select the resources that you would like help with: None Currently or been in a relationship where the following occur: no concerns reported THRIVE Score: 0 AUDIT C Alcohol Use Questionnaire (AUDIT-C) 1. How often do you have a drink containing alcohol?: Never 3. How often do you have six or more drinks on one occasion?: Never Total Score: 0 Score Reviewed/Action Taken: Yes GAETANO-7 AMB Questionnaire GAETANO-7 Date GAETANO - 7 assessed: 04/19/23 Feeling nervous, anxious, or on edge: 1 = Several days Not being able to stop or control worryin = Not at all Worrying too much about different things: 0 = Not at all Trouble relaxin = Not at all Being so restless that it is hard to sit still: 0 = Not at all Becoming easily annoyed or irritable: 2 = More than half the days Feeling afraid as if something awful might happen: 0 = Not at all Total GAETANO-7 score (0-4 normal; 5-9 mild; 10-14 moderate; 15-21 severe): 3 Source: Developed by Drs. Jared Burgos, Viridiana Jackman, Humphrey Tello and colleagues, with an educational ok from [employer]. GAETANO-7 Assessment Billing GAETANO-7 Assessment Tool: GAETANO-7 Assessment 16994 Physical exam (Primary Care) BMI result Body Mass Index 32.1 Tobacco/Smoking Status: Tobacco use Status Tobacco use date assessed 04/19/23 04/19/23 08:58 Patient Tobacco Use Status Current everyday Tobacco 04/19/23 08:58 Tobacco use type Cigar 04/19/23 08:58 e-Cigarette/Vaping Use Never Used 04/19/23 08:58 Depression Screening Interpretation: Negative Thrive Assessment: Date of Thrive Assessment Date Thrive assessed 04/28/21 04/19/23 08:58 Currently or been in a relationship where the following occur: no concerns reported Const General: cooperative Nutritional Appearance: obese Orientation/consciousness: patient oriented x3 Resp Effort & Inspection: normal respiratory effort Auscultation: clear to auscultation bilaterally Cardio Rate: regular rate Rhythm: regular rhythm Heart sounds: S1 normal heart sound present and S2 normal heart sound present Back/Spine/Pelvis Other: - spurlings, no change in pain with turning head side to side, chin tucks, or chin raises Neuro General: patient oriented x3 Extrem Other: bilat feet: + sensation with use of monofilament, feet intact Psych Appearance: grossly normal Mental Status: mental status grossly normal Speech and movement: Normal speech and movement present Affect: normal affect Attitude: cooperative Thought process: Normal thought process present Thought content: Normal thought content present Insight: Good insight present (Psych) Judgement: Good judgement present (Psych) Results AMB Hemoglobin A1c AMB Hemoglobin A1c 5.9 % Last Edit by Vel Hall CMA on 04/19/23 09:18 Results Reviewed Results Reviewed: Laboratory Last Values Hgb A1c (Clinic) 5.9 % (4.0-6.0) 04/19/23 09:18 Assessment and Plan Assessment & Plan (1) Diabetes: Code(s): E11.9 - Type 2 diabetes mellitus without complications Plan: Labs ordered, referred to nurse navigator (2) Chest pain: Code(s): R07.9 - Chest pain, unspecified Plan: EKG done in office (3) Cervical neck pain with evidence of disc disease: Code(s): M50.90 - Cervical disc disorder, unspecified, unspecified cervical region Plan The patient agreed to the use of a regional medical director for this encounter. Scribed for EVARISTO Mata- by Ashley Newby regional medical director, on 04/19/2023 at 09:05 EST. Orders: Orders Comprehensive [place]. Panel Fast Today E11.9 - Type 2 diabetes mellitus without complications TSH reflex Free T4 Today E11.9 - Type 2 diabetes mellitus without complications Lipid Panel Today E11.9 - Type 2 diabetes mellitus without complications XR cervical spine 2V Today M50.90 - Cervical disc disorder, unspecified, unspecified cervical region Complete Blood Count Auto Diff Today E11.9 - Type 2 diabetes mellitus without complications UA CC w/rflx Micro + Cult Today E11.9 - Type 2 diabetes mellitus without complications Microalbumin, Random (w Creat) Today E11.9 - Type 2 diabetes mellitus without complications AMB EKG-In Office Today F14.90 - Cocaine use, unspecified, uncomplicated, R07.9 - Chest pain, unspecified AMB Hemoglobin A1c Today Z13.9 - Encounter for screening, unspecified Referrals Nurse Navigator Referral E11.9 - Type 2 diabetes mellitus without complications Coding Level of Care Code Est Pt Level 3 (70260) Diagnoses Diabetes E11.9 Chest pain R07.9 Cervical neck pain with evidence of disc disease M50.90 Additional Codes GAETANO-7 Assessment Billing - GAETANO-7 Assessment Tool: GAETANO-7 Assessment 80869 ([id number])
== END 2023-04-19 09:34 | disposition home or self-care (01) ==
PROVIDERS: PCP Nurse Practitioner Family; Visit Provider Nurse Practitioner Family
DX: E11.9 Type 2 diabetes mellitus without complications (principal); R07.9 Chest pain, unspecified; M50.90 Cervical disc disorder, unspecified, unspecified cervical region
CPT/HCPCS: 83036; 93000; 99213

== ENCOUNTER 2023-04-19 09:35 | Outpatient (REF) | payer OTHER, SELFPAY ==
--- NOTE | ~2023-04-19 | XR_ITS ---
EXAMINATION: XR CERVICAL SPINE CLINICAL INFORMATION: Cervical disc disorder. COMPARISON: Chest radiographs of 04/01/2020 and dating back to 02/27/2017 TECHNIQUE: Three views of the cervical spine were obtained. FINDINGS: 3.5 mm nodule at the right lung apex appears more conspicuous and possibly increased in size and density compared with prior chest radiographs dating back to 03/07/2017, although these differences could also be attributable to technical differences. Dedicated radiograph of the chest recommended for further evaluation. Moderate multilevel cervical spondylosis with hypertrophic change and mild loss of disc space height notable at C2-C3 and C3-C4. XR/XR cervical spine 2V IMPRESSION: 1. Moderate multilevel cervical spondylosis. 2. A 3.5 mm nodule at the right lung apex appears more conspicuous and possibly increased in size and density compared with prior chest radiographs dating back to 03/07/2017, although these differences could also be attributable to technical differences. Dedicated radiograph of the chest recommended for further evaluation.
[2023-04-19 11:07] LABS: MANUAL DIFF FLAG NO
[2023-04-19 11:35] LABS: Basophils Absolute Auto 0.1 X10*3/uL (0.0-0.2); Basophils Percent Auto 0.8 % (0-2); Eosinophils Absolute Auto 0.5 X10*3/uL (0.0-0.4); Eosinophils Percent Auto 6.3 % (0-4); Hematocrit 43.6 % (42.0-52.0); Hemoglobin 14.5 g/dl (14.0-18.0); Imm Gran Abs Auto 0.02 X10*3/uL (0.00-0.03); Imm Gran Pct Auto 0.3 % (0.0-0.4); Lymphocytes Absolute Auto 2.4 X10*3/uL (1.2-4.9); Lymphocytes Percent Auto 34.3 % (20-40); Mean Corpuscular HGB Conc 33.3 g/dl (31.0-36.0); Mean Corpuscular Hemoglobin 29.4 pg (27.0-33.0); Mean Corpuscular Volume 88.4 fL (80.0-98.0); Mean Platelet Volume 8.9 fL (9.4-12.4); Monocytes Absolute Auto 0.6 X10*3/uL (0.1-1.2); Monocytes Percent Auto 8.9 % (2-11); Neutrophils Absolute Auto 3.5 x10*3/uL (2.0-8.3); Neutrophils Percent Auto 49.4 % (45-73); Platelet Count 323 X10*3/uL (160-400); Red Blood Count 4.93 X10*6/uL (4.60-5.80); Red Cell Distribution Width 13.1 % (11.0-16.0); White Blood Count 7.1 X10*3/uL (4.8-10.8)
[2023-04-19 12:22] LABS: Alanine Aminotransferase 27 U/L (0-40); Albumin Level 4.3 g/dL (3.5-5.0); Alkaline Phosphatase 93 U/L (39-117); Anion Gap 12 (12-20); Aspartate Amino Transferase 23 U/L (5-37); Bilirubin Total 0.4 mg/dL (0.0-1.0); Blood Urea Nitrogen 23 mg/dL (9-16); Calcium 9.3 mg/dL (8.4-10.2); Carbon Dioxide 27 mmol/L (22-29); Chloride 108 mmol/L (96-108); Cholesterol 187 mg/dL (<200); Estimated Glomerular Filt Rate > 60; Glucose Fasting 108 mg/dL (60-99); HDL Cholesterol 44 mg/dL (>40); LDL Cholesterol Calculated 106 mg/dL (<100); Potassium 4.1 mmol/L (3.3-5.1); Sodium 143 mmol/L (135-145); Total Protein 7.2 g/dL (6.5-8.0); Triglycerides 186 mg/dL (<150)
[2023-04-19 12:23] LABS: TSH reflex Free T4 1.03 uIU/mL (0.32-4.0)
[2023-04-19 13:19] LABS: Appearance Urine Clear; Color Urine Yellow; Glucose Urine UA Negative (Negative); Leukocyte Esterase Urine Negative (Negative); Nitrite Urine Negative (Negative); PH 5.5 (5.0-9.0); Specific Gravity - Urine >= 1.030 (1.005-1.025); Urine Blood Negative (Negative); Urine Ketones Negative (Negative); Urine Protein Negative (Neg-Trace)
[2023-04-19 14:13] LABS: Creatinine Urine 193.08 mg/dL; Microalbum/Creatinine Ratio Ur 3.6 ug/mg cr (<30)
== END 2023-04-19 09:36 | disposition home or self-care (01) ==
LOC: HO.HMGCX 09:35
PROVIDERS: PCP Nurse Practitioner Family; Visit Provider Nurse Practitioner Family
DX: E11.9 Type 2 diabetes mellitus without complications (principal); M50.90 Cervical disc disorder, unspecified, unspecified cervical region
CPT/HCPCS: 36415; 72040; 80053; 80061; 81003; 82043; 82570; 84443; 85025

== ENCOUNTER 2023-05-06 14:07 | Outpatient (REF) | payer OTHER, SELFPAY ==
--- NOTE | ~2023-05-06 | CT_ITS ---
STUDY: Unenhanced CT of the chest INDICATION: Solitary pulmonary nodule. COMPARISON: 03/22/2020 chest radiograph, 04/19/2023 cervical spine radiograph. Knee: Continuous helical imaging obtained through the chest without IV contrast. Reconstructed images performed in the coronal and sagittal planes. Maximum intensity projection axial images generated. High-resolution imaging also performed. This CT examination was performed using dose optimization techniques as appropriate, variously including the following: *Automated exposure control *Adjustment of mA and/or kV according to patient size (this includes techniques or standardized protocols for targeted exams where dose is matched to indication/reason for exam; i.e. extremities or head) *Use of iterative reconstruction technique TOTAL EXAM DLP: 179 mGy-cm FINDINGS: Reel Operator: 3 mm right upper lobe granuloma. Mildly elevated right hemidiaphragm. Airways and lungs: Trachea and bronchi are patent. 3 mm right apical calcified granuloma, 9:24. No suspicious lung nodules. No consolidations or groundglass opacities. Trace left lower lobe atelectasis. Mediastinum: Thyroid is unremarkable. Minor anterior mediastinal amorphous soft tissue density may be related to thymus. No mass identified. Nonspecific mediastinal lymph nodes, some calcified. No pathologic lymphadenopathy. Heart and great vessels. Nonenlarged heart. No pericardial effusion. Degree of coronary calcifications: None. Nonaneurysmal aorta. Nondilated pulmonary arteries. Axilla: No pathologic lymphadenopathy. Upper abdomen: Distended with filled stomach. Hypodensity adjacent to the falciform ligament likely focal fatty deposition. Decompressed gallbladder. Osseous structures: Degenerative changes. No suspicious lesions. CT/CT chest wo con - High Res IMPRESSION: Right upper lobe calcified nodule consistent with granuloma. Associated nonpathologically enlarged calcified mediastinal lymph nodes also support evidence of previous granulomatous disease. Amorphous anterior soft tissue density, likely residual thymic tissue. No suspicious anterior mediastinal masses or pathologic lymphadenopathy.
== END 2023-05-06 14:08 | disposition home or self-care (01) ==
LOC: HO.CT 14:07
PROVIDERS: PCP Nurse Practitioner Family; Visit Provider Nurse Practitioner Family
DX: R91.1 Solitary pulmonary nodule (principal)
CPT/HCPCS: 71250

== ENCOUNTER 2023-08-31 09:45 | Outpatient (AMB) | payer OTHER, SELFPAY ==
--- NOTE | 2023-08-31 09:53 | MHC.PC.OV ---
Vital Signs 08/31/23 09:54 Weight 198 lb BP 130/82 Blood Pressure Location Rt brachial Position Sitting Pulse 90 Pulse Source Pulse Oximeter Pulse Oximetry (%) 96 Oxygen Delivery Method Room Air Intake Visit Reasons: followup medications Intake Note: Patient here to discuss elbow pain that has been present for about 1 month. Allergies trazodone [TRAZODONE] Allergy (Severe, Verified 08/31/23 09:53) SHORTNESS OF BREATH, anaphylaxis Medication List - Last Reconciled 08/31/23 by EVA Arnold atorvastatin 20 mg PO DAILY 90 days blood sugar diagnostic (FreeStyle Lite Strips) Use to check blood sugar twice daily: fasting and random, and prn for s/s hypo/hyperglycemia blood-glucose meter (FreeStyle Lite Meter kit) Use to check blood sugar twice daily: fasting and random, and prn for s/s hypo/hyperglycemia dextroamphetamine-amphetamine 20 mg ER (Adderall XR) 1 cap PO DAILY lamotrigine 25 mg PO DAILY lancets (BD Ultra Fine Lancets) Use to check blood sugar twice daily: fasting and random, and prn for s/s hypo/hyperglycemia omega-3 acid ethyl esters 1 cap PO BID 30 days Tobacco use date assessed: 04/19/23 Dental Screening Dental Screen Date: 04/19/23 HPI followup medications HPI Details Pt is a diabetic, on a statin. Due for A1C, will order. Microalbumin is up to date. Denies polyuria, polydipsia, and neuropathy. Pt denies any signs and symptoms of hypoglycemia and does know how to correct it. Pt c/o right elbow pain. ? lateral epicondylitis. Recommended NSAIDS and tennis elbow brace. Pt c/o chest pain. He reports that this is intermittent and does not radiate. Will do an EKG in office. Pt reports never having an eye exam, will refer. [facility] Medical History Substance abuse Bleeding hemorrhoids GERD (gastroesophageal reflux disease) Iron deficiency anemia due to chronic blood loss Diverticulosis Hemorrhoids, internal, with bleeding Bipolar 2 disorder, major depressive episode Moderate cocaine use disorder in controlled environment ADHD Bipolar 1 disorder Depression Surgical History H/O hemorrhoidectomy History of esophagogastroduodenoscopy (EGD) Hx of colonoscopy No pertinent past surgical history Family History Father No problems noted. Mother No problems noted. Maternal Grandmother Colon cancer Daughter No problems noted. Social History Household Members: Significant Other Household Members Other:: GIRLFRIEND Housing: House Do you presently have visiting nurse or other home services: No Alcohol intake: current Alcohol intake frequency: does not drink Comment: in bed, appears to be asleep Patient Tobacco Use Status: Current everyday Tobacco user Tobacco use type: Cigar Cigarette Packs Per Day: 0 Cigarettes Per Day: 3 Years Smoked: 10 Packs Per Year: 0 Packs per year/per ci.50 e-Cigarette/Vaping Use: Never Used Second Hand Smoke Exposure: No Substance Use Type: Crack/Cocaine and Marijuana service: No Current occupational status: employed Current occupation: [employer] Current occupational exposures/hazards: No Sexual orientation: Straight/Heterosexual Cognitive needs: No Hearing needs: No Vision needs: No Questionnaire PHQ-9 Over the last 2 weeks, how often have you been bothered by any of the following problems? 1. Little interest or pleasure in doing things: several days Source: Developed by Drs. Jared Burgos, Viridiana Jackman, Humphrey Tello and colleagues, with an educational ok from [employer]. Thrive Questionnaire Date Thrive assessed: 04/19/23 I am a: Patient What is your living situation today?: I choose not to answer this question Within the past 12 months, did the food you bought not last and you didn't have the money to get more?: I choose not to answer this question Within the past 12 months, did you worry whether your food would run out before you got money to buy more?: I choose not to answer this question Do you have trouble paying for medicines?: I choose not to answer this question Do you have trouble getting transportation to medical appointments?: I choose not to answer this question Do you have trouble paying your heating and electricity bill?: I choose not to answer this question Do you have trouble taking care of your child, family member or friend?: I choose not to answer this question Do you have trouble with day-to-day activities such as bathing, preparing meals, shopping, managing finances, etc.?: I choose not to answer this question Are you currently unemployed and looking for a job?: I choose not to answer this question Are you interested in more education?: I choose not to answer this question Please select the resources that you would like help with: Housing/Snf Currently or been in a relationship where the following occur: I choose not to answer THRIVE Score: 0 AUDIT C Alcohol Use Questionnaire (AUDIT-C) 1. How often do you have a drink containing alcohol?: Never Total Score: 0 GAETANO-7 AMB Questionnaire GAETANO-7 Date GAETANO - 7 assessed: 04/19/23 Feeling nervous, anxious, or on edge: 3 = Nearly every day Not being able to stop or control worryin = Nearly every day Worrying too much about different things: 3 = Nearly every day Trouble relaxin = Nearly every day Being so restless that it is hard to sit still: 3 = Nearly every day Becoming easily annoyed or irritable: 3 = Nearly every day Feeling afraid as if something awful might happen: 3 = Nearly every day Total GAETANO-7 score (0-4 normal; 5-9 mild; 10-14 moderate; 15-21 severe): 21 Source: Developed by Drs. Jared Burgos, Viridiana Jackman, Humphrey Tello and colleagues, with an educational ok from [employer] Review of Systems Const Reports as per HPI Physical exam (Primary Care) Vital Signs: Last Vital Signs Pulse 90 08/31/23 09:54 BP 130/82 08/31/23 09:54 Pulse Ox 96 08/31/23 09:54 Oxygen Delivery Method Room Air 08/31/23 09:54 Tobacco/Smoking Status: Tobacco use Status Tobacco use date assessed 04/19/23 08/31/23 09:55 Patient Tobacco Use Status Current everyday Tobacco 08/31/23 09:55 Tobacco use type Cigar 08/31/23 09:55 e-Cigarette/Vaping Use Never Used 08/31/23 09:55 Thrive Assessment: Date of Thrive Assessment Date Thrive assessed 04/19/23 08/31/23 09:55 Currently or been in a relationship where the following occur: I choose not to answer Const General: cooperative Orientation/consciousness: patient oriented x3 Resp Effort & Inspection: normal respiratory effort Auscultation: clear to auscultation bilaterally Cardio Rate: regular rate Rhythm: regular rhythm Heart sounds: S1 normal heart sound present and S2 normal heart sound present Neuro General: patient oriented x3 Extrem Other: with RUE extended, wrist extension against resistance, tenderness noted to lateral epidondyle. Psych Appearance: grossly normal Mental Status: mental status grossly normal Speech and movement: Normal speech and movement present Affect: normal affect Attitude: cooperative Thought process: Normal thought process present Thought content: Normal thought content present Insight: Good insight present (Psych) Judgement: Good judgement present (Psych) Assessment and Plan Assessment & Plan (1) Diabetes: Code(s): E11.9 - Type 2 diabetes mellitus without complications (2) Lateral epicondylitis of elbow: Code(s): M77.10 - Lateral epicondylitis, unspecified elbow Plan: short duration of NSAIDs and tennis elbow brace (3) Chest pain: Code(s): R07.9 - Chest pain, unspecified Plan The patient agreed to the use of a medical scientific officer for this encounter. Scribed for EVARISTO Mata- by Ashley Newby medical scientific officer, on 08/31/2023 at 10:00 EST. Orders: Orders TSH reflex Free T4 Today E11.9 - Type 2 diabetes mellitus without complications UA CC w/rflx Micro + Cult Today E11.9 - Type 2 diabetes mellitus without complications Lipid Panel Today E11.9 - Type 2 diabetes mellitus without complications Hemoglobin A1c Today E11.9 - Type 2 diabetes mellitus without complications AMB EKG-In Office Today R07.9 - Chest pain, unspecified Complete Blood Count Auto Diff Today E11.9 - Type 2 diabetes mellitus without complications Comprehensive [place]. Panel Fast Today E11.9 - Type 2 diabetes mellitus without complications Microalbumin, Random (w Creat) Today E11.9 - Type 2 diabetes mellitus without complications Referrals Ophthalmology Referral E11.9 - Type 2 diabetes mellitus without complications Medications: Refilled atorvastatin 20 mg PO DAILY 90 tabs 1RF 90 days Coding Level of Care Code Est Pt Level 3 (91401) Diagnoses Diabetes E11.9 Lateral epicondylitis of elbow M77.10 Chest pain R07.9
[2023-08-31 09:54] VITALS: BP 130/82; PULSE 90; O2SAT 96
== END 2023-08-31 10:54 | disposition home or self-care (01) ==
PROVIDERS: PCP Nurse Practitioner Family; Visit Provider Nurse Practitioner Family
DX: E11.9 Type 2 diabetes mellitus without complications (principal); M77.10 Lateral epicondylitis, unspecified elbow; R07.9 Chest pain, unspecified
CPT/HCPCS: 99213

== ENCOUNTER 2023-10-17 16:12 | Inpatient (IN) | payer OTHER, SELFPAY ==
--- NOTE | 2023-10-17 | ECG_ITS ---
Test Reason : chest pain Blood Pressure : / mmHG Vent. Rate : 100 BPM Atrial Rate : 100 BPM P-R Int : 158 ms QRS Dur : 092 ms QT Int : 334 ms P-R-T Axes : 078 047 027 degrees QTc Int : 430 ms Normal sinus rhythm Normal ECG When compared with ECG of 22-MAR-2020 08:58, No significant change was found Referred By: Generic ED Physician Electronically Signed By:ELLA MOE
--- NOTE | ~2023-10-17 | XR_ITS ---
EXAMINATION: XR CHEST CLINICAL INFORMATION: Chest pain. COMPARISON: Chest x-ray dated 03/22/2020. TECHNIQUE: 2 views of the chest were obtained. FINDINGS: The cardiomediastinal silhouette is within normal limits in size. Lungs bilaterally are symmetrically expanded and clear. No focal consolidation, effusion or pneumothorax is seen. Minimal spurring is seen in the mid thoracic spine. XR/XR chest 2V IMPRESSION: No acute cardiopulmonary process. Electronically signed by: Roxie Loyd MD 10/17/2023 05:40 PM EDT
--- NOTE | 2023-10-17 16:29 | ED_ITS ---
HPI - Overdose General Chief Complaint: Psychiatric Symptoms Stated Complaint: tried kill himself tool a bunch of pills chestpain Time Seen by Provider: 10/17/23 17:00 Source: patient Mode of arrival: ambulatory Limitations: no limitations History of Present Illness ED Provider: Dr. Chary Pompa HPI Narrative: Patient comes to the emergency room complaining of suicide attempt. Patient states that he took a bunch of pills that he found in his truck, does not know the name of the pills and does not know how many. Patient believes it may have been Adderall but not sure. Patient states he mixed it with cocaine. Patient states that there is a lot of bed things going on in his life, he recently lost his job, was kicked out of his house, has been homeless and has been living in his truck for 1 week. Patient denies homicidal ideation Related Data Home Medications ?Medication ?Instructions ?Recorded ?Confirmed dextroamphetamine-amphetamine ER 1 cap PO DAILY 11/03/21 08/31/23 20 mg 24hr capsule,extend release (Adderall XR) Previous Rx's ?Medication ?Instructions ?Recorded lamotrigine 25 mg tablet 25 mg PO DAILY #30 tabs 03/28/20 omega-3 acid ethyl esters 1 gram 1 cap PO BID 30 days #60 caps 10/03/21 capsule blood sugar diagnostic (FreeStyle #100 ea 04/16/22 Lite Strips) blood-glucose meter (FreeStyle #1 ea 04/16/22 Lite Meter kit) lancets 33 gauge (BD Ultra Fine #100 ea 04/16/22 Lancets) atorvastatin 20 mg tablet 20 mg PO DAILY 90 days #90 tabs 08/31/23 sildenafil 25 mg tablet 25 mg PO DAILY PRN sexual activity 09/22/23 #10 tabs Allergies Allergy/AdvReac Type Severity Reaction Status Date / Time trazodone [TRAZODONE] Allergy Severe SHORTNESS Verified 10/17/23 16:34 OF BREATH, anaphylaxis Review of Systems 2 Review of Systems: Constitutional : No Weight loss, No Fever, No Chills, No Night Sweats, No Fatigue, No Malaise ENT/Mouth : No Hearing loss, No Ear Pain, No Nasal Congestion, No Sinus Pain, No Hoarseness, No sore throat, No Rhinorrhea, No Swallowing Difficulty Eyes: No Eye Pain, No Swelling, No Redness, No Foreign Body, No Discharge, No Vision Changes Cardiovascular : No Chest Pain, No SOB, No Dyspnea on Exertion, No Orthopnea, No Edema, No Palpitations Respiratory : No Cough, No Sputum, No Wheezing, No Smoke Exposure, No Dyspnea Gastrointestinal : No Nausea, No Vomiting, No Diarrhea, No Constipation, No abdominal Pain, No Hematochezia, No Melena Genitourinary : no irregular bleeding, No Dysuria, No Urinary Frequency, No Hematuria, No Urinary Incontinence, No Urgency, No Flank Pain, No Urinary Flow Changes, No Hesitancy Musculoskeletal : No joint pain, No Myalgias, No Joint Swelling Skin : No Skin Lesions, No rash Neuro : No Weakness, No Numbness, No Paresthesias, No Loss of Consciousness, No Dizziness, No Headache Psych : Anxiety, depression, suicide attempt, no HI Heme/Lymph: No Bruising, No Bleeding,No Lymphadenopathy Endocrine : No Polyuria, No Polydipsia, No Temperature Intolerance PMFSH Past Medical History Medical History Substance abuse Bleeding hemorrhoids GERD (gastroesophageal reflux disease) Iron deficiency anemia due to chronic blood loss Diverticulosis Hemorrhoids, internal, with bleeding Bipolar 2 disorder, major depressive episode Moderate cocaine use disorder in controlled environment ADHD Bipolar 1 disorder Depression Surgical History H/O hemorrhoidectomy History of esophagogastroduodenoscopy (EGD) Hx of colonoscopy No pertinent past surgical history Family History Family History Father No problems noted. Mother No problems noted. Maternal Grandmother Colon cancer Daughter No problems noted. Social History Social History Household Members: Significant Other Household Members Other:: GIRLFRIEND Housing: House Do you presently have visiting nurse or other home services: No Alcohol intake: current Alcohol intake frequency: does not drink Comment: in bed, appears to be asleep Patient Tobacco Use Status: Current everyday Tobacco user Tobacco use type: Cigar Cigarette Packs Per Day: 0 Cigarettes Per Day: 3 Years Smoked: 10 e-Cigarette/Vaping Use: Never Used Second Hand Smoke Exposure: No Substance Use Type: Crack/Cocaine and Marijuana Advance Directives: No Advance Directives Information Provided: No Do you have a plan to hurt others: No Plan service: No Current occupational status: employed Current occupation: [employer] Current occupational exposures/hazards: No Sexual orientation: Straight/Heterosexual Cognitive needs: No Hearing needs: No Vision needs: No Physical Exam 2 Vital Signs: Vital Signs: Last Vital Signs Temp 98.4 F 10/17/23 16:30 Pulse 93 10/17/23 16:30 Resp 18 10/17/23 16:30 BP 149/93 H 10/17/23 16:30 Pulse Ox 98 10/17/23 16:30 O2 Del Method Room Air 10/17/23 16:30 BMI result Body Mass Index 32.4 Const: Other: Appearance: Alert. Oriented X3. No acute distress. Eyes: Pupils equal, round and reactive to light. ENT: Pharynx normal. Neck: Normal inspection. Neck supple. No lymph nodes noted. No crepitus CVS: Normal heart rate and rhythm. Pulses normal. Normal S1 and S2 Respiratory: No respiratory distress. Breath sounds normal. No Wheezing. No rales Abdomen: Soft and nontender. No rigidity. No distention. Skin: Skin warm and dry. Normal skin color. Normal skin turgor. Extremities: No lower extremity edema. No Lacerations. No Rash Neuro: Oriented X 3. No motor deficit. No sensory deficit. Moving all extremities. No slurred speech. CN 2 through 12 grossly intact Psych: calm, cooperative, normal affect Course Course Course Narrative: This is an RME: Additional HPI, ROS, PE not included below will be deferred to primary provider. RME assessment and note performed by: Rhina Villatoro PA-C This is a [id number]-male who presents to the ER with complaints of chest pain since this morning. Pt states that he tried to kill himself and used a bunch of cocaine and took alot of pills approximating maybe 10 prescription medications this morning. Unsure which medication. Reports hx of suicidal thoughts in the past. Charge nurse notified to bring pt back sherita Plan: Labs, EKG, further ER eval needed Medical Decision Making Medical Decision Making MDM Narrative: -my interpretation of EKG: Normal sinus rhythm, heart rate 100, no ST segment depression or elevation, no T-wave inversion, QTC 430 -my interpretation of labs: Normal hematology, normal chemistry, normal LFTs, troponin negative, urine toxicology positive for cocaine and marijuana, ETOH negative. Salicylate and Tylenol levels negative -patient is on a Section 12 -waiting to be seen by the care team -physician observation started at 17:55 Differential Diagnosis Differential Diagnoses: The differential diagnosis associated with the presentation includes (Anxiety, depression, suicidal ideation) Admission/Observation Consideration of admission/observation: Escalation of care including admission/observation considered (Patient attempted committing suicide, patient on a Section 12, will likely need inpatient level of care) Lab Data MDM Lab Attestation statement: I reviewed the patient's lab results. 10/17/23 16:44 10/17/23 16:44 Labs: Lab Results 10/17/23 Range/Units 16:44 WBC 10.6 (4.8-10.8) X10*3/uL RBC 4.78 (4.60-5.80) X10*6/uL Hgb 14.3 (14.0-18.0) g/dl Hct 42.1 (42.0-52.0) % MCV 88.1 (80.0-98.0) fL MCH 29.9 (27.0-33.0) pg MCHC 34.0 (31.0-36.0) g/dl RDW 12.4 (11.0-16.0) % Plt Count 297 (160-400) X10*3/uL MPV 8.7 L (9.4-12.4) fL Immature Gran % (Auto) 0.5 H (0.0-0.4) % Neut % (Auto) 71.4 (45-73) % Lymph % (Auto) 19.7 L (20-40) % Stanley % (Auto) 6.3 (2-11) % Eos % (Auto) 1.5 (0-4) % Baso % (Auto) 0.6 (0-2) % Lymph # (Auto) 2.1 (1.2-4.9) X10*3/uL Stanley # (Auto) 0.7 (0.1-1.2) X10*3/uL Eos # (Auto) 0.2 (0.0-0.4) X10*3/uL Baso # (Auto) 0.1 (0.0-0.2) X10*3/uL Abs Immat Gran (auto) 0.05 H (0.00-0.03) X10*3/uL Absolute Neuts (auto) 7.6 (2.0-8.3) x10*3/uL Absolute Nucleated RBC 0.000 (0.0-0.012) X10*3/uL Nucleated RBC % (auto) 0.0 (0.0-0.2) /100WBC Sodium 139 (135-145) mmol/L Potassium 3.8 (3.3-5.1) mmol/L Chloride 109 H (96-108) mmol/L Carbon Dioxide 23 (22-29) mmol/L Anion Gap 11 L (12-20) BUN 14 (9-16) mg/dL Creatinine 0.85 (0.5-1.4) mg/dL Estim Creat Clear Calc 110.9 Estimated GFR > 60 Random Glucose 114 (60-115) mg/dL Calcium 9.2 (8.4-10.2) mg/dL Magnesium 2.0 (1.6-2.6) mg/dL Total Bilirubin 0.4 (0.0-1.0) mg/dL AST 19 (5-37) U/L ALT 22 (0-40) U/L Alkaline Phosphatase 72 (39-117) U/L Troponin I High Sens < 2.7 (<3.5-35.0) ng/L Total Protein 7.2 (6.5-8.0) g/dL Albumin 4.4 (3.5-5.0) g/dL Salicylates < 5.0 L (15-30) mg/dL Urine Opiates Screen Not Detected (Not Detect) Ur Buprenorphine Scrn Not Detected (Not Detect) ng/mL Ur Oxycodone Screen Not Detected (Not Detect) ng/mL Urine Methadone Screen Not Detected (Not Detect) ng/mL Urine Fentanyl Screen Not Detected (Not Detect) Acetaminophen < 3 (<30) mcg/mL Ur Barbiturates Screen Not Detected (Not Detect) Ur Phencyclidine Scrn Not Detected (Not Detect) Ur Amphetamines Screen Not Detected (Not Detect) U Benzodiazepines Scrn Not Detected (Not Detect) Urine Cocaine Screen POSITIVE H (Not Detect) U Marijuana (THC) Screen POSITIVE H (Not Detect) Ethyl Alcohol < 10 mg/dL Independent Interpretation I performed an independent interpretation of an: EKG Critical Care Time Critical Care Time Critical Care Time: Yes Total Critical Care Time: 60 Attestation: I have personally provided critical care time. Time includes review of lab data, radiology results, discussion with consultants, and monitoring for potential decompensation. Intervention performed as documented. Discharge Plan Discharge Clinical Impression: Suicide attempt Patient Disposition: Still a Patient Prescriptions: No Action omega-3 acid ethyl esters 1 gram capsule 1 cap PO BID 30 Days Qty: 60 2RF (DME) FreeStyle Lite Strips Strip See Rx Instructions .Route Qty: 100 2RF Rx Instructions: Use to check blood sugar twice daily: fasting and random, and prn for s/s hypo/hyperglycemia (DME) blood-glucose meter [FreeStyle Lite Meter] Kit See Rx Instructions .Route Qty: 1 0RF Rx Instructions: Use to check blood sugar twice daily: fasting and random, and prn for s/s hypo/hyperglycemia (DME) lancets [BD Ultra Fine Lancets] 33 gauge misc See Rx Instructions .Route Qty: 100 2RF Rx Instructions: Use to check blood sugar twice daily: fasting and random, and prn for s/s hypo/hyperglycemia sildenafil 25 mg tablet 25 mg PO DAILY PRN (Reason: sexual activity) Qty: 10 4RF Rx Instructions: administer 30 minutes to 4 hours before activity lamotrigine 25 mg Tablet 25 mg PO DAILY Qty: 30 1RF dextroamphetamine-amphetamine [Adderall XR] 20 mg capsule,extended release 24hr 1 cap PO DAILY atorvastatin 20 mg tablet 20 mg PO DAILY 90 Days Qty: 90 1RF Print Language: Other
[2023-10-17 16:30] VITALS: BP 149/93; PULSE 93; RESP 18; TEMP 36.9; O2SAT 98; BMI 32.4
[2023-10-17 16:52] LABS: MANUAL DIFF FLAG NO
[2023-10-17 16:56] LABS: Basophils Absolute Auto 0.1 X10*3/uL (0.0-0.2); Basophils Percent Auto 0.6 % (0-2); Eosinophils Absolute Auto 0.2 X10*3/uL (0.0-0.4); Eosinophils Percent Auto 1.5 % (0-4); Hematocrit 42.1 % (42.0-52.0); Hemoglobin 14.3 g/dl (14.0-18.0); Imm Gran Abs Auto 0.05 X10*3/uL (0.00-0.03); Imm Gran Pct Auto 0.5 % (0.0-0.4); Lymphocytes Absolute Auto 2.1 X10*3/uL (1.2-4.9); Lymphocytes Percent Auto 19.7 % (20-40); Mean Corpuscular Hemoglobin 29.9 pg (27.0-33.0); Mean Corpuscular Volume 88.1 fL (80.0-98.0); Mean Platelet Volume 8.7 fL (9.4-12.4); Monocytes Absolute Auto 0.7 X10*3/uL (0.1-1.2); Monocytes Percent Auto 6.3 % (2-11); Neutrophils Absolute Auto 7.6 x10*3/uL (2.0-8.3); Neutrophils Percent Auto 71.4 % (45-73); Platelet Count 297 X10*3/uL (160-400); Red Blood Count 4.78 X10*6/uL (4.60-5.80); Red Cell Distribution Width 12.4 % (11.0-16.0); White Blood Count 10.6 X10*3/uL (4.8-10.8)
[2023-10-17 17:09] LABS: Amphetamine Screen Urine Not Detected (Not Detect); Barbiturates, Urine Not Detected (Not Detect); Benzodiazepines Screen Urine Not Detected (Not Detect); Buprenorphine Scr Not Detected (Not Detect); Cannabinoid Screen Urine POSITIVE (Not Detect); Cocaine Screen Urine POSITIVE (Not Detect); Fentanyl, urine Not Detected (Not Detect); Methadone Screen, Urine Not Detected (Not Detect); Opiate Screen Urine Not Detected (Not Detect); Oxycodone Screen Urine Not Detected (Not Detect); Phencyclidine Screen Urine Not Detected (Not Detect)
[2023-10-17 17:31] LABS: Alanine Aminotransferase 22 U/L (0-40); Albumin Level 4.4 g/dL (3.5-5.0); Alkaline Phosphatase 72 U/L (39-117); Anion Gap 11 (12-20); Aspartate Amino Transferase 19 U/L (5-37); Bilirubin Total 0.4 mg/dL (0.0-1.0); Blood Urea Nitrogen 14 mg/dL (9-16); Calcium 9.2 mg/dL (8.4-10.2); Carbon Dioxide 23 mmol/L (22-29); Chloride 109 mmol/L (96-108); Creatinine Clr Calc Pharmacy 110.9; Estimated Glomerular Filt Rate > 60; Ethanol < 10 mg/dL; Glucose Random 114 mg/dL (60-115); Potassium 3.8 mmol/L (3.3-5.1); Sodium 139 mmol/L (135-145); Total Protein 7.2 g/dL (6.5-8.0); Troponin-I High Sensitivity < 2.7 ng/L (<3.5-35.0)
[2023-10-17 17:34] LABS: Acetaminophen LAB < 3 mcg/mL (<30); Salicylate < 5.0 mg/dL (15-30)
--- NOTE | 2023-10-17 17:55 | ECG_ITS ---
Test Reason : REPEAT/OD? Blood Pressure : / mmHG Vent. Rate : 087 BPM Atrial Rate : 087 BPM P-R Int : 166 ms QRS Dur : 094 ms QT Int : 346 ms P-R-T Axes : 073 055 013 degrees QTc Int : 416 ms Normal sinus rhythm Normal ECG When compared with ECG of 17-OCT-2023 16:14, No significant change was found Referred By: Chary Pompa Electronically Signed By:ELLA MOE
[2023-10-17 18:13] VITALS: BP 121/77; PULSE 97; RESP 18; TEMP 36.6; O2SAT 98
--- NOTE | 2023-10-18 01:27 | PC.NURSE ---
patient escalated rather quickly and called t/w noel rincon after it was explained he may not leave. t/w pursued medications to help cllient sleep and thereafter client declined medication.
--- NOTE | 2023-10-18 05:21 | PC.NURSE ---
patient appearedto have broken sleep after declining requested medications
[2023-10-18] MEDS: Ibuprofen 600 MG TABLET PO (07:48)
--- NOTE | 2023-10-18 07:51 | PC.NURSE ---
Nursing Communication PT c/o neck pain. PA made aware with orders.
[2023-10-18 10:14] LABS: Appearance Urine Clear; Color Urine Yellow; Glucose Urine UA Negative (Negative); Leukocyte Esterase Urine Negative (Negative); Nitrite Urine Negative (Negative); Urine Blood Negative (Negative); Urine Ketones Negative (Negative); Urine Protein Trace mg/dL (Neg-Trace)
--- NOTE | 2023-10-18 11:00 | ECG_ITS ---
Test Reason : CHECK PROLONG QT Blood Pressure : / mmHG Vent. Rate : 084 BPM Atrial Rate : 084 BPM P-R Int : 156 ms QRS Dur : 104 ms QT Int : 342 ms P-R-T Axes : 051 018 020 degrees QTc Int : 404 ms Normal sinus rhythm Normal ECG When compared with ECG of 17-OCT-2023 18:15, No significant change was found Referred By: Bre Phillips Electronically Signed By:ELLA MOE
[2023-10-18] MEDS: LORazepam 1 MG TABLET 2 MG PO (11:04)
[2023-10-18] MEDS: LORazepam 0.5 MG TABLET PO (20:07)
--- NOTE | 2023-10-18 20:09 | PC.NURSE ---
Assumed care of pt at 1900. PT a/o. in no acute distress. reports some anxiety and requesting atvan. discussed with provider. Medications administered as per APR. Pt not eating in community area. Plan of care ongoing
[2023-10-18 22:00] VITALS: RESP 18
[2023-10-18] MEDS: lamoTRIgine 25 MG TABLET PO (22:05)
[2023-10-19] MEDS: LORazepam 1 MG TABLET 2 MG PO (00:59)
--- NOTE | 2023-10-19 01:05 | PC.NURSE ---
Pt requesting medications to help sleep. contacted provider for new order. Administered medication as per MAR
[2023-10-19 06:18] VITALS: RESP 16
--- NOTE | 2023-10-19 07:05 | PC.NURSE ---
report recieved from previous RN, patient resting comfortably on stretcher at this time, respirations even and unlabored, no complaints offered at this time
--- NOTE | 2023-10-19 07:11 | PC.NURSE ---
breakfast tray provided at this time
[2023-10-19] MEDS: Dextroamphetamine/Amphetamine XR 10 MG CAP.ER.24H PO (08:47)
[2023-10-19] MEDS: Atorvastatin Calcium 20 MG TABLET PO (08:47)
[2023-10-19] MEDS: Dextroamphetamine/Amphetamine XR 10 MG CAP.ER.24H 30 MG PO (08:47)
[2023-10-19] MEDS: lamoTRIgine 25 MG TABLET PO ×2 (08:48→21:26)
--- NOTE | 2023-10-19 10:38 | PC.NURSE ---
patient out of room ambulating in [place], appears in better spirits, plan of care ongoing, patient to go to unit today per bed control, awaiting bed placement.
[2023-10-19] MEDS: Dextroamphetamine/Amphetamine XR 10 MG CAP.ER.24H 20 MG PO (11:33)
--- NOTE | 2023-10-19 13:05 | PC.NURSE ---
patient belongings in bee
[2023-10-19 14:07] VITALS: BP 142/98; PULSE 120; RESP 18; TEMP 37.2; O2SAT 99
[2023-10-19 14:08] VITALS: BMI 31.9
--- NOTE | 2023-10-19 14:42 | PC.ADMIT ---
Pt arrived to the unit at 1317 via wheelchair. Skin check performed and was unremarkable, vitals obtained and pt completed CV w/ provider. During admission pt was visibly anxious, wringing his hands, shuffling feet, and eyes darting around room. Pt self presented to [facility] after ingesting 8-10 pills and consuming 4grams of cocaine in an attempt to end his life. Pt reports I don;t want to live anymore. I don't feel anything. I'm 48 years old what have I got to live for ? If there was a machine that would take my life, I'd be the first to sign up . 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 Pt was residing with her and is now homeless. He reports living in a vehicle but it was his ex's and he had to return it. Pt reports high depression, lack of sleep and poor appetite and continued thoughts of self harm. He is unsure if he can come to staff if feeling unsafe and was placed on 5min checks for safety. Pt has HX of inpt on M5 in 2020. Utox positive or marijuana and cocaine. Pt reports he has no current providers. PMH includes bipolar DO, ADHD, depression, gerd, diverticulitis, and hemorrhoids.
[2023-10-19] MEDS: hydrOXYzine HCL 25 MG TABLET PO (16:47)
--- NOTE | 2023-10-19 16:50 | PC.NURSE ---
pt reports he was being medicated by Dr Centeno a few years ago and was prescribed 5 or 6 medications that worked great. I was happy and doing well. People noticed a difference. I was working and wasn't all over the place Pt would like to start those medications if possible.
[2023-10-19 20:00] VITALS: BP 134/70; PULSE 110; RESP 16; TEMP 37.7; O2SAT 98
--- NOTE | 2023-10-20 03:24 | PC.NURSE ---
Patient signed a 3 day notice on 10/18 at approximately 2030; patient will leave on the morning of 10/23. Legal status changed. left with Chanell Link.
[2023-10-20 08:06] VITALS: BP 138/74; PULSE 72; RESP 16; TEMP 37.1; O2SAT 98
[2023-10-20 08:52] LABS: Estimated Average Glucose 128 mg/dL; Hemoglobin A1c % 6.1 % (<6.0)
[2023-10-20] MEDS: Dextroamphetamine/Amphetamine XR 10 MG CAP.ER.24H 30 MG PO (09:05)
[2023-10-20] MEDS: Dextroamphetamine/Amphetamine XR 10 MG CAP.ER.24H PO (09:05)
[2023-10-20] MEDS: Atorvastatin Calcium 20 MG TABLET PO (09:06)
[2023-10-20] MEDS: lamoTRIgine 25 MG TABLET PO (09:06)
[2023-10-20 09:07] LABS: Cholesterol 238 mg/dL (<200); HDL Cholesterol 47 mg/dL (>40); LDL Cholesterol Calculated 147 mg/dL (<100); Triglycerides 221 mg/dL (<150)
[2023-10-20] MEDS: Acetaminophen 325 MG TABLET 650 MG PO (09:18)
[2023-10-20 09:24] LABS: TSH reflex Free T4 1.06 uIU/mL (0.32-4.0)
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
--- NOTE | 2023-10-20 09:57 | PC.NURSE ---
pt reports tennis elbow (right elbow) is painful, rated 6/10 and states he normally wears a band around his upper forearm that helps alot to manage the pain. Tylenol given at pt request and provider EL notified via tiger text
[2023-10-20 11:45] VITALS: BMI 32.2
[2023-10-20 12:28] VITALS: BP 154/75
[2023-10-20] MEDS: cloNIDine HCL 0.1 MG TABLET PO ×2 (12:28→18:40)
--- NOTE | 2023-10-20 12:34 | MHC.CLN ---
RE: CONSULT HT 67 WT 191# (87.9KG ), BMI 32.2 OBESE PT IS 140% IBW INDICATES OBESE FOR HT CURRENT WT 87.9KG (10/20/23) PREVIOUS WT 90.2KG (04/19/23) PT WITH 3% NONSIGNIFICANT WT LOSS X 6 MONTHS REVIEWED LABS-UNREMARKABLE DIET RX: REGULAR-APPROPRIATE PO INTAKE GOOD PT IS LOW NUTRITION RISK CONTINUE CURRENT CARE PLAN
[2023-10-20] MEDS: Dextroamphetamine/Amphetamine XR 10 MG CAP.ER.24H 20 MG PO (13:09)
[2023-10-20 18:40] VITALS: BP 145/93
[2023-10-20] MEDS: hydrOXYzine HCL 25 MG TABLET PO (18:40)
[2023-10-20 20:00] VITALS: BP 136/87; PULSE 101; RESP 18; TEMP 36.9; O2SAT 98
[2023-10-20 20:14] LABS: Lamotrigine Lamictal <0.5 mcg/mL (2.5-15.0)
[2023-10-20] MEDS: lamoTRIgine 25 MG TABLET 50 MG PO (20:41)
[2023-10-20] MEDS: Lithium Carbonate ER 450 MG TABLET.ER 900 MG PO (20:41)
[2023-10-20] MEDS: OLANZapine 5 MG TABLET PO (20:43)
[2023-10-21 08:00] VITALS: BP 121/60; PULSE 74; RESP 16; TEMP 36.6; O2SAT 99
[2023-10-21] MEDS: Dextroamphetamine/Amphetamine XR 10 MG CAP.ER.24H 40 MG PO (09:13)
[2023-10-21] MEDS: lamoTRIgine 25 MG TABLET 50 MG PO ×2 (09:14→21:47)
[2023-10-21] MEDS: Atorvastatin Calcium 20 MG TABLET PO (09:14)
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
[2023-10-21] MEDS: Dextroamphetamine/Amphetamine XR 10 MG CAP.ER.24H 20 MG PO (13:12)
[2023-10-21 19:50] VITALS: BP 158/74; PULSE 118; RESP 16; TEMP 36.4; O2SAT 100
[2023-10-21] MEDS: QUEtiapine Fumarate 50 MG TABLET PO (21:47)
[2023-10-21] MEDS: cloNIDine HCL 0.1 MG TABLET PO (21:47)
[2023-10-21] MEDS: Lithium Carbonate ER 450 MG TABLET.ER 900 MG PO (21:47)
[2023-10-21] MEDS: Magnesium Hydrox/Alum Hydrox 30 ML ORAL.SUSP PO (22:32)
[2023-10-22 08:00] VITALS: BP 141/75; PULSE 92; RESP 18; TEMP 36.9; O2SAT 99
[2023-10-22] MEDS: Dextroamphetamine/Amphetamine XR 10 MG CAP.ER.24H 40 MG PO (09:34)
[2023-10-22] MEDS: lamoTRIgine 25 MG TABLET 50 MG PO ×2 (09:35→22:27)
--- NOTE | 2023-10-22 10:29 | HO.PSYCHPN ---
Subjective Subjective Date of Service: 10/22/23 Reason For Visit: Depression/SI Subjective Notes: Conditional Voluntary Healthcare Proxy: No Guardianship: No Medical Problems Affecting Mental Status: No Interim History: 48 yo in hospital due to si - s/p break up with gf, with whom he lives and works- Reported to do better on meds from which dr Mittal has restarted - lithium, with lamotrigine- he did not restart risperidone due to urinary hesitancy ? back then and pt told this provider he may be borderline diabetic- Dr Olson hoping lithium/lamotrigine combo might work for patient- however got prn of seroquel last pm for sleep and need mr x1 written for tonight. Later in day after bad phone call became agitated reporting si and was changed from 15 min checks to 5 min, given prn of olanzapine and all his night meds early- and went to room- Medication Compliance: Yes Side effects from medications: No Attending Groups: Intermittent Review of Systems Acute medical concerns: No though pt reports pcp says he is borderline diabetic Medical Review of Systems: unchanged Mental Status Exam Mental Status Exam Patient Appearance: Unkempt Patient Orientation: Person, Place and Situation Level of Consciousness: Awake and Alert Patient Behavior: Cooperative and Good Eye Contact Mood Description: Anxious Affect Description: Blunted Patient Cognition Impaired: No Ability to Follow Directions: Fair Speech Pattern: Clear Hallucinations: None Delusions: Not Present Thought Process: Intact and Goal Oriented Thought Content: positive for Suicidal Ideation Depressive Symptoms: Increased Anxiety and Difficulty Sleeping Judgement: Fair Diagnostics Vital Signs (24Hr): Vital Signs - 24 hr 10/21/23 19:50 Temperature 97.6 F Pulse Rate 118 H Respiratory Rate 16 Blood Pressure 158/74 H Pulse Oximetry 100 BMI result Body Mass Index 32.2 Labs 10/17/23 16:44 10/17/23 16:44 Labs: Laboratory Results - last 48 hr 10/17/23 16:44 Lamotrigine <0.5 L Imaging Radiology Impressions: ITS Impressions Chest X-Ray 10/17/23 16:33 IMPRESSION: No acute cardiopulmonary process. Electronically signed by: Roxie Loyd MD 10/17/2023 05:40 PM EDT Medications Medications Current Medications Acetaminophen (Acetaminophen 325 Mg Tablet) 650 mg PO Q6H PRN PRN Reason: Headache/Pain Mild Scale (1-3) Last Admin: 10/20/23 09:18 Dose: 650 mg Al Hydroxide/Mg Hydroxide (Magnesium Hydrox/Alum Hydrox 30 Ml Oral.Susp) 30 ml PO Q6H PRN PRN Reason: Heartburn/Nausea Last Admin: 10/21/23 22:32 Dose: 30 ml Amphetamine/Dextroamphetamine (Dextroamphetamine/Amphetamine Xr 10 Mg Cap.Er.24h) 20 mg PO DAILY@1200 ANDREA Last Admin: 10/21/23 13:12 Dose: 20 mg Amphetamine/Dextroamphetamine (Dextroamphetamine/Amphetamine Xr 10 Mg Cap.Er.24h) 40 mg PO DAILY ANDREA Last Admin: 10/22/23 09:34 Dose: 40 mg Atorvastatin Calcium (Atorvastatin Calcium 20 Mg Tablet) 20 mg PO BEDTIME ANDREA Clonidine HCl (Clonidine Hcl 0.1 Mg Tablet) 0.1 mg PO Q4H PRN; Protocol PRN Reason: anxiety Last Admin: 10/20/23 18:40 Dose: 0.1 mg Clonidine HCl (Clonidine Hcl 0.1 Mg Tablet) 0.1 mg PO BEDTIME ANDREA; Protocol Last Admin: 10/21/23 21:47 Dose: 0.1 mg Hydroxyzine HCl (Hydroxyzine Hcl 25 Mg Tablet) 25 mg PO Q6H PRN PRN Reason: Anxiety Last Admin: 10/20/23 18:40 Dose: 25 mg Lamotrigine (Lamotrigine 25 Mg Tablet) 50 mg PO BID [facility] Last Admin: 10/22/23 09:35 Dose: 50 mg [place] Carbonate ([place] Carbonate Er 450 Mg Tablet.Er) 900 mg PO BEDTIME [facility] Last Admin: 10/21/23 21:47 Dose: 900 mg Magnesium Hydroxide (Milk Of Magnesia 30 Ml Oral.Susp) 30 ml PO DAILY PRN PRN Reason: Constipation Nicotine (Nicotine 21 Mg Patch.Td24) 21 mg TRANSDERMA DAILY PRN PRN Reason: smoking cessation Nicotine Polacrilex (Nicotine Polacrilex 2 Mg Gum) 4 mg BUCCAL Q2H PRN PRN Reason: Nicotine Cravings Olanzapine (Olanzapine 5 Mg Tablet) 5 mg PO TID PRN PRN Reason: agitation Last Admin: 10/20/23 20:43 Dose: 5 mg Quetiapine Fumarate (Quetiapine Fumarate 50 Mg Tablet) 50 mg PO BEDTIME MRX1 ANDREA Allergies Allergies Allergy/AdvReac Type Severity Reaction Status Date / Time trazodone [TRAZODONE] Allergy Severe SHORTNESS Verified 10/21/23 14:32 OF BREATH Assessment & Plan Assessment & Plan (1) PTSD (post-traumatic stress disorder): Status: Acute Code(s): F43.10 - Post-traumatic stress disorder, unspecified (2) Cocaine use disorder: Status: Acute Code(s): F14.10 - Cocaine abuse, uncomplicated (3) Diabetes: Status: Acute Code(s): E11.9 - Type 2 diabetes mellitus without complications (4) Hyperlipidemia: Status: Acute Code(s): E78.5 - Hyperlipidemia, unspecified Plan Patient is a 48-year-old male with history of bipolar 1 disorder, PTSD, cocaine abuse who presents for ongoing depression and SI with hope that using cocaine would end his life. Patient reports that after past psychiatric admission at [facility] (2019 and 2020) he was started on medication regimen that helped his chronic depression. He took it for 2 years and said that it helped a lot but after his dog he got depressed and just stopped taking medications. Since then he has been depressed daily, with daily passive thoughts of wishing he were . Interspersed with this chronic depression, patient would have manic episodes that could last for several days and up to 2 weeks during which time he did not need sleep at all, was talking fast was irritable, engaged in excessive gambling and spending money he did not have, taking risky behaviors such as having sexual encounters with strangers; after such an episode he would have about of deeper depression. Patient reports increased stress since this past March after he [place] including 2 brothers and his parents; it has been difficult helping them adjust and taking care of them. Patient had a recent manic episode during which he gambled much of his money away and his girlfriend broke up with him and patient ended up homeless. Patient had been sober from cocaine for 2 years but in about of desperation, wishing he was , he took cocaine hoping he might have a heart attack. Patient then self presented to the hospital. Reports ongoing PTSD symptoms, flashbacks from trauma; denies any AVH; denies any other drug or alcohol abuse other than intermittent cannabis. Formulation/clinical reasoning: Patient has a history of manic episodes that have significantly impaired functioning and resulted in severe depression and needing hospitalization; will change diagnosis to bipolar type 1. Patient agrees to get back on past medication regimen that he found very helpful, which includes lithium; short story writer reviewed risks/side effects which patient understands and agrees to. Also agrees to increasing Lamictal as he used to be on higher dose. Will hold off on restarting Lexapro as patient reported sexual side effects; will also hold off on restarting Risperdal as lithium and Lamictal maybe adequate and effort made to avoid polypharmacy and patient did report some urinary hesitancy which may have been attributed to Risperdal. Freight Booker discussed elevated cholesterol and patient agrees to get back on atorvastatin which he was on before. Hospital course: 10/20 still depressed but improving; retracted 3 day; trouble sleeping and will try seroquel. 10/21- seroquel mr x1 but given olanzapine prn due to agiation with si after pcall tonight and put on 5min checks for now- CTP Plan: CV Q 15 minute checks Continue lithium ER 900 mg q.h.s.; patient used to be on 450 mg b.i.d. Will increase Lamictal to 50 mg b.i.d.; which was passed dose Adding Seroquel 50mg w/ prn for insomnia Hold off on restarting Lexapro and Risperdal for now Clonidine p.r.n. Atorvastatin 10 mg for hyperlipidemia Patient educated on: medication risk/benefits and therapeutic strategies Informed Consent: further education needed Reason for continued inpatient stay Substantial Risk for: harm to self and rapid decompensation Time Spent With Patient Time: Total time managing care of this patient today ____ minutes.
[2023-10-22] MEDS: Magnesium Hydrox/Alum Hydrox 30 ML ORAL.SUSP PO (10:46)
[2023-10-22] MEDS: Dextroamphetamine/Amphetamine XR 10 MG CAP.ER.24H 20 MG PO (14:13)
[2023-10-22] MEDS: bisacodyL 5 MG TABLET.DR PO (16:28)
[2023-10-22] MEDS: OLANZapine 5 MG TABLET PO (19:49)
[2023-10-22] MEDS: hydrOXYzine HCL 25 MG TABLET PO (19:49)
[2023-10-22] MEDS: QUEtiapine Fumarate 50 MG TABLET PO ×2 (19:49→20:55)
[2023-10-22 19:50] VITALS: BP 140/87
[2023-10-22] MEDS: cloNIDine HCL 0.1 MG TABLET PO ×2 (19:50→20:55)
[2023-10-22] MEDS: Atorvastatin Calcium 20 MG TABLET PO (19:50)
[2023-10-22] MEDS: Lithium Carbonate ER 450 MG TABLET.ER 900 MG PO (19:50)
--- NOTE | 2023-10-22 19:55 | PC.NURSE ---
Addendum entered by Alix Anderson RN 10/22/23 20:04: Provider Yarely Reardon agreed that 5 minute checks should be continued. Original Note: Patient is extremely agitated, slamming doors, stripping bed, pacing. Requested and received HS medications, including anti-anxiety meds. Patient endorsed SI, but stormed away before further assessment could be made. This property underwriter put the patient on 5 minute checks due to his SI, and have messaged Provider Yarely Jung.
[2023-10-22 20:00] VITALS: BP 140/87; PULSE 106; RESP 18; TEMP 36.6; O2SAT 99
[2023-10-22 20:55] VITALS: BP 140/87
[2023-10-22 20:56] VITALS: BP 145/85
[2023-10-22] MEDS: cloNIDine HCL 0.2 MG TABLET PO (20:56)
[2023-10-23 08:00] VITALS: BP 129/66; PULSE 95; RESP 16; TEMP 36.8; O2SAT 99
[2023-10-23] MEDS: Dextroamphetamine/Amphetamine XR 10 MG CAP.ER.24H 40 MG PO (09:09)
[2023-10-23] MEDS: lamoTRIgine 25 MG TABLET 50 MG PO (09:09)
[2023-10-23 09:11] VITALS: BP 129/66
[2023-10-23] MEDS: cloNIDine HCL 0.1 MG TABLET PO (09:11)
[2023-10-23] MEDS: Acetaminophen 325 MG TABLET 650 MG PO (09:12)
[2023-10-23 09:41] LABS: Estimated Average Glucose 128 mg/dL; Hemoglobin A1c % 6.1 % (<6.0)
--- NOTE | 2023-10-23 10:52 | P.PNPSI_ITS ---
Subjective Subjective Date of Service: 10/23/23 Reason For Visit: Depression/SI Subjective Notes: Conditional Voluntary Healthcare Proxy: No Guardianship: No Medical Problems Affecting Mental Status: No Interim History: 48 yo struggling with affect regulation had incident on phone last pm- doesn't want to discuss, says it was not about conflict with ex gf/work situation- Agrees today to rx for diabetes type 2 started metformin He agreed to inc lamotrigine- dosing- for mood stablity- and requested higher quetiapine even 100mg didn't quite help last pm and had to wait for 2nd dose- Later in day had another irritable eruption and refused prns telling nurse none of your meds are helping = Medication Compliance: Yes Side effects from medications: No Attending Groups: Intermittent Review of Systems Acute medical concerns: No elevated hba1c, and lipid profile- adjusted medical meds Medical Review of Systems: unchanged Mental Status Exam Mental Status Exam Patient Appearance: Well Grooomed and Appropriate Patient Orientation: Person, Place, Time and Situation Level of Consciousness: Awake and Alert Patient Behavior: Cooperative, Resistive to Care and Impulsive Behavior Comments: eruptions of mood varying with pleasant/cooperative Mood Description: Anxious Affect Description: Labile Speech Pattern: Clear Hallucinations: None Delusions: Not Present Thought Process: Intact and Goal Oriented Thought Content: positive for Intact and positive for Suicidal Ideation Depressive Symptoms: Increased Anxiety, Increased Irritability and Difficulty Sleeping Judgement: Fair Diagnostics Vital Signs (24Hr): Vital Signs - 24 hr 10/22/23 19:50 10/22/23 20:00 10/22/23 20:55 Temperature 97.8 F Pulse Rate 106 H Respiratory Rate 18 Blood Pressure 140/87 H 140/87 H 140/87 H Pulse Oximetry 99 Oxygen Delivery Method Room Air 10/22/23 20:56 10/23/23 08:00 10/23/23 09:11 Temperature 98.2 F Pulse Rate 95 Respiratory Rate 16 Blood Pressure 145/85 H 129/66 129/66 Pulse Oximetry 99 Oxygen Delivery Method BMI result Body Mass Index 32.2 Labs 10/17/23 16:44 10/17/23 16:44 Labs: Laboratory Results - last 48 hr 10/23/23 09:08 Estimat Average Glucose 128 Hemoglobin A1c % 6.1 H Imaging Radiology Impressions: ITS Impressions Chest X-Ray 10/17/23 16:33 IMPRESSION: No acute cardiopulmonary process. Electronically signed by: Roxie Loyd MD 10/17/2023 05:40 PM EDT RP Medications Medications Current Medications Acetaminophen (Acetaminophen 325 Mg Tablet) 650 mg PO Q6H PRN PRN Reason: Headache/Pain Mild Scale (1-3) Last Admin: 10/23/23 09:12 Dose: 650 mg Al Hydroxide/Mg Hydroxide (Magnesium Hydrox/Alum Hydrox 30 Ml Oral.Susp) 30 ml PO Q6H PRN PRN Reason: Heartburn/Nausea Last Admin: 10/22/23 10:46 Dose: 30 ml Amphetamine/Dextroamphetamine (Dextroamphetamine/Amphetamine Xr 10 Mg Cap.Er.24h) 20 mg PO DAILY@1200 ANDREA Last Admin: 10/22/23 14:13 Dose: 20 mg Amphetamine/Dextroamphetamine (Dextroamphetamine/Amphetamine Xr 10 Mg Cap.Er.24h) 40 mg PO DAILY ANDREA Last Admin: 10/23/23 09:09 Dose: 40 mg Atorvastatin Calcium (Atorvastatin Calcium 20 Mg Tablet) 20 mg PO BEDTIME ANDREA Last Admin: 10/22/23 19:50 Dose: 20 mg Clonidine HCl (Clonidine Hcl 0.1 Mg Tablet) 0.1 mg PO Q4H PRN; Protocol PRN Reason: anxiety Last Admin: 10/23/23 09:11 Dose: 0.1 mg Clonidine HCl (Clonidine Hcl 0.2 Mg Tablet) 0.2 mg PO BEDTIME ANDREA; Protocol Last Admin: 10/22/23 20:56 Dose: 0.2 mg Hydroxyzine HCl (Hydroxyzine Hcl 25 Mg Tablet) 25 mg PO Q6H PRN PRN Reason: Anxiety Last Admin: 10/22/23 19:49 Dose: 25 mg Lamotrigine (Lamotrigine 25 Mg Tablet) 50 mg PO BID ANDREA Last Admin: 10/23/23 09:09 Dose: 50 mg [place] Carbonate ([place] Carbonate Er 450 Mg Tablet.Er) 900 mg PO BEDTIME ANDREA Last Admin: 10/22/23 19:50 Dose: 900 mg Magnesium Hydroxide (Milk Of Magnesia 30 Ml Oral.Susp) 30 ml PO DAILY PRN PRN Reason: Constipation Nicotine (Nicotine 21 Mg Patch.Td24) 21 mg TRANSDERMA DAILY PRN PRN Reason: smoking cessation Nicotine Polacrilex (Nicotine Polacrilex 2 Mg Gum) 4 mg BUCCAL Q2H PRN PRN Reason: Nicotine Cravings Olanzapine (Olanzapine 5 Mg Tablet) 5 mg PO TID PRN PRN Reason: agitation Last Admin: 10/22/23 19:49 Dose: 5 mg Quetiapine Fumarate (Quetiapine Fumarate 50 Mg Tablet) 50 mg PO BEDTIME MRX1 ANDREA Last Admin: 10/22/23 20:55 Dose: 50 mg Allergies Allergies Allergy/AdvReac Type Severity Reaction Status Date / Time trazodone [TRAZODONE] Allergy Severe SHORTNESS Verified 10/21/23 14:32 OF BREATH Assessment & Plan Assessment & Plan (1) PTSD (post-traumatic stress disorder): Status: Acute Code(s): F43.10 - Post-traumatic stress disorder, unspecified (2) Cocaine use disorder: Status: Acute Code(s): F14.10 - Cocaine abuse, uncomplicated (3) Diabetes: Status: Acute Code(s): E11.9 - Type 2 diabetes mellitus without complications (4) Hyperlipidemia: Status: Acute Code(s): E78.5 - Hyperlipidemia, unspecified Plan Patient is a 48-year-old male with history of bipolar 1 disorder, PTSD, cocaine abuse who presents for ongoing depression and SI with hope that using cocaine would end his life. Patient reports that after past psychiatric admission at [facility] (2019 and 2020) he was started on medication regimen that helped his chronic depression. He took it for 2 years and said that it helped a lot but after his dog he got depressed and just stopped taking medications. Since then he has been depressed daily, with daily passive thoughts of wishing he were . Interspersed with this chronic depression, patient would have manic episodes that could last for several days and up to 2 weeks during which time he did not need sleep at all, was talking fast was irritable, engaged in excessive gambling and spending money he did not have, taking risky behaviors such as having sexual encounters with strangers; after such an episode he would have about of deeper depression. Patient reports increased stress since this past March after he [place] including 2 brothers and his parents; it has been difficult helping them adjust and taking care of them. Patient had a recent manic episode during which he gambled much of his money away and his girlfriend broke up with him and patient ended up homeless. Patient had been sober from cocaine for 2 years but in about of desperation, wishing he was , he took cocaine hoping he might have a heart attack. Patient then self presented to the hospital. Reports ongoing PTSD symptoms, flashbacks from trauma; denies any AVH; denies any other drug or alcohol abuse other than intermittent cannabis. Formulation/clinical reasoning: Patient has a history of manic episodes that have significantly impaired functioning and resulted in severe depression and needing hospitalization; will change diagnosis to bipolar type 1. Patient agrees to get back on past medication regimen that he found very helpful, which includes lithium; telegraphic typewriter operator reviewed risks/side effects which patient understands and agrees to. Also agrees to increasing Lamictal as he used to be on higher dose. Will hold off on restarting Lexapro as patient reported sexual side effects; will also hold off on restarting Risperdal as lithium and Lamictal maybe adequate and effort made to avoid polypharmacy and patient did report some urinary hesitancy which may have been attributed to Risperdal. Clinical Nursing Professor discussed elevated cholesterol and patient agrees to get back on atorvastatin which he was on before. Hospital course: 10/20 still depressed but improving; retracted 3 day; trouble sleeping and will try seroquel. 10/21- seroquel mr x1 but given olanzapine prn due to agiation with si after pcall tonight and put on 5min checks for now- CTP 10/22 - ongoing impulsive mood at times- inc lamotrigine, prns of seroquel 25 given prn lorazepam given CTP Plan: CV Q 15 minute checks Continue lithium ER 900 mg q.h.s.; patient used to be on 450 mg b.i.d. Will increase Lamictal to 50 mg b.i.d.; which was passed dose Adding Seroquel 50mg w/ prn for insomnia Hold off on restarting Lexapro and Risperdal for now Clonidine p.r.n. Atorvastatin 10 mg for hyperlipidemia Patient educated on: medication risk/benefits, therapeutic strategies and medical condition Informed Consent: understands and further education needed Reason for continued inpatient stay Substantial Risk for: harm to self and rapid decompensation Time Spent With Patient Time: Total time managing care of this patient today ____ minutes.
[2023-10-23] MEDS: Magnesium Hydrox/Alum Hydrox 30 ML ORAL.SUSP PO (11:56)
[2023-10-23] MEDS: Dextroamphetamine/Amphetamine XR 10 MG CAP.ER.24H 20 MG PO (11:57)
[2023-10-23] MEDS: LORazepam 0.5 MG TABLET PO (15:54)
[2023-10-23] MEDS: metFORMIN HCl 500 MG TABLET PO (18:13)
[2023-10-23 19:53] VITALS: BP 155/98; PULSE 93; RESP 14; TEMP 37.4; O2SAT 99
[2023-10-23] MEDS: Lithium Carbonate ER 450 MG TABLET.ER 900 MG PO (20:13)
[2023-10-23] MEDS: QUEtiapine Fumarate 50 MG TABLET 150 MG PO (20:14)
[2023-10-23] MEDS: QUEtiapine Fumarate 25 MG TABLET PO (20:14)
[2023-10-23] MEDS: Atorvastatin Calcium 20 MG TABLET PO (20:14)
[2023-10-23] MEDS: lamoTRIgine 25 MG TABLET 75 MG PO (20:15)
[2023-10-23] MEDS: cloNIDine HCL 0.2 MG TABLET PO (20:15)
[2023-10-23 21:15] VITALS: BP 120/90
[2023-10-24 08:00] VITALS: RESP 16
--- NOTE | 2023-10-24 08:53 | HO.PSYCHPN ---
Subjective Subjective Date of Service: 10/24/23 Reason For Visit: Depression/SI Interim History: Patient; discussed with team; reviewed chart pt upset last night from phone call; upset again today. Says on hunger strike since can not get phone. Talked through his emotions; talked about feeling hurt from phone call w/ ex-girlfriend who will not let him return; talked about hx of trauma, struggles with intense emotions and how they are easily triggered and quickly become out of control. Has had thoughts of wanting to hurt others and hurt himself...denies any intention or plans and says he has such thoughts (mostly just of wanting to be ) daily; says it does not mean he'll go act upon it but it's just how he feels at moment. pt initially refused meds saying he'll never get better; placed 3 day; but as he talked through his feelings he decided he would continue with med and stop his fast (and retract 3 day) agreed to increase Risperdal to 2mg qhs to help w/ easily triggered anger and sleep procedure writer decided to temporarily add clonazepam 1mg qhs to help w/ racing thoughts/insomnia will change Adderal XR to 50mg in AM and then 10mg @1200 to reduce risk of contrubiting to insomnia Mental Status Exam Mental Status Exam Narrative: Pt is alert and oriented; behavior is guarded, emotional; patient is not in distress; dressed in casual attire, adequately groomed; mood is described as upset and affect congruent, downcast, labile; eye contact avoidant; Speech is normal rate, volume, prosody; not pressured; some psychomotor agitation; thought process is organized and goal directed; Thought content is hurt feeling; pessimism toward treatment, intermittent SI/HI, thought no plans/intent; otherwise pertinent to relevant topics and without any delusional content, paranoid ideations or grandiosity; Denies AVH and There is no evidence of perceptual disturbance. Patients insight and judgment impaired Diagnostics Vital Signs (24Hr): Vital Signs - 24 hr 10/23/23 09:11 10/23/23 19:53 10/23/23 21:15 Temperature 99.3 F Pulse Rate 93 Respiratory Rate 14 Blood Pressure 129/66 155/98 H 120/90 H Pulse Oximetry 99 BMI result Body Mass Index 32.2 Labs 10/17/23 16:44 10/17/23 16:44 Labs: Laboratory Results - last 48 hr 10/23/23 09:08 Estimat Average Glucose 128 Hemoglobin A1c % 6.1 H Imaging Radiology Impressions: ITS Impressions Chest X-Ray 10/17/23 16:33 IMPRESSION: No acute cardiopulmonary process. Electronically signed by: Roxie Loyd MD 10/17/2023 05:40 PM EDT Medications Medications Current Medications Acetaminophen (Acetaminophen 325 Mg Tablet) 650 mg PO Q6H PRN PRN Reason: Headache/Pain Mild Scale (1-3) Last Admin: 10/23/23 09:12 Dose: 650 mg Al Hydroxide/Mg Hydroxide (Magnesium Hydrox/Alum Hydrox 30 Ml Oral.Susp) 30 ml PO Q6H PRN PRN Reason: Heartburn/Nausea Last Admin: 10/23/23 11:56 Dose: 30 ml Amphetamine/Dextroamphetamine (Dextroamphetamine/Amphetamine Xr 10 Mg Cap.Er.24h) 20 mg PO DAILY@1200 ANDREA Last Admin: 10/23/23 11:57 Dose: 20 mg Amphetamine/Dextroamphetamine (Dextroamphetamine/Amphetamine Xr 10 Mg Cap.Er.24h) 40 mg PO DAILY ANDREA Last Admin: 10/23/23 09:09 Dose: 40 mg Atorvastatin Calcium (Atorvastatin Calcium 20 Mg Tablet) 20 mg PO BEDTIME ANDREA Last Admin: 10/23/23 20:14 Dose: 20 mg Bisacodyl (Bisacodyl 5 Mg Tablet.Dr) 5 mg PO BEDTIME PRN PRN Reason: Constipation Clonidine HCl (Clonidine Hcl 0.1 Mg Tablet) 0.1 mg PO Q4H PRN; Protocol PRN Reason: anxiety Last Admin: 10/23/23 09:11 Dose: 0.1 mg Clonidine HCl (Clonidine Hcl 0.2 Mg Tablet) 0.2 mg PO BEDTIME ANDREA; Protocol Last Admin: 10/23/23 20:15 Dose: 0.2 mg Hydroxyzine HCl (Hydroxyzine Hcl 25 Mg Tablet) 25 mg PO Q6H PRN PRN Reason: Anxiety Last Admin: 10/22/23 19:49 Dose: 25 mg Lamotrigine (Lamotrigine 25 Mg Tablet) 75 mg PO BID ANDREA Last Admin: 10/23/23 20:15 Dose: [address] [place] Carbonate ([place] Carbonate Er 450 Mg Tablet.Er) 900 mg PO BEDTIME [facility] Last Admin: 10/23/23 20:13 Dose: 900 mg Lorazepam (Lorazepam 0.5 Mg Tablet) 0.5 mg PO Q8H PRN PRN Reason: anxiety/restlessness Last Admin: 10/23/23 15:54 Dose: 0.5 mg Magnesium Hydroxide (Milk Of Magnesia 30 Ml Oral.Susp) 30 ml PO DAILY PRN PRN Reason: Constipation Metformin HCl (Metformin Hcl 500 Mg Tablet) 500 mg PO BIDWM [facility] Last Admin: 10/23/23 18:13 Dose: 500 mg Nicotine (Nicotine 21 Mg Patch.Td24) 21 mg TRANSDERMA DAILY PRN PRN Reason: smoking cessation Nicotine Polacrilex (Nicotine Polacrilex 2 Mg Gum) 4 mg BUCCAL Q2H PRN PRN Reason: Nicotine Cravings Quetiapine Fumarate (Quetiapine Fumarate 50 Mg Tablet) 150 mg PO BEDTIME [facility] Last Admin: 10/23/23 20:14 Dose: 150 mg Quetiapine Fumarate (Quetiapine Fumarate 25 Mg Tablet) 25 mg PO TID PRN PRN Reason: anxiety/restlessness Last Admin: 10/23/23 20:14 Dose: 25 mg Allergies Allergies Allergy/AdvReac Type Severity Reaction Status Date / Time trazodone [TRAZODONE] Allergy Severe SHORTNESS Verified 10/21/23 14:32 OF BREATH Assessment & Plan Assessment & Plan (1) Bipolar 1 disorder: Status: Acute Code(s): F31.9 - Bipolar disorder, unspecified (2) PTSD (post-traumatic stress disorder): Status: Acute Code(s): F43.10 - Post-traumatic stress disorder, unspecified (3) ADHD: Status: Acute Code(s): F90.9 - Attention-deficit hyperactivity disorder, unspecified type (4) Cocaine use disorder: Status: Acute Code(s): F14.10 - Cocaine abuse, uncomplicated (5) Diabetes: Status: Acute Code(s): E11.9 - Type 2 diabetes mellitus without complications (6) Hyperlipidemia: Status: Acute Code(s): E78.5 - Hyperlipidemia, unspecified Plan Patient is a 48-year-old male with history of bipolar 1 disorder, PTSD, cocaine abuse who presents for ongoing depression and SI with hope that using cocaine would end his life. Patient reports that after past psychiatric admission at [place] (2019 and 2020) he was started on medication regimen that helped his chronic depression. He took it for 2 years and said that it helped a lot but after his dog he got depressed and just stopped taking medications. Since then he has been depressed daily, with daily passive thoughts of wishing he were . Interspersed with this chronic depression, patient would have manic episodes that could last for several days and up to 2 weeks during which time he did not need sleep at all, was talking fast was irritable, engaged in excessive gambling and spending money he did not have, taking risky behaviors such as having sexual encounters with strangers; after such an episode he would have about of deeper depression. Patient reports increased stress since this past March after he [place] including 2 brothers and his parents; it has been difficult helping them adjust and taking care of them. Patient had a recent manic episode during which he gambled much of his money away and his girlfriend broke up with him and patient ended up homeless. Patient had been sober from cocaine for 2 years but in about of desperation, wishing he was , he took cocaine hoping he might have a heart attack. Patient then self presented to the hospital. Reports ongoing PTSD symptoms, flashbacks from trauma; denies any AVH; denies any other drug or alcohol abuse other than intermittent cannabis. Formulation/clinical reasoning: Patient has a history of manic episodes that have significantly impaired functioning and resulted in severe depression and needing hospitalization; will change diagnosis to bipolar type 1. Patient agrees to get back on past medication regimen that he found very helpful, which includes lithium; procedure writer reviewed risks/side effects which patient understands and agrees to. Also agrees to increasing Lamictal as he used to be on higher dose. Will hold off on restarting Lexapro as patient reported sexual side effects; will also hold off on restarting Risperdal as lithium and Lamictal maybe adequate and effort made to avoid polypharmacy and patient did report some urinary hesitancy which may have been attributed to Risperdal. Assistant Football Coach discussed elevated cholesterol and patient agrees to get back on atorvastatin which he was on before. Hospital course: 10/20 still depressed but improving; retracted 3 day; trouble sleeping and will try seroquel. 10/21- seroquel mr x1 but given olanzapine prn due to agiation with si after pcall tonight and put on 5min checks for now- CTP 10/22 - ongoing impulsive mood at times- inc lamotrigine, prns of seroquel 25 given prn lorazepam given CTP 10/21 after bad phone call became agitated reporting si and was changed from 15 min checks to 5 min, given prn of olanzapine and all his night meds early- and went to room- 10/22 struggling with affect regulation had incident on phone last pm- doesn't want to discuss, says it was not about conflict with ex gf/work situation- Agrees today to rx for diabetes type 2 started metformin He agreed to inc lamotrigine- dosing- for mood stablity- and requested higher quetiapine even 100mg didn't quite help last pm and had to wait for 2nd dose- Later in day had another irritable eruption and refused prns telling nurse none of your meds are helping 10/23 pt upset last night from phone call; upset again today. Says on hunger strike since can not get phone. Talked through his emotions; trauma, being easily triggered and quickly become out of control. Has had thoughts of wanting to hurt others and hurt himself...denies any intention or plans and says he has such thoughts (mostly just of wanting to be ) daily; says it does not mean he'll go act upon it but it's just how he feels at moment. decided to continue w/ treatment, stop fast.. discussed med changes Plan: CV Q 15 minute checks Continue lithium ER 900 mg q.h.s.; patient used to be on 450 mg b.i.d. Continue Lamictal to 75 mg b.i.d.; (Increased over weekend) agreed to increase Risperdal to 2mg qhs to help w/ easily triggered anger and sleep procedure writer decided to temporarily add clonazepam 1mg qhs to help w/ racing thoughts/insomnia will change Adderal XR to 50mg in AM and then 10mg @1200 to reduce risk of contrubiting to insomnia Continue Seroquel 150mg but make PRN for insomnia Hold off on restarting Lexapro (decreased libido) Clonidine qhs and p.r.n. Atorvastatin 10 mg for hyperlipidemia Lamictal 75 mg b.i.d. Metformin 500 mg b.i.d. W with meals Seroquel 150 mg q.h.s. Patient educated on: diagnosis, medication risk/benefits and therapeutic strategies Informed Consent: understands Reason for continued inpatient stay Substantial Risk for: harm to self and rapid decompensation Time Spent With Patient Time: Total time managing care of this patient today ____ minutes.
--- NOTE | 2023-10-24 09:36 | PC.NURSE ---
pt signed a three day notice on Monday 10/23. this will be up on 10/26
[2023-10-24] MEDS: Dextroamphetamine/Amphetamine XR 10 MG CAP.ER.24H 40 MG PO (09:52)
[2023-10-24] MEDS: Dextroamphetamine/Amphetamine XR 10 MG CAP.ER.24H 20 MG PO (12:50)
[2023-10-24] MEDS: QUEtiapine Fumarate 25 MG TABLET PO (14:22)
[2023-10-24] MEDS: LORazepam 0.5 MG TABLET PO (14:22)
[2023-10-24] MEDS: metFORMIN HCl 500 MG TABLET PO (17:13)
[2023-10-24 20:00] VITALS: BP 129/81; PULSE 122; RESP 20; TEMP 37.3; O2SAT 100
[2023-10-24] MEDS: Atorvastatin Calcium 20 MG TABLET PO (20:21)
[2023-10-24] MEDS: clonazePAM 1 MG TABLET PO (20:22)
[2023-10-24] MEDS: lamoTRIgine 25 MG TABLET 75 MG PO (20:23)
[2023-10-24] MEDS: Lithium Carbonate ER 450 MG TABLET.ER 900 MG PO (20:23)
[2023-10-24] MEDS: risperiDONE 2 MG TABLET PO (20:23)
[2023-10-24] MEDS: cloNIDine HCL 0.2 MG TABLET PO (20:25)
[2023-10-24] MEDS: QUEtiapine Fumarate 50 MG TABLET 150 MG PO (21:40)
[2023-10-25 08:06] VITALS: BP 124/67; PULSE 98; TEMP 37; O2SAT 99
--- NOTE | 2023-10-25 09:32 | P.PNPSI_ITS ---
Subjective Subjective Date of Service: 10/25/23 Reason For Visit: Depression/SI Interim History: met with patient; discussed with team Exceedingly anxious, depressed, continues to have intermittent thoughts of SI with hopelessness. Also reports did sleep better with clonazepam last night Mental Status Exam Mental Status Exam Narrative: Pt is alert and oriented; behavior is guarded, emotional labile; patient is not in distress; dressed in casual attire, adequately groomed; mood is described as anxious and affect congruent, downcast, labile; eye contact avoidant; Speech is normal rate, volume, prosody; not pressured; some psychomotor agitation; thought process is organized and goal directed; Thought content is hurt feelings, hopelessness and pessimism toward being able to get better;, intermittent SI; though no plans/intent; otherwise pertinent to relevant topics and without any delusional content, paranoid ideations or grandiosity; Denies AVH and there is no evidence of perceptual disturbance. Patients insight and judgment impaired Diagnostics Vital Signs (24Hr): Vital Signs - 24 hr 10/24/23 20:00 10/25/23 08:06 Temperature 99.1 F 98.6 F Pulse Rate 122 H 98 Respiratory Rate 20 Blood Pressure 129/81 124/67 Pulse Oximetry 100 99 Oxygen Delivery Method Room Air Room Air BMI result Body Mass Index 32.2 Labs 10/17/23 16:44 10/25/23 10:35 Labs: Laboratory Results - last 48 hr 10/23/23 09:08 Estimat Average Glucose 128 Hemoglobin A1c % 6.1 H Imaging Radiology Impressions: ITS Impressions Chest X-Ray 10/17/23 16:33 IMPRESSION: No acute cardiopulmonary process. Electronically signed by: Roxie Loyd MD 10/17/2023 05:40 PM EDT RP Medications Medications Current Medications Acetaminophen (Acetaminophen 325 Mg Tablet) 650 mg PO Q6H PRN PRN Reason: Headache/Pain Mild Scale (1-3) Last Admin: 10/23/23 09:12 Dose: 650 mg Al Hydroxide/Mg Hydroxide (Magnesium Hydrox/Alum Hydrox 30 Ml Oral.Susp) 30 ml PO Q6H PRN PRN Reason: Heartburn/Nausea Last Admin: 10/23/23 11:56 Dose: 30 ml Amphetamine/Dextroamphetamine (Dextroamphetamine/Amphetamine Xr 10 Mg Cap.Er.24h) 50 mg PO DAILY ANDREA Amphetamine/Dextroamphetamine (Dextroamphetamine/Amphetamine Xr 10 Mg Cap.Er.24h) 10 mg PO DAILY@1200 ANDREA Atorvastatin Calcium (Atorvastatin Calcium 20 Mg Tablet) 20 mg PO BEDTIME ANDREA Last Admin: 10/24/23 20:21 Dose: 20 mg Bisacodyl (Bisacodyl 5 Mg Tablet.Dr) 5 mg PO BEDTIME PRN PRN Reason: Constipation Clonazepam (Clonazepam 1 Mg Tablet) 1 mg PO BEDTIME ANDREA Last Admin: 10/24/23 20:22 Dose: 1 mg Clonidine HCl (Clonidine Hcl 0.1 Mg Tablet) 0.1 mg PO Q4H PRN; Protocol PRN Reason: anxiety Last Admin: 10/23/23 09:11 Dose: 0.1 mg Clonidine HCl (Clonidine Hcl 0.2 Mg Tablet) 0.2 mg PO BEDTIME ANDREA; Protocol Last Admin: 10/24/23 20:25 Dose: 0.2 mg Hydroxyzine HCl (Hydroxyzine Hcl 25 Mg Tablet) 25 mg PO Q6H PRN PRN Reason: Anxiety Last Admin: 10/22/23 19:49 Dose: 25 mg Lamotrigine (Lamotrigine 25 Mg Tablet) 75 mg PO BID [facility] Last Admin: 10/24/23 20:23 Dose: 75 mg [place] Carbonate ([place] Carbonate Er 450 Mg Tablet.Er) 900 mg PO BEDTIME ANDREA Last Admin: 10/24/23 20:23 Dose: 900 mg Magn[place] Hydroxide (Milk Of Magnesia 30 Ml Oral.Susp) 30 ml PO DAILY PRN PRN Reason: Constipation Metformin HCl (Metformin Hcl 500 Mg Tablet) 500 mg PO BIDWM [facility] Last Admin: 10/24/23 17:13 Dose: 500 mg Nicotine (Nicotine 21 Mg Patch.Td24) 21 mg TRANSDERMA DAILY PRN PRN Reason: smoking cessation Nicotine Polacrilex (Nicotine Polacrilex 2 Mg Gum) 4 mg [place]CCAL Q2H PRN PRN Reason: Nicotine Cravings Quetiapine Fumarate (Quetiapine Fumarate 25 Mg Tablet) 25 mg PO TID PRN PRN Reason: anxiety/restlessness Last Admin: 10/24/23 14:22 Dose: 25 mg Quetiapine Fumarate (Quetiapine Fumarate 50 Mg Tablet) 150 mg PO BEDTIME PRN PRN Reason: insomnia Last Admin: 10/24/23 21:40 Dose: 150 mg Risperidone (Risperidone 2 Mg Tablet) 2 mg PO BEDTIME ANDREA Last Admin: 10/24/23 20:23 Dose: 2 mg Allergies Allergies Allergy/AdvReac Type Severity Reaction Status Date / Time trazodone [TRAZODONE] Allergy Severe SHORTNESS Verified 10/21/23 14:32 OF BREATH Assessment & Plan Assessment & Plan (1) Bipolar 1 disorder: Status: Acute Code(s): F31.9 - Bipolar disorder, unspecified (2) PTSD (post-traumatic stress disorder): Status: Acute Code(s): F43.10 - Post-traumatic stress disorder, unspecified (3) ADHD: Status: Acute Code(s): F90.9 - Attention-deficit hyperactivity disorder, unspecified type (4) Cocaine use disorder: Status: Acute Code(s): F14.10 - Cocaine abuse, uncomplicated (5) Diabetes: Status: Acute Code(s): E11.9 - Type 2 diabetes mellitus without complications (6) Hyperlipidemia: Status: Acute Code(s): E78.5 - Hyperlipidemia, unspecified Plan Patient is a 48-year-old male with history of bipolar 1 disorder, PTSD, cocaine abuse who presents for ongoing depression and SI with hope that using cocaine would end his life. Patient reports that after past psychiatric admission at [place] (2019 and 2020) he was started on medication regimen that helped his chronic depression. He took it for 2 years and said that it helped a lot but after his dog he got depressed and just stopped taking medications. Since then he has been depressed daily, with daily passive thoughts of wishing he were . Interspersed with this chronic depression, patient would have manic episodes that could last for several days and up to 2 weeks during which time he did not need sleep at all, was talking fast was irritable, engaged in excessive gambling and spending money he did not have, taking risky behaviors such as having sexual encounters with strangers; after such an episode he would have about of deeper depression. Patient reports increased stress since this past March after he [place] including 2 brothers and his parents; it has been difficult helping them adjust and taking care of them. Patient had a recent manic episode during which he gambled much of his money away and his girlfriend broke up with him and patient ended up homeless. Patient had been sober from cocaine for 2 years but in about of desperation, wishing he was , he took cocaine hoping he might have a heart attack. Patient then self presented to the hospital. Reports ongoing PTSD symptoms, flashbacks from trauma; denies any AVH; denies any other drug or alcohol abuse other than intermittent cannabis. Formulation/clinical reasoning: Patient has a history of manic episodes that have significantly impaired functioning and resulted in severe depression and needing hospitalization; will change diagnosis to bipolar type 1. Patient agrees to get back on past medication regimen that he found very helpful, which includes lithium; telegraphic typewriter operator reviewed risks/side effects which patient understands and agrees to. Also agrees to increasing Lamictal as he used to be on higher dose. Will hold off on restarting Lexapro as patient reported sexual side effects; will also hold off on restarting Risperdal as lithium and Lamictal maybe adequate and effort made to avoid polypharmacy and patient did report some urinary hesitancy which may have been attributed to Risperdal. Orthopaedic Technologist discussed elevated cholesterol and patient agrees to get back on atorvastatin which he was on before. Hospital course: 10/20 still depressed but improving; retracted 3 day; trouble sleeping and will try seroquel. 10/21- seroquel mr x1 but given olanzapine prn due to agiation with si after pcall tonight and put on 5min checks for now- CTP 10/22 - ongoing impulsive mood at times- inc lamotrigine, prns of seroquel 25 given prn lorazepam given CTP 10/21 after bad phone call became agitated reporting si and was changed from 15 min checks to 5 min, given prn of olanzapine and all his night meds early- and went to room- 10/22 struggling with affect regulation had incident on phone last pm- doesn't want to discuss, says it was not about conflict with ex gf/work situation- Agrees today to rx for diabetes type 2 started metformin He agreed to inc lamotrigine- dosing- for mood stablity- and requested higher quetiapine even 100mg didn't quite help last pm and had to wait for 2nd dose- Later in day had another irritable eruption and refused prns telling nurse none of your meds are helping 10/23 pt upset last night from phone call; upset again today. Says on hunger strike since can not get phone. Talked through his emotions; trauma, being easily triggered and quickly become out of control. Has had thoughts of wanting to hurt others and hurt himself...denies any intention or plans and says he has such thoughts (mostly just of wanting to be ) daily; says it does not mean he'll go act upon it but it's just how he feels at moment. decided to continue w/ treatment, stop fast.. discussed med changes 10/24 patient remains exceedingly anxious, insomnia, intermittent SI; telegraphic typewriter operator agrees to give 1 time dose of benzo -patient has 3 day notice due tomorrow; telegraphic typewriter operator and team agree that patient is not stable for discharge would quickly decompensate -[place] level within therapeutic range though on the low side Plan: Three day notice Q 15 minute checks Continue lithium ER 900 mg q.h.s.; patient used to be on 450 mg b.i.d. Continue Lamictal to 75 mg b.i.d.; (Increased over weekend) agreed to increase Risperdal to 2mg qhs to help w/ easily triggered anger and sleep telegraphic typewriter operator decided to temporarily add clonazepam 1mg qhs to help w/ racing thoughts/insomnia will change Adderal XR to 50mg in AM and then 10mg @1200 to reduce risk of contrubiting to insomnia Continue Seroquel 150mg but make PRN for insomnia Hold off on restarting Lexapro (decreased libido) Clonidine qhs and p.r.n. Atorvastatin 10 mg for hyperlipidemia Started on Metformin 500 mg b.i.d. W with meals Patient educated on: diagnosis, medication risk/benefits and therapeutic strategies Informed Consent: understands and further education needed Reason for continued inpatient stay Substantial Risk for: inability to function and rapid decompensation Time Spent With Patient Time: Total time managing care of this patient today ____ minutes.
[2023-10-25] MEDS: Dextroamphetamine/Amphetamine XR 10 MG CAP.ER.24H 50 MG PO (09:42)
[2023-10-25] MEDS: lamoTRIgine 25 MG TABLET 75 MG PO ×2 (09:43→20:06)
[2023-10-25] MEDS: metFORMIN HCl 500 MG TABLET PO ×2 (09:43→17:07)
[2023-10-25 11:17] LABS: Lithium 0.65 mmol/L (0.60-1.20)
[2023-10-25 11:20] LABS: Blood Urea Nitrogen 26 mg/dL (9-16)
[2023-10-25 11:31] LABS: TSH reflex Free T4 1.54 uIU/mL (0.32-4.0)
[2023-10-25 11:51] LABS: Creatinine Clr Calc Pharmacy 72.9; Estimated Glomerular Filt Rate 60
[2023-10-25] MEDS: Dextroamphetamine/Amphetamine XR 10 MG CAP.ER.24H PO (13:33)
[2023-10-25 15:02] VITALS: BP 129/63
[2023-10-25] MEDS: cloNIDine HCL 0.1 MG TABLET PO (15:02)
[2023-10-25] MEDS: QUEtiapine Fumarate 25 MG TABLET PO (15:02)
[2023-10-25] MEDS: Loperamide HCl 2 MG CAPSULE 4 MG PO (15:43)
[2023-10-25] MEDS: clonazePAM 0.5 MG TABLET PO (15:43)
[2023-10-25 20:00] VITALS: BP 135/86; PULSE 98; TEMP 36.7; O2SAT 100
[2023-10-25] MEDS: Lithium Carbonate ER 450 MG TABLET.ER 900 MG PO (20:06)
[2023-10-25] MEDS: Atorvastatin Calcium 20 MG TABLET PO (20:06)
[2023-10-25] MEDS: risperiDONE 2 MG TABLET PO (20:07)
[2023-10-25] MEDS: cloNIDine HCL 0.2 MG TABLET PO (20:07)
[2023-10-25] MEDS: clonazePAM 1 MG TABLET PO (20:07)
[2023-10-25] MEDS: QUEtiapine Fumarate 50 MG TABLET 150 MG PO (20:09)
[2023-10-26 08:00] VITALS: BP 109/57; PULSE 81; RESP 16; TEMP 36.8; O2SAT 99
[2023-10-26] MEDS: Dextroamphetamine/Amphetamine XR 10 MG CAP.ER.24H 50 MG PO (09:22)
[2023-10-26] MEDS: lamoTRIgine 25 MG TABLET 75 MG PO ×2 (09:22→20:35)
[2023-10-26] MEDS: metFORMIN HCl 500 MG TABLET PO ×2 (09:23→17:34)
[2023-10-26 10:51] VITALS: BP 137/76
[2023-10-26] MEDS: cloNIDine HCL 0.1 MG TABLET PO (10:51)
[2023-10-26] MEDS: QUEtiapine Fumarate 25 MG TABLET PO (10:51)
[2023-10-26] MEDS: Magnesium Hydrox/Alum Hydrox 30 ML ORAL.SUSP PO (12:33)
[2023-10-26] MEDS: hydrOXYzine HCL 25 MG TABLET PO (12:33)
[2023-10-26] MEDS: Famotidine 20 MG TABLET PO (13:18)
[2023-10-26] MEDS: Dextroamphetamine/Amphetamine XR 10 MG CAP.ER.24H PO (13:22)
[2023-10-26] MEDS: Escitalopram Oxalate 10 MG TABLET PO (15:31)
--- NOTE | 2023-10-26 18:50 | P.PNPSI_ITS ---
Subjective Subjective Date of Service: 10/26/23 Reason For Visit: Depression/SI Interim History: Met with patient; discussed with team Patient remains very anxious, worrying throughout the day about various things, especially whether not he will ever be able to be stable; girlfriend said he is allowed back to the house but patient is ambivalent worried that he will not be able to control his emotions and that he will ruin their relationship and again become suicidal and homicidal. Community Youth Secretary discussed that with continued medication management, it is hopeful that patient can become more stabilized. To this end, patient agreed to retract 3 day notice. Discussed restarting Lexapro which had helped in the past but caused decreased libido; patient said he does not care about potential side effect if it would help reduce his anxiety. Mental Status Exam Mental Status Exam Narrative: Pt is alert and oriented; behavior is cooperative but remains emotional labile; patient is not in distress; dressed in casual attire, adequately groomed; mood is described as anxious and affect congruent, downcast, labile; eye contact avoidant; Speech is normal rate, volume, prosody; not pressured; some psychomotor agitation; thought process is organized and goal directed; Thought content is hurt feelings, hopelessness and pessimism toward being able to get better;, intermittent SI; though no plans/intent; otherwise pertinent to relevant topics and without any delusional content, paranoid ideations or grandiosity; Denies AVH and there is no evidence of perceptual disturbance. Patients insight and judgment impaired Diagnostics Vital Signs (24Hr): Vital Signs - 24 hr 10/25/23 20:00 10/26/23 08:00 10/26/23 10:51 Temperature 98.1 F 98.2 F Pulse Rate 98 81 Respiratory Rate 16 Blood Pressure 135/86 109/57 L 137/76 Pulse Oximetry 100 99 Oxygen Delivery Method Room Air Room Air BMI result Body Mass Index 32.2 Labs 10/17/23 16:44 10/25/23 10:35 Labs: Laboratory Results - last 48 hr 10/25/23 10:35 BUN 26 H Creatinine 1.29 Estim Creat Clear Calc 72.9 Estimated GFR 60 TSH 1.54 [place] 0.65 Imaging Radiology Impressions: ITS Impressions Chest X-Ray 10/17/23 16:33 IMPRESSION: No acute cardiopulmonary process. Electronically signed by: Roxie Loyd MD 10/17/2023 05:40 PM EDT RP Medications Medications Current Medications Acetaminophen (Acetaminophen 325 Mg Tablet) 650 mg PO Q6H PRN PRN Reason: Headache/Pain Mild Scale (1-3) Last Admin: 10/23/23 09:12 Dose: 650 mg Al Hydroxide/Mg Hydroxide (Magnesium Hydrox/Alum Hydrox 30 Ml Oral.Susp) 30 ml PO Q6H PRN PRN Reason: Heartburn/Nausea Last Admin: 10/26/23 12:33 Dose: 30 ml Amphetamine/Dextroamphetamine (Dextroamphetamine/Amphetamine Xr 10 Mg Cap.Er.24h) 50 mg PO DAILY ANDREA Last Admin: 10/26/23 09:22 Dose: 50 mg Amphetamine/Dextroamphetamine (Dextroamphetamine/Amphetamine Xr 10 Mg Cap.Er.24h) 10 mg PO DAILY@1200 ANDREA Last Admin: 10/26/23 13:22 Dose: 10 mg Atorvastatin Calcium (Atorvastatin Calcium 20 Mg Tablet) 20 mg PO BEDTIME ANDREA Last Admin: 10/25/23 20:06 Dose: 20 mg Bisacodyl (Bisacodyl 5 Mg Tablet.Dr) 5 mg PO BEDTIME PRN PRN Reason: Constipation Clonazepam (Clonazepam 1 Mg Tablet) 1 mg PO BEDTIME ANDREA Last Admin: 10/25/23 20:07 Dose: 1 mg Clonidine HCl (Clonidine Hcl 0.1 Mg Tablet) 0.1 mg PO Q4H PRN; Protocol PRN Reason: anxiety Last Admin: 10/26/23 10:51 Dose: 0.1 mg Clonidine HCl (Clonidine Hcl 0.2 Mg Tablet) 0.2 mg PO BEDTIME ANDREA; Protocol Last Admin: 10/25/23 20:07 Dose: 0.2 mg Escitalopram Oxalate (Escitalopram Oxalate 20 Mg Tablet) 20 mg PO DAILY ANDREA Famotidine (Famotidine 20 Mg Tablet) 20 mg PO DAILY ANDREA Famotidine (Famotidine 20 Mg Tablet) 20 mg PO DAILY PRN PRN Reason: continued GERD Hydroxyzine HCl (Hydroxyzine Hcl 25 Mg Tablet) 25 mg PO Q6H PRN PRN Reason: Anxiety Last Admin: 10/26/23 12:33 Dose: 25 mg Lamotrigine (Lamotrigine 25 Mg Tablet) 75 mg PO BID ANDREA Last Admin: 10/26/23 09:22 Dose: 75 mg [place] Carbonate ([place] Carbonate Er 450 Mg Tablet.Er) 900 mg PO BEDTIME [facility] Last Admin: 10/25/23 20:06 Dose: 900 mg Loperamide HCl (Loperamide Hcl 2 Mg Capsule) 4 mg PO Q4H PRN PRN Reason: loose stool Last Admin: 10/25/23 15:43 Dose: 4 mg Magnesium Hydroxide (Milk Of Magnesia 30 Ml Oral.Susp) 30 ml PO DAILY PRN PRN Reason: Constipation Metformin HCl (Metformin Hcl 500 Mg Tablet) 500 mg PO BIDWM [facility] Last Admin: 10/26/23 17:34 Dose: 500 mg Nicotine (Nicotine 21 Mg Patch.Td24) 21 mg TRANSDERMA DAILY PRN PRN Reason: smoking cessation Nicotine Polacrilex (Nicotine Polacrilex 2 Mg Gum) 4 mg BUCCAL Q2H PRN PRN Reason: Nicotine Cravings Quetiapine Fumarate (Quetiapine Fumarate 50 Mg Tablet) 150 mg PO BEDTIME PRN PRN Reason: insomnia Last Admin: 10/25/23 20:09 Dose: 150 mg Quetiapine Fumarate (Quetiapine Fumarate 50 Mg Tablet) 50 mg PO TID PRN PRN Reason: anxiety/restlessness Risperidone (Risperidone 2 Mg Tablet) 2 mg PO BEDTIME ANDREA Last Admin: 10/25/23 20:07 Dose: 2 mg Allergies Allergies Allergy/AdvReac Type Severity Reaction Status Date / Time trazodone [TRAZODONE] Allergy Severe SHORTNESS Verified 10/21/23 14:32 OF BREATH Assessment & Plan Assessment & Plan (1) Bipolar 1 disorder: Status: Acute Code(s): F31.9 - Bipolar disorder, unspecified (2) PTSD (post-traumatic stress disorder): Status: Acute Code(s): F43.10 - Post-traumatic stress disorder, unspecified (3) ADHD: Status: Acute Code(s): F90.9 - Attention-deficit hyperactivity disorder, unspecified type (4) Cocaine use disorder: Status: Acute Code(s): F14.10 - Cocaine abuse, uncomplicated (5) Diabetes: Status: Acute Code(s): E11.9 - Type 2 diabetes mellitus without complications (6) Hyperlipidemia: Status: Acute Code(s): E78.5 - Hyperlipidemia, unspecified Plan Patient is a 48-year-old male with history of bipolar 1 disorder, PTSD, cocaine abuse who presents for ongoing depression and SI with hope that using cocaine would end his life. Patient reports that after past psychiatric admission at [place] (2019 and 2020) he was started on medication regimen that helped his chronic depression. He took it for 2 years and said that it helped a lot but after his dog he got depressed and just stopped taking medications. Since then he has been depressed daily, with daily passive thoughts of wishing he were . Interspersed with this chronic depression, patient would have manic episodes that could last for several days and up to 2 weeks during which time he did not need sleep at all, was talking fast was irritable, engaged in excessive gambling and spending money he did not have, taking risky behaviors such as having sexual encounters with strangers; after such an episode he would have about of deeper depression. Patient reports increased stress since this past March after he [place] 2 brothers and his parents; it has been difficult helping them adjust and taking care of them. Patient had a recent manic episode during which he gambled much of his money away and his girlfriend broke up with him and patient ended up homeless. Patient had been sober from cocaine for 2 years but in about of desperation, wishing he was , he took cocaine hoping he might have a heart attack. Patient then self presented to the hospital. Reports ongoing PTSD symptoms, flashbacks from trauma; denies any AVH; denies any other drug or alcohol abuse other than intermittent cannabis. Formulation/clinical reasoning: Patient has a history of manic episodes that have significantly impaired functioning and resulted in severe depression and needing hospitalization; will change diagnosis to bipolar type 1. Patient agrees to get back on past medication regimen that he found very helpful, which includes lithium; remote mortgage underwriter reviewed risks/side effects which patient understands and agrees to. Also agrees to increasing Lamictal as he used to be on higher dose. Will hold off on restarting Lexapro as patient reported sexual side effects; will also hold off on restarting Risperdal as lithium and Lamictal maybe adequate and effort made to avoid polypharmacy and patient did report some urinary hesitancy which may have been attributed to Risperdal. Community Youth Secretary discussed elevated cholesterol and patient agrees to get back on atorvastatin which he was on before. Hospital course: 10/20 still depressed but improving; retracted 3 day; trouble sleeping and will try seroquel. 10/21- seroquel mr x1 but given olanzapine prn due to agiation with si after pcall tonight and put on 5min checks for now- CTP 10/22 - ongoing impulsive mood at times- inc lamotrigine, prns of seroquel 25 given prn lorazepam given CTP 10/21 after bad phone call became agitated reporting si and was changed from 15 min checks to 5 min, given prn of olanzapine and all his night meds early- and went to room- 10/22 struggling with affect regulation had incident on phone last pm- doesn't want to discuss, says it was not about conflict with ex gf/work situation- Agrees today to rx for diabetes type 2 started metformin He agreed to inc lamotrigine- dosing- for mood stablity- and requested higher quetiapine even 100mg didn't quite help last pm and had to wait for 2nd dose- Later in day had another irritable eruption and refused prns telling nurse none of your meds are helping 10/23 pt upset last night from phone call; upset again today. Says on hunger strike since can not get phone. Talked through his emotions; trauma, being easily triggered and quickly become out of control. Has had thoughts of wanting to hurt others and hurt himself...denies any intention or plans and says he has such thoughts (mostly just of wanting to be ) daily; says it does not mean he'll go act upon it but it's just how he feels at moment. decided to continue w/ treatment, stop fast.. discussed med changes 10/24 patient remains exceedingly anxious, insomnia, intermittent SI; remote mortgage underwriter agrees to give 1 time dose of benzo -patient has 3 day notice due tomorrow; remote mortgage underwriter and team agree that patient is not stable for discharge would quickly decompensate -[place] level within therapeutic range though on the low side 10/25 Patient remains very anxious, worrying throughout the day about various things, especially whether not he will ever be able to be stable; girlfriend said he is allowed back to the house but patient is ambivalent worried that he will not be able to control his emotions and that he will ruin their relationship and again become suicidal and homicidal. Community Youth Secretary discussed that with continued medication management, it is hopeful that patient can become more stabilized. To this end, patient agreed to retract 3 day notice. Discussed restarting Lexapro which had helped in the past but caused decreased libido; patient said he does not care about potential side effect if it would help reduce his anxiety. Plan: CV Q 15 minute checks Continue lithium ER 900 mg q.h.s.; patient used to be on 450 mg b.i.d. Continue Lamictal to 75 mg b.i.d.; (Increased over weekend) agreed to increase Risperdal to 2mg qhs to help w/ easily triggered anger and sleep remote mortgage underwriter decided to temporarily add clonazepam 1mg qhs to help w/ racing thoughts/insomnia will change Adderal XR to 50mg in AM and then 10mg @1200 to reduce risk of contrubiting to insomnia Continue Seroquel 150mg but make PRN for insomnia Hold off on restarting Lexapro (decreased libido) Clonidine qhs and p.r.n. Atorvastatin 10 mg for hyperlipidemia Patient educated on: diagnosis, medication risk/benefits and therapeutic strategies Informed Consent: understands Reason for continued inpatient stay Substantial Risk for: inability to function Time Spent With Patient Time: Total time managing care of this patient today ____ minutes.
[2023-10-26 20:00] VITALS: BP 144/72; PULSE 112; TEMP 35.9; O2SAT 98
[2023-10-26] MEDS: Flu Vacc TS2024-25(6mos up)/PF 0.5 ML SYRINGE IM (20:31)
[2023-10-26] MEDS: Lithium Carbonate ER 450 MG TABLET.ER 900 MG PO (20:36)
[2023-10-26] MEDS: cloNIDine HCL 0.2 MG TABLET PO (20:36)
[2023-10-26] MEDS: QUEtiapine Fumarate 50 MG TABLET 150 MG PO (20:36)
[2023-10-26] MEDS: risperiDONE 2 MG TABLET PO (20:37)
[2023-10-26] MEDS: clonazePAM 1 MG TABLET PO (20:37)
[2023-10-26] MEDS: Atorvastatin Calcium 20 MG TABLET PO (20:37)
--- NOTE | 2023-10-27 03:30 | PC.NURSE ---
Flu Vac requested and administered in R deltoid. Patient tolerated well.
[2023-10-27 07:00] VITALS: BMI 34.2
[2023-10-27 08:00] VITALS: BP 124/64; PULSE 101; RESP 16; TEMP 36.6; O2SAT 98
[2023-10-27 08:10] LABS: Glucose, Whole Blood 112 mg/dL (60-115)
[2023-10-27] MEDS: metFORMIN HCl 500 MG TABLET PO ×2 (09:16→17:37)
[2023-10-27] MEDS: Famotidine 20 MG TABLET PO (09:16)
[2023-10-27] MEDS: lamoTRIgine 25 MG TABLET 75 MG PO ×2 (09:16→21:32)
[2023-10-27] MEDS: Escitalopram Oxalate 20 MG TABLET PO (09:16)
[2023-10-27] MEDS: Dextroamphetamine/Amphetamine XR 10 MG CAP.ER.24H 40 MG PO (09:16)
--- NOTE | 2023-10-27 11:01 | P.PNPSI_ITS ---
Subjective Subjective Date of Service: 10/27/23 Reason For Visit: Depression/SI Interim History: Met with patient; discussed with team pt reports that today he's alright... and shared that for the first time he remained calm, despite an upsetting phone call with his girlfriend. He said the meds must be working because normally i'd get all upset... Patient said that today he was able to remain calm within himself for which he is grateful. Says sleeping well. Ambivalent about going back to live with his girlfriend Mental Status Exam Mental Status Exam Narrative: Pt is alert and oriented; behavior is cooperative, calm; patient is not in distress; dressed in casual attire, adequately groomed; mood is described as a little better and affect congruent, more calm; eye contact appropriate; Speech is normal rate, volume, prosody; not pressured; no psychomotor agitation; thought process is organized and goal directed; Thought content is progress, treatment, relationships; no SI/HI; otherwise pertinent to relevant topics and without any delusional content, paranoid ideations or grandiosity; Denies AVH and there is no evidence of perceptual disturbance. Patients insight and judgment improving Diagnostics Vital Signs (24Hr): Vital Signs - 24 hr 10/26/23 20:00 10/27/23 08:00 Temperature 96.7 F L 97.8 F Pulse Rate 112 H 101 H Respiratory Rate 16 Blood Pressure 144/72 H 124/64 Pulse Oximetry 98 98 Oxygen Delivery Method Room Air Room Air BMI result Body Mass Index 32.2 Labs 10/17/23 16:44 10/25/23 10:35 Labs: Laboratory Results - last 48 hr 10/25/23 10/27/23 10:35 07:57 BUN 26 H Creatinine 1.29 Estim Creat Clear Calc 72.9 Estimated GFR 60 POC Glucose 112 TSH 1.54 [place] 0.65 Imaging Radiology Impressions: ITS Impressions Chest X-Ray 10/17/23 16:33 IMPRESSION: No acute cardiopulmonary process. Electronically signed by: Roxie Loyd MD 10/17/2023 05:40 PM EDT Medications Medications Current Medications Acetaminophen (Acetaminophen 325 Mg Tablet) 650 mg PO Q6H PRN PRN Reason: Headache/Pain Mild Scale (1-3) Last Admin: 10/23/23 09:12 Dose: 650 mg Al Hydroxide/Mg Hydroxide (Magnesium Hydrox/Alum Hydrox 30 Ml Oral.Susp) 30 ml PO Q6H PRN PRN Reason: Heartburn/Nausea Last Admin: 10/26/23 12:33 Dose: 30 ml Amphetamine/Dextroamphetamine (Dextroamphetamine/Amphetamine Xr 10 Mg Cap.Er.24h) 40 mg PO DAILY ANDREA Last Admin: 10/27/23 09:16 Dose: 40 mg Amphetamine/Dextroamphetamine (Dextroamphetamine/Amphetamine Xr 10 Mg Cap.Er.24h) 20 mg PO DAILY@1200 ANDREA Atorvastatin Calcium (Atorvastatin Calcium 20 Mg Tablet) 20 mg PO BEDTIME ANDREA Last Admin: 10/26/23 20:37 Dose: 20 mg Bisacodyl (Bisacodyl 5 Mg Tablet.Dr) 5 mg PO BEDTIME PRN PRN Reason: Constipation Clonazepam (Clonazepam 1 Mg Tablet) 1 mg PO BEDTIME ANDREA Last Admin: 10/26/23 20:37 Dose: 1 mg Clonidine HCl (Clonidine Hcl 0.1 Mg Tablet) 0.1 mg PO Q4H PRN; Protocol PRN Reason: anxiety Last Admin: 10/26/23 10:51 Dose: 0.1 mg Clonidine HCl (Clonidine Hcl 0.2 Mg Tablet) 0.2 mg PO BEDTIME ANDREA; Protocol Last Admin: 10/26/23 20:36 Dose: 0.2 mg Escitalopram Oxalate (Escitalopram Oxalate 20 Mg Tablet) 20 mg PO DAILY ANDREA Last Admin: 10/27/23 09:16 Dose: 20 mg Famotidine (Famotidine 20 Mg Tablet) 20 mg PO DAILY ANDREA Last Admin: 10/27/23 09:16 Dose: 20 mg Famotidine (Famotidine 20 Mg Tablet) 20 mg PO DAILY PRN PRN Reason: continued GERD Hydroxyzine HCl (Hydroxyzine Hcl 25 Mg Tablet) 25 mg PO Q6H PRN PRN Reason: Anxiety Last Admin: 10/26/23 12:33 Dose: 25 mg Lamotrigine (Lamotrigine 25 Mg Tablet) 75 mg PO BID [facility] Last Admin: 10/27/23 09:16 Dose: 75 mg [place] Carbonate ([place] Carbonate Er 450 Mg Tablet.Er) 900 mg PO BEDTIME ANDREA Last Admin: 10/26/23 20:36 Dose: 900 mg Loperamide HCl (Loperamide Hcl 2 Mg Capsule) 4 mg PO Q4H PRN PRN Reason: loose stool Last Admin: 10/25/23 15:43 Dose: 4 mg Magnesium Hydroxide (Milk Of Magnesia 30 Ml Oral.Susp) 30 ml PO DAILY PRN PRN Reason: Constipation Metformin HCl (Metformin Hcl 500 Mg Tablet) 500 mg PO BIDWM ANDREA Last Admin: 10/27/23 09:16 Dose: 500 mg Nicotine (Nicotine 21 Mg Patch.Td24) 21 mg TRANSDERMA DAILY PRN PRN Reason: smoking cessation Nicotine Polacrilex (Nicotine Polacrilex 2 Mg Gum) 4 mg BUCCAL Q2H PRN PRN Reason: Nicotine Cravings Quetiapine Fumarate (Quetiapine Fumarate 50 Mg Tablet) 150 mg PO BEDTIME PRN PRN Reason: insomnia Last Admin: 10/26/23 20:36 Dose: 150 mg Quetiapine Fumarate (Quetiapine Fumarate 50 Mg Tablet) 50 mg PO TID PRN PRN Reason: anxiety/restlessness Risperidone (Risperidone 2 Mg Tablet) 2 mg PO BEDTIME ANDREA Last Admin: 10/26/23 20:37 Dose: 2 mg Allergies Allergies Allergy/AdvReac Type Severity Reaction Status Date / Time trazodone [TRAZODONE] Allergy Severe SHORTNESS Verified 10/21/23 14:32 OF BREATH Assessment & Plan Assessment & Plan (1) Bipolar 1 disorder: Status: Acute Code(s): F31.9 - Bipolar disorder, unspecified (2) PTSD (post-traumatic stress disorder): Status: Acute Code(s): F43.10 - Post-traumatic stress disorder, unspecified (3) ADHD: Status: Acute Code(s): F90.9 - Attention-deficit hyperactivity disorder, unspecified type (4) Cocaine use disorder: Status: Acute Code(s): F14.10 - Cocaine abuse, uncomplicated (5) Diabetes: Status: Acute Code(s): E11.9 - Type 2 diabetes mellitus without complications (6) Hyperlipidemia: Status: Acute Code(s): E78.5 - Hyperlipidemia, unspecified Plan Patient is a 48-year-old male with history of bipolar 1 disorder, PTSD, cocaine abuse who presents for ongoing depression and SI with hope that using cocaine would end his life. Patient reports that after past psychiatric admission at [place] (2019 and 2020) he was started on medication regimen that helped his chronic depression. He took it for 2 years and said that it helped a lot but after his dog he got depressed and just stopped taking medications. Since then he has been depressed daily, with daily passive thoughts of wishing he were . Interspersed with this chronic depression, patient would have manic episodes that could last for several days and up to 2 weeks during which time he did not need sleep at all, was talking fast was irritable, engaged in excessive gambling and spending money he did not have, taking risky behaviors such as having sexual encounters with strangers; after such an episode he would have about of deeper depression. Patient reports increased stress since this past March after he [place] including 2 brothers and his parents; it has been difficult helping them adjust and taking care of them. Patient had a recent manic episode during which he gambled much of his money away and his girlfriend broke up with him and patient ended up homeless. Patient had been sober from cocaine for 2 years but in about of desperation, wishing he was , he took cocaine hoping he might have a heart attack. Patient then self presented to the hospital. Reports ongoing PTSD symptoms, flashbacks from trauma; denies any AVH; denies any other drug or alcohol abuse other than intermittent cannabis. Formulation/clinical reasoning: Patient has a history of manic episodes that have significantly impaired functioning and resulted in severe depression and needing hospitalization; will change diagnosis to bipolar type 1. Patient agrees to get back on past medication regimen that he found very helpful, which includes lithium; public relations writer reviewed risks/side effects which patient understands and agrees to. Also agrees to increasing Lamictal as he used to be on higher dose. Will hold off on restarting Lexapro as patient reported sexual side effects; will also hold off on restarting Risperdal as lithium and Lamictal maybe adequate and effort made to avoid polypharmacy and patient did report some urinary hesitancy which may have been attributed to Risperdal. Systems Lead discussed elevated cholesterol and patient agrees to get back on atorvastatin which he was on before. Hospital course: 10/20 still depressed but improving; retracted 3 day; trouble sleeping and will try seroquel. 10/21- seroquel mr x1 but given olanzapine prn due to agiation with si after pcall tonight and put on 5min checks for now- CTP 10/22 - ongoing impulsive mood at times- inc lamotrigine, prns of seroquel 25 given prn lorazepam given CTP 10/21 after bad phone call became agitated reporting si and was changed from 15 min checks to 5 min, given prn of olanzapine and all his night meds early- and went to room- 10/22 struggling with affect regulation had incident on phone last pm- doesn't want to discuss, says it was not about conflict with ex gf/work situation- Agrees today to rx for diabetes type 2 started metformin He agreed to inc lamotrigine- dosing- for mood stablity- and requested higher quetiapine even 100mg didn't quite help last pm and had to wait for 2nd dose- Later in day had another irritable eruption and refused prns telling nurse none of your meds are helping 10/23 pt upset last night from phone call; upset again today. Says on hunger strike since can not get phone. Talked through his emotions; trauma, being easily triggered and quickly become out of control. Has had thoughts of wanting to hurt others and hurt himself...denies any intention or plans and says he has such thoughts (mostly just of wanting to be ) daily; says it does not mean he'll go act upon it but it's just how he feels at moment. decided to continue w/ treatment, stop fast.. discussed med changes 10/24 patient remains exceedingly anxious, insomnia, intermittent SI; public relations writer agrees to give 1 time dose of benzo -patient has 3 day notice due tomorrow; public relations writer and team agree that patient is not stable for discharge would quickly decompensate -[place] level within therapeutic range though on the low side 10/25 Patient remains very anxious, worrying throughout the day about various things, especially whether not he will ever be able to be stable; girlfriend said he is allowed back to the house but patient is ambivalent worried that he will not be able to control his emotions and that he will ruin their relationship and again become suicidal and homicidal. Systems Lead discussed that with continued medication management, it is hopeful that patient can become more stabilized. To this end, patient agreed to retract 3 day notice. Discussed restarting Lexapro which had helped in the past but caused decreased libido; patient said he does not care about potential side effect if it would help reduce his anxiety. 10/26 continue current treatment plan; patient seems to be improving and in more emotional control; did not get upset after phone conversation with girlfriend Plan: CV Q 15 minute checks Continue lithium ER 900 mg q.h.s.; patient used to be on 450 mg b.i.d. Continue Lamictal to 75 mg b.i.d.; (Increased over weekend) agreed to increase Risperdal to 2mg qhs to help w/ easily triggered anger and sleep public relations writer decided to temporarily add clonazepam 1mg qhs to help w/ racing thoughts/insomnia will change Adderal XR to 50mg in AM and then 10mg @1200 to reduce risk of contrubiting to insomnia Continue Seroquel 150mg but make PRN for insomnia Hold off on restarting Lexapro (decreased libido) Clonidine qhs and p.r.n. Atorvastatin 10 mg for hyperlipidemia Patient educated on: diagnosis, medication risk/benefits and therapeutic strategies Informed Consent: understands Reason for continued inpatient stay Substantial Risk for: rapid decompensation Time Spent With Patient Time: Total time managing care of this patient today ____ minutes.
[2023-10-27] MEDS: Dextroamphetamine/Amphetamine XR 10 MG CAP.ER.24H 20 MG PO (11:55)
[2023-10-27 15:31] VITALS: BP 132/72
[2023-10-27] MEDS: hydrOXYzine HCL 25 MG TABLET PO (15:31)
[2023-10-27] MEDS: cloNIDine HCL 0.1 MG TABLET PO (15:31)
[2023-10-27] MEDS: QUEtiapine Fumarate 50 MG TABLET PO ×2 (15:31→21:36)
[2023-10-27 20:00] VITALS: BP 140/76; PULSE 107; TEMP 36.9; O2SAT 97
[2023-10-27 21:32] VITALS: BP 120/78
[2023-10-27] MEDS: Atorvastatin Calcium 20 MG TABLET PO (21:32)
[2023-10-27] MEDS: cloNIDine HCL 0.2 MG TABLET PO (21:32)
[2023-10-27] MEDS: clonazePAM 1 MG TABLET PO (21:32)
[2023-10-27] MEDS: risperiDONE 2 MG TABLET PO (21:32)
[2023-10-27] MEDS: Lithium Carbonate ER 450 MG TABLET.ER 900 MG PO (21:32)
[2023-10-27] MEDS: QUEtiapine Fumarate 100 MG TABLET PO (21:35)
[2023-10-28 08:07] LABS: Glucose, Whole Blood 116 mg/dL (60-115)
[2023-10-28] MEDS: Famotidine 20 MG TABLET PO ×2 (08:49→20:51)
[2023-10-28] MEDS: metFORMIN HCl 500 MG TABLET PO ×2 (08:50→16:33)
[2023-10-28 08:51] VITALS: BP 130/60; PULSE 98; RESP 16; TEMP 36.9; O2SAT 100
--- NOTE | 2023-10-28 08:54 | P.PNPSI_ITS ---
Subjective Subjective Date of Service: 10/28/23 Reason For Visit: Depression/SI Interim History: Met with patient; discussed with team pt says tougher day today, feeling more emotional, depressed; however he says he is still able to stay in emotional control. C/O gerd at nighttime and agrees to adding Famotadine at bedtime Mental Status Exam Mental Status Exam Narrative: Pt is alert and oriented; behavior is cooperative, calm; patient is not in distress; dressed in casual attire, adequately groomed; mood is described as depressed and affect congruent, more calm; eye contact appropriate; Speech is normal rate, volume, prosody; not pressured; no psychomotor agitation; thought process is organized and goal directed; Thought content is progress, treatment, relationships; no SI/HI; otherwise pertinent to relevant topics and without any delusional content, paranoid ideations or grandiosity; Denies AVH and there is no evidence of perceptual disturbance. Patients insight and judgment improving Diagnostics Vital Signs (24Hr): Vital Signs - 24 hr 10/27/23 15:31 10/27/23 20:00 10/27/23 21:32 Temperature 98.5 F Pulse Rate 107 H Respiratory Rate Blood Pressure 132/72 140/76 H 120/78 Pulse Oximetry 97 Oxygen Delivery Method Room Air 10/28/23 08:51 Temperature 98.5 F Pulse Rate 98 Respiratory Rate 16 Blood Pressure 130/60 Pulse Oximetry 100 Oxygen Delivery Method Room Air BMI result Body Mass Index 34.2 Labs 10/17/23 16:44 10/25/23 10:35 Labs: Laboratory Results - last 48 hr 10/27/23 10/28/23 07:57 07:55 POC Glucose 112 116 H Imaging Radiology Impressions: ITS Impressions Chest X-Ray 10/17/23 16:33 IMPRESSION: No acute cardiopulmonary process. Electronically signed by: Roxie Loyd MD 10/17/2023 05:40 PM EDT RP Medications Medications Current Medications Acetaminophen (Acetaminophen 325 Mg Tablet) 650 mg PO Q6H PRN PRN Reason: Headache/Pain Mild Scale (1-3) Last Admin: 10/23/23 09:12 Dose: 650 mg Al Hydroxide/Mg Hydroxide (Magnesium Hydrox/Alum Hydrox 30 Ml Oral.Susp) 30 ml PO Q6H PRN PRN Reason: Heartburn/Nausea Last Admin: 10/26/23 12:33 Dose: 30 ml Amphetamine/Dextroamphetamine (Dextroamphetamine/Amphetamine Xr 10 Mg Cap.Er.24h) 40 mg PO DAILY ANDREA Last Admin: 10/27/23 09:16 Dose: 40 mg Amphetamine/Dextroamphetamine (Dextroamphetamine/Amphetamine Xr 10 Mg Cap.Er.24h) 20 mg PO DAILY@1200 ANDREA Last Admin: 10/27/23 11:55 Dose: 20 mg Atorvastatin Calcium (Atorvastatin Calcium 20 Mg Tablet) 20 mg PO BEDTIME ANDREA Last Admin: 10/27/23 21:32 Dose: 20 mg Bisacodyl (Bisacodyl 5 Mg Tablet.Dr) 5 mg PO BEDTIME PRN PRN Reason: Constipation Clonazepam (Clonazepam 1 Mg Tablet) 1 mg PO BEDTIME ANDREA Last Admin: 10/27/23 21:32 Dose: 1 mg Clonidine HCl (Clonidine Hcl 0.1 Mg Tablet) 0.1 mg PO Q4H PRN; Protocol PRN Reason: anxiety Last Admin: 10/27/23 15:31 Dose: 0.1 mg Clonidine HCl (Clonidine Hcl 0.2 Mg Tablet) 0.2 mg PO BEDTIME ANDREA; Protocol Last Admin: 10/27/23 21:32 Dose: 0.2 mg Escitalopram Oxalate (Escitalopram Oxalate 20 Mg Tablet) 20 mg PO DAILY [facility] Last Admin: 10/27/23 09:16 Dose: 20 mg Famotidine (Famotidine 20 Mg Tablet) 20 mg PO DAILY ANDREA Last Admin: 10/28/23 08:49 Dose: 20 mg Famotidine (Famotidine 20 Mg Tablet) 20 mg PO DAILY PRN PRN Reason: continued GERD Hydroxyzine HCl (Hydroxyzine Hcl 25 Mg Tablet) 25 mg PO Q6H PRN PRN Reason: Anxiety Last Admin: 10/27/23 15:31 Dose: 25 mg Lamotrigine (Lamotrigine 25 Mg Tablet) 75 mg PO BID [facility] Last Admin: 10/27/23 21:32 Dose: 75 mg [place] Carbonate ([place] Carbonate Er 450 Mg Tablet.Er) 900 mg PO BEDTIME ANDREA Last Admin: 10/27/23 21:32 Dose: 900 mg Loperamide HCl (Loperamide Hcl 2 Mg Capsule) 4 mg PO Q4H PRN PRN Reason: loose stool Last Admin: 10/25/23 15:43 Dose: 4 mg Magnesium Hydroxide (Milk Of Magnesia 30 Ml Oral.Susp) 30 ml PO DAILY PRN PRN Reason: Constipation Metformin HCl (Metformin Hcl 500 Mg Tablet) 500 mg PO BIDWM [facility] Last Admin: 10/28/23 08:50 Dose: 500 mg Nicotine (Nicotine 21 Mg Patch.Td24) 21 mg TRANSDERMA DAILY PRN PRN Reason: smoking cessation Nicotine Polacrilex (Nicotine Polacrilex 2 Mg Gum) 4 mg BUCCAL Q2H PRN PRN Reason: Nicotine Cravings Quetiapine Fumarate (Quetiapine Fumarate 100 Mg Tablet) 100 mg PO BEDTIME PRN PRN Reason: insomnia Last Admin: 10/27/23 21:35 Dose: 100 mg Quetiapine Fumarate (Quetiapine Fumarate 50 Mg Tablet) 50 mg PO TID PRN PRN Reason: Anxiety/insomnia Last Admin: 10/27/23 21:36 Dose: 50 mg Risperidone (Risperidone 2 Mg Tablet) 2 mg PO BEDTIME ANDREA Last Admin: 10/27/23 21:32 Dose: 2 mg Allergies Allergies Allergy/AdvReac Type Severity Reaction Status Date / Time trazodone [TRAZODONE] Allergy Severe SHORTNESS Verified 10/21/23 14:32 OF BREATH Assessment & Plan Assessment & Plan (1) Bipolar 1 disorder: Status: Acute Code(s): F31.9 - Bipolar disorder, unspecified (2) PTSD (post-traumatic stress disorder): Status: Acute Code(s): F43.10 - Post-traumatic stress disorder, unspecified (3) ADHD: Status: Acute Code(s): F90.9 - Attention-deficit hyperactivity disorder, unspecified type (4) Cocaine use disorder: Status: Acute Code(s): F14.10 - Cocaine abuse, uncomplicated (5) Diabetes: Status: Acute Code(s): E11.9 - Type 2 diabetes mellitus without complications (6) Hyperlipidemia: Status: Acute Code(s): E78.5 - Hyperlipidemia, unspecified Plan Patient is a 48-year-old male with history of bipolar 1 disorder, PTSD, cocaine abuse who presents for ongoing depression and SI with hope that using cocaine would end his life. Patient reports that after past psychiatric admission at [place] (2019 and 2020) he was started on medication regimen that helped his chronic depression. He took it for 2 years and said that it helped a lot but after his dog he got depressed and just stopped taking medications. Since then he has been depressed daily, with daily passive thoughts of wishing he were . Interspersed with this chronic depression, patient would have manic episodes that could last for several days and up to 2 weeks during which time he did not need sleep at all, was talking fast was irritable, engaged in excessive gambling and spending money he did not have, taking risky behaviors such as having sexual encounters with strangers; after such an episode he would have about of deeper depression. Patient reports increased stress since this past March after he [place] including 2 brothers and his parents; it has been difficult helping them adjust and taking care of them. Patient had a recent manic episode during which he gambled much of his money away and his girlfriend broke up with him and patient ended up homeless. Patient had been sober from cocaine for 2 years but in about of desperation, wishing he was , he took cocaine hoping he might have a heart attack. Patient then self presented to the hospital. Reports ongoing PTSD symptoms, flashbacks from trauma; denies any AVH; denies any other drug or alcohol abuse other than intermittent cannabis. Formulation/clinical reasoning: Patient has a history of manic episodes that have significantly impaired functioning and resulted in severe depression and needing hospitalization; will change diagnosis to bipolar type 1. Patient agrees to get back on past medication regimen that he found very helpful, which includes lithium; insurance underwriter reviewed risks/side effects which patient understands and agrees to. Also agrees to increasing Lamictal as he used to be on higher dose. Will hold off on restarting Lexapro as patient reported sexual side effects; will also hold off on restarting Risperdal as lithium and Lamictal maybe adequate and effort made to avoid polypharmacy and patient did report some urinary hesitancy which may have been attributed to Risperdal. Correctional Substance Abuse Counselor discussed elevated cholesterol and patient agrees to get back on atorvastatin which he was on before. Hospital course: 10/20 still depressed but improving; retracted 3 day; trouble sleeping and will try seroquel. 10/21- seroquel mr x1 but given olanzapine prn due to agiation with si after pcall tonight and put on 5min checks for now- CTP 10/22 - ongoing impulsive mood at times- inc lamotrigine, prns of seroquel 25 given prn lorazepam given CTP 10/21 after bad phone call became agitated reporting si and was changed from 15 min checks to 5 min, given prn of olanzapine and all his night meds early- and went to room- 10/22 struggling with affect regulation had incident on phone last pm- doesn't want to discuss, says it was not about conflict with ex gf/work situation- Agrees today to rx for diabetes type 2 started metformin He agreed to inc lamotrigine- dosing- for mood stablity- and requested higher quetiapine even 100mg didn't quite help last pm and had to wait for 2nd dose- Later in day had another irritable eruption and refused prns telling nurse none of your meds are helping 10/23 pt upset last night from phone call; upset again today. Says on hunger strike since can not get phone. Talked through his emotions; trauma, being easily triggered and quickly become out of control. Has had thoughts of wanting to hurt others and hurt himself...denies any intention or plans and says he has such thoughts (mostly just of wanting to be ) daily; says it does not mean he'll go act upon it but it's just how he feels at moment. decided to continue w/ treatment, stop fast.. discussed med changes 10/24 patient remains exceedingly anxious, insomnia, intermittent SI; insurance underwriter agrees to give 1 time dose of benzo -patient has 3 day notice due tomorrow; insurance underwriter and team agree that patient is not stable for discharge would quickly decompensate -[place] level within therapeutic range though on the low side 10/25 Patient remains very anxious, worrying throughout the day about various things, especially whether not he will ever be able to be stable; girlfriend said he is allowed back to the house but patient is ambivalent worried that he will not be able to control his emotions and that he will ruin their relationship and again become suicidal and homicidal. Correctional Substance Abuse Counselor discussed that with continued medication management, it is hopeful that patient can become more stabilized. To this end, patient agreed to retract 3 day notice. Discussed restarting Lexapro which had helped in the past but caused decreased libido; patient said he does not care about potential side effect if it would help reduce his anxiety. 10/26 continue current treatment plan; patient seems to be improving and in more emotional control; did not get upset after phone conversation with girlfriend Plan: CV Q 15 minute checks Continue lithium ER 900 mg q.h.s.; patient used to be on 450 mg b.i.d. Continue Lamictal to 75 mg b.i.d.; (Increased over weekend) agreed to increase Risperdal to 2mg qhs to help w/ easily triggered anger and sleep insurance underwriter decided to temporarily add clonazepam 1mg qhs to help w/ racing thoughts/insomnia will change Adderal XR to 50mg in AM and then 10mg @1200 to reduce risk of contrubiting to insomnia Continue Seroquel 150mg but make PRN for insomnia Hold off on restarting Lexapro (decreased libido) Clonidine qhs and p.r.n. Atorvastatin 10 mg for hyperlipidemia Famotadine 20mg BID Patient educated on: diagnosis, medication risk/benefits and therapeutic strategies Informed Consent: understands Reason for continued inpatient stay Substantial Risk for: rapid decompensation Time Spent With Patient Time: Total time managing care of this patient today ____ minutes.
[2023-10-28] MEDS: Escitalopram Oxalate 20 MG TABLET PO (10:39)
[2023-10-28] MEDS: Dextroamphetamine/Amphetamine XR 10 MG CAP.ER.24H 40 MG PO (10:39)
[2023-10-28] MEDS: lamoTRIgine 25 MG TABLET 75 MG PO ×2 (10:39→20:52)
[2023-10-28] MEDS: Dextroamphetamine/Amphetamine XR 10 MG CAP.ER.24H 20 MG PO (12:58)
[2023-10-28 20:00] VITALS: BP 137/91; PULSE 110; RESP 16; TEMP 37.6; O2SAT 97
[2023-10-28] MEDS: Lithium Carbonate ER 450 MG TABLET.ER 900 MG PO (20:51)
[2023-10-28] MEDS: risperiDONE 2 MG TABLET PO (20:51)
[2023-10-28] MEDS: clonazePAM 1 MG TABLET PO (20:51)
[2023-10-28] MEDS: Atorvastatin Calcium 20 MG TABLET PO (20:51)
[2023-10-28] MEDS: cloNIDine HCL 0.2 MG TABLET PO (20:51)
[2023-10-28] MEDS: QUEtiapine Fumarate 100 MG TABLET PO (20:51)
[2023-10-29 08:00] VITALS: BP 120/69; PULSE 90; RESP 18; TEMP 36.9; O2SAT 97
[2023-10-29 08:24] LABS: Glucose, Whole Blood 102 mg/dL (60-115)
[2023-10-29] MEDS: Escitalopram Oxalate 20 MG TABLET PO (09:53)
[2023-10-29] MEDS: metFORMIN HCl 500 MG TABLET PO ×2 (09:53→18:59)
[2023-10-29] MEDS: lamoTRIgine 25 MG TABLET 75 MG PO ×2 (09:53→20:28)
[2023-10-29] MEDS: Famotidine 20 MG TABLET PO ×2 (09:53→20:28)
[2023-10-29] MEDS: Dextroamphetamine/Amphetamine XR 10 MG CAP.ER.24H 40 MG PO (09:54)
--- NOTE | 2023-10-29 10:17 | P.PNPSI_ITS ---
Subjective Subjective Date of Service: 10/29/23 Reason For Visit: Depression/SI Interim History: Met with patient; discussed with team pt reports doing well, good and feels much better overall; wants to discuss discharge plans Mental Status Exam Mental Status Exam Narrative: Pt is alert and oriented; behavior is cooperative, calm; patient is not in distress; dressed in casual attire, adequately groomed; mood is described as good and affect congruent, calm, brighter; eye contact appropriate; Speech is normal rate, volume, prosody; not pressured; no psychomotor agitation; thought process is organized and goal directed; Thought content is progress, treatment, relationships; no SI/HI; otherwise pertinent to relevant topics and without any delusional content, paranoid ideations or grandiosity; Denies AVH and there is no evidence of perceptual disturbance. Patients insight and judgment fair and adequate. Diagnostics Vital Signs (24Hr): Vital Signs - 24 hr 10/28/23 20:00 10/29/23 08:00 Temperature 99.6 F 98.4 F Pulse Rate 110 H 90 Respiratory Rate 16 18 Blood Pressure 137/91 H 120/69 Pulse Oximetry 97 97 Oxygen Delivery Method Room Air Room Air BMI result Body Mass Index 34.2 Labs 10/17/23 16:44 10/25/23 10:35 Labs: Laboratory Results - last 48 hr 10/28/23 10/29/23 07:55 08:21 POC Glucose 116 H 102 Imaging Radiology Impressions: ITS Impressions Chest X-Ray 10/17/23 16:33 IMPRESSION: No acute cardiopulmonary process. Electronically signed by: Roxie Loyd MD 10/17/2023 05:40 PM EDT Medications Medications Current Medications Acetaminophen (Acetaminophen 325 Mg Tablet) 650 mg PO Q6H PRN PRN Reason: Headache/Pain Mild Scale (1-3) Last Admin: 10/23/23 09:12 Dose: 650 mg Al Hydroxide/Mg Hydroxide (Magnesium Hydrox/Alum Hydrox 30 Ml Oral.Susp) 30 ml PO Q6H PRN PRN Reason: Heartburn/Nausea Last Admin: 10/26/23 12:33 Dose: 30 ml Amphetamine/Dextroamphetamine (Dextroamphetamine/Amphetamine Xr 10 Mg Cap.Er.24h) 40 mg PO DAILY ANDREA Last Admin: 10/29/23 09:54 Dose: 40 mg Amphetamine/Dextroamphetamine (Dextroamphetamine/Amphetamine Xr 10 Mg Cap.Er.24h) 20 mg PO DAILY@1200 [facility] Last Admin: 10/28/23 12:58 Dose: 20 mg Atorvastatin Calcium (Atorvastatin Calcium 20 Mg Tablet) 20 mg PO BEDTIME ANDREA Last Admin: 10/28/23 20:51 Dose: 20 mg Bisacodyl (Bisacodyl 5 Mg Tablet.Dr) 5 mg PO BEDTIME PRN PRN Reason: Constipation Clonazepam (Clonazepam 1 Mg Tablet) 1 mg PO BEDTIME ANDREA Last Admin: 10/28/23 20:51 Dose: 1 mg Clonidine HCl (Clonidine Hcl 0.1 Mg Tablet) 0.1 mg PO Q4H PRN; Protocol PRN Reason: anxiety Last Admin: 10/27/23 15:31 Dose: 0.1 mg Clonidine HCl (Clonidine Hcl 0.2 Mg Tablet) 0.2 mg PO BEDTIME [facility]; Protocol Last Admin: 10/28/23 20:51 Dose: 0.2 mg Escitalopram Oxalate (Escitalopram Oxalate 20 Mg Tablet) 20 mg PO DAILY [facility] Last Admin: 10/29/23 09:53 Dose: 20 mg Famotidine (Famotidine 20 Mg Tablet) 20 mg PO DAILY PRN PRN Reason: continued GERD Famotidine (Famotidine 20 Mg Tablet) 20 mg PO BID [facility] Last Admin: 10/29/23 09:53 Dose: 20 mg Hydroxyzine HCl (Hydroxyzine Hcl 25 Mg Tablet) 25 mg PO Q6H PRN PRN Reason: Anxiety Last Admin: 10/27/23 15:31 Dose: 25 mg Lamotrigine (Lamotrigine 25 Mg Tablet) 75 mg PO BID [facility] Last Admin: 10/29/23 09:53 Dose: 75 mg [place] Carbonate ([place] Carbonate Er 450 Mg Tablet.Er) 900 mg PO BEDTIME [facility] Last Admin: 10/28/23 20:51 Dose: 900 mg Loperamide HCl (Loperamide Hcl 2 Mg Capsule) 4 mg PO Q4H PRN PRN Reason: loose stool Last Admin: 10/25/23 15:43 Dose: 4 mg Magnesium Hydroxide (Milk Of Magnesia 30 Ml Oral.Susp) 30 ml PO DAILY PRN PRN Reason: Constipation Metformin HCl (Metformin Hcl 500 Mg Tablet) 500 mg PO BIDWM [facility] Last Admin: 10/29/23 09:53 Dose: 500 mg Nicotine (Nicotine 21 Mg Patch.Td24) 21 mg TRANSDERMA DAILY PRN PRN Reason: smoking cessation Nicotine Polacrilex (Nicotine Polacrilex 2 Mg Gum) 4 mg BUCCAL Q2H PRN PRN Reason: Nicotine Cravings Quetiapine Fumarate (Quetiapine Fumarate 100 Mg Tablet) 100 mg PO BEDTIME PRN PRN Reason: insomnia Last Admin: 10/28/23 20:51 Dose: 100 mg Quetiapine Fumarate (Quetiapine Fumarate 50 Mg Tablet) 50 mg PO TID PRN PRN Reason: Anxiety/insomnia Last Admin: 10/27/23 21:36 Dose: 50 mg Risperidone (Risperidone 2 Mg Tablet) 2 mg PO BEDTIME ANDREA Last Admin: 10/28/23 20:51 Dose: 2 mg Allergies Allergies Allergy/AdvReac Type Severity Reaction Status Date / Time trazodone [TRAZODONE] Allergy Severe SHORTNESS Verified 10/21/23 14:32 OF BREATH Assessment & Plan Assessment & Plan (1) Bipolar 1 disorder: Status: Acute Code(s): F31.9 - Bipolar disorder, unspecified (2) PTSD (post-traumatic stress disorder): Status: Acute Code(s): F43.10 - Post-traumatic stress disorder, unspecified (3) ADHD: Status: Acute Code(s): F90.9 - Attention-deficit hyperactivity disorder, unspecified type (4) Cocaine use disorder: Status: Acute Code(s): F14.10 - Cocaine abuse, uncomplicated (5) Diabetes: Status: Acute Code(s): E11.9 - Type 2 diabetes mellitus without complications (6) Hyperlipidemia: Status: Acute Code(s): E78.5 - Hyperlipidemia, unspecified Plan Patient is a 48-year-old male with history of bipolar 1 disorder, PTSD, cocaine abuse who presents for ongoing depression and SI with hope that using cocaine would end his life. Patient reports that after past psychiatric admission at [place] (2019 and 2020) he was started on medication regimen that helped his chronic depression. He took it for 2 years and said that it helped a lot but after his dog he got depressed and just stopped taking medications. Since then he has been depressed daily, with daily passive thoughts of wishing he were . Interspersed with this chronic depression, patient would have manic episodes that could last for several days and up to 2 weeks during which time he did not need sleep at all, was talking fast was irritable, engaged in excessive gambling and spending money he did not have, taking risky behaviors such as having sexual encounters with strangers; after such an episode he would have about of deeper depression. Patient reports increased stress since this past March after he [place] including 2 brothers and his parents; it has been difficult helping them adjust and taking care of them. Patient had a recent manic episode during which he gambled much of his money away and his girlfriend broke up with him and patient ended up homeless. Patient had been sober from cocaine for 2 years but in about of desperation, wishing he was , he took cocaine hoping he might have a heart attack. Patient then self presented to the hospital. Reports ongoing PTSD symptoms, flashbacks from trauma; denies any AVH; denies any other drug or alcohol abuse other than intermittent cannabis. Formulation/clinical reasoning: Patient has a history of manic episodes that have significantly impaired functioning and resulted in severe depression and needing hospitalization; will change diagnosis to bipolar type 1. Patient agrees to get back on past medication regimen that he found very helpful, which includes lithium; publications writer reviewed risks/side effects which patient understands and agrees to. Also agrees to increasing Lamictal as he used to be on higher dose. Will hold off on restarting Lexapro as patient reported sexual side effects; will also hold off on restarting Risperdal as lithium and Lamictal maybe adequate and effort made to avoid polypharmacy and patient did report some urinary hesitancy which may have been attributed to Risperdal. [employer] Plant Supervisor discussed elevated cholesterol and patient agrees to get back on atorvastatin which he was on before. Hospital course: 10/20 still depressed but improving; retracted 3 day; trouble sleeping and will try seroquel. 10/21- seroquel mr x1 but given olanzapine prn due to agiation with si after pcall tonight and put on 5min checks for now- CTP 10/22 - ongoing impulsive mood at times- inc lamotrigine, prns of seroquel 25 given prn lorazepam given CTP 10/21 after bad phone call became agitated reporting si and was changed from 15 min checks to 5 min, given prn of olanzapine and all his night meds early- and went to room- 10/22 struggling with affect regulation had incident on phone last pm- doesn't want to discuss, says it was not about conflict with ex gf/work situation- Agrees today to rx for diabetes type 2 started metformin He agreed to inc lamotrigine- dosing- for mood stablity- and requested higher quetiapine even 100mg didn't quite help last pm and had to wait for 2nd dose- Later in day had another irritable eruption and refused prns telling nurse none of your meds are helping 10/23 pt upset last night from phone call; upset again today. Says on hunger strike since can not get phone. Talked through his emotions; trauma, being easily triggered and quickly become out of control. Has had thoughts of wanting to hurt others and hurt himself...denies any intention or plans and says he has such thoughts (mostly just of wanting to be ) daily; says it does not mean he'll go act upon it but it's just how he feels at moment. decided to continue w/ treatment, stop fast.. discussed med changes 10/24 patient remains exceedingly anxious, insomnia, intermittent SI; publications writer agrees to give 1 time dose of benzo -patient has 3 day notice due tomorrow; publications writer and team agree that patient is not stable for discharge would quickly decompensate -[place] level within therapeutic range though on the low side 10/25 Patient remains very anxious, worrying throughout the day about various things, especially whether not he will ever be able to be stable; girlfriend said he is allowed back to the house but patient is ambivalent worried that he will not be able to control his emotions and that he will ruin their relationship and again become suicidal and homicidal. [employer] Supervisor discussed that with continued medication management, it is hopeful that patient can become more stabilized. To this end, patient agreed to retract 3 day notice. Discussed restarting Lexapro which had helped in the past but caused decreased libido; patient said he does not care about potential side effect if it would help reduce his anxiety. 10/26 continue current treatment plan; patient seems to be improving and in more emotional control; did not get upset after phone conversation with girlfriend 10/28 doing well, feels much better, stable Plan: CV Q 15 minute checks Continue lithium ER 900 mg q.h.s.; patient used to be on 450 mg b.i.d. Continue Lamictal to 75 mg b.i.d.; (Increased over weekend) agreed to increase Risperdal to 2mg qhs to help w/ easily triggered anger and sleep publications writer decided to temporarily add clonazepam 1mg qhs to help w/ racing thoughts/insomnia will change Adderal XR to 50mg in AM and then 10mg @1200 to reduce risk of contrubiting to insomnia Continue Seroquel 150mg but make PRN for insomnia Hold off on restarting Lexapro (decreased libido) Clonidine qhs and p.r.n. Atorvastatin 10 mg for hyperlipidemia Famotadine 20mg BID Patient educated on: diagnosis, medication risk/benefits and therapeutic strategies Informed Consent: understands Reason for continued inpatient stay Substantial Risk for: stable for discharge Time Spent With Patient Time: Total time managing care of this patient today ____ minutes.
[2023-10-29] MEDS: Dextroamphetamine/Amphetamine XR 10 MG CAP.ER.24H 20 MG PO (13:02)
[2023-10-29] MEDS: QUEtiapine Fumarate 50 MG TABLET PO ×2 (15:12→20:30)
[2023-10-29 20:00] VITALS: BP 157/100; PULSE 115; RESP 14; TEMP 36.1; O2SAT 96
[2023-10-29] MEDS: cloNIDine HCL 0.2 MG TABLET PO (20:28)
[2023-10-29] MEDS: clonazePAM 1 MG TABLET PO (20:28)
[2023-10-29] MEDS: Atorvastatin Calcium 20 MG TABLET PO (20:28)
[2023-10-29] MEDS: Lithium Carbonate ER 450 MG TABLET.ER 900 MG PO (20:29)
[2023-10-29] MEDS: QUEtiapine Fumarate 100 MG TABLET PO (20:29)
[2023-10-29] MEDS: risperiDONE 2 MG TABLET PO (20:29)
--- NOTE | 2023-10-30 | ECG_ITS ---
Test Reason : chest oneal Blood Pressure : / mmHG Vent. Rate : 097 BPM Atrial Rate : 097 BPM P-R Int : 156 ms QRS Dur : 094 ms QT Int : 336 ms P-R-T Axes : 063 061 036 degrees QTc Int : 426 ms Normal sinus rhythm Normal ECG When compared with ECG of 18-OCT-2023 11:04, No significant change was found Referred By: Ke Mittal Electronically Signed By:ELLA MOE
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
[2023-10-30 08:28] VITALS: BP 117/60; PULSE 86; RESP 16; TEMP 36.9; O2SAT 98
[2023-10-30 08:33] LABS: Glucose, Whole Blood 116 mg/dL (60-115)
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
[2023-10-30] MEDS: Dextroamphetamine/Amphetamine XR 10 MG CAP.ER.24H 40 MG PO (10:12)
[2023-10-30] MEDS: lamoTRIgine 25 MG TABLET 75 MG PO ×2 (10:12→20:59)
[2023-10-30] MEDS: Escitalopram Oxalate 20 MG TABLET PO (10:12)
[2023-10-30] MEDS: Famotidine 20 MG TABLET PO ×2 (10:13→21:00)
[2023-10-30] MEDS: metFORMIN HCl 500 MG TABLET PO (10:13)
[2023-10-30] MEDS: QUEtiapine Fumarate 50 MG TABLET PO (12:35)
[2023-10-30] MEDS: Dextroamphetamine/Amphetamine XR 10 MG CAP.ER.24H 20 MG PO (12:35)
[2023-10-30 20:00] VITALS: BP 117/110; PULSE 115; RESP 16; TEMP 36.8; O2SAT 97
[2023-10-30] MEDS: Lithium Carbonate ER 450 MG TABLET.ER 900 MG PO (20:59)
[2023-10-30] MEDS: Atorvastatin Calcium 20 MG TABLET PO (21:00)
[2023-10-30 21:02] VITALS: BP 144/91
[2023-10-30] MEDS: cloNIDine HCL 0.2 MG TABLET PO (21:02)
[2023-10-30 23:16] VITALS: PULSE 104; RESP 18; TEMP 37.3; O2SAT 97
--- NOTE | 2023-10-31 02:53 | PC.NURSE ---
At approximately 2310, this patient approached this newspaper writer and complained of non-radiating left sided chest pain of 5/10. This newspaper writer obtained VS at that time. BP was 142/98 on the right arm with the patient seated, and a heart rate of 104; MAP was 117. O2 on room air was 97%, and temp was noted to be slightly elevated at 99.1 (skin.) sugar house supervisor, Dr Ke Mittal, was contacted at 2320, and ordered a stat EKG, which was taken at 2330. Results were tiger texted to Dr Mittal at 2353. At 2355, the patient reported that his pain had decreased to a 2/10, and at 0130, reported it was entirely gone.
[2023-10-31 07:56] VITALS: BP 158/81; PULSE 97; RESP 18; TEMP 37; O2SAT 97
[2023-10-31] MEDS: Famotidine 20 MG TABLET PO ×2 (08:20→20:13)
[2023-10-31] MEDS: Escitalopram Oxalate 20 MG TABLET PO (08:20)
[2023-10-31] MEDS: metFORMIN HCl 500 MG TABLET PO ×2 (08:20→17:51)
[2023-10-31] MEDS: lamoTRIgine 25 MG TABLET 75 MG PO ×2 (08:20→20:14)
[2023-10-31 08:43] LABS: Creatinine Clr Calc Pharmacy 97.7; Estimated Glomerular Filt Rate > 60
[2023-10-31] MEDS: Dextroamphetamine/Amphetamine XR 10 MG CAP.ER.24H 40 MG PO (09:30)
--- NOTE | 2023-10-31 12:00 | P.PNPSI_ITS ---
Subjective Subjective Date of Service: 10/31/23 Reason For Visit: Depression/SI Interim History: met with patient; discussed with team reports doing well; good mood and optimistic; discussed dispo planning Mental Status Exam Mental Status Exam Narrative: Pt is alert and oriented; behavior is cooperative, calm; patient is not in distress; dressed in casual attire, adequately groomed; mood is described as good and affect congruent, calm, brighter; eye contact appropriate; Speech is normal rate, volume, prosody; not pressured; no psychomotor agitation; thought process is organized and goal directed; Thought content is progress, treatment, relationships; no SI/HI; otherwise pertinent to relevant topics and without any delusional content, paranoid ideations or grandiosity; Denies AVH and there is no evidence of perceptual disturbance. Patients insight and judgment fair and adequate. Diagnostics Vital Signs (24Hr): Vital Signs - 24 hr 10/30/23 20:00 10/30/23 21:02 10/30/23 23:16 Temperature 98.3 F 99.1 F Pulse Rate 115 H 104 H Respiratory Rate 16 18 Blood Pressure 117/110 H 144/91 H Pulse Oximetry 97 97 Oxygen Delivery Method Room Air Room Air 10/31/23 07:56 Temperature 98.6 F Pulse Rate 97 Respiratory Rate 18 Blood Pressure 158/81 H Pulse Oximetry 97 Oxygen Delivery Method Room Air BMI result Body Mass Index 34.2 Labs 10/17/23 16:44 10/31/23 08:12 Labs: Laboratory Results - last 48 hr 10/30/23 10/31/23 08:29 08:12 Creatinine 0.99 Estim Creat Clear Calc 97.7 Estimated GFR > 60 POC Glucose 116 H Imaging Radiology Impressions: ITS Impressions Chest X-Ray 10/17/23 16:33 IMPRESSION: No acute cardiopulmonary process. Electronically signed by: Roxie Loyd MD 10/17/2023 05:40 PM EDT RP Medications Medications Current Medications Acetaminophen (Acetaminophen 325 Mg Tablet) 650 mg PO Q6H PRN PRN Reason: Headache/Pain Mild Scale (1-3) Last Admin: 10/23/23 09:12 Dose: 650 mg Al Hydroxide/Mg Hydroxide (Magnesium Hydrox/Alum Hydrox 30 Ml Oral.Susp) 30 ml PO Q6H PRN PRN Reason: Heartburn/Nausea Last Admin: 10/26/23 12:33 Dose: 30 ml Amphetamine/Dextroamphetamine (Dextroamphetamine/Amphetamine Xr 10 Mg Cap.Er.24h) 40 mg PO DAILY ANDREA Last Admin: 10/31/23 09:30 Dose: 40 mg Amphetamine/Dextroamphetamine (Dextroamphetamine/Amphetamine Xr 10 Mg Cap.Er.24h) 20 mg PO DAILY@1200 ANDREA Last Admin: 10/30/23 12:35 Dose: 20 mg Atorvastatin Calcium (Atorvastatin Calcium 20 Mg Tablet) 20 mg PO BEDTIME ANDREA Last Admin: 10/30/23 21:00 Dose: 20 mg Bisacodyl (Bisacodyl 5 Mg Tablet.Dr) 5 mg PO BEDTIME PRN PRN Reason: Constipation Clonazepam (Clonazepam 1 Mg Tablet) 1 mg PO BEDTIME [facility] Last Admin: 10/30/23 21:28 Dose: Not Given Clonidine HCl (Clonidine Hcl 0.1 Mg Tablet) 0.1 mg PO Q4H PRN; Protocol PRN Reason: anxiety Last Admin: 10/27/23 15:31 Dose: 0.1 mg Clonidine HCl (Clonidine Hcl 0.2 Mg Tablet) 0.2 mg PO BEDTIME ANDREA; Protocol Last Admin: 10/30/23 21:02 Dose: 0.2 mg Escitalopram Oxalate (Escitalopram Oxalate 20 Mg Tablet) 20 mg PO DAILY [facility] Last Admin: 10/31/23 08:20 Dose: 20 mg Famotidine (Famotidine 20 Mg Tablet) 20 mg PO DAILY PRN PRN Reason: continued GERD Famotidine (Famotidine 20 Mg Tablet) 20 mg PO BID [facility] Last Admin: 10/31/23 08:20 Dose: 20 mg Hydroxyzine HCl (Hydroxyzine Hcl 25 Mg Tablet) 25 mg PO Q6H PRN PRN Reason: Anxiety Last Admin: 10/27/23 15:31 Dose: 25 mg Lamotrigine (Lamotrigine 25 Mg Tablet) 75 mg PO BID [facility] Last Admin: 10/31/23 08:20 Dose: 75 mg [place] Carbonate ([place] Carbonate Er 450 Mg Tablet.Er) 900 mg PO BEDTIME ANDREA Last Admin: 10/30/23 20:59 Dose: 900 mg Loperamide HCl (Loperamide Hcl 2 Mg Capsule) 4 mg PO Q4H PRN PRN Reason: loose stool Last Admin: 10/25/23 15:43 Dose: 4 mg Magnesium Hydroxide (Milk Of Magnesia 30 Ml Oral.Susp) 30 ml PO DAILY PRN PRN Reason: Constipation Metformin HCl (Metformin Hcl 500 Mg Tablet) 500 mg PO BIDWM [facility] Last Admin: 10/31/23 08:20 Dose: 500 mg Nicotine (Nicotine 21 Mg Patch.Td24) 21 mg TRANSDERMA DAILY PRN PRN Reason: smoking cessation Nicotine Polacrilex (Nicotine Polacrilex 2 Mg Gum) 4 mg BUCCAL Q2H PRN PRN Reason: Nicotine Cravings Quetiapine Fumarate (Quetiapine Fumarate 100 Mg Tablet) 100 mg PO BEDTIME PRN PRN Reason: insomnia Last Admin: 10/29/23 20:29 Dose: 100 mg Quetiapine Fumarate (Quetiapine Fumarate 50 Mg Tablet) 50 mg PO TID PRN PRN Reason: Anxiety/insomnia Last Admin: 10/30/23 12:35 Dose: 50 mg Risperidone (Risperidone 2 Mg Tablet) 2 mg PO BEDTIME ANDREA Last Admin: 10/30/23 21:28 Dose: Not Given Allergies Allergies Allergy/AdvReac Type Severity Reaction Status Date / Time trazodone [TRAZODONE] Allergy Severe SHORTNESS Verified 10/21/23 14:32 OF BREATH Assessment & Plan Assessment & Plan (1) Bipolar 1 disorder: Status: Acute Code(s): F31.9 - Bipolar disorder, unspecified (2) PTSD (post-traumatic stress disorder): Status: Acute Code(s): F43.10 - Post-traumatic stress disorder, unspecified (3) ADHD: Status: Acute Code(s): F90.9 - Attention-deficit hyperactivity disorder, unspecified type (4) Cocaine use disorder: Status: Acute Code(s): F14.10 - Cocaine abuse, uncomplicated (5) Diabetes: Status: Acute Code(s): E11.9 - Type 2 diabetes mellitus without complications (6) Hyperlipidemia: Status: Acute Code(s): E78.5 - Hyperlipidemia, unspecified Plan Patient is a 48-year-old male with history of bipolar 1 disorder, PTSD, cocaine abuse who presents for ongoing depression and SI with hope that using cocaine would end his life. Patient reports that after past psychiatric admission at [facility] (2019 and 2020) he was started on medication regimen that helped his chronic depression. He took it for 2 years and said that it helped a lot but after his dog he got depressed and just stopped taking medications. Since then he has been depressed daily, with daily passive thoughts of wishing he were . Interspersed with this chronic depression, patient would have manic episodes that could last for several days and up to 2 weeks during which time he did not need sleep at all, was talking fast was irritable, engaged in excessive gambling and spending money he did not have, taking risky behaviors such as having sexual encounters with strangers; after such an episode he would have about of deeper depression. Patient reports increased stress since this past March after he brought his family to the [place] including 2 brothers and his parents; it has been difficult helping them adjust and taking care of them. Patient had a recent manic episode during which he gambled much of his money away and his girlfriend broke up with him and patient ended up homeless. Patient had been sober from cocaine for 2 years but in about of desperation, wishing he was , he took cocaine hoping he might have a heart attack. Patient then self presented to the hospital. Reports ongoing PTSD symptoms, flashbacks from trauma; denies any AVH; denies any other drug or alcohol abuse other than intermittent cannabis. Formulation/clinical reasoning: Patient has a history of manic episodes that have significantly impaired functioning and resulted in severe depression and needing hospitalization; will change diagnosis to bipolar type 1. Patient agrees to get back on past medication regimen that he found very helpful, which includes lithium; copywriter reviewed risks/side effects which patient understands and agrees to. Also agrees to increasing Lamictal as he used to be on higher dose. Will hold off on restarting Lexapro as patient reported sexual side effects; will also hold off on restarting Risperdal as lithium and Lamictal maybe adequate and effort made to avoid polypharmacy and patient did report some urinary hesitancy which may have been attributed to Risperdal. Ergonomics Technician discussed elevated cholesterol and patient agrees to get back on atorvastatin which he was on before. Hospital course: 10/20 still depressed but improving; retracted 3 day; trouble sleeping and will try seroquel. 10/21- seroquel mr x1 but given olanzapine prn due to agiation with si after pcall tonight and put on 5min checks for now- CTP 10/22 - ongoing impulsive mood at times- inc lamotrigine, prns of seroquel 25 given prn lorazepam given CTP 10/21 after bad phone call became agitated reporting si and was changed from 15 min checks to 5 min, given prn of olanzapine and all his night meds early- and went to room- 10/22 struggling with affect regulation had incident on phone last pm- doesn't want to discuss, says it was not about conflict with ex gf/work situation- Agrees today to rx for diabetes type 2 started metformin He agreed to inc lamotrigine- dosing- for mood stablity- and requested higher quetiapine even 100mg didn't quite help last pm and had to wait for 2nd dose- Later in day had another irritable eruption and refused prns telling nurse none of your meds are helping 10/23 pt upset last night from phone call; upset again today. Says on hunger strike since can not get phone. Talked through his emotions; trauma, being easily triggered and quickly become out of control. Has had thoughts of wanting to hurt others and hurt himself...denies any intention or plans and says he has such thoughts (mostly just of wanting to be ) daily; says it does not mean he'll go act upon it but it's just how he feels at moment. decided to continue w/ treatment, stop fast.. discussed med changes 10/24 patient remains exceedingly anxious, insomnia, intermittent SI; copywriter agrees to give 1 time dose of benzo -patient has 3 day notice due tomorrow; copywriter and team agree that patient is not stable for discharge would quickly decompensate -[place] level within therapeutic range though on the low side 10/25 Patient remains very anxious, worrying throughout the day about various things, especially whether not he will ever be able to be stable; girlfriend said he is allowed back to the house but patient is ambivalent worried that he will not be able to control his emotions and that he will ruin their relationship and again become suicidal and homicidal. Ergonomics Technician discussed that with continued medication management, it is hopeful that patient can become more stabilized. To this end, patient agreed to retract 3 day notice. Discussed restarting Lexapro which had helped in the past but caused decreased libido; patient said he does not care about potential side effect if it would help reduce his anxiety. 10/26 continue current treatment plan; patient seems to be improving and in more emotional control; did not get upset after phone conversation with girlfriend 10/28 doing well, feels much better, stable 10/29 remains stable; will discuss aftercare with social work when they return on Tuesday; patient needs providers in the community established so as to remain stable 10/30 continue current tx plan Plan: CV Q 15 minute checks Continue lithium ER 900 mg q.h.s.; patient used to be on 450 mg b.i.d. Continue Lamictal to 75 mg b.i.d.; (Increased over weekend) agreed to increase Risperdal to 2mg qhs to help w/ easily triggered anger and sleep copywriter decided to temporarily add clonazepam 1mg qhs to help w/ racing thoughts/insomnia will change Adderal XR to 50mg in AM and then 10mg @1200 to reduce risk of contrubiting to insomnia Continue Seroquel 150mg but make PRN for insomnia Hold off on restarting Lexapro (decreased libido) Clonidine qhs and p.r.n. Atorvastatin 10 mg for hyperlipidemia Famotadine 20mg BID Patient educated on: diagnosis and therapeutic strategies Informed Consent: understands Reason for continued inpatient stay Substantial Risk for: rapid decompensation Time Spent With Patient Time: Total time managing care of this patient today ____ minutes.
[2023-10-31 13:14] VITALS: BP 167/10
[2023-10-31] MEDS: cloNIDine HCL 0.1 MG TABLET PO ×2 (13:14→17:51)
[2023-10-31] MEDS: Dextroamphetamine/Amphetamine XR 10 MG CAP.ER.24H 20 MG PO (13:14)
[2023-10-31 17:51] VITALS: BP 152/98
[2023-10-31 19:35] VITALS: BP 137/94; PULSE 95; TEMP 36.5; O2SAT 96
[2023-10-31] MEDS: risperiDONE 2 MG TABLET PO (20:13)
[2023-10-31] MEDS: Lithium Carbonate ER 450 MG TABLET.ER 900 MG PO (20:13)
[2023-10-31] MEDS: cloNIDine HCL 0.2 MG TABLET PO (20:14)
[2023-10-31] MEDS: QUEtiapine Fumarate 100 MG TABLET PO (20:14)
[2023-10-31] MEDS: Atorvastatin Calcium 20 MG TABLET PO (20:14)
[2023-10-31] MEDS: clonazePAM 1 MG TABLET PO (20:14)
[2023-11-01 00:50] LABS: Glucose, Whole Blood 121 mg/dL (60-115)
[2023-11-01 08:00] VITALS: BP 109/61; PULSE 89; RESP 16; TEMP 36; O2SAT 97
[2023-11-01 08:53] LABS: Glucose, Whole Blood 142 mg/dL (60-115)
[2023-11-01] MEDS: lamoTRIgine 25 MG TABLET 75 MG PO ×2 (09:32→20:07)
[2023-11-01] MEDS: Dextroamphetamine/Amphetamine XR 10 MG CAP.ER.24H 40 MG PO (09:32)
[2023-11-01 09:33] VITALS: BP 110/76
[2023-11-01] MEDS: Famotidine 20 MG TABLET PO ×2 (09:33→20:08)
[2023-11-01] MEDS: cloNIDine HCL 0.1 MG TABLET PO ×3 (09:33→17:15)
[2023-11-01] MEDS: metFORMIN HCl 500 MG TABLET PO ×2 (09:33→17:15)
[2023-11-01] MEDS: Escitalopram Oxalate 20 MG TABLET PO (09:33)
[2023-11-01] MEDS: QUEtiapine Fumarate 50 MG TABLET PO ×2 (11:04→17:15)
[2023-11-01 12:23] VITALS: BP 112/78
[2023-11-01] MEDS: hydrOXYzine HCL 25 MG TABLET PO ×2 (12:23→22:35)
[2023-11-01] MEDS: Dextroamphetamine/Amphetamine XR 10 MG CAP.ER.24H 20 MG PO (13:41)
[2023-11-01 17:15] VITALS: BP 122/78
--- NOTE | 2023-11-01 17:33 | P.PNPSI_ITS ---
Subjective Subjective Date of Service: 11/01/23 Reason For Visit: Depression/SI Interim History: met with patient; discussed with team pt asked about controlling his anger and discussed the day before during his altercation with peer. agrees with need for therapy. Still overall feeling stable, ready for discharge. Mental Status Exam Mental Status Exam Narrative: Pt is alert and oriented; behavior is cooperative, calm; patient is not in distress; dressed in casual attire, adequately groomed; mood is described as good and affect congruent, calm, bright; eye contact appropriate; Speech is normal rate, volume, prosody; not pressured; no psychomotor agitation; thought process is organized and goal directed; Thought content is progress, treatment, relationships; no SI/HI; otherwise pertinent to relevant topics and without any delusional content, paranoid ideations or grandiosity; Denies AVH and there is no evidence of perceptual disturbance. Patients insight and judgment fair and adequate. Diagnostics Vital Signs (24Hr): Vital Signs - 24 hr 10/31/23 17:51 10/31/23 19:35 11/01/23 08:00 Temperature 97.7 F 96.8 F Pulse Rate 95 89 Respiratory Rate 16 Blood Pressure 152/98 H 137/94 H 109/61 Pulse Oximetry 96 97 Oxygen Delivery Method Room Air Room Air 11/01/23 09:33 11/01/23 12:23 11/01/23 17:15 Temperature Pulse Rate Respiratory Rate Blood Pressure 110/76 112/78 122/78 Pulse Oximetry Oxygen Delivery Method BMI result Body Mass Index 34.2 Labs 10/17/23 16:44 10/31/23 08:12 Labs: Laboratory Results - last 48 hr 10/31/23 10/31/23 11/01/23 08:03 08:12 08:49 Creatinine 0.99 Estim Creat Clear Calc 97.7 Estimated GFR > 60 POC Glucose 121 H 142 H Imaging Radiology Impressions: ITS Impressions Chest X-Ray 10/17/23 16:33 IMPRESSION: No acute cardiopulmonary process. Electronically signed by: Roxie Loyd MD 10/17/2023 05:40 PM EDT Medications Medications Current Medications Acetaminophen (Acetaminophen 325 Mg Tablet) 650 mg PO Q6H PRN PRN Reason: Headache/Pain Mild Scale (1-3) Last Admin: 09/15/24 09:12 Dose: 650 mg Al Hydroxide/Mg Hydroxide (Magnesium Hydrox/Alum Hydrox 30 Ml Oral.Susp) 30 ml PO Q6H PRN PRN Reason: Heartburn/Nausea Last Admin: 10/26/23 12:33 Dose: 30 ml Amphetamine/Dextroamphetamine (Dextroamphetamine/Amphetamine Xr 10 Mg Cap.Er.24h) 40 mg PO DAILY ANDREA Last Admin: 11/01/23 09:32 Dose: 40 mg Amphetamine/Dextroamphetamine (Dextroamphetamine/Amphetamine Xr 10 Mg Cap.Er.24h) 20 mg PO DAILY@1200 [facility] Last Admin: 11/01/23 13:41 Dose: 20 mg Atorvastatin Calcium (Atorvastatin Calcium 20 Mg Tablet) 20 mg PO BEDTIME ANDREA Last Admin: 10/31/23 20:14 Dose: 20 mg Bisacodyl (Bisacodyl 5 Mg Tablet.Dr) 5 mg PO BEDTIME PRN PRN Reason: Constipation Clonazepam (Clonazepam 1 Mg Tablet) 1 mg PO BEDTIME ANDREA Last Admin: 10/31/23 20:14 Dose: 1 mg Clonidine HCl (Clonidine Hcl 0.1 Mg Tablet) 0.1 mg PO Q4H PRN; Protocol PRN Reason: anxiety Last Admin: 11/01/23 17:15 Dose: 0.1 mg Clonidine HCl (Clonidine Hcl 0.2 Mg Tablet) 0.2 mg PO BEDTIME [facility]; Protocol Last Admin: 10/31/23 20:14 Dose: 0.2 mg Clonidine HCl (Clonidine Hcl 0.1 Mg Tablet) 0.1 mg PO DAILY [facility]; Protocol Last Admin: 11/01/23 09:33 Dose: 0.1 mg Escitalopram Oxalate (Escitalopram Oxalate 20 Mg Tablet) 20 mg PO DAILY ANDREA Last Admin: 11/01/23 09:33 Dose: 20 mg Famotidine (Famotidine 20 Mg Tablet) 20 mg PO DAILY PRN PRN Reason: continued GERD Famotidine (Famotidine 20 Mg Tablet) 20 mg PO BID [facility] Last Admin: 11/01/23 09:33 Dose: 20 mg Hydroxyzine HCl (Hydroxyzine Hcl 25 Mg Tablet) 25 mg PO Q6H PRN PRN Reason: Anxiety Last Admin: 11/01/23 12:23 Dose: 25 mg Lamotrigine (Lamotrigine 25 Mg Tablet) 75 mg PO BID [facility] Last Admin: 11/01/23 09:32 Dose: 75 mg [place] Carbonate ([place] Carbonate Er 450 Mg Tablet.Er) 900 mg PO BEDTIME ANDREA Last Admin: 10/31/23 20:13 Dose: 900 mg Loperamide HCl (Loperamide Hcl 2 Mg Capsule) 4 mg PO Q4H PRN PRN Reason: loose stool Last Admin: 10/25/23 15:43 Dose: 4 mg Magnesium Hydroxide (Milk Of Magnesia 30 Ml Oral.Susp) 30 ml PO DAILY PRN PRN Reason: Constipation Metformin HCl (Metformin Hcl 500 Mg Tablet) 500 mg PO BIDWM ANDREA Last Admin: 11/01/23 17:15 Dose: 500 mg Nicotine (Nicotine 21 Mg Patch.Td24) 21 mg TRANSDERMA DAILY PRN PRN Reason: smoking cessation Nicotine Polacrilex (Nicotine Polacrilex 2 Mg Gum) 4 mg BUCCAL Q2H PRN PRN Reason: Nicotine Cravings Quetiapine Fumarate (Quetiapine Fumarate 100 Mg Tablet) 100 mg PO BEDTIME PRN PRN Reason: insomnia Last Admin: 10/31/23 20:14 Dose: 100 mg Quetiapine Fumarate (Quetiapine Fumarate 50 Mg Tablet) 50 mg PO TID PRN PRN Reason: Anxiety/insomnia Last Admin: 11/01/23 17:15 Dose: 50 mg Risperidone (Risperidone 2 Mg Tablet) 2 mg PO BEDTIME ANDREA Last Admin: 10/31/23 20:13 Dose: 2 mg Allergies Allergies Allergy/AdvReac Type Severity Reaction Status Date / Time trazodone [TRAZODONE] Allergy Severe SHORTNESS Verified 10/21/23 14:32 OF BREATH Assessment & Plan Assessment & Plan (1) Bipolar 1 disorder: Status: Acute Code(s): F31.9 - Bipolar disorder, unspecified (2) PTSD (post-traumatic stress disorder): Status: Acute Code(s): F43.10 - Post-traumatic stress disorder, unspecified (3) ADHD: Status: Acute Code(s): F90.9 - Attention-deficit hyperactivity disorder, unspecified type (4) Cocaine use disorder: Status: Acute Code(s): F14.10 - Cocaine abuse, uncomplicated (5) Diabetes: Status: Acute Code(s): E11.9 - Type 2 diabetes mellitus without complications (6) Hyperlipidemia: Status: Acute Code(s): E78.5 - Hyperlipidemia, unspecified Plan Patient is a 48-year-old male with history of bipolar 1 disorder, PTSD, cocaine abuse who presents for ongoing depression and SI with hope that using cocaine would end his life. Patient reports that after past psychiatric admission at [facility] (2019 and 2020) he was started on medication regimen that helped his chronic depression. He took it for 2 years and said that it helped a lot but after his dog he got depressed and just stopped taking medications. Since then he has been depressed daily, with daily passive thoughts of wishing he were . Interspersed with this chronic depression, patient would have manic episodes that could last for several days and up to 2 weeks during which time he did not need sleep at all, was talking fast was irritable, engaged in excessive gambling and spending money he did not have, taking risky behaviors such as having sexual encounters with strangers; after such an episode he would have about of deeper depression. Patient reports increased stress since this past March after he brought his family to the [place] including 2 brothers and his parents; it has been difficult helping them adjust and taking care of them. Patient had a recent manic episode during which he gambled much of his money away and his girlfriend broke up with him and patient ended up homeless. Patient had been sober from cocaine for 2 years but in about of desperation, wishing he was , he took cocaine hoping he might have a heart attack. Patient then self presented to the hospital. Reports ongoing PTSD symptoms, flashbacks from trauma; denies any AVH; denies any other drug or alcohol abuse other than intermittent cannabis. Formulation/clinical reasoning: Patient has a history of manic episodes that have significantly impaired functioning and resulted in severe depression and needing hospitalization; will change diagnosis to bipolar type 1. Patient agrees to get back on past medication regimen that he found very helpful, which includes lithium; lead technical writer reviewed risks/side effects which patient understands and agrees to. Also agrees to increasing Lamictal as he used to be on higher dose. Will hold off on restarting Lexapro as patient reported sexual side effects; will also hold off on restarting Risperdal as lithium and Lamictal maybe adequate and effort made to avoid polypharmacy and patient did report some urinary hesitancy which may have been attributed to Risperdal. [employer]ator discussed elevated cholesterol and patient agrees to get back on atorvastatin which he was on before. Hospital course: 10/20 still depressed but improving; retracted 3 day; trouble sleeping and will try seroquel. 10/21- seroquel mr x1 but given olanzapine prn due to agiation with si after pcall tonight and put on 5min checks for now- CTP 10/22 - ongoing impulsive mood at times- inc lamotrigine, prns of seroquel 25 given prn lorazepam given CTP 10/21 after bad phone call became agitated reporting si and was changed from 15 min checks to 5 min, given prn of olanzapine and all his night meds early- and went to room- 10/22 struggling with affect regulation had incident on phone last pm- doesn't want to discuss, says it was not about conflict with ex gf/work situation- Agrees today to rx for diabetes type 2 started metformin He agreed to inc lamotrigine- dosing- for mood stablity- and requested higher quetiapine even 100mg didn't quite help last pm and had to wait for 2nd dose- Later in day had another irritable eruption and refused prns telling nurse none of your meds are helping 10/23 pt upset last night from phone call; upset again today. Says on hunger strike since can not get phone. Talked through his emotions; trauma, being easily triggered and quickly become out of control. Has had thoughts of wanting to hurt others and hurt himself...denies any intention or plans and says he has such thoughts (mostly just of wanting to be ) daily; says it does not mean he'll go act upon it but it's just how he feels at moment. decided to continue w/ treatment, stop fast.. discussed med changes 10/24 patient remains exceedingly anxious, insomnia, intermittent SI; lead technical writer agrees to give 1 time dose of benzo -patient has 3 day notice due tomorrow; lead technical writer and team agree that patient is not stable for discharge would quickly decompensate -[place] level within therapeutic range though on the low side 10/25 Patient remains very anxious, worrying throughout the day about various things, especially whether not he will ever be able to be stable; girlfriend said he is allowed back to the house but patient is ambivalent worried that he will not be able to control his emotions and that he will ruin their relationship and again become suicidal and homicidal. [employer]ator discussed that with continued medication management, it is hopeful that patient can become more stabilized. To this end, patient agreed to retract 3 day notice. Discussed restarting Lexapro which had helped in the past but caused decreased libido; patient said he does not care about potential side effect if it would help reduce his anxiety. 10/26 continue current treatment plan; patient seems to be improving and in more emotional control; did not get upset after phone conversation with girlfriend 10/28 doing well, feels much better, stable 10/29 remains stable; will discuss aftercare with social work when they return on Tuesday; patient needs providers in the community established so as to remain stable 10/31 good mood, future oriented and plans to go back to girlfriends and back to work;expresses gratitude. Asking for discharge. He is appropriate to return to the community for treatment. He is not in imminent risk of harm to self or others and request for discharge honored. Plan: CV Q 15 minute checks Continue lithium ER 900 mg q.h.s.; patient used to be on 450 mg b.i.d. Continue Lamictal to 75 mg b.i.d.; (Increased over weekend) agreed to increase Risperdal to 2mg qhs to help w/ easily triggered anger and sleep lead technical writer decided to temporarily add clonazepam 1mg qhs to help w/ racing thoughts/insomnia will change Adderal XR to 50mg in AM and then 10mg @1200 to reduce risk of contrubiting to insomnia Continue Seroquel 150mg but make PRN for insomnia Hold off on restarting Lexapro (decreased libido) Clonidine qhs and p.r.n. Atorvastatin 10 mg for hyperlipidemia Famotadine 20mg BID Patient educated on: diagnosis, medication risk/benefits and therapeutic strategies Informed Consent: understands Reason for continued inpatient stay Substantial Risk for: stable for discharge Time Spent With Patient Time: Total time managing care of this patient today ____ minutes.
[2023-11-01 20:00] VITALS: BP 130/68; PULSE 107; TEMP 37.1; O2SAT 96
[2023-11-01 20:07] VITALS: BP 130/68
[2023-11-01] MEDS: cloNIDine HCL 0.2 MG TABLET PO (20:07)
[2023-11-01] MEDS: Lithium Carbonate ER 450 MG TABLET.ER 900 MG PO (20:08)
[2023-11-01] MEDS: clonazePAM 1 MG TABLET PO (20:08)
[2023-11-01] MEDS: Atorvastatin Calcium 20 MG TABLET PO (20:08)
[2023-11-01] MEDS: risperiDONE 2 MG TABLET PO (20:08)
[2023-11-01] MEDS: QUEtiapine Fumarate 100 MG TABLET PO (22:35)
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
[2023-11-02 08:16] LABS: Glucose, Whole Blood 128 mg/dL (60-115)
[2023-11-02 08:55] VITALS: BP 115/62; PULSE 91; RESP 16; TEMP 37.2; O2SAT 96
[2023-11-02] MEDS: Escitalopram Oxalate 20 MG TABLET PO (09:47)
[2023-11-02] MEDS: metFORMIN HCl 500 MG TABLET PO (09:47)
[2023-11-02] MEDS: Dextroamphetamine/Amphetamine XR 10 MG CAP.ER.24H 40 MG PO (09:47)
[2023-11-02] MEDS: Famotidine 20 MG TABLET PO (09:47)
[2023-11-02] MEDS: lamoTRIgine 25 MG TABLET 75 MG PO (09:47)
[2023-11-02] MEDS: Naloxone HCl Nasal TAKE HOME 4 MG SPRAY 8 MG NOSTRILALT (09:48)
[2023-11-02] MEDS: cloNIDine HCL 0.1 MG TABLET PO (09:59)
== END 2023-11-02 11:31 | disposition home or self-care (01) | DRG 753 ==
LOC: HO.ED 10-18 12:42 → HO.PM5 10-19 12:25
PROVIDERS: Physician Assistant Medical; Psychiatry & Neurology Psychiatry; Admitting Provider Psychiatry & Neurology Psychiatry; Emergency Provider Emergency Medicine; PCP Nurse Practitioner Family; Visit Provider Psychiatry & Neurology Psychiatry
DX: F31.4 Bipolar disorder, current episode depressed, severe, without psychotic features (principal); R45.851 Suicidal ideations; E11.9 Type 2 diabetes mellitus without complications; E78.5 Hyperlipidemia, unspecified; F14.10 Cocaine abuse, uncomplicated; F43.10 Post-traumatic stress disorder, unspecified; Z56.0 Unemployment, unspecified; Z59.02 Unsheltered homelessness; Z79.84 Long term (current) use of oral hypoglycemic drugs; Z79.899 Other long term (current) drug therapy; F90.9 Attention-deficit hyperactivity disorder, unspecified type
CPT/HCPCS: 36415; 71046; 80053; 80061; 80143; 80175; 80178; 80179; 80307; 81003; 82565; 82947; 83036; 83735; 84443; 84484; 84520; 85025; 90656; 93005; 99285; S9485

== ENCOUNTER → 2023-10-19 12:00 | Outpatient (BNV) | payer OTHER, SELFPAY | PROVIDERS: Admitting Provider Psychiatry & Neurology Psychiatry; Emergency Provider Emergency Medicine; PCP Nurse Practitioner Family; Visit Provider Psychiatry & Neurology Psychiatry | DX: F31.4 Bipolar disorder, current episode depressed, severe, without psychotic features (principal); F14.10 Cocaine abuse, uncomplicated; F43.10 Post-traumatic stress disorder, unspecified; F90.9 Attention-deficit hyperactivity disorder, unspecified type | CPT/HCPCS: 99231; 99232; 99239 ==

== ENCOUNTER 2023-12-26 15:18 | Inpatient (IN) | payer OTHER, SELFPAY ==
--- NOTE | 2023-12-26 15:24 | ECG_ITS ---
Test Reason : OVERDOSE Blood Pressure : / mmHG Vent. Rate : 101 BPM Atrial Rate : 101 BPM P-R Int : 156 ms QRS Dur : 102 ms QT Int : 362 ms P-R-T Axes : 054 034 032 degrees QTc Int : 469 ms Sinus tachycardia Otherwise normal ECG When compared with ECG of 30-OCT-2023 23:34, No significant change was found Referred By: Generic ED Physician Electronically Signed By:CHUN HURTADO MD
[2023-12-26 15:35] VITALS: BP 146/90; PULSE 102; RESP 16; TEMP 36.7; O2SAT 97; BMI 34.6
--- NOTE | 2023-12-26 15:47 | ED.GENADULT ---
HPI - General Adult General Chief complaint: Psychiatric Symptoms Stated complaint: SI/ took pills last night, chest pain Time Seen by Provider: 12/26/23 16:28 Source: patient Limitations: no limitations History of Present Illness ED Provider: Brie Gardner PA-C HPI narrative: 48-year-old male with a history of bipolar disorder, polysubstance abuse, PTSD, diabetes, hyperlipidemia presents with a SI. Patient states he has been having thoughts of self-harm since being off his medications, he states his prescriber ?never refilled them?. Patient states he took 60 mg of Adderall earlier today,with cocaine , in an attempt to kill himself. Related Data Previous Rx's ?Medication ?Instructions ?Recorded atorvastatin 20 mg tablet 20 mg PO DAILY 30 days #30 tabs 11/02/23 clonazepam 1 mg tablet 1 mg PO BEDTIME PRN insomnia 30 11/02/23 days #30 tabs clonidine HCl 0.2 mg tablet 0.2 mg PO BEDTIME 30 days #30 tabs 11/02/23 dextroamphetamine-amphetamine ER 1 cap PO QAM 30 days #30 caps 11/02/23 10 mg 24hr capsule,extend release dextroamphetamine-amphetamine ER 1 cap PO DAILY@1200 30 days #30 11/02/23 20 mg 24hr capsule,extend release caps famotidine 20 mg tablet 20 mg PO BID 30 days #60 tabs 11/02/23 hydroxyzine HCl 25 mg tablet 25 mg PO Q6H PRN Anxiety 30 days 11/02/23 #90 tabs lamotrigine 150 mg tablet 150 mg PO DAILY 30 days #30 tabs 11/02/23 lithium carbonate 450 mg 900 mg (2 x 450 mg) PO BEDTIME 30 11/02/23 tablet,extended release days #60 tabs metformin 500 mg tablet 500 mg PO BIDWM 30 days #60 tabs 11/02/23 clonidine HCl 0.1 mg tablet 0.1 mg PO Q4H PRN anxiety 30 days 12/06/23 #90 tabs dextroamphetamine-amphetamine ER 30 mg PO DAILY 30 days #30 caps 12/06/23 30 mg 24hr capsule,extend release (Adderall XR) escitalopram oxalate 20 mg tablet 20 mg PO DAILY 30 days #30 tabs 12/06/23 (Lexapro) quetiapine 50 mg tablet (Seroquel) 50 mg PO TID PRN anxiety/agitation 12/06/23 30 days #60 tabs risperidone 2 mg tablet 2 mg PO BEDTIME 30 days #30 tabs 12/06/23 Allergies Allergy/AdvReac Type Severity Reaction Status Date / Time trazodone [TRAZODONE] Allergy Severe SHORTNESS Verified 12/26/23 15:38 OF BREATH Review of Systems Review of Systems: Yes all other systems are reviewed and are negative Constitutional: Constitutional: Denies fatigue and Denies fever(s) Cardiovascular: Cardiovascular: Denies chest pain and Denies dyspnea Respiratory: Respiratory: Denies dyspnea Gastrointestinal: Gastrointestinal: Denies abdominal pain, Denies nausea and Denies vomiting Endocrine: Endocrine: Denies fatigue PMFSH Past Medical History Attestation statement: The following information was validated with the patient. Medical History (Updated 12/28/23 @ 10:47 by Clara Luna APRN) ADHD Cocaine use disorder PTSD (post-traumatic stress disorder) Substance abuse Bleeding hemorrhoids GERD (gastroesophageal reflux disease) Iron deficiency anemia due to chronic blood loss Diverticulosis Hemorrhoids, internal, with bleeding Bipolar 2 disorder, major depressive episode Moderate cocaine use disorder in controlled environment ADHD Bipolar 1 disorder Depression Surgical History H/O hemorrhoidectomy History of esophagogastroduodenoscopy (EGD) Hx of colonoscopy No pertinent past surgical history Family History Family History Father No problems noted. Mother No problems noted. Maternal Grandmother Colon cancer Daughter No problems noted. Social History Social History Household Members: Significant Other and Family Household Members Other:: GIRLFRIEND Housing: House Do you presently have visiting nurse or other home services: No Alcohol intake: current Alcohol intake frequency: does not drink Comment: in bed, appears to be asleep Patient Tobacco Use Status: Never used Tobacco Tobacco use type: Cigar Cigarette Packs Per Day: 0 Cigarettes Per Day: 3 Years Smoked: 10 Smoked in Last 30 Days: No e-Cigarette/Vaping Use: Never Used Patient Interested in Nicotine Replacement: No Patient Given Instructions on How to Stop Smoking: No Second Hand Smoke Exposure: No Use of substances other than those prescribed or required for medical reasons: Yes Substance Use Type: Crack/Cocaine and Marijuana Substance Use Frequency: Recent Binge Last Used Substance: Just Prior to Admission Last Used Substance Other:: cocaine and marijuana edibles Currently Displaying Signs/Symptoms of Drug Intoxication Withdrawal: No Any prior treatment program specific to substance use: No Have you been hit, kicked, punched, or otherwise hurt by someone within the past year? If so, by whom?: No Do you feel safe in your current relationship?: Yes Is there a partner from a previous relationship who is making you feel unsafe now?: No Are you made to feel afraid or neglected: No Spiritual Healthcare Practices: none Sikhism Healthcare Practices: none Cultural Healthcare Practices: none Advance Directives: No Advance Directives Information Provided: Yes Do you have thoughts of harming others: None Do you have a plan to hurt others: No Plan Recently lost weight without trying: No Eating poorly because of decreased appetite: No Nutrition Risks: No Nutritional Risk Poor oral hygiene: No service: No Current occupational status: employed Current occupation: [employer] Current occupational exposures/hazards: No Sexual orientation: Straight/Heterosexual Cognitive needs: No Hearing needs: No Vision needs: No Physical Exam ED Vital Signs: Vital Signs - 24 hr 12/26/23 15:35 12/26/23 18:31 12/26/23 21:45 Temperature 98.0 F 97.6 F 98.1 F Pulse Rate 102 H 84 87 Respiratory Rate 16 18 16 Blood Pressure 146/90 H 141/91 H 131/84 Pulse Oximetry 97 98 97 Oxygen Delivery Method Room Air Room Air Room Air BMI result Body Mass Index 34.6 Const Other: Alert, overall well-appearing Orientation/consciousness: patient oriented x3 Resp Other: nonlabored respirations Cardio Other: Normal peripheral perfusion Skin Other: Warm dry no rash Neuro General: patient oriented x3, no focal motor deficits and CN's II-XI intact bilaterally Psych Other: Cooperative in the ER Course Course Course Narrative: RME: 48-year-old male presents to ED for SI attempt. Patient states last night he took unknown amount of 10 mg 20 mg and 30 mg Adderall at 02:00. Patient states increased SI thoughts. Patient is seeking help. Neuro exam intact. EKG labs ordered. Medications Administered Generic Name Dose Route Start Last Admin Trade Name Dagmar PRN Reason Stop Dose Admin Acetaminophen 650 mg 12/27/23 12:18 12/27/23 15:04 Acetaminophen 325 Mg Tablet PO 650 mg Q6H PRN Administration Headache/Pain Mild Scale (1-3) Amphetamine/Dextroamphetamine 30 mg 12/27/23 11:45 12/27/23 12:05 Dextroamphetamine/Amphetamine Xr 10 Mg Cap.Er.24h PO Not Given DAILY ANDREA Amphetamine/Dextroamphetamine 10 mg 12/27/23 11:45 12/27/23 12:04 Dextroamphetamine/Amphetamine Xr 10 Mg Cap.Er.24h PO Not Given DAILY ANDREA Amphetamine/Dextroamphetamine 20 mg 12/27/23 12:00 12/27/23 12:04 Dextroamphetamine/Amphetamine Xr 10 Mg Cap.Er.24h PO Not Given DAILY@1200 ANDREA Atorvastatin Calcium 20 mg 12/27/23 11:45 12/29/23 08:37 Atorvastatin Calcium 20 Mg Tablet PO 20 mg DAILY ANDREA Administration Clonazepam 1 mg 12/27/23 11:45 12/28/23 21:02 Clonazepam 1 Mg Tablet PO 1 mg BEDTIME PRN Administration insomnia Clonidine HCl 0.1 mg 12/27/23 11:45 12/27/23 11:59 Clonidine Hcl 0.1 Mg Tablet PO 0.1 mg Q4H PRN Administration anxiety Protocol Clonidine HCl 0.2 mg 12/27/23 21:00 12/28/23 21:02 Clonidine Hcl 0.2 Mg Tablet PO 0.2 mg BEDTIME ANDREA Administration Protocol Escitalopram Oxalate 20 mg 12/27/23 11:45 12/29/23 08:37 Escitalopram Oxalate 20 Mg Tablet PO 20 mg DAILY ANDREA Administration Famotidine 20 mg 12/27/23 11:45 12/29/23 08:37 Famotidine 20 Mg Tablet PO 20 mg BID ANDREA Administration Lamotrigine 150 mg 12/28/23 09:00 12/29/23 08:36 Lamotrigine 100 Mg Tablet PO 150 mg DAILY ANDREA Administration [place] Carbonate 900 mg 12/27/23 21:00 12/28/23 21:02 [place] Carbonate Er 450 Mg Tablet.Er PO 900 mg BEDTIME ANDREA Administration Metformin HCl 500 mg 12/27/23 17:00 12/29/23 08:37 Metformin Hcl 500 Mg Tablet PO 500 mg BIDWM ANDREA Administration Quetiapine Fumarate 50 mg 12/27/23 11:45 12/28/23 16:22 Quetiapine Fumarate 50 Mg Tablet PO 50 mg TID PRN Administration anxiety/agitation Risperidone 2 mg 12/27/23 21:00 12/28/23 21:02 Risperidone 2 Mg Tablet PO 2 mg BEDTIME ANDREA Administration Discontinued Medications Generic Name Dose Route Start Last Admin Trade Name Dagmar PRN Reason Stop Dose Admin Acetaminophen 975 mg 12/26/23 18:31 12/26/23 18:33 Acetaminophen 325 Mg Tablet PO 12/26/23 18:32 975 mg ONCE ONE Administration Acetaminophen 975 mg 12/27/23 08:46 12/27/23 08:50 Acetaminophen 325 Mg Tablet PO 12/27/23 08:47 975 mg ONCE ONE Administration Sodium Chloride 1,000 mls @ 999 mls/hr 12/26/23 16:45 12/26/23 18:31 Ns IV 12/26/23 17:45 Infused .Q1H1M ANDREA Infusion Ibuprofen 600 mg 12/27/23 11:47 12/27/23 11:50 Ibuprofen 600 Mg Tablet PO 12/27/23 11:48 600 mg ONCE ONE Administration Influenza Virus Vaccine 0.5 ml 12/27/23 14:31 12/27/23 17:22 Flu Vacc [id number](6mos Up)/Pf 0.5 Ml Syringe IM 12/27/23 14:32 Not Given .ONCE ONE Lamotrigine 150 mg 12/27/23 11:45 12/27/23 12:04 Lamotrigine 25 Mg Tablet PO Not Given DAILY ANDREA Lorazepam 1 mg 12/26/23 16:32 12/26/23 17:34 Lorazepam 2 Mg/Ml Vial IVPUSH 12/26/23 16:33 1 mg ONCE ONE Administration Medical Decision Making Medical Decision Making MDM Narrative: 48-year-old male with a history of bipolar disorder, polysubstance abuse, PTSD, diabetes, hyperlipidemia presents with a SI. Patient states he has been having thoughts of self-harm since being off his medications, he states his prescriber ?never refilled them?. Patient states he took 60 mg of Adderall earlier today,with cocaine , in an attempt to kill himself. Problem: Substance abuse, psychiatric illness History: Per patient I have considered the following differential diagnoses: SI, HI, decompensated psychiatric illness, drug/alcohol intoxication Plan: Patient will be referred, he blatantly a stating he attempted to kill himself would toxic ingestion. His EKG is reassuring, he has sinus tachycardia, rate around 100, no QT prolongation. We will give fluid and Ativan. We will be screening [place] labs, serum ethanol and U tox I have independently reviewed the following tests: Labs: Slight leukocytosis, not anemic, no electrolyte abnormality, U tox positive for amphetamine, cocaine and marijuana, ethanol is negative EKG: Sinus tachycardia, rate of 101, no ischemic changes no ectopy QTC 469 Lab Data 12/26/23 16:01 12/26/23 16:01 Labs: Lab Results 12/26/23 12/26/23 12/27/23 Range/Units 16:01 23:39 07:20 WBC 14.4 H (4.8-10.8) X10*3/uL RBC 4.77 (4.60-5.80) X10*6/uL Hgb 14.3 (14.0-18.0) g/dl Hct 41.9 L (42.0-52.0) % MCV 87.8 (80.0-98.0) fL MCH 30.0 (27.0-33.0) pg MCHC 34.1 (31.0-36.0) g/dl RDW 12.7 (11.0-16.0) % Plt Count 293 (160-400) X10*3/uL MPV 8.2 L (9.4-12.4) fL Immature Gran % (Auto) 0.6 H (0.0-0.4) % Neut % (Auto) 75.9 H (45-73) % Lymph % (Auto) 16.0 L (20-40) % [place] % (Auto) 6.8 (2-11) % Eos % (Auto) 0.3 (0-4) % Baso % (Auto) 0.4 (0-2) % Lymph # (Auto) 2.3 (1.2-4.9) X10*3/uL [place] # (Auto) 1.0 (0.1-1.2) X10*3/uL Eos # (Auto) 0.0 (0.0-0.4) X10*3/uL Baso # (Auto) 0.1 (0.0-0.2) X10*3/uL Abs Immat Gran (auto) 0.08 H (0.00-0.03) X10*3/uL Absolute Neuts (auto) 10.9 H (2.0-8.3) x10*3/uL Absolute Nucleated RBC 0.000 (0.0-0.012) X10*3/uL Nucleated RBC % (auto) 0.0 (0.0-0.2) /100WBC PT 12.1 (10.9-12.4) SEC INR 1.0 (0.9-1.1) APTT 30.4 (26.0-36.8) SEC Sodium 138 (135-145) mmol/L Potassium 4.0 (3.3-5.1) mmol/L Chloride 108 (96-108) mmol/L Carbon Dioxide 22 (22-29) mmol/L Anion Gap 13 (12-20) BUN 14 (9-16) mg/dL Creatinine 0.92 (0.5-1.4) mg/dL Estim Creat Clear Calc 105.8 Estimated GFR > 60 POC Glucose 128 H (60-115) mg/dL Random Glucose 124 H (60-115) mg/dL Calcium 9.1 (8.4-10.2) mg/dL Magnesium 1.9 (1.6-2.6) mg/dL Total Bilirubin 0.6 (0.0-1.0) mg/dL AST 26 (5-37) U/L ALT 35 (0-40) U/L Alkaline Phosphatase 99 (39-117) U/L Total Protein 7.8 (6.5-8.0) g/dL Albumin 4.8 (3.5-5.0) g/dL Urine Color Yellow Urine Appearance Clear Urine pH 6.5 (5.0-9.0) Ur Specific [place] >= 1.030 H (1.005-1.025) Urine Protein Trace (Neg-Trace) mg/dL Urine Glucose (UA) Negative (Negative) mg/dL Urine Ketones Negative (Negative) mg/dL Urine Blood Negative (Negative) Urine Nitrite Negative (Negative) Ur Leukocyte Esterase Negative (Negative) Urine Opiates Screen Not Detected (Not Detect) Ur Buprenorphine Scrn Not Detected (Not Detect) ng/mL Ur Oxycodone Screen Not Detected (Not Detect) ng/mL Urine Methadone Screen Not Detected (Not Detect) ng/mL Urine Fentanyl Screen Not Detected (Not Detect) Ur Barbiturates Screen Not Detected (Not Detect) Ur Phencyclidine Scrn Not Detected (Not Detect) Ur Amphetamines Screen POSITIVE H (Not Detect) U Benzodiazepines Scrn Not Detected (Not Detect) Urine Cocaine Screen POSITIVE H (Not Detect) U Marijuana (THC) Screen POSITIVE H (Not Detect) Ethyl Alcohol < 10 mg/dL Discharge Plan Discharge Clinical Impression: Suicidal ideation Patient Disposition: Still a Patient Discharge Date/Time: 12/27/23 13:54
[2023-12-26 16:04] LABS: MANUAL DIFF FLAG NO
[2023-12-26 16:07] LABS: Basophils Absolute Auto 0.1 X10*3/uL (0.0-0.2); Basophils Percent Auto 0.4 % (0-2); Eosinophils Percent Auto 0.3 % (0-4); Hematocrit 41.9 % (42.0-52.0); Hemoglobin 14.3 g/dl (14.0-18.0); Imm Gran Abs Auto 0.08 X10*3/uL (0.00-0.03); Imm Gran Pct Auto 0.6 % (0.0-0.4); Lymphocytes Absolute Auto 2.3 X10*3/uL (1.2-4.9); Mean Corpuscular HGB Conc 34.1 g/dl (31.0-36.0); Mean Corpuscular Volume 87.8 fL (80.0-98.0); Mean Platelet Volume 8.2 fL (9.4-12.4); Monocytes Percent Auto 6.8 % (2-11); Neutrophils Absolute Auto 10.9 x10*3/uL (2.0-8.3); Neutrophils Percent Auto 75.9 % (45-73); Platelet Count 293 X10*3/uL (160-400); Red Blood Count 4.77 X10*6/uL (4.60-5.80); Red Cell Distribution Width 12.7 % (11.0-16.0); White Blood Count 14.4 X10*3/uL (4.8-10.8)
[2023-12-26 16:12] LABS: Prothrombin Time 12.1 SEC (10.9-12.4)
[2023-12-26 16:14] LABS: Partial Thromboplastin Time 30.4 SEC (26.0-36.8)
[2023-12-26 16:55] LABS: Alanine Aminotransferase 35 U/L (0-40); Albumin Level 4.8 g/dL (3.5-5.0); Alkaline Phosphatase 99 U/L (39-117); Anion Gap 13 (12-20); Aspartate Amino Transferase 26 U/L (5-37); Bilirubin Total 0.6 mg/dL (0.0-1.0); Blood Urea Nitrogen 14 mg/dL (9-16); Calcium 9.1 mg/dL (8.4-10.2); Carbon Dioxide 22 mmol/L (22-29); Chloride 108 mmol/L (96-108); Creatinine Clr Calc Pharmacy 105.8; Estimated Glomerular Filt Rate > 60; Ethanol < 10 mg/dL; Glucose Random 124 mg/dL (60-115); Magnesium 1.9 mg/dL (1.6-2.6); Sodium 138 mmol/L (135-145); Total Protein 7.8 g/dL (6.5-8.0)
[2023-12-26] MEDS: 0.9 % Sodium Chloride 1,000 ML 999 ML IV (17:29)
[2023-12-26] MEDS: LORazepam 2 MG/ML VIAL 1 MG IVPUSH (17:34)
[2023-12-26 18:31] VITALS: BP 141/91; PULSE 84; RESP 18; TEMP 36.4; O2SAT 98
[2023-12-26] MEDS: Acetaminophen 325 MG TABLET 975 MG PO (18:33)
[2023-12-26 21:45] VITALS: BP 131/84; PULSE 87; RESP 16; TEMP 36.7; O2SAT 97
[2023-12-26 23:51] LABS: Appearance Urine Clear; Color Urine Yellow; Glucose Urine UA Negative (Negative); Leukocyte Esterase Urine Negative (Negative); Nitrite Urine Negative (Negative); PH 6.5 (5.0-9.0); Specific Gravity - Urine >= 1.030 (1.005-1.025); Urine Blood Negative (Negative); Urine Ketones Negative (Negative); Urine Protein Trace mg/dL (Neg-Trace)
[2023-12-27 00:02] LABS: Amphetamine Screen Urine POSITIVE (Not Detect); Barbiturates, Urine Not Detected (Not Detect); Benzodiazepines Screen Urine Not Detected (Not Detect); Buprenorphine Scr Not Detected (Not Detect); Cannabinoid Screen Urine POSITIVE (Not Detect); Cocaine Screen Urine POSITIVE (Not Detect); Fentanyl, urine Not Detected (Not Detect); Methadone Screen, Urine Not Detected (Not Detect); Opiate Screen Urine Not Detected (Not Detect); Oxycodone Screen Urine Not Detected (Not Detect); Phencyclidine Screen Urine Not Detected (Not Detect)
[2023-12-27 07:27] LABS: Glucose, Whole Blood 128 mg/dL (60-115)
--- NOTE | 2023-12-27 07:45 | PC.NURSE ---
Assumed care of patient at 0645, patient appears to be in no apparent distress this am, showering at this time. Continue plan of care for inpatient bedsearch
[2023-12-27] MEDS: Acetaminophen 325 MG TABLET 975 MG PO (08:50)
[2023-12-27] MEDS: Ibuprofen 600 MG TABLET PO (11:50)
[2023-12-27] MEDS: cloNIDine HCL 0.1 MG TABLET PO (11:59)
[2023-12-27] MEDS: Famotidine 20 MG TABLET PO ×2 (11:59→20:51)
[2023-12-27] MEDS: Escitalopram Oxalate 20 MG TABLET PO (11:59)
--- NOTE | 2023-12-27 12:05 | PC.NURSE ---
Patient refused Adderall, stating he does not want it because he wants to sleep
[2023-12-27 14:38] VITALS: BP 137/91; PULSE 90; RESP 20; TEMP 36.4; O2SAT 98
[2023-12-27 14:42] VITALS: BMI 34.7
[2023-12-27] MEDS: Acetaminophen 325 MG TABLET 650 MG PO (15:04)
[2023-12-27] MEDS: QUEtiapine Fumarate 50 MG TABLET PO ×2 (15:05→20:59)
--- NOTE | 2023-12-27 16:26 | PC.ADMIT ---
Roel is a 48 year old male admitted to at 2 pm from the POD after reporting?a?suicide attempt, ingesting unknown amount of Adderall and 4 grams of cocaine. He was last on in October and was taking his medication until he ran out 4 weeks ago. He reports he did not attend any of his follow up appointments for therapist?or medication prescriber. Since being off medication he has been having increased depression, SI, and impulsivity. He is a former smoker, takes edible cannabis from the dispensary, and uses cocaine occasionally. His tox screen was positive for amphetamines, marijuana, and cocaine. He initially presented to ED with chest pain and arm numbness which? resolved and was medically cleared. Roel carries a dx of ADHD, bipolar 1, DM- takes Metformin, depression, GERD, and cocaine use disorder. Skin and safety check unremarkable. He signed a CV and also a 3 day notice at the same time. He rates depression 8/10 and anxiety 7/10, denies AVH, SI/HI and just wants to restart my meds, feel normal, and get outa here. Admission paperwork and ERIKA signed. He is familiar with and declined unit orientation as well as the Flu vaccine. Placed on q15 min checks and reports he will come to staff if he feels unsafe.?
[2023-12-27 17:37] LABS: Glucose, Whole Blood 117 mg/dL (60-115)
[2023-12-27] MEDS: metFORMIN HCl 500 MG TABLET PO (17:40)
[2023-12-27 20:00] VITALS: BP 118/63; PULSE 80; TEMP 36.4; O2SAT 97
[2023-12-27 20:49] VITALS: BP 118/63
[2023-12-27] MEDS: cloNIDine HCL 0.2 MG TABLET PO (20:49)
[2023-12-27] MEDS: risperiDONE 2 MG TABLET PO (20:51)
[2023-12-27] MEDS: Lithium Carbonate ER 450 MG TABLET.ER 900 MG PO (20:51)
[2023-12-27] MEDS: clonazePAM 1 MG TABLET PO (20:59)
[2023-12-27 23:19] LABS: Glucose, Whole Blood 121 mg/dL (60-115)
[2023-12-28 08:08] LABS: Glucose, Whole Blood 122 mg/dL (60-115)
[2023-12-28 08:20] VITALS: BP 111/72; PULSE 77; RESP 18; TEMP 36.8; O2SAT 98
[2023-12-28] MEDS: metFORMIN HCl 500 MG TABLET PO ×2 (08:30→16:21)
[2023-12-28] MEDS: Atorvastatin Calcium 20 MG TABLET PO (08:31)
[2023-12-28] MEDS: lamoTRIgine 100 MG TABLET 150 MG PO (08:31)
[2023-12-28] MEDS: Famotidine 20 MG TABLET PO ×2 (08:31→21:02)
[2023-12-28] MEDS: Escitalopram Oxalate 20 MG TABLET PO (08:32)
[2023-12-28 09:30] LABS: Cholesterol 246 mg/dL (<200); HDL Cholesterol 48 mg/dL (>40); LDL Cholesterol Calculated 155 mg/dL (<100); Magnesium 2.3 mg/dL (1.6-2.6); Triglycerides 217 mg/dL (<150)
[2023-12-28 09:31] LABS: Estimated Average Glucose 128 mg/dL; Hemoglobin A1C 170.0972 umol/L; Hemoglobin A1c % 6.1 % (<6.0); Total Hemoglobin (HGBA1C) 3978.3787 umol/L
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
[2023-12-28 09:47] LABS: Thyroid Stimulating Hormone 1.08 uIU/mL (0.32-4.0)
[2023-12-28 10:02] LABS: Folate 12.1 ng/mL (> or = 4.0); Vitamin B12 432 pg/mL (200-900)
[2023-12-28] MEDS: QUEtiapine Fumarate 50 MG TABLET PO (16:22)
[2023-12-28 19:48] VITALS: BP 123/62; PULSE 98; RESP 16; TEMP 37.3; O2SAT 98
[2023-12-28] MEDS: clonazePAM 1 MG TABLET PO (21:02)
[2023-12-28] MEDS: Lithium Carbonate ER 450 MG TABLET.ER 900 MG PO (21:02)
[2023-12-28] MEDS: cloNIDine HCL 0.2 MG TABLET PO (21:02)
[2023-12-28] MEDS: risperiDONE 2 MG TABLET PO (21:02)
[2023-12-29 08:15] VITALS: BP 123/58; PULSE 69; RESP 18; TEMP 37.1; O2SAT 95
[2023-12-29] MEDS: lamoTRIgine 100 MG TABLET 150 MG PO (08:36)
[2023-12-29] MEDS: Atorvastatin Calcium 20 MG TABLET PO (08:37)
[2023-12-29] MEDS: Famotidine 20 MG TABLET PO ×2 (08:37→21:23)
[2023-12-29] MEDS: metFORMIN HCl 500 MG TABLET PO ×2 (08:37→17:14)
[2023-12-29] MEDS: Escitalopram Oxalate 20 MG TABLET PO (08:37)
--- NOTE | 2023-12-29 10:49 | P.PNPSI_ITS ---
Subjective Subjective Date of Service: 12/29/23 Reason For Visit: bipolar disorder, cocaine use disorder, PTSD Subjective Notes: Conditional Voluntary and 3 Day Healthcare Proxy: No Guardianship: No Medical Problems Affecting Mental Status: No Interim History: Pt denies SI/HI/AH/VH I just needed to come in to get my meds again, I missed my appointment after the last admission. Discussed on 12/27 and today at length with pt the importance of meeting appointments. He reports he is not a person who likes to see people, he prefers to talk on the phone, but is aware he must attend appointments for refills. He has a supportive partner who encourages him as well. Today he has no medication questions/concerns. He reports no adverse effects from re-titration. He continues to request discharge on his TDN for 12/29. He will plan a return to his home in [place] for the . Medication Compliance: Yes Side effects from medications: No Attending Groups: No Review of Systems Acute medical concerns: No Medical Review of Systems: unchanged Review of Systems Review of Systems Denies Yes all other systems are reviewed and are negative Mental Status Exam Mental Status Exam Patient Appearance: Fatigued Patient Orientation: Person, Place, Time and Situation Level of Consciousness: Alert Patient Behavior: Talkative and Good Eye Contact Mood Description: Flat Affect Description: Flat Patient Cognition Impaired: No Ability to Follow Directions: Fair Speech Pattern: Spontaneous Speech Memory Description: Remote Impaired Hallucinations: None Delusions: Not Present Thought Process: Rumination Thought Content: positive for Perseveration and positive for Suicidal Ideation (denies SI, plan, intent) Depressive Symptoms: Thoughts of /Suicide (denies SI, plan, intent) and Difficulty Concentrating Judgement: Good Diagnostics Vital Signs (24Hr): Vital Signs - 24 hr 12/28/23 19:48 12/29/23 08:15 Temperature 99.1 F 98.7 F Pulse Rate 98 69 Respiratory Rate 16 18 Blood Pressure 123/62 123/58 L Pulse Oximetry 98 95 Oxygen Delivery Method Room Air Room Air BMI result Body Mass Index 34.7 Labs 12/26/23 16:01 12/26/23 16:01 Labs: Laboratory Results - last 48 hr 12/27/23 12/27/23 12/28/23 17:33 23:14 08:03 POC Glucose 117 H 121 H 122 H Estimat Average Glucose Hemoglobin A1c % Magnesium Triglycerides Cholesterol LDL Cholesterol, Calc HDL Cholesterol Vitamin B12 Folate TSH Free T4 12/28/23 08:36 POC Glucose Estimat Average Glucose 128 Hemoglobin A1c % 6.1 H Magnesium 2.3 Triglycerides 217 H Cholesterol 246 H LDL Cholesterol, Calc 155 H HDL Cholesterol 48 Vitamin B12 432 Folate 12.1 TSH 1.08 Free T4 0.90 Medications Medications Current Medications Acetaminophen (Acetaminophen 325 Mg Tablet) 650 mg PO Q6H PRN PRN Reason: Headache/Pain Mild Scale (1-3) Last Admin: 12/27/23 15:04 Dose: 650 mg Al Hydroxide/Mg Hydroxide (Magnesium Hydrox/Alum Hydrox 30 Ml Oral.Susp) 30 ml PO Q6H PRN PRN Reason: Heartburn/Nausea Amphetamine/Dextroamphetamine (Dextroamphetamine/Amphetamine Xr 10 Mg Cap.Er.24h) 30 mg PO DAILY PENDING SALE TO [facility] Last Admin: 12/27/23 12:05 Dose: Not Given Amphetamine/Dextroamphetamine (Dextroamphetamine/Amphetamine Xr 10 Mg Cap.Er.24h) 10 mg PO DAILY PENDING SALE TO [facility] Last Admin: 12/27/23 12:04 Dose: Not Given Amphetamine/Dextroamphetamine (Dextroamphetamine/Amphetamine Xr 10 Mg Cap.Er.24h) 20 mg PO DAILY@1200 PENDING SALE TO [facility] Last Admin: 12/27/23 12:04 Dose: Not Given Atorvastatin Calcium (Atorvastatin Calcium 20 Mg Tablet) 20 mg PO DAILY PENDING SALE TO [facility] Last Admin: 12/29/23 08:37 Dose: 20 mg Clonazepam (Clonazepam 1 Mg Tablet) 1 mg PO BEDTIME PRN PRN Reason: insomnia Last Admin: 12/28/23 21:02 Dose: 1 mg Clonidine HCl (Clonidine Hcl 0.1 Mg Tablet) 0.1 mg PO Q4H PRN; Protocol PRN Reason: anxiety Last Admin: 12/27/23 11:59 Dose: 0.1 mg Clonidine HCl (Clonidine Hcl 0.2 Mg Tablet) 0.2 mg PO BEDTIME PENDING SALE TO [facility]; Protocol Last Admin: 12/28/23 21:02 Dose: 0.2 mg Escitalopram Oxalate (Escitalopram Oxalate 20 Mg Tablet) 20 mg PO DAILY PENDING SALE TO [facility] Last Admin: 12/29/23 08:37 Dose: 20 mg Famotidine (Famotidine 20 Mg Tablet) 20 mg PO BID PENDING SALE TO [facility] Last Admin: 12/29/23 08:37 Dose: 20 mg Hydroxyzine HCl (Hydroxyzine Hcl 25 Mg Tablet) 25 mg PO Q6H PRN PRN Reason: Anxiety Lamotrigine (Lamotrigine 100 Mg Tablet) 150 mg PO DAILY PENDING SALE TO [facility] Last Admin: 12/29/23 08:36 Dose: 150 mg [place] Carbonate ([place] Carbonate Er 450 Mg Tablet.Er) 900 mg PO BEDTIME PENDING SALE TO [facility] Last Admin: 12/28/23 21:02 Dose: 900 mg Magnesium Hydroxide (Milk Of Magnesia 30 Ml Oral.Susp) 30 ml PO DAILY PRN PRN Reason: Constipation Metformin HCl (Metformin Hcl 500 Mg Tablet) 500 mg PO BIDWM PENDING SALE TO [facility] Last Admin: 12/29/23 08:37 Dose: 500 mg Nicotine (Nicotine 21 Mg Patch.Td24) 21 mg TRANSDERMA DAILY PRN PRN Reason: nicotine cravings Nicotine Polacrilex (Nicotine Polacrilex 2 Mg Gum) 4 mg BUCCAL Q2H PRN PRN Reason: Nicotine Cravings Quetiapine Fumarate (Quetiapine Fumarate 50 Mg Tablet) 50 mg PO TID PRN PRN Reason: anxiety/agitation Last Admin: 12/28/23 16:22 Dose: 50 mg Risperidone (Risperidone 2 Mg Tablet) 2 mg PO BEDTIME PENDING SALE TO [facility] Last Admin: 12/28/23 21:02 Dose: 2 mg Allergies Allergies Allergy/AdvReac Type Severity Reaction Status Date / Time trazodone [TRAZODONE] Allergy Severe SHORTNESS Verified 12/26/23 15:38 OF BREATH Assessment & Plan Assessment & Plan (1) Suicidal ideation: Status: Acute Code(s): R45.851 - Suicidal ideations (2) Bipolar 1 disorder: Status: Acute Code(s): F31.9 - Bipolar disorder, unspecified (3) Cocaine use disorder: Status: Acute Code(s): F14.10 - Cocaine abuse, uncomplicated (4) PTSD (post-traumatic stress disorder): Status: Acute Code(s): F43.10 - Post-traumatic stress disorder, unspecified (5) ADHD: Status: Acute Code(s): F90.9 - Attention-deficit hyperactivity disorder, unspecified type Plan Bipolar Disorder with SI, PTSD, ADHD, Cocaine Use Disorder, DM, HLD Plan: Admit, CV, 15 minute checks Pt has signed a three day notice of intent Collateral Contacts Medication eval and re-titration Diagnostics as needed. Discharge planning. 12/28: Denies SI/HI/AH/VH. Plans DC on TDN on 12/29. No med changes today. Reason for continued inpatient stay Substantial Risk for: rapid decompensation Time Spent With Patient Time: Total time managing care of this patient today ____ minutes.
[2023-12-29] MEDS: QUEtiapine Fumarate 50 MG TABLET PO (12:37)
[2023-12-29 20:00] VITALS: BP 124/61; PULSE 90; TEMP 36.6; O2SAT 95
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
[2023-12-29 21:23] VITALS: BP 124/61
[2023-12-29] MEDS: cloNIDine HCL 0.2 MG TABLET PO (21:23)
[2023-12-29] MEDS: risperiDONE 2 MG TABLET PO (21:24)
[2023-12-29] MEDS: Haloperidol Lactate 5 MG/ML VIAL IM (21:24)
[2023-12-29] MEDS: Lithium Carbonate ER 450 MG TABLET.ER 900 MG PO (21:24)
[2023-12-29] MEDS: diphenhydrAMINE HCL 50 MG/ML VIAL IM (21:25)
[2023-12-29] MEDS: LORazepam 2 MG/ML VIAL IM (21:25)
[2023-12-29 21:30] VITALS: BP 128/74; PULSE 119; TEMP 36.6
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
[2023-12-30 08:13] VITALS: BP 113/63; PULSE 87; TEMP 37; O2SAT 95
[2023-12-30] MEDS: metFORMIN HCl 500 MG TABLET PO (08:20)
[2023-12-30] MEDS: Escitalopram Oxalate 20 MG TABLET PO (08:20)
[2023-12-30] MEDS: lamoTRIgine 100 MG TABLET 150 MG PO (08:20)
[2023-12-30] MEDS: Atorvastatin Calcium 20 MG TABLET PO (08:20)
[2023-12-30] MEDS: Famotidine 20 MG TABLET PO (08:20)
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
== END 2023-12-30 11:09 | disposition home or self-care (01) | DRG 753 ==
LOC: HO.ED 12-27 02:07 → HO.PM5 12-27 13:38
PROVIDERS: Physician Assistant; Admitting Provider Clinical Nurse Specialist Psychiatric/Mental Health, Adult; Emergency Provider Emergency Medicine Emergency Medical Services; PCP Nurse Practitioner Family; Visit Provider Clinical Nurse Specialist Psychiatric/Mental Health, Adult
DX: F31.9 Bipolar disorder, unspecified (principal); R45.851 Suicidal ideations; E11.9 Type 2 diabetes mellitus without complications; Z91.148 Patient's other noncompliance with medication regimen for other reason; F90.9 Attention-deficit hyperactivity disorder, unspecified type; F14.10 Cocaine abuse, uncomplicated; E78.5 Hyperlipidemia, unspecified; F43.10 Post-traumatic stress disorder, unspecified; Z78.1 Physical restraint status; F19.10 Other psychoactive substance abuse, uncomplicated; Z91.51 Personal history of suicidal behavior; Z79.84 Long term (current) use of oral hypoglycemic drugs; Z79.899 Other long term (current) drug therapy
CPT/HCPCS: 36415; 80053; 80061; 80307; 81003; 82607; 82746; 82947; 83036; 83735; 84439; 84443; 85025; 85610; 85730; 93005; 99285; J1200; J1630; J2060; S9485

== ENCOUNTER → 2023-12-26 15:24 | Outpatient (BNV) | payer OTHER, SELFPAY | PROVIDERS: PCP Nurse Practitioner Family; Visit Provider Internal Medicine Cardiovascular Disease | DX: R00.0 Tachycardia, unspecified (principal) | CPT/HCPCS: 93010 ==

== ENCOUNTER → 2023-12-27 12:12 | Outpatient (BNV) | payer OTHER, SELFPAY | PROVIDERS: Admitting Provider Clinical Nurse Specialist Psychiatric/Mental Health, Adult; Emergency Provider Emergency Medicine Emergency Medical Services; PCP Nurse Practitioner Family; Visit Provider Clinical Nurse Specialist Psychiatric/Mental Health, Adult | DX: F31.9 Bipolar disorder, unspecified (principal); F14.10 Cocaine abuse, uncomplicated; R45.851 Suicidal ideations; F43.11 Post-traumatic stress disorder, acute; F90.9 Attention-deficit hyperactivity disorder, unspecified type | CPT/HCPCS: 90792; 99232; 99238; 99499 ==

== ENCOUNTER 2024-12-19 11:08 | Outpatient (AMB) | payer OTHER, SELFPAY ==
[2024-12-19 11:27] VITALS: BP 130/80; PULSE 124; RESP 16; TEMP 36.9; O2SAT 98; BMI 37.6
--- NOTE | 2024-12-19 11:27 | MHC.PC.OV ---
Vital Signs 12/19/24 11:27 Height 5 ft 5 in Weight 226 lb BMI 37.6 BP 130/80 Blood Pressure Location Lt brachial Position Sitting Respiration 16 Pulse 124 H Pulse Source Pulse Oximeter Temp 98.5 F Temp Source Oral Pulse Oximetry (%) 98 Oxygen Delivery Method Room Air Intake Visit Reasons: DM follow up Blood Bank Coordinator Required: No Accompanied by: Self / Same As Patient Allergies trazodone (TRAZODONE) Allergy (Severe, Verified 12/19/24 11:28) SHORTNESS OF BREATH Medication List - Last Reconciled 12/19/24 by Ashish Rachel, PLANER SETUP OPERATOR- atorvastatin 20 mg PO DAILY 30 days clonazepam 1 mg PO BEDTIME PRN 30 days clonazepam (Klonopin) 1 mg PO BEDTIME PRN clonidine HCl 0.1 mg PO TID PRN clonidine HCl 0.2 mg See Protocol PO BEDTIME 30 days dextroamphetamine-amphetamine 10 mg ER 1 cap PO QAM 30 days dextroamphetamine-amphetamine 20 mg ER 1 cap PO DAILY@1200 30 days dextroamphetamine-amphetamine 30 mg ER (Adderall XR) 30 mg PO DAILY 30 days escitalopram oxalate (Lexapro) 20 mg PO DAILY famotidine 20 mg PO BID hydroxyzine HCl 25 mg PO QID PRN lamotrigine 150 mg PO DAILY 30 days lithium carbonate ER 900 mg (2 x 450 mg) PO BEDTIME 30 days metformin 500 mg PO BID quetiapine (Seroquel) 50 mg PO TID PRN risperidone (Risperdal) 2 mg PO BEDTIME sildenafil 25 mg PO DAILY PRN Tobacco use date assessed: 12/19/24 Dental Screening Dental Screen Date: 12/19/24 Did you have a dental visit in the last 12 months?: No Did you have a dental problem in the last 6 months where you did not have access to dental care?: No Was dental information given to patient?: Patient declined HPI DM follow up HPI Details Chief Complaint The patient presents for follow-up for diabetes management. History of Present Illness The patient is a 49-year-old male presenting for a follow-up for diabetes. His A1c is 6.7, but he is not checking his blood glucose levels often, although he knows how to perform the test. He was previously referred for an eye exam but did not go. He denies any symptoms of neuropathy. The patient also reports intermittent chest discomfort that can occur with or without activity. A few months ago, he had an episode where the discomfort radiated down his left arm while he was sitting still. He has a history of a stress test and an echocardiogram in the past. The patient is obese and has been gaining weight, which is thought to be related to his diet and psychiatric medications, including Adderall. He has a history of cocaine use but reports he has not used it in over a year and a half. He has a scabbed rash on his shins and reports that using an antifungal cream helped with the itching. Social History - Substance Use: Has a history of cocaine use but reports it has been over a year and a half since he last used. - Diet: His diet is considered a contributing factor to his recent weight gain. Health Maintenance - Glucose Monitoring: The patient is not checking his blood sugar often; the importance of tight glucose control was reinforced. - Diabetic Eye Exam: A previous referral was not completed by the patient; another referral will be placed for him. Review of Systems - Cardiovascular: Reports intermittent chest discomfort which can occur with activity or at rest and has previously radiated down the left arm. - Denies active chest pain. - Neurological: Denies neuropathy. - Dermatologic: Reports an itchy, scabbed rash on the anterior aspect of his shins. - Constitutional: Reports gaining weight. Physical Exam General: Cooperative, healthy appearing, comfortable, no acute distress and well developed Orientation: Patient oriented x3 Limitations: No limitations Head: Normal to inspection Ears: Hearing grossly normal bilaterally Nose: Normal external nose present Face and sinus: Normal facial exam Eyes: Appearance normal, both eyes and all related structures Neck: Normal visual inspection and Yes full ROM Respiratory: Normal respiratory effort and able to speak in complete sentences. Clear to auscultation bilaterally Cardiovascular: Tachycardic, but likely related to nerves and Adderall use. Regular rate and rhythm. Normal S1 and S2 GI: Normal to inspection. Soft to palpation and nontender Skin: Scabbed out rash to the anterior aspect of shins, more macular, somewhat papular, dry appearing, faintly erythematous bilaterally Neuro: Patient oriented x3 Extremities: Feet intact bilaterally, positive sensation with use of monofilament. Normal to inspection Results - Labs: Hemoglobin A1c is 6.7%. Plan 1. Diabetes Mellitus The patient's A1c is 6.7, but he is not checking his sugars often. The importance of tight glucose control was reinforced. A new referral for an eye exam will be submitted as he did not attend the one referred previously. He denies neuropathy, and a monofilament exam showed intact sensation in his feet. 2. Chest Discomfort The patient reports intermittent chest discomfort, at times with radiation to the left arm. A stress test and echocardiogram, which have been done in the past, will be repeated. The patient has been instructed to go to the ER for any worsening symptoms. 3. Obesity And Weight Gain The patient is obese and is continuing to gain weight, which is suspected to be related to his diet and psychiatric medications. Monitoring of weight will continue. 4. Rash On Lower Extremities He has a macular and papular dry rash on his anterior shins, for which he has been using an antifungal with some relief of itching. A combination cream of betamethasone and clotrimazole will be prescribed. 5. Tachycardia The patient was tachycardic during the visit, which is thought to be related to nervousness and his Adderall prescription. A beta-norma will be considered in the future, pending the results of further cardiac testing. Discussion Notes I saw the patient for a follow-up visit for his diabetes. We discussed his A1c of 6.7 and reinforced the importance of regular blood sugar monitoring. I am placing a new referral for a diabetic eye exam, as he did not follow up on the last one. We also addressed his intermittent chest discomfort, and given his history of cocaine use, I am ordering a repeat stress test and echocardiogram. He was advised to go to the emergency room for any worsening of these symptoms. For the rash on his shins, I will prescribe a combination betamethasone-clotrimazole cream. We will await the cardiac testing results before considering a beta-norma for his tachycardia, which may be related to his Adderall use. Patient Instructions - Please check your blood sugar levels regularly. - Go to the emergency room if you experience any worsening chest discomfort. - We are ordering a new stress test and an echo for you. - Please get the eye exam that we have referred you for. - Apply the prescribed cream with betamethasone and clotrimazole to the rash on your shins. [facility] Medical History ADHD Cocaine use disorder PTSD (post-traumatic stress disorder) Substance abuse Bleeding hemorrhoids GERD (gastroesophageal reflux disease) Iron deficiency anemia due to chronic blood loss Diverticulosis Hemorrhoids, internal, with bleeding Bipolar 2 disorder, major depressive episode Moderate cocaine use disorder in controlled environment ADHD Bipolar 1 disorder Depression Surgical History H/O hemorrhoidectomy History of esophagogastroduodenoscopy (EGD) Hx of colonoscopy No pertinent past surgical history Family History Father No problems noted. Mother No problems noted. Maternal Grandmother Colon cancer Daughter No problems noted. Social History Household Members: Significant Other and Family Household Members Other:: GIRLFRIEND Housing: House Do you presently have visiting nurse or other home services: No Alcohol intake: current Alcohol intake frequency: does not drink Comment: in bed, appears to be asleep Patient Tobacco Use Status: Never used Tobacco Tobacco use type: Cigar Cigarette Packs Per Day: 0 Cigarettes Per Day: 3 Years Smoked: 10 e-Cigarette/Vaping Use: Never Used Second Hand Smoke Exposure: No Substance Use Type: Crack/Cocaine and Marijuana service: No Current occupational status: employed Current occupation: [employer] Current occupational exposures/hazards: No Sexual orientation: Straight/Heterosexual Cognitive needs: No Hearing needs: No Vision needs: No Questionnaire PHQ-9 Over the last 2 weeks, how often have you been bothered by any of the following problems? 1. Little interest or pleasure in doing things: not at all 2. Feeling down, depressed, or hopeless: not at all 3. Trouble falling or staying asleep, or sleeping too much: not at all 4. Feeling tired or having little energy: not at all 5. Poor appetite or overeating: not at all 6. Feeling bad about yourself - or that you are a failure or have let yourself or your family down: not at all 7. Trouble concentrating on things, such as reading the newspaper or watching television: not at all 8. Moving or speaking so slowly that other people could have noticed. Or the opposite - being so fidgety or restless that you have been moving around a lot more than usual: not at all 9. Thoughts that you would be better off or of hurting yourself in some way: not at all Total score: 0 Depression Screening Interpretation: Negative Depression Screening Done: Yes 21071 - PHQ-9 Billing: Yes Source: Developed by Drs. Jared Burgos, Viridiana Jackman, Humphrey Tello and colleagues, with an educational ok from [employer]. Thrive Questionnaire Date Thrive assessed: 08/31/23 I am a: Patient What is your living situation today?: I choose not to answer this question Within the past 12 months, did the food you bought not last and you didn't have the money to get more?: I choose not to answer this question Within the past 12 months, did you worry whether your food would run out before you got money to buy more?: I choose not to answer this question Do you have trouble paying for medicines?: I choose not to answer this question Do you have trouble getting transportation to medical appointments?: I choose not to answer this question Do you have trouble paying your heating and electricity bill?: I choose not to answer this question Do you have trouble taking care of your child, family member or friend?: I choose not to answer this question Do you have trouble with day-to-day activities such as bathing, preparing meals, shopping, managing finances, etc.?: I choose not to answer this question Are you currently unemployed and looking for a job?: I choose not to answer this question Are you interested in more education?: I choose not to answer this question Please select the resources that you would like help with: None Currently or been in a relationship where the following occur: I choose not to answer THRIVE Score: 0 GAETANO-7 AMB Questionnaire GAETANO-7 Date GAETANO - 7 assessed: 12/19/24 Feeling nervous, anxious, or on edge: 0 = Not at all Not being able to stop or control worryin = Not at all Worrying too much about different things: 0 = Not at all Trouble relaxin = Not at all Being so restless that it is hard to sit still: 0 = Not at all Becoming easily annoyed or irritable: 0 = Not at all Feeling afraid as if something awful might happen: 0 = Not at all Total GAETANO-7 score (0-4 normal; 5-9 mild; 10-14 moderate; 15-21 severe): 0 Source: Developed by Drs. Jared Burgos, Viridiana Jackman, Humphrey Tello and colleagues, with an educational ok from [employer]. GAETANO-7 Assessment Billing GAETANO-7 Assessment Tool: GAETANO-7 Assessment 06874 Physical exam (Primary Care) Vital Signs: Last Vital Signs Temp 98.5 F 12/19/24 11:27 Pulse 124 H 12/19/24 11:27 Resp 16 12/19/24 11:27 BP 130/80 12/19/24 11:27 Pulse Ox 98 12/19/24 11:27 Oxygen Delivery Method Room Air 12/19/24 11:27 BMI result Body Mass Index 37.6 Tobacco/Smoking Status: Tobacco use Status Tobacco use date assessed 12/19/24 12/19/24 11:34 Patient Tobacco Use Status Never used Tobacco 12/19/24 11:34 Tobacco use type Cigar 12/19/24 11:34 e-Cigarette/Vaping Use Never Used 12/19/24 11:34 PHQ-9: PHQ-9 Score PHQ-9: Total score 0 12/19/24 12:22 Depression Screening Interpretation: Negative Thrive Assessment: Date of Thrive Assessment Date Thrive assessed 08/31/23 12/19/24 11:34 Currently or been in a relationship where the following occur: I choose not to answer Office Procedures Flu Questionnaire Does the patient have a severe egg allergy?: No Does the patient have severe life threatening allergies?: No Does the patient have a fever or illness today?: No Has the patient ever had Guillain-Ryder Syndrome?: No Has the patient ever had any past reaction to a flu shot?: No Results AMB Hemoglobin A1c AMB Hemoglobin A1c 6.7 % Last Edit by Katie Graham MA on 12/19/24 11:41 Immunizations Fluarix [id number] (PF) 45 mcg (15 mcg x 3)/0.5 mL IM syringe Performing Provider: VEA Arnold Performing Location: [facility] [place] [facility] Administered by: Katie Graham MA on 12/19/24 11:39 Dose Route Admin Location Dispensed Lot Number Expiration Date ND Embedded Developer 0.5 mL IM Left Deltoid 0.5 mL [id number] 08/06/25 52886-374-77 [employer] time[employer] VIS Given Date VIS Provided VIS Publication Date 12/19/24 Single Vaccine 24 Eligibility Eligibility Date Funding Source Not VFC Eligible 12/19/24 Private pneumoc 20-pawel conj-dip cr(PF) 0.5 mL IM syringe Performing Provider: EVA Arnold Performing Location: [facility] [place] [facility] Administered by: Vel Hall CMA on 12/19/24 12:22 Dose Route Admin Location Dispensed Lot Number Expiration Date ND Embedded Developer 0.5 mL IM Right Deltoid 0.5 mL [id number] 10/27/25 3957-4424-91 [employer] Total Dispensed Waste 0.5 mL 0 % VIS Given Date VIS Provided VIS Publication Date 12/19/24 Single Vaccine 24 Eligibility Eligibility Date Funding Source Not VFC Eligible 12/19/24 Private Results Reviewed Results Reviewed: Laboratory Last Values Hgb A1c (Clinic) 6.7 % (4.0-6.0) H 12/19/24 11:35 Coding Level of Care Code Est Pt Level 4 (13581) Diagnoses Diabetes E11.9 Screening for prostate cancer Z12.5 Chest pain R07.9 SOB (shortness of breath) R06.02 Additional Codes GAETANO-7 Assessment Billing - GAETANO-7 Assessment Tool: GAETANO-7 Assessment 55000 ([id number]) PHQ-9 - 67340 - PHQ-9 Billing: Yes ([id number]) Assessment & Plan Assessment & Plan (1) Diabetes: Code(s): E11.9 - Type 2 diabetes mellitus without complications Category: Medical (2) Screening for prostate cancer: Code(s): Z12.5 - Encounter for screening for malignant neoplasm of prostate Category: Medical (3) Chest pain: Code(s): R07.9 - Chest pain, unspecified Category: Medical (4) SOB (shortness of breath): Code(s): R06.02 - Shortness of breath Category: Medical (5) SOB (shortness of breath): Code(s): R06.02 - Shortness of breath Category: Medical Plan . Orders: Orders AMB Hemoglobin A1c Today E11.9 - Type 2 diabetes mellitus without complications Influenza [id number] Immunization Today Z23 - Encounter for immunization Complete Blood Count Auto Diff Today E11.9 - Type 2 diabetes mellitus without complications TSH reflex Free T4 Today E11.9 - Type 2 diabetes mellitus without complications Microalbumin, Random (w Creat) Today E11.9 - Type 2 diabetes mellitus without complications NM cardiolite stress test Today R07.9 - Chest pain, unspecified XR chest 2V Today R06.02 - Shortness of breath Comprehensive [place]. Panel Fast Today E11.9 - Type 2 diabetes mellitus without complications UA CC w/rflx Micro + Cult Today E11.9 - Type 2 diabetes mellitus without complications Lipid Panel Today E11.9 - Type 2 diabetes mellitus without complications Prostate Specific Antigen Scr Today Z12.5 - Encounter for screening for malignant neoplasm of prostate CA echo transthoracic complete Today R07.9 - Chest pain, unspecified CA stress test Today R07.9 - Chest pain, unspecified PFT pulmonary function test Today R06.02 - Shortness of breath Pneumococcal 20 Immunization Today Z23 - Encounter for immunization Referrals Ophthalmology Referral E11.9 - Type 2 diabetes mellitus without complications Medications: New clotrimazole-betamethasone 1-0.05 % 1 appl topical BID 45 grams 1RF 2 weeks
== END 2024-12-19 12:50 | disposition home or self-care (01) ==
PROVIDERS: PCP Nurse Practitioner Family; Visit Provider Nurse Practitioner Family
DX: E11.9 Type 2 diabetes mellitus without complications (principal); Z12.5 Encounter for screening for malignant neoplasm of prostate; R07.9 Chest pain, unspecified; R06.02 Shortness of breath; Z23 Encounter for immunization

== ENCOUNTER → 2024-12-19 11:08 | Outpatient (BNVA) | payer OTHER, SELFPAY | PROVIDERS: PCP Nurse Practitioner Family; Visit Provider Nurse Practitioner Family | DX: E11.9 Type 2 diabetes mellitus without complications (principal); E66.9 Obesity, unspecified; R21 Rash and other nonspecific skin eruption; R07.9 Chest pain, unspecified; R00.0 Tachycardia, unspecified; R06.02 Shortness of breath; Z23 Encounter for immunization; Z68.37 Body mass index [BMI] 37.0-37.9, adult | CPT/HCPCS: 83036; 90471; 90472; 90656; 90677; 96127; 99212 ==

== ENCOUNTER 2024-12-31 08:00 | Outpatient (REF) | payer OTHER, SELFPAY ==
--- NOTE | ~2024-12-31 | XR_ITS ---
EXAMINATION: XR CHEST 2 VIEWS HISTORY: R06.02 - Shortness of breath COMPARISON: Comparison is made with the prior examination dated 10/17/2023. FINDINGS: PA and lateral views of the chest are submitted. Again seen is a calcified granuloma at the right lung apex. The remainder of the lungs are clear. There is no pleural effusion, pneumothorax, or pulmonary vascular congestion. The heart is normal in size. There is degenerative disc disease of the spine. XR/XR chest 2V IMPRESSION: No acute cardiopulmonary abnormality. Electronically signed by: Jared Anderson MD 12/31/2024 08:46 AM [facility]
[2024-12-31 10:00] LABS: MANUAL DIFF FLAG NO
[2024-12-31 10:18] LABS: Hematocrit 41.3 % (42.0-52.0); Hemoglobin 13.2 g/dl (14.0-18.0); Imm Gran Abs Auto 0.03 X10*3/uL (0.00-0.03); Imm Gran Pct Auto 0.3 % (0.0-0.4); Lymphocytes Absolute Auto 3.1 X10*3/uL (1.2-4.9); Mean Corpuscular HGB Conc 32.0 g/dl (31.0-36.0); Mean Corpuscular Hemoglobin 27.9 pg (27.0-33.0); Mean Corpuscular Volume 87.3 fL (80.0-98.0); NRBC Abs Auto 0.000 X10*3/uL (0.0-0.012); NRBC Pct Auto 0.0 /100WBC (0.0-0.2); Platelet Count 298 X10*3/uL (160-400); Red Blood Count 4.73 X10*6/uL (4.60-5.80); White Blood Count 8.9 X10*3/uL (4.8-10.8)
[2024-12-31 10:19] LABS: Appearance Urine Clear; Glucose Urine UA Negative (Negative); PH 5.5 (5.0-9.0); Specific Gravity - Urine 1.015 (1.005-1.025)
[2024-12-31 10:33] LABS: Alanine Aminotransferase 35 U/L (0-40); Albumin Level 4.6 g/dL (3.5-5.0); Alkaline Phosphatase 107 U/L (39-117); Anion Gap 11 (12-20); Aspartate Amino Transferase 36 U/L (5-37); Blood Urea Nitrogen 15 mg/dL (9-16); Calcium 9.6 mg/dL (8.4-10.2); Carbon Dioxide 26 mmol/L (22-29); Chloride 108 mmol/L (96-108); Cholesterol 286 mg/dL (<200); Estimated Glomerular Filt Rate > 60; HDL Cholesterol 41 mg/dL (>40); Potassium 4.2 mmol/L (3.3-5.1); Sodium 141 mmol/L (135-145); Total Protein 7.4 g/dL (6.5-8.0); Triglycerides 355 mg/dL (<150)
[2024-12-31 11:09] LABS: Microalbum/Creatinine Ratio Ur 3.7 ug/mg cr (<30)
== END 2024-12-31 08:01 | disposition home or self-care (01) ==
LOC: HO.HMGCX 08:00
PROVIDERS: PCP Nurse Practitioner Family; Visit Provider Nurse Practitioner Family
DX: E11.9 Type 2 diabetes mellitus without complications (principal); Z12.5 Encounter for screening for malignant neoplasm of prostate; R06.02 Shortness of breath
CPT/HCPCS: 36415; 71046; 80053; 80061; 81003; 82043; 82570; 84153; 84443; 85025

== ENCOUNTER → 2024-12-31 08:35 | Outpatient (BNV) | payer OTHER, SELFPAY | PROVIDERS: PCP Nurse Practitioner Family; Visit Provider Radiology Diagnostic Radiology | DX: R06.02 Shortness of breath (principal) | CPT/HCPCS: 71046 ==